=== PATIENT | male | born 1935 | race Caucasian/White ===

== ENCOUNTER 2022-02-17 23:52 | Inpatient (IN) | payer OTHER ==
--- OUTSIDE RECORDS SUMMARY | 2022-02-18 00:15 | XMS REPORT | Continuity of Care Document ---
:1935 Author Organization [facility] t Address [address] [place] [address] Care Team Providers Name Role Phone Keyona Brown MD Primary Care Physician [phone] Attending Clinician Unavailable Michael Barakat MD Attending Clinician Mahamed Stone MD Attending Clinician ANTOLIN BRUMFIELD Attending Clinician Unavailable Antolin Almanza S Attending Clinician Benny PONCE, Smiley Attending Clinician Jazlyn Sylvester Attending Clinician MICHAEL BARAKAT Attending Clinician Unavailable MICHAEL BARAKAT Attending Clinician Unavailable MAHAMED STONE Attending Clinician Unavailable Keyona Brown MD Attending Clinician [phone] Doctor Unassigned, [place] Attending Clinician Unavailable KEYONA BROWN Attending Clinician Unavailable Stella HOWE, Win José Attending Clinician Unavailable Drew Sidhu Attending Clinician Estella PINEDO, Isabel Nelson Attending Clinician [phone] Maxwell Braxton MD Attending Clinician [facility] Attending Clinician 2, [facility] Attending Clinician Unavailable Adelfo Hough DO Attending Clinician Tech, [facility] Cardio Fac Attending Clinician Unavailable 1, [facility] Cardio Fac Room Attending Clinician Unavailable Mario PINEDO, Donnie Cabral Attending Clinician [id number] Admitting Clinician Unavailable JENNIFER CHU Admitting Clinician Unavailable Estella PINEDO, Isabel Nelson Admitting Clinician [phone] Payers Payer Name Policy Type Policy Number Effective Date Expiration Date S beau MCR MCR [id number] AET AET [id number] MEDICARE PART A [id number] 1999 \\T\\ B 00:00:00 [employer] INDEMNITY [id number] 1462-01-01 00:00:00 Problems Condition Condition Condition Status Onset Resolution Last Treating Co mments Source Name Details Category Date Date Treatment Clinician Date AMS AMS Disease Active Univers (altered (altered 3-29 ity of mental mental 00:00: [place] status) status) 00 Medical Branch Delirium Delirium Disease Active Unive rs 3-26 ity of 00:00: [place] 00 Medical Branch Confusion Confusion Disease Active Uni vers 3-26 ity of 00:00: [place] 00 Medical Branch 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' 3-25 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 00:[place] without without 00 Medical behavioral behavioral Br anch disturbanc disturbanc e e At risk At risk Disease Active Univers for weight for weight 3-25 it y of loss loss 00:00: [place] 00 Medical Branch Abnormal Abnormal Disease Active Unive rs BUN-to-cre BUN-to-cre 7-20 it y of atinine atinine 00:00: [place] ratio ratio 00 Medical Branch Gout of Gout of Disease Active 2019- Univers both feet both feet 7-10 ity of 00:00: [place] 00 Medical Branch Rash of Rash of Disease Active Univers perineum perineum 7-10 ity of 00:00: [place] 00 Medical Branch Candidiasi Candidiasi Disease Active 2019- U nivers s of s of 7-10 ity of urogenital urogenital [place] sites sites 00 [place] Dyspnea on Dyspnea on Disease Active 2018-06 U nivers exertion exertion 2-23 ity of 00:00: [place] 00 Medical Branch Evaluation Evaluation Disease Active 2018-06 U nivers of hearing of hearing 1-23 it [place] of impairment impairment [place] Puncture Puncture Disease Active 2018-06 Unive rs wound wound 1-23 ity of 00:00: [place] 00 Medical Branch Intermitte Intermitte Disease Active 2018-06 U nivers nt nt - it[place] of confusion confusion [place] Forgetfuln Forgetfuln Disease Active 2018-06 U nivers ess ess -22 ity of 00:00: [place] [address] Medical Branch Confusion Confusion Disease Active 2018-06 Uni vers - ity of 00:00: [place] [address] Medical Branch Cat bite, Cat bite, Disease Active 2018-06 Uni vers initial initial 1-19 ity of encounter [facility] Heart Heart Disease Active 2018-06 Univers murmur murmur -19 ity of 00:00: [place] [address] Medical Branch Hyperlipid Hyperlipid Disease Active 2018-06 U nivers emia, emia, 1-19 ity of unspecifie unspecifie [place] 00 Medical hyperlipid hyperlipid Br anch emia type emia type 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 1-19 ity of 00:00: [place] [address] Medical Branch Gout, Gout, Disease Active 2016-06 Univers unspecifie unspecifie 2-22 it y of d cause, d cause, 00:00: [place] unspecifie unspecifie 00 Me dical d d Branch chronicity chronicity , , unspecifie unspecifie d site d site Abdominal Abdominal Disease Active 2016-06 Uni vers pain, pain, 2-22 ity of right right 00:00: [facility] 00 [facility] quadrant quadrant Branch 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 8-25 it y of sterolemia sterolemia [place] Essential Essential Disease Active Uni vers hypertensi hypertensi 8-25 it y of on, benign on, benign 00:[place] Arthritis Arthritis Disease Active Uni vers of both of both 3-31 ity of knees knees 00:00: [place] 00 Medical Branch Lateral Lateral Disease Active Univers epicondyli epicondyli 08-29 it y of tis of tis of 00:00: [place] right right 00 Medical elbow elbow Branch Allergies, Adverse Reactions, Alerts Allergy Allergy Status Severity Reaction(s) Onset Inactive Treating Comm ents Source Name Type Date Date Clinician NITROGLY DRUG Active N/V Univers CERIN INGREDI 08-27 ity of 00:00: [place] 00 Medical Branch Nitrogly Propensi Active Nausea Univer s cerin ty to and/or 08-27 ity of adverse Vomiting 00:00: [place] reaction Medical s Branch Social History Social Habit Start Date Stop Date Quantity Comments Source History [facility] o f Alcohol Std Drinks [facility] History [facility] University o f Alcohol Binge [facility] al Branch Exposure to 2021-09-17 2021-09-27 Not sure [facility] SARS-CoV-2 (event) 00:00:00 22:13:00 [facility] Alcohol intake 2021-09-27 2021-09-27 .43 /d University of 00:00:00 00:00:00 [facility] Cigarettes smoked 2015-11-09 2015-11-09 Univers ity of current (pack per 00:00:00 00:00:00 [facility]) - Reported Branch Cigarette 2015-11-09 2015-11-09 University of pack-years 00:00:00 00:00:00 [facility] Tobacco use and 2015-11-09 2015-11-09 Former smokeless Uni versity of exposure 00:00:00 00:00:00 [facility] [place] Alcohol Comment 2015-11-09 2015-11-09 once a week Universi ty of 00:00:00 00:00:00 [facility] History of tobacco 1986-11-08 Chews Tobacco Uni versity of use 00:00:00 [facility] Sex [birth year] Universit y of 00:00:00 00:00:00 [facility] Smoking Status Start Date Stop Date Source Ex-smoker 2015-11-09 00:00:00 2015-11-09 00:00:00 [facility] ty of [place] [facility] Medications Ordered Filled Start Stop Current Ordering Indication Dosage Frequency Signature Comments Components Source Medication Medication Date Date Medication? Clinician (SIG) Name Name DIVALPROEX 2021-0 Yes 125mg TAKE 1 Univ ers 125 mg EC 8-29 TABLET BY ity o f tablet 00:00: MOUTH IN [place] 00 THE Medical MORNING Branch AND 1 TABLET IN THE EVENING. divalproex 2021-0 Yes 125mg Take 1 Univ ers 125 mg EC 8-04 tablet by ity o f tablet 00:00: mouth in [place] 00 the Medical morning Branch and 1 tablet in the evening. divalproex 2021-0 2022- No 125mg Take 1 Uni vers 125 mg EC 8-04 08- tablet by ity of tablet 00:00: 00:00 mouth in [place] 00 :00 the Medical morning Branch and 1 tablet in the evening. MEMANTINE 0 Yes [id number] TAKE 1 Un lonnie 10 mg 4-21 TABLET BY ity of tablet 00:00: MOUTH [place] 00 TWICE A Medical DAY Branch MEMANTINE 2021-0 Yes [id number] TAKE 1 Un [place] 10 mg 4-21 TABLET BY ity of tablet 00:00: MOUTH [place] 00 TWICE A Medical DAY Branch MEMANTINE 2021-0 Yes [id number] TAKE 1 Un [place] 10 mg 4-21 TABLET BY ity of tablet 00:00: MOUTH [place] 00 TWICE A Medical DAY Branch MEMANTINE 2021-0 Yes [id number] TAKE 1 Un [place] 10 mg 4-21 TABLET BY ity of tablet 00:00: MOUTH [place] 00 TWICE A Medical DAY Branch MEMANTINE 2021-0 Yes [id number] TAKE 1 Un [place] 10 mg 4-21 TABLET BY ity of tablet 00:00: MOUTH [place] 00 TWICE A Medical DAY Branch MEMANTINE 2021-0 Yes [id number] TAKE 1 Un [place] 10 mg 4-21 TABLET BY ity of tablet 00:00: MOUTH [place] 00 TWICE A Medical DAY Branch ATORVASTATI 2021-0 Yes [id number] TAKE 1 Univers N 20 mg 4-11 TABLET BY ity of tablet 00:00: MOUTH [place] 00 EVERY DAY Medical Branch ATORVASTATI 2021-0 Yes [id number] TAKE 1 Univers N 20 mg 4-11 TABLET BY ity of tablet 00:00: MOUTH [place] 00 EVERY DAY Medical Branch ATORVASTATI 2021-0 Yes [id number] TAKE 1 Univers N 20 mg 4-11 TABLET BY ity of tablet 00:00: MOUTH [place] EVERY DAY Medical Branch ATORVASTATI 2021-0 Yes [id number] TAKE 1 Univers N 20 mg 4-11 TABLET BY ity of tablet 00:00: MOUTH EVERY DAY Medical Branch ATORVASTATI 2021-0 Yes [id number] TAKE 1 Univers N 20 mg 4-11 TABLET BY ity of tablet 00:00: MOUTH EVERY DAY Medical Branch ATORVASTA 2021-0 Yes [id number] TAKE 1 Univers N 20 mg 4-11 TABLET BY ity of tablet 00:00: MOUTH EVERY DAY Medical Branch ATORVASTATI 0 Yes [id number] TAKE 1 Univers N 20 mg 4-11 TABLET BY ity of tablet 00:00: MOUTH EVERY DAY Medical Branch ALLOPURINOL 2020-06 Yes [id number] TAKE 1 Univers 100 mg 2-28 TABLET BY ity of tablet 00:00: MOUTH EVERYDAY Medical AT [facility] ALLOPURINOL 2020-06 Yes [id number] TAKE 1 Univers 100 mg 2-28 TABLET BY ity of tablet 00:00: MOUTH EVERYDAY Medical AT [facility] ALLOPURINOL 2020- Yes TAKE 1 Univers 100 mg 2-28 TABLET BY ity of tablet 00:00: MOUTH 00 EVERYDAY Medical AT [facility] ALLOPURINOL 2020- Yes TAKE 1 Univers 100 mg 2-28 TABLET BY ity of tablet 00:00: MOUTH 00 EVERYDAY Medical AT [facility] ALLOPURINOL 2020- Yes TAKE 1 Univers 100 mg 2-28 TABLET BY ity of tablet 00:00: MOUTH 00 EVERYDAY Medical AT [facility] ALLOPURINOL 2020- Yes TAKE 1 Univers 100 mg 2-28 TABLET BY ity of tablet 00:00: MOUTH 00 EVERYDAY Medical AT [facility] ALLOPURINOL 2020- Yes TAKE 1 Univers 100 mg 2-28 TABLET BY ity of tablet 00:00: MOUTH 00 EVERYDAY Medical AT [facility] ALLOPURINOL 2020- Yes TAKE 1 Univers 100 mg 2-28 TABLET BY ity of tablet 00:00: MOUTH 00 EVERYDAY Medical AT [facility] ALLOPURINOL 2020- Yes TAKE 1 Univers 100 mg 2-28 TABLET BY ity of tablet 00:00: MOUTH 00 EVERYDAY Medical AT BEDTIME Branch ALLOPURINOL 2020-06 Yes [id number] TAKE 1 Univers 100 mg 2-28 TABLET BY ity of tablet 00:00: MOUTH 00 EVERYDAY Medical AT BEDTIME Branch GALANTAMINE 2020-06 Yes [id number] TAKE 1 Univers 8 mg tablet 2-20 TABLET BY ity of 00:00: MOUTH TWICE A Medical DAY Branch GALANTAMINE 2020-06 Yes [id number] TAKE 1 Univers 8 mg tablet 2-20 TABLET BY ity of 00:00: MOUTH TWICE A Medical DAY Branch GALANTAMINE 2020-06 Yes [id number] TAKE 1 Univers 8 mg tablet 2-20 TABLET BY ity of 00:00: MOUTH TWICE A Medical DAY Branch GALANTAMINE 2020-06 Yes [id number] TAKE 1 Univers 8 mg tablet 2-20 TABLET BY ity of 00:00: TWICE A Medical DAY Branch GALANTAMINE 2020-06 Yes [id number] TAKE 1 Univers 8 mg tablet 2-20 TABLET BY ity of 00:00: TWICE A Medical DAY Branch GALANTAMINE 2020-06 Yes [id number] TAKE 1 Univers 8 mg tablet 2-20 TABLET BY ity of 00:00: MOUTH TWICE A Medical DAY Branch GALANTAMINE 2020-06 Yes [id number] TAKE 1 Univers 8 mg tablet 2-20 TABLET BY ity of 00:00: TWICE A Medical DAY Branch GALANTAMINE 2020-06 Yes [id number] TAKE 1 Univers 8 mg tablet 2-20 TABLET BY ity of 00:00: TWICE A Medical DAY Branch GALANTAMINE 2020-06 Yes [id number] TAKE 1 Univers 8 mg tablet 2-20 TABLET BY ity of 00:00: MOUTH TWICE A Medical DAY Branch GALANTAMINE 2020-06 Yes [id number] TAKE 1 Univers 8 mg tablet 2-20 TABLET BY ity of 00:00: MOUTH TWICE A Medical DAY Branch GALANTAMINE 2020-06 Yes [id number] TAKE 1 Univers 8 mg tablet 2-20 TABLET BY ity of 00:00: MOUTH TWICE A Medical DAY Branch memantine 2020-06 Yes [id number] 10mg Take 1 Un lonnie 10 mg 0-28 tablet by ity of tablet 00:00: mouth (two) Medical times Branch daily. memantine 2020-06 Yes [id number] 10mg Take 1 Un [place] 10 mg 0-28 tablet by ity of tablet 00:00: mouth 2 (two) Medical times Branch daily. memantine 2020-06 Yes [id number] 10mg Take 1 Un [place] 10 mg 0-28 tablet by ity of tablet 00:00: mouth 2 (two) Medical times Branch daily. memantine 2020-06 Yes [id number] 10mg Take 1 Un [place] 10 mg 0-28 tablet by ity of tablet 00:00: mouth 2 (two) Medical times Branch daily. memantine 2020-06 Yes [id number] 10mg Take 1 Un [place] 10 mg 0-28 tablet by ity of tablet 00:00: mouth [place] (two) Medical times Branch daily. memantine 2020-06 Yes [id number] 10mg Take 1 Un [place] 10 mg 0-28 tablet by ity of tablet 00:00: mouth [place] (two) Medical times Branch daily. memantine 2020-06 Yes [id number] 10mg Take 1 [place] 10 mg 0-28 tablet by ity of tablet 00:00: mouth [place] (two) Medical times Branch daily. memantine 2020-06 Yes [id number] 10mg Take 1 [place] 10 mg 0-28 tablet by ity of tablet 00:00: mouth 2 [place] (two) Medical times Branch daily. memantine 2020-06- No [id number] 10mg Take 1 U nivers 10 mg 0-28 04-21 tablet by ity of tablet 00:00: 00:00 mouth 2 [place] 00 :00 (two) Medical times Branch daily. MEMANTINE 2020-06 Yes [id number] TAKE BY U nivers tablet pack 0-25 MOUTH ity of 00:00: SEE-INSTRU 00 CTIONS. 5 Medical MG/DAY FOR Branch =1 WEEK 5 MG TWICE DAILY FOR =1 WEEK 15 MG/DAY GIVEN IN 5 MG AND 10 MG DOSES FOR =1 WEEK THEN 10 MG TWICE DAILY MEMANTINE 2020-06- No [id number] TAKE BY Univers tablet pack 0-25 10-28 MOUTH ity of 00:00: 00:00 SEE-INSTRU [place] 00 :00 CTIONS. 5 Medical MG/DAY FOR Branch =1 WEEK 5 MG TWICE DAILY FOR =1 WEEK 15 MG/DAY GIVEN IN 5 MG AND 10 MG DOSES FOR =1 WEEK THEN 10 MG TWICE DAILY galantamine 2020-0 Yes [id number] 8mg Take 1 Univers 8 mg tablet 9-24 tablet by ity of 00:00: mouth (two) Medical times Branch daily. memantine 2020-0 Yes [id number] Take by [employer] tablet pack 9-24 mouth ity of 00:00: SEE-INSTRU CTIONS. 5 Medical mg/day for Branch =1 week; 5 mg twice daily for =1 week; 15 mg/day given in 5 mg and 10 mg doses for =1 week; then 10 mg twice daily galantamine 2020-0 Yes [id number] 8mg Take 1 Univers 8 mg tablet 9-24 tablet by ity of 00:00: mouth (two) Medical times Branch daily. memantine 2020-0 Yes [id number] Take by [employer] tablet pack 9-24 mouth ity of 00:00: SEE-INSTRU CTIONS. 5 Medical mg/day for Branch =1 week; 5 mg twice daily for =1 week; 15 mg/day given in 5 mg and 10 mg doses for =1 week; then 10 mg twice daily galantamine 2020-0 Yes [id number] 8mg Take 1 Univers 8 mg tablet 9-24 tablet by ity of 00:00: mouth (two) Medical times Branch daily. memantine 2020-0 Yes [id number] Take by [employer] tablet pack 9-24 mouth ity of 00:00: SEE-INSTRU CTIONS. 5 Medical mg/day for Branch =1 week; 5 mg twice daily for =1 week; 15 mg/day given in 5 mg and 10 mg doses for =1 week; then 10 mg twice daily galantamine 2020-0 Yes [id number] 8mg Take 1 Univers 8 mg tablet 9-24 tablet by ity of 00:00: mouth (two) Medical times Branch daily. galantamine 2020-0 Yes [id number] 8mg Take 1 Univers 8 mg tablet 9-24 tablet by ity of 00:00: mouth (two) Medical times Branch daily. galantamine 2020-0 Yes [id number] 8mg Take 1 Univers 8 mg tablet 9-24 tablet by ity of 00:00: mouth 2 (two) Medical times Branch daily. galantamine 0 Yes [id number] 8mg Take 1 Univers 8 mg tablet 9-24 tablet by ity of 00:00: mouth 2 (two) Medical times Branch daily. galantamine 2020- No [id number] 8mg Take 1 Univers 8 mg tablet 02-22 12-20 tablet by it y of 00:00: 00:00 mouth 2 [place] 00 :00 (two) Medical times Branch daily. memantine 2020- No [id number] Take by Univers tablet pack 02-22 10-25 mouth ity of 00:00: 00:00 SEE-INSTRU [place] 00 :00 CTIONS. 5 Medical mg/day for Branch =1 week; 5 mg twice daily for =1 week; 15 mg/day given in 5 mg and 10 mg doses for =1 week; then 10 mg twice daily ALLOPURINOL 2020-0 Yes TAKE 1 Univers 100 mg 6-30 TABLET BY ity of tablet 00:00: [facility] EVERYDAY Medical AT BEDTIME Branch ALLOPURINOL 2020-0 Yes TAKE 1 Univers 100 mg 6-30 TABLET BY ity of tablet 00:00: [facility] EVERYDAY Medical AT BEDTIME Branch ALLOPURINOL 2020-0 Yes TAKE 1 Univers 100 mg 6-30 TABLET BY ity of tablet 00:00: [facility] EVERYDAY Medical AT BEDTIME Branch ALLOPURINOL 2020-0 Yes TAKE 1 Univers 100 mg 6-30 TABLET BY ity of tablet 00:00: [facility] 00 EVERYDAY Medical AT BEDTIME Branch ALLOPURINOL 2020-0 Yes TAKE 1 Univers 100 mg 6-30 TABLET BY ity of tablet 00:00: [facility] 00 EVERYDAY Medical AT BEDTIME Branch ALLOPURINOL 2020-0 Yes TAKE 1 Univers 100 mg 6-30 TABLET BY ity of tablet 00:00: [facility] 00 EVERYDAY Medical AT BEDTIME Branch ALLOPURINOL 2020-0 Yes TAKE 1 Univers 100 mg 6-30 TABLET BY ity of tablet 00:00: [facility] EVERYDAY Medical AT BEDTIME Branch ALLOPURINOL 2020-0 Yes TAKE 1 Univers 100 mg 6-30 TABLET BY ity of tablet 00:00: MOUTH [place] 00 EVERYDAY Medical AT [facility] ALLOPURINOL 2020-0 Yes [id number] TAKE 1 Univers 100 mg 6-30 TABLET BY ity of tablet 00:00: MOUTH [place] 00 EVERYDAY Medical AT [facility] ALLOPURINOL 2020-0 Yes [id number] TAKE 1 Univers 100 mg 6-30 TABLET BY ity of tablet 00:00: MOUTH [place] 00 EVERYDAY Medical AT [facility] ALLOPURINOL 2020-0 Yes [id number] TAKE 1 Univers 100 mg 6-30 TABLET BY ity of tablet 00:00: MOUTH [place] 00 EVERYDAY Medical AT [facility] ALLOPURINOL 2020-0 Yes [id number] TAKE 1 Univers 100 mg 6-30 TABLET BY ity of tablet 00:00: MOUTH [place] 00 EVERYDAY Medical [facility] ALLOPURINOL 2020-0 202- No [id number] TAKE 1 Univers 100 mg 6-30 12-28 TABLET BY ity of tablet 00:00: 00:00 MOUTH [place] 00 :00 EVERYDAY Medical [facility] aspirin 81 2020-0 Yes 81mg Take 81 mg U nivers mg EC 4-05 by mouth. ity of tablet 14:47: [address] aspirin 81 2020-0 Yes 81mg Take 81 mg U nivers mg EC 4-05 by mouth. ity of tablet 14:47: [address] aspirin 81 202-0 Yes 81mg Take 81 mg U nivers mg EC 4-05 by mouth. ity of tablet 14:47: [address] aspirin 81 202-0 Yes 81mg Take 81 mg U nivers mg EC 4-05 by mouth. ity of tablet 14:47: [address] aspirin 81 202-0 Yes 81mg Take 81 mg U nivers mg EC 4-05 by mouth. ity of tablet 14:47: [address] aspirin 81 202-0 Yes 81mg Take 81 mg U nivers mg EC 4-05 by mouth. ity of tablet 14:47: [address] aspirin 81 202-0 Yes 81mg Take 81 mg U nivers mg EC 4-05 by mouth. ity of tablet 14:47: [address] aspirin 81 202-0 Yes 81mg Take 81 mg U nivers mg EC 4-05 by mouth. ity of tablet 14:47: [address] aspirin 81 2021-0 Yes 81mg Take 81 mg U nivers mg EC 4-05 by mouth. ity of tablet 14:47: [address] aspirin 81 2021-0 Yes 81mg Take 81 mg U nivers mg EC 4-05 by mouth. ity of tablet 14:47: [address] aspirin 81 2021-0 Yes 81mg Take 81 mg U nivers mg EC 4-05 by mouth. ity of tablet 14:47: [address] aspirin 81 2021-0 Yes 81mg Take 81 mg U nivers mg EC 4-05 by mouth. ity of tablet 14:47: [address] aspirin 81 2021-0 Yes 81mg Take 81 mg U nivers mg EC 4-05 by mouth. ity of tablet 09:47: [address] aspirin 81 2021-0 Yes 81mg Take 81 mg U nivers mg EC 4-05 by mouth. ity of tablet 09:47: [address] aspirin 81 2021-0 Yes 81mg Take 81 mg U nivers mg EC 4-05 by mouth. ity of tablet 09:47: [address] aspirin 81 2021-0 Yes 81mg Take 81 mg U nivers mg EC 4-05 by mouth. ity of tablet 09:47: [address] aspirin 81 2021-0 Yes 81mg Take 81 mg U nivers mg EC 4-05 by mouth. ity of tablet 09:47: [address] aspirin 81 2021-0 Yes 81mg Take 81 mg U nivers mg EC 4-05 by mouth. ity of tablet 09:47: [address] aspirin 81 2021-0 Yes 81mg Take 81 mg U nivers mg EC 4-05 by mouth. ity of tablet 09:47: [address] aspirin 81 2021-0 Yes 81mg Take 81 mg U nivers mg EC 4-05 by mouth. ity of tablet 09:47: [address] aspirin 81 2021-0 Yes 81mg Take 81 mg U nivers mg EC 4-05 by mouth. ity of tablet 09:47: [address] aspirin 81 2021-0 Yes 81mg Take 81 mg U nivers mg EC 4-05 by mouth. ity of tablet 09:47: [address] aspirin 81 2021-0 Yes 81mg Take 81 mg U nivers mg EC 4-05 by mouth. ity of tablet 09:47: [address] aspirin 81 2020-0 Yes 81mg Take 81 mg U nivers mg EC 4-05 by mouth. ity of tablet 09:47: [address] aspirin 81 202-0 Yes 81mg Take 81 mg U nivers mg EC 4-05 by mouth. ity of tablet 09:47: [address] aspirin 81 202-0 Yes 81mg Take 81 mg U nivers mg EC 4-05 by mouth. ity of tablet 09:47: [address] aspirin 81 202-0 Yes 81mg Take 81 mg U nivers mg EC 4-05 by mouth. ity of tablet 09:47: [address] aspirin 81 2020-0 Yes 81mg Take 81 mg U nivers mg EC 4-05 by mouth. ity of tablet 09:47: [address] aspirin 81 202-0 Yes 81mg Take 81 mg U nivers mg EC 4-05 by mouth. ity of tablet 09:47: [address] aspirin 81 2020-0 Yes 81mg Take 81 mg U nivers mg EC 4-05 by mouth. ity of tablet 09:47: [address] aspirin 81 2020-0 Yes 81mg Take 81 mg U nivers mg EC 4-05 by mouth. ity of tablet 09:47: [address] aspirin 81 2020-0 Yes 81mg Take 81 mg U nivers mg EC 4-05 by mouth. ity of tablet 09:47: [address] aspirin 81 2020-0 Yes 81mg Take 81 mg U nivers mg EC 4-01 by mouth. ity of tablet 21:53: [address] aspirin 81 2020-0 Yes 81mg Take 81 mg U nivers mg EC 4-01 by mouth. ity of tablet 21:53: [address] apixaban 2020-0 Yes 2.5mg 2.5 mg, Unive rs (ELIQUIS) 4-01 Oral, BID, ity of tablet 2.5 01:00: [place] 00 on Thu08/29/20 at Branch 2000, Until Discontinu ed, Routine apixaban 2020-0 Yes 1361 2.5mg Take 1 Univer s 2.5 mg 4-01 tablet by ity of tablet 00:00: mouth 2 [place] 00 (two) Medical times Branch daily. Indication s: atrial flutter polyethylen 2020-0 Yes [id number] 17g Take 1 Univers e glycol 4-01 Packet by ity of 3350 17 00:00: mouth 2 [place] gram powder 00 (two) Medical times Branch daily as needed for Constipati on. sennosides- 2020-0 Yes [id number] 1{tbl} Take 1 Univers docusate 4-01 tablet by ity of sodium 00:00: mouth 2 [place] 8.6-50 mg 00 (two) Medical per tablet times Branch daily. apixaban 2020-0 Yes 1361 2.5mg Take 1 Univer s 2.5 mg 4-01 tablet by ity of tablet 00:00: mouth 2 [place] 00 (two) Medical times Branch daily. Indication s: atrial flutter polyethylen 2020-0 Yes [id number] 17g Take 1 Univers e glycol 4-01 Packet by ity of 3350 17 00:00: mouth 2 [place] gram powder 00 (two) Medical times Branch daily as needed for Constipati on. sennosides- 2020-0 Yes [id number] 1{tbl} Take 1 Univers docusate 4-01 tablet by ity of sodium 00:00: mouth 2 [place] 8.6-50 mg 00 (two) Medical per tablet times Branch daily. apixaban 2020-0 Yes 1361 2.5mg Take 1 Univer s 2.5 mg 4-01 tablet by ity of tablet 00:00: mouth 2 [place] 00 (two) Medical times Branch daily. Indication s: atrial flutter polyethylen 2020-0 Yes [id number] 17g Take 1 Univers e glycol 4-01 Packet by ity of 3350 17 00:00: mouth 2 [place] gram powder 00 (two) Medical times Branch daily as needed for Constipati on. sennosides- 2020-0 Yes [id number] 1{tbl} Take 1 Univers docusate 4-01 tablet by ity of sodium 00:00: mouth 2 [place] 8.6-50 mg 00 (two) Medical per tablet times Branch daily. apixaban 2020-0 Yes 1361 2.5mg Take 1 Univer s 2.5 mg 4-01 tablet by ity of tablet 00:00: mouth 2 [place] 00 (two) Medical times Branch daily. Indication s: atrial flutter polyethylen 2020-0 Yes [id number] 17g Take 1 Univers e glycol 4-01 Packet by ity of 3350 17 00:00: mouth 2 [place] gram powder 00 (two) Medical times Branch daily as needed for Constipati on. sennosides- 2020-0 Yes [id number] 1{tbl} Take 1 Univers docusate 4-01 tablet by ity of sodium 00:00: mouth 2 [place] 8.6-50 mg 00 (two) Medical per tablet times Branch daily. apixaban 2020-0 Yes 1361 2.5mg Take 1 Univer s 2.5 mg 4-01 tablet by ity of tablet 00:00: mouth 2 [place] 00 (two) Medical times Branch daily. Indication s: atrial flutter polyethylen 2020-0 Yes [id number] 17g Take 1 [facility] e glycol 4-01 Packet by ity of 3350 17 00:00: mouth 2 [place] gram powder 00 (two) Medical times Branch daily as needed for Constipati on. sennosides- 2020-0 Yes [id number] 1{tbl} Take 1 [facility] docusate 4-01 tablet by ity of sodium 00:00: mouth 2 [place] 8.6-50 mg 00 (two) Medical per tablet times Branch daily. apixaban 2020-0 Yes 1361 2.5mg Take 1 [facility] s 2.5 mg 4-01 tablet by ity of tablet 00:00: mouth 2 [place] 00 (two) Medical times Branch daily. Indication s: atrial flutter polyethylen 2020-0 Yes [id number] 17g Take 1 [facility] e glycol 4-01 Packet by ity of 3350 17 00:00: mouth 2 [place] gram powder 00 (two) Medical times Branch daily as needed for Constipati on. sennosides- 2020-0 Yes [id number] 1{tbl} Take 1 [facility] docusate 4-01 tablet by ity of sodium 00:00: mouth 2 [place] 8.6-50 mg 00 (two) Medical per tablet times Branch daily. apixaban 2020-0 Yes 1361 2.5mg Take 1 [facility] 2.5 mg 4-01 tablet by ity of tablet 00:00: mouth 2 [place] 00 (two) Medical times Branch daily. Indication s: atrial flutter polyethylen 2020-0 Yes [id number] 17g Take 1 [facility] e glycol 4-01 Packet by ity of 3350 17 00:00: mouth 2 [place] gram powder 00 (two) Medical times Branch daily as needed for Constipati on. sennosides- 2020-0 Yes [id number] 1{tbl} Take 1 [facility] docusate 4-01 tablet by ity of sodium 00:00: mouth 2 [place] 8.6-50 mg 00 (two) Medical per tablet times Branch daily. apixaban 2020-0 Yes 1361 2.5mg Take 1 [facility] 2.5 mg 4-01 tablet by ity of tablet 00:00: mouth 2 [place] 00 (two) Medical times Branch daily. Indication s: atrial flutter polyethylen 2020-0 Yes [id number] 17g Take 1 [facility] e glycol 4-01 Packet by ity of 3350 17 00:00: mouth 2 [place] gram powder 00 (two) Medical times Branch daily as needed for Constipati on. sennosides- 2020-0 Yes [id number] 1{tbl} Take 1 [facility] docusate 4-01 tablet by ity of sodium 00:00: mouth 2 [place] 8.6-50 mg 00 (two) Medical per tablet times Branch daily. apixaban 2020-0 Yes 1361 2.5mg Take 1 [facility] 2.5 mg 4-01 tablet by ity of tablet 00:00: mouth 2 [place] 00 (two) Medical times Branch daily. Indication s: atrial flutter polyethylen 2020-0 Yes [id number] 17g Take 1 [facility] e glycol 4-01 Packet by ity of 3350 17 00:00: mouth 2 [place] gram powder 00 (two) Medical times Branch daily as needed for Constipati on. sennosides- 2020-0 Yes [id number] 1{tbl} Take 1 [facility] docusate 4-01 tablet by ity of sodium 00:00: mouth 2 [place] 8.6-50 mg 00 (two) Medical per tablet times Branch daily. apixaban 2020-0 Yes 1361 2.5mg Take 1 [facility] 2.5 mg 4-01 tablet by ity of tablet 00:00: mouth 2 [place] 00 (two) Medical times Branch daily. Indication s: atrial flutter polyethylen 2020-0 Yes [id number] 17g Take 1 [facility] e glycol 4-01 Packet by ity of 3350 17 00:00: mouth 2 [place] gram powder 00 (two) Medical times Branch daily as needed for Constipati on. sennosides- 2020-0 Yes [id number] 1{tbl} Take 1 [facility] docusate 4-01 tablet by ity of sodium 00:00: mouth 2 [place] 8.6-50 mg 00 (two) Medical per tablet times Branch daily. apixaban 2020-0 Yes 1361 2.5mg Take 1 [facility] 2.5 mg 4-01 tablet by ity of tablet 00:00: mouth 2 [place] 00 (two) Medical times Branch daily. Indication s: atrial flutter polyethylen 2020-0 Yes [id number] 17g Take 1 [facility] e glycol 4-01 Packet by ity of 3350 17 00:00: mouth 2 [place] gram powder 00 (two) Medical times Branch daily as needed for Constipati on. sennosides- 2020-0 Yes [id number] 1{tbl} Take 1 [facility] docusate 4-01 tablet by ity of sodium 00:00: mouth 2 [place] 8.6-50 mg 00 (two) Medical per tablet times Branch daily. apixaban 2020-0 Yes 1361 2.5mg Take 1 [facility] s 2.5 mg 4-01 tablet by ity of tablet 00:00: mouth 2 [place] 00 (two) Medical times Branch daily. Indication s: atrial flutter polyethylen 2020-0 Yes [id number] 17g Take 1 [facility] e glycol 4-01 Packet by ity of 3350 17 00:00: mouth 2 [place] gram powder 00 (two) Medical times Branch daily as needed for Constipati on. sennosides- 2020-0 Yes [id number] 1{tbl} Take 1 [facility] docusate 4-01 tablet by ity of sodium 00:00: mouth 2 [place] 8.6-50 mg 00 (two) Medical per tablet times Branch daily. apixaban 1-0 Yes 1361 2.5mg Take 1 [facility] s 2.5 mg 4-01 tablet by ity of tablet 00:00: mouth 2 [place] 00 (two) Medical times Branch daily. Indication s: atrial flutter polyethylen 2020-0 Yes [id number] 17g Take 1 [facility] e glycol 4-01 Packet by ity of 3350 17 00:00: mouth 2 [place] gram powder 00 (two) Medical times Branch daily as needed for Constipati on. sennosides- 2020-0 Yes [id number] 1{tbl} Take 1 [facility] docusate 4-01 tablet by ity of sodium 00:00: mouth 2 [place] 8.6-50 mg 00 (two) Medical per tablet times Branch daily. apixaban 2020-0 Yes 1361 2.5mg Take 1 [facility] s 2.5 mg 4-01 tablet by ity of tablet 00:00: mouth 2 [place] 00 (two) Medical times Branch daily. Indication s: atrial flutter polyethylen 2020-0 Yes [id number] 17g Take 1 [facility] e glycol 4-01 Packet by ity of 3350 17 00:00: mouth 2 [place] gram powder 00 (two) Medical times Branch daily as needed for Constipati on. sennosides- 2020-0 Yes [id number] 1{tbl} Take 1 [facility] docusate 4-01 tablet by ity of sodium 00:00: mouth 2 [place] 8.6-50 mg 00 (two) Medical per tablet times Branch daily. apixaban 2020-0 Yes 1361 2.5mg Take 1 [facility] s 2.5 mg 4-01 tablet by ity of tablet 00:00: mouth 2 [place] 00 (two) Medical times Branch daily. Indication s: atrial flutter polyethylen 2020-0 Yes [id number] 17g Take 1 [facility] e glycol 4-01 Packet by ity of 3350 17 00:00: mouth 2 [place] gram powder 00 (two) Medical times Branch daily as needed for Constipati on. sennosides- 2020-0 Yes [id number] 1{tbl} Take 1 [facility] docusate 4-01 tablet by ity of sodium 00:00: mouth 2 [place] 8.6-50 mg 00 (two) Medical per tablet times Branch daily. apixaban 1-0 Yes 1361 2.5mg Take 1 [facility] 2.5 mg 4-01 tablet by ity of tablet 00:00: mouth 2 [place] 00 (two) Medical times Branch daily. Indication s: atrial flutter polyethylen 2020-0 Yes [id number] 17g Take 1 [facility] e glycol 4-01 Packet by ity of 3350 17 00:00: mouth 2 [place] gram powder 00 (two) Medical times Branch daily as needed for Constipati on. sennosides- 2020-0 Yes [id number] 1{tbl} Take 1 [facility] docusate 4-01 tablet by ity of sodium 00:00: mouth 2 [place] 8.6-50 mg 00 (two) Medical per tablet times Branch daily. apixaban 2020-0 Yes 1361 2.5mg Take 1 [facility] 2.5 mg 4-01 tablet by ity of tablet 00:00: mouth 2 [place] 00 (two) Medical times Branch daily. Indication s: atrial flutter polyethylen 2020-0 Yes [id number] 17g Take 1 [facility] e glycol 4-01 Packet by ity of 3350 17 00:00: mouth 2 [place] gram powder 00 (two) Medical times Branch daily as needed for Constipati on. sennosides- 2020-0 Yes [id number] 1{tbl} Take 1 [facility] docusate 4-01 tablet by ity of sodium 00:00: mouth 2 [place] 8.6-50 mg 00 (two) Medical per tablet times Branch daily. apixaban 2020-0 Yes 1361 2.5mg Take 1 [facility] s 2.5 mg 4-01 tablet by ity of tablet 00:00: mouth 2 [place] 00 (two) Medical times Branch daily. Indication s: atrial flutter polyethylen 2020-0 Yes [id number] 17g Take 1 [facility] e glycol 4-01 Packet by ity of 3350 17 00:00: mouth 2 [place] gram powder 00 (two) Medical times Branch daily as needed for Constipati on. sennosides- 2020-0 Yes [id number] 1{tbl} Take 1 [facility] docusate 4-01 tablet by ity of sodium 00:00: mouth 2 [place] 8.6-50 mg 00 (two) Medical per tablet times Branch daily. apixaban 2020-0 Yes 1361 2.5mg Take 1 [facility] s 2.5 mg 4-01 tablet by ity of tablet 00:00: mouth 2 [place] 00 (two) Medical times Branch daily. Indication s: atrial flutter polyethylen 2020-0 Yes [id number] 17g Take 1 [facility] e glycol 4-01 Packet by ity of 3350 17 00:00: mouth 2 [place] gram powder 00 (two) Medical times Branch daily as needed for Constipati on. sennosides- 2020-0 Yes [id number] 1{tbl} Take 1 [facility] docusate 4-01 tablet by ity of sodium 00:00: mouth 2 [place] 8.6-50 mg 00 (two) Medical per tablet times Branch daily. apixaban 2020-0 Yes 1361 2.5mg Take 1 [facility] 2.5 mg 4-01 tablet by ity of tablet 00:00: mouth 2 [place] 00 (two) Medical times Branch daily. Indication s: atrial flutter polyethylen 2020-0 Yes [id number] 17g Take 1 [facility] e glycol 4-01 Packet by ity of 3350 17 00:00: mouth 2 [place] gram powder 00 (two) Medical times Branch daily as needed for Constipati on. sennosides- 2020- Yes [id number] 1{tbl} Take 1 [facility] docusate 4-01 tablet by ity of sodium 00:00: mouth 2 [place] 8.6-50 mg 00 (two) Medical per tablet times Branch daily. apixaban 2020-0 Yes 1361 2.5mg Take 1 [facility] s 2.5 mg 4-01 tablet by ity of tablet 00:00: mouth 2 [place] 00 (two) Medical times Branch daily. Indication s: atrial flutter polyethylen 2020-0 Yes [id number] 17g Take 1 [facility] e glycol 4-01 Packet by ity of 3350 17 00:00: mouth 2 [place] gram powder 00 (two) Medical times Branch daily as needed for Constipati on. sennosides- 2020-0 Yes [id number] 1{tbl} Take 1 [facility] docusate 4-01 tablet by ity of sodium 00:00: mouth 2 [place] 8.6-50 mg 00 (two) Medical per tablet times Branch daily. apixaban 2020-0 Yes 1361 2.5mg Take 1 [facility] s 2.5 mg 4-01 tablet by ity of tablet 00:00: mouth 2 [place] 00 (two) Medical times Branch daily. Indication s: atrial flutter polyethylen 2020-0 Yes [id number] 17g Take 1 [facility] e glycol 4-01 Packet by ity of 3350 17 00:00: mouth 2 [place] gram powder 00 (two) Medical times Branch daily as needed for Constipati on. sennosides- 2020-0 Yes [id number] 1{tbl} Take 1 [facility] docusate 4-01 tablet by ity of sodium 00:00: mouth 2 [place] 8.6-50 mg 00 (two) Medical per tablet times Branch daily. apixaban 2020-0 Yes 1361 2.5mg Take 1 [facility] 2.5 mg 4-01 tablet by ity of tablet 00:00: mouth 2 [place] 00 (two) Medical times Branch daily. Indication s: atrial flutter polyethylen 2020-0 Yes [id number] 17g Take 1 [facility] e glycol 4-01 Packet by ity of 3350 17 00:00: mouth 2 [place] gram powder 00 (two) Medical times Branch daily as needed for Constipati on. sennosides- 2020-0 Yes [id number] 1{tbl} Take 1 [facility] docusate 4-01 tablet by ity of sodium 00:00: mouth 2 [place] 8.6-50 mg 00 (two) Medical per tablet times Branch daily. apixaban 2020-0 Yes 1361 2.5mg Take 1 [facility] s 2.5 mg 4-01 tablet by ity of tablet 00:00: mouth 2 [place] 00 (two) Medical times Branch daily. Indication s: atrial flutter polyethylen 2020-0 Yes [id number] 17g Take 1 [facility] e glycol 4-01 Packet by ity of 3350 17 00:00: mouth 2 [place] gram powder 00 (two) Medical times Branch daily as needed for Constipati on. sennosides- 2020-0 Yes [id number] 1{tbl} Take 1 [facility] docusate 4-01 tablet by ity of sodium 00:00: mouth 2 [place] 8.6-50 mg 00 (two) Medical per tablet times Branch daily. apixaban 2020-0 Yes 1361 2.5mg Take 1 [facility] 2.5 mg 4-01 tablet by ity of tablet 00:00: mouth 2 [place] 00 (two) Medical times Branch daily. Indication s: atrial flutter polyethylen 2020-0 Yes [id number] 17g Take 1 [facility] e glycol 4-01 Packet by ity of 3350 17 00:00: mouth 2 [place] gram powder 00 (two) Medical times Branch daily as needed for Constipati on. sennosides- 2020-0 Yes [id number] 1{tbl} Take 1 [facility] docusate 4-01 tablet by ity of sodium 00:00: mouth 2 [place] 8.6-50 mg 00 (two) Medical per tablet times Branch daily. apixaban 2020-0 Yes 1361 2.5mg Take 1 [facility] 2.5 mg 4-01 tablet by ity of tablet 00:00: mouth 2 [place] 00 (two) Medical times Branch daily. Indication s: atrial flutter polyethylen 2020-0 Yes [id number] 17g Take 1 [facility] e glycol 4-01 Packet by ity of 3350 17 00:00: mouth 2 [place] gram powder 00 (two) Medical times Branch daily as needed for Constipati on. sennosides- 2020- Yes [id number] 1{tbl} Take 1 [facility] docusate 4-01 tablet by ity of sodium 00:00: mouth 2 [place] 8.6-50 mg 00 (two) Medical per tablet times Branch daily. apixaban 2020-0 Yes 1361 2.5mg Take 1 [facility] 2.5 mg 4-01 tablet by ity of tablet 00:00: mouth 2 [place] 00 (two) Medical times Branch daily. Indication s: atrial flutter polyethylen 2020-0 Yes [id number] 17g Take 1 [facility] e glycol 4-01 Packet by ity of 3350 17 00:00: mouth 2 [place] gram powder 00 (two) Medical times Branch daily as needed for Constipati on. sennosides- 2020-0 Yes [id number] 1{tbl} Take 1 [facility] docusate 4-01 tablet by ity of sodium 00:00: mouth 2 [place] 8.6-50 mg 00 (two) Medical per tablet times Branch daily. apixaban 2020-0 Yes 1361 2.5mg Take 1 [facility] s 2.5 mg 4-01 tablet by ity of tablet 00:00: mouth 2 [place] 00 (two) Medical times Branch daily. Indication s: atrial flutter polyethylen 2020-0 Yes [id number] 17g Take 1 [facility] e glycol 4-01 Packet by ity of 3350 17 00:00: mouth 2 [place] gram powder 00 (two) Medical times Branch daily as needed for Constipati on. sennosides- Yes [id number] 1{tbl} Take 1 [facility] docusate 4-01 tablet by ity of sodium 00:00: mouth 2 [place] 8.6-50 mg 00 (two) Medical per tablet times Branch daily. apixaban Yes 1361 2.5mg Take 1 [facility] s 2.5 mg 4-01 tablet by ity of tablet 00:00: mouth 2 [place] 00 (two) Medical times Branch daily. Indication s: atrial flutter polyethylen Yes [id number] 17g Take 1 [facility] e glycol 4-01 Packet by ity of 3350 17 00:00: mouth 2 [place] gram powder 00 (two) Medical times Branch daily as needed for Constipati on. sennosides- Yes [id number] 1{tbl} Take 1 [facility] docusate 4-01 tablet by ity of sodium 00:00: mouth 2 [place] 8.6-50 mg 00 (two) Medical per tablet times Branch daily. apixaban 2020- No 1361 2.5mg Take 1 Unive rs 2.5 mg 4-01 04-01 tablet by ity of tablet 00:00: 00:00 mouth 2 [place] 00 :00 (two) Medical times Branch daily. Indication s: atrial flutter polyethylen 2020- No [id number] 17g Take 1 [facility] e glycol 4-01 04-01 Packet by ity o f 3350 17 00:00: 00:00 mouth 2 [place] gram powder 00 :00 (two) Medical times Branch daily as needed for Constipati on. sennosides- 2020- No [id number] 1{tbl} Take 1 [facility] docusate 4-01 04-01 tablet by ity o f sodium 00:00: 00:00 mouth 2 [place] 8.6-50 mg 00 :00 (two) Medical per tablet times Branch daily. maalox-lido 2020- No 5mL 5 mL, Univ ers henrry 2% 3-30 03-30 Oral, ity of viscous 1:1 07:45: 07:01 ONCE, 1 [place] suspension 00 :00 dose, Tue Medi yasemin (COMPOUNDED 08/28/20 at Br anch ) 0245, Routine perflutren 2020- No [id number] 3mL 3 mL, IV Univers protein-A 08-27 [id number] Push, ity of microsphr 16:00: 15:40 ONCE, 1 [place] (OPTISON) 00 :00 dose, Mon Medic al injection 3 08/27/20 at Br anch mL 1100, Routine cefTRIAXone 2020- No 1000mg 1,000 mg, Univers (ROCEPHIN) 08-27 IV ity of 1,000 mg in 13:15: 14:46 Piggyback, [place] NaCl 0.9% 00 :56 Q24H ABX, Medic al (NS) 50 mL First dose [facility] MINI-BAG on Thu08/27/20 at 0815, Until Discontinu ed, 50 mL
R sea for Anti-Infec tive: Documented Infection< br>Documen adithya Infection Site: Urine<br&g t;Duration of Therapy: 7 days magnesium 2020- No 2g 2 g, IV Univ ers sulfate in 08-27 Piggyback, it y of water 2 12:00: 13:35 ONCE, 1 [place] gram/50 mL 00 :00 dose, Mon Medi yasemin (4 %) 08/27/20 at Branch infusion 2 0700, g Routine QUEtiapine No 12.5mg 12.5 mg, Univers (SEROQUEL) 08-26 Oral, ity of tablet 12.5 08:34: 08:59 ONCE, 1 [place] mg 00 :00 dose, [facility] 08/26/20 at Branch 0345, Routine levoFLOXaci 2020- No 750mg 750 mg, U nivers n 08-25 Oral, ity of (LEVAQUIN) 19:54: 22:22 ONCE, 1 [place] tablet 750 00 :00 dose, Sat Medi yasemin mg 08/25/20 at Branch 1500, NASIM
Re ason for Anti-Infec tive: Documented Infection< br>Documen adithya Infection Site: Urine
D uration of Therapy: 7 days heparin 2020-0 2020- No 12U/kg/ 12 Univer s 25,000 08-25 03-31 h Units/kg/h ity of Units/250 16:23: 14:52 r ?71.7 kg [place] mL 05 :43 (8.604 Medical (Premixed mL/hr, Branch Bag) in rounded to 0.45 % NS 8.6 mL/hr), IV Infusion, TITRATE, Parameters in Admin. Instr., Starting 08/25/20 at 1123
CA UTION - If LMWH given in ER, AVOID bolus and start next dose/drip 12 hrs after ER dosage.&nb sp; M ust program rate using programmab le infusion pump.&nbsp ; Jing ck with the ordering provider first prior to any administra tion should the patient be on existing/a dditional anticoagul ant therapy. Rang e, Dosing and Testing: &nbs p;FOR [facility], AND [facility] ONLY &nbs p; - aPTT < 35: & nbsp;Bolus 5000 units, increase rate 300 units/hr&n bsp; - aPTT 35-44:&nbs p; Bean nicholas 3000 units, increase rate 200 units/hr&n bsp; - aPTT 45-54:&nbs p; In crease rate 100 units/hr&n bsp; - aPTT 55-85:&nbs p; NO CHANGE&nbs p; - aPTT 86-95:&nbs p; De crease rate 100 units/hr&n bsp; - aPTT 96-120:&nb sp; H old 30 minutes, decrease rate 150 units/hr&a mp;nbsp; - aPTT > 120: Hold 60 minutes, decrease rate 200 units/hr&n bsp; Check aPTT 6 hours after initiation , then Q6H after every change, aPTT Q12H once therapeuti c levels are reached.&n bsp; &nbs p; __ &n bsp;FOR [facility] ONLY - aPTT < 40: & nbsp;Bolus 5000 units, increase rate 300 units/hr&n bsp; - aPTT 40-49:&amp ;nbsp;&nbs p;Bolus 3000 units, increase rate 200 units/hr&n bsp; - aPTT 50-59:&nbs p; In crease rate 100 units/hr&n bsp; - aPTT 60-85:&nbs p; NO CHANGE&nbs p; - aPTT 86-95:&nbs p; De crease rate 100 units/hr&n bsp; - aPTT 96-120:&nb sp; H old 30 minutes, decrease rate 150 units/hr&n bsp; - aPTT > 120: Hold 60 minutes, decrease rate 200 units/hr&n bsp; Check aPTT 6 hours after initiation , then Q6H after every change, aPTT Q12H once therapeuti c levels are reached.&n bsp; DO NOT ADJUST INITIAL BOLUS OR INITIAL INFUSION RATE.
HEPARIN 2020- No 4000U 4,000 Univers SODIUM 08-2527 Units, IV ity of (PORCINE) 15:30: 19:00 Push, [place] 1,000 00 :00 ONCE, 1 Medical UNIT/ML dose, Sat Branch BOLUS ACS 08/25/20 at ORDER SET 1030, Routine heparin 2020- No 3000U FOR Univers (1,000 08-25 REBOLUSING ity of unit/mL, 10 15:23: 14:52 , Starting [place] mL vial) 05 :43 [facility] for 08/25/20 at Branch Rebolusing 1023, Until Thu08/29/20 at 0952, Routine
Dosing based on aPTT testing parameters (refer to continuous heparin drip order).
lactated 2020- No 500mL at 500 Unive rs ringers IV 08-25 mL/hr, 500 it y of infusion 15:00: 14:40 mL, [place] 500 mL 00 :00 Intravenou Medical s, ONCE, 1 Branch dose, [facility] 08/25/20 at 1000, Routine aspirin EC Yes 81mg 81 mg, Unive rs tablet 81 08-25 Oral, ity of mg 14:00: DAILY, [place] 00 First dose Medical on [facility] 08/25/20 at 0900, Until Discontinu ed, Routine sennosides- Yes 1{tbl} 1 tablet, Univers docusate 08-25 Oral, BID, ity o f sodium 13:00: First dose [place] (SENOKOT-S) 00 on [facility] Medica l 8.6-50 mg 08/25/20 at Bran ch per tablet 0800, 1 tablet Until Discontinu ed, Routine Polyethylen Yes 17g 17 g, Unive rs e Glycol 08-25 Oral, BID, ity o f 3350 13:00: First dose [place] (MIRALAX) 00 (after Medical powder 17 g last Branch modificati on) on [facility] 08/25/20 at 0800, Until Discontinu ed, Routine carvediloL 2020- No 3.125mg 3.125 mg, Univers (COREG) 08-25 Oral, BID ity of tablet 13:00: 15:13 MEALS, [place] 3.125 mg 00 :24 First dose Medic al on [facility] 08/25/20 at 0800, Until Discontinu ed, Routine donepeziL Yes 10mg 10 mg, Univer s (ARICEPT) 08-25 Oral, QHS, ity of tablet 10 02:00: First dose [place] mg 00 on [facility] 08/24/20 at Branch 2100, Until Discontinu ed, Routine atorvastati Yes 20mg 20 mg, Univ ers n (LIPITOR) 3- Oral, QHS, it y of tablet 20 02:00: First dose [place] mg 00 on Thu [facility] 08/24/20 at Branch 2100, Until Discontinu ed, Routine allopurinoL Yes 100mg 100 mg, Un lonnie (ZYLOPRIM) 08-25 Oral, QHS, ity of tablet 100 02:00: First dose [place] mg 00 on Thu [facility] 08/24/20 at Branch 2100, Until Discontinu ed, Routine heparin 2020- No 5000U 5,000 Univers (porcine) 08-25- Units, ity of injection 01:00: 15:23 Subcutaneo [place] 5,000 Units 00 :25 us, Q12H, Med ical First dose Branch on Thu08/24/20 at 2000, Until Discontinu ed, Routine aspirin 81 Yes 81mg Take 81 mg U nivers mg EC 08-25 by mouth. ity of tablet 00:45: [address] aspirin 81 0 Yes 81mg Take 81 mg U nivers mg EC -27 by mouth. ity of tablet 00:45: [address] aspirin 81 0 Yes 81mg Take 81 mg U nivers mg EC - by mouth. ity of tablet 00:45: [address] acetaminoph Yes 650mg 650 mg, Un lonnie en 08-25 Oral, ity of (TYLENOL) 00:26: Q6HPRN, [place] tablet 650 00 Starting Medic al mg [facility] 08/24/20 at 1926, Until Discontinu ed, Routine, Pain (scale 1-3) aspirin 2020- No 324mg 324 mg, Unive rs chewable 08-24 Oral, ity of tablet 324 21:45: 21:07 ONCE, 1 [place] mg 00 :00 dose, [facility] 08/24/20 at Branch 1645, Routine NaCl 0.9% 2020- No 1000mL at 999 Uni vers (NS) bolus 08-24- mL/hr, ity of infusion 21:30: 20:33 1,000 mL, [place] 1,000 mL 00 :00 IV Medical Infusion, Branch ONCE, 1 dose, Thu08/24/20 at 1630, STAT furosemide 2020-0 Yes [id number] 40mg Take 2 [facility] 20 mg 3-26 tablets by ity of tablet 00:00: mouth [place] 00 every Medical Thursday, Branch Thursday and Thursday. furosemide 2020-0 Yes [id number] 40mg Take 2 [facility] 20 mg 3-26 tablets by ity of tablet 00:00: mouth [place] 00 every Medical Thursday, Branch Thursday and Thursday. furosemide 0 Yes [id number] 40mg Take 2 [facility] 20 mg 3-26 tablets by ity of tablet 00:00: mouth [place] 00 every Medical Thursday, Branch Thursday and Thursday. furosemide 2020-0 Yes [id number] 40mg Take 2 [facility] 20 mg 3-26 tablets by ity of tablet 00:00: mouth [place] 00 every Medical Thursday, Branch Thursday and Thursday. furosemide 2020-0 Yes [id number] 40mg Take 2 [facility] 20 mg 3-26 tablets by ity of tablet 00:00: mouth [place] 00 every Medical Thursday, Branch Thursday and Thursday. furosemide 2020-0 2020- No [id number] 40mg Take 2 [facility] 20 mg 3-26 04-01 tablets by ity of tablet 00:00: 00:00 mouth [place] 00 :00 every Medical Thursday, Branch Thursday and Thursday. furosemide 2020-0 2021- No [id number] 40mg Take 2 [facility] 20 mg 3-26 04-01 tablets by ity of tablet 00:00: 00:00 mouth [place] 00 :00 every Medical Thursday, Branch Thursday and Thursday. furosemide 2020-0 202- No [id number] 40mg Take 2 Univers 20 mg 3-26 04-01 tablets by ity of tablet 00:00: 00:00 mouth [place] 00 :00 every Medical Thursday, Branch Thursday and Thursday. furosemide 2020-0 2021- No [id number] 40mg Take 2 [facility] 20 mg 3-26 04-01 tablets by ity of tablet 00:00: 00:00 mouth [place] 00 :00 every Medical Thursday, Branch Thursday and Thursday. furosemide 2020-0 2020- No [id number] 40mg Take 2 [facility] 20 mg 3-26 - tablets by ity of tablet 00:00: 00:00 mouth [place] 00 :00 every Medical Thursday, Branch Thursday and Thursday. furosemide 2020- No [id number] 40mg Take 2 [facility] 20 mg 3-26 - tablets by ity of tablet 00:00: 00:00 mouth [place] 00 :00 every Medical Thursday, Branch Thursday and Thursday. furosemide 2020- No [id number] 40mg Take 1 [facility] 40 mg 3-26 -25 tablet by ity of tablet 00:00: 00:00 mouth [place] 00 :00 every Medical Thursday, Branch Thursday and Thursday. furosemide 2020- No [id number] 40mg Take 1 [facility] 40 mg 3-26 -25 tablet by ity of tablet 00:00: 00:00 mouth [place] 00 :00 every Medical Thursday, Branch Thursday and Thursday. furosemide 2020- No [id number] 40mg Take 1 [facility] 40 mg 3-26 -25 tablet by ity of tablet 00:00: 00:00 mouth [place] 00 :00 every Medical Thursday, Branch Thursday and Thursday. furosemide 2020- No [id number] 40mg Take 1 [facility] 40 mg 3-26 -25 tablet by ity of tablet 00:00: 00:00 mouth [place] 00 :00 every Medical Thursday, Branch Thursday and Thursday. aspirin 81 Yes 81mg Take 81 mg U nivers mg EC 3-25 by mouth. ity of tablet 15:24: [address] aspirin 81 Yes 81mg Take 81 mg U nivers mg EC 3-25 by mouth. ity of tablet 15:24: [address] donepeziL Yes [id number] 10mg Take 1 [facility] 10 mg 3-25 tablet by ity of tablet 00:00: mouth at [place] 00 bedtime. Medical Branch Food Yes [id number] 1{can} Take 1 Can Univers Supplement, 3-25 by mouth 3 it y of [place] 00:00: (three) [place] e (ENSURE 00 times Medical ACTIVE daily with Branch HEART meals and HEALTH) at liquid bedtime. donepeziL Yes [id number] 10mg Take 1 [facility] [place] 10 mg 3-25 tablet by ity of tablet 00:00: mouth at [place] 00 bedtime. Medical Branch Food Yes [id number] 1{can} Take 1 Can Univers Supplement, 3-25 by mouth 3 it y of [place] 00:00: (three) [place] [facility] (ENSURE 00 times Medical ACTIVE daily with Branch HEART meals and HEALTH) at liquid bedtime. donepeziL Yes [id number] 10mg Take 1 [facility] [place] 10 mg 3-25 tablet by ity of tablet 00:00: mouth at [place] 00 bedtime. [facility] Food Yes [id number] 1{can} Take 1 Can [facility] Supplement, 3-25 by mouth 3 it y [facility] [place] 00:00: (three) [place] (ENSURE 00 times Medical ACTIVE daily with Branch HEART meals and HEALTH) at liquid bedtime. donepeziL Yes [id number] 10mg Take 1 Un [place] 10 mg 3-25 tablet by ity of tablet 00:00: mouth at [place] 00 bedtime. [facility] Food Yes [id number] 1{can} Take 1 Can [facility] Supplement, 3-25 by mouth 3 [facility] y of [place] 00:00: (three) [place] (ENSURE 00 times Medical ACTIVE daily with Branch HEART meals and HEALTH) at liquid bedtime. donepeziL Yes [id number] 10mg Take 1 [place] 10 mg 3-25 tablet by ity of tablet 00:00: mouth at [place] 00 bedtime. [facility] Food Yes [id number] 1{can} Take 1 Can [facility] Supplement, 3-25 by mouth 3 it y of [place] 00:00: (three) [place] (ENSURE 00 times Medical ACTIVE daily with Branch HEART meals and HEALTH) at liquid bedtime. donepeziL Yes [id number] 10mg Take 1 [place] 10 mg 3-25 tablet by ity of tablet 00:00: mouth at [place] 00 bedtime. [facility] Food Yes [id number] 1{can} Take 1 Can [facility] Supplement, 3-25 by mouth 3 it y of [place] 00:00: (three) [place] (ENSURE 00 times Medical ACTIVE daily with Branch HEART meals and HEALTH) at liquid bedtime. donepeziL Yes [id number] 10mg Take 1 [place] 10 mg 3-25 tablet by ity of tablet 00:00: mouth at [place] 00 bedtime. [facility] Food Yes [id number] 1{can} Take 1 Can [facility] Supplement, 3-25 by mouth 3 it y of [place] 00:00: (three) [place] (ENSURE 00 times Medical ACTIVE daily with Branch HEART meals and HEALTH) at liquid bedtime. donepeziL Yes [id number] 10mg Take 1 [place] 10 mg 3-25 tablet by ity of tablet 00:00: mouth at [place] 00 bedtime. [facility] Food Yes [id number] 1{can} Take 1 Can [facility] Supplement, 3-25 by mouth 3 it y of [place] 00:00: (three) [place] (ENSURE 00 times Medical ACTIVE daily with Branch HEART meals and HEALTH) at liquid bedtime. donepeziL Yes [id number] 10mg Take 1 [place] 10 mg 3-25 tablet by ity of tablet 00:00: mouth at [place] 00 bedtime. [facility] [place] Food Yes [id number] 1{can} Take 1 Can [facility] Supplement, 3-25 by mouth 3 it y of [place] 00:00: (three) [place] (ENSURE 00 times Medical ACTIVE daily with Branch HEART meals and HEALTH) at liquid bedtime. donepeziL Yes [id number] 10mg Take 1 [place] 10 mg 3-25 tablet by ity of tablet 00:00: mouth at [place] 00 bedtime. [facility] Food Yes [id number] 1{can} Take 1 Can [facility] Supplement, 3-25 by mouth 3 [facility] y of [place] 00:00: (three) [place] (ENSURE 00 times Medical ACTIVE daily with Branch HEART meals and HEALTH) at liquid bedtime. donepeziL Yes [id number] 10mg Take 1 [place] 10 mg 3-25 tablet by ity of tablet 00:00: mouth at [place] 00 bedtime. [facility] Food Yes [id number] 1{can} Take 1 Can [facility] Supplement, 3-25 by mouth 3 it y of [place] 00:00: (three) [place] (ENSURE 00 times Medical ACTIVE daily with Branch HEART meals and HEALTH) at liquid bedtime. donepeziL Yes [id number] 10mg Take 1 [place] 10 mg 3-25 tablet by ity of tablet 00:00: mouth at [place] 00 bedtime. [facility] Food Yes [id number] 1{can} Take 1 Can [facility] Supplement, 3-25 by mouth 3 it y of [place] 00:00: (three) [place] (ENSURE 00 times Medical ACTIVE daily with Branch HEART meals and HEALTH) at liquid bedtime. donepeziL Yes [id number] 10mg Take 1 [place] 10 mg 3-25 tablet by ity of tablet 00:00: mouth at [place] 00 bedtime. [facility] Food Yes [id number] 1{can} Take 1 Can [facility] Supplement, 3-25 by mouth 3 it y of [place] 00:00: (three) [place] (ENSURE 00 times Medical ACTIVE daily with Branch HEART meals and HEALTH) at liquid bedtime. donepeziL Yes [id number] 10mg Take 1 [place] 10 mg 3-25 tablet by ity of tablet 00:00: mouth at [place] 00 bedtime. [facility] Food Yes [id number] 1{can} Take 1 Can [facility] Supplement, 3-25 by mouth 3 it y of [place] 00:00: (three) [place] (ENSURE 00 times Medical ACTIVE daily with Branch HEART meals and HEALTH) at liquid bedtime. donepeziL Yes [id number] 10mg Take 1 [place] 10 mg 3-25 tablet by ity of tablet 00:00: mouth at [place] 00 bedtime. [facility] Food Yes [id number] 1{can} Take 1 Can [facility] Supplement, 3-25 by mouth 3 it y of [place] 00:00: (three) [place] (ENSURE 00 times Medical ACTIVE daily with Branch HEART meals and HEALTH) at liquid bedtime. donepeziL Yes [id number] 10mg Take 1 [place] 10 mg 3-25 tablet by ity of tablet 00:00: mouth at [place] 00 bedtime. [facility] Food Yes [id number] 1{can} Take 1 Can [facility] Supplement, 3-25 by mouth 3 it y of [place] 00:00: (three) [place] (ENSURE 00 times Medical ACTIVE daily with Branch HEART meals and HEALTH) at liquid bedtime. donepeziL Yes [id number] 10mg Take 1 [place] 10 mg 3-25 tablet by ity of tablet 00:00: mouth at [place] 00 bedtime. [facility] Food Yes [id number] 1{can} Take 1 Can [facility] Supplement, 3-25 by mouth 3 it y of [place] 00:00: (three) [place] (ENSURE 00 times Medical ACTIVE daily with Branch HEART meals and HEALTH) at liquid bedtime. donepeziL Yes [id number] 10mg Take 1 [place] 10 mg 3-25 tablet by ity of tablet 00:00: mouth at [place] [address] bedtime. Medical [facility] Food Yes [id number] 1{can} Take 1 Can [facility] Supplement, 3-25 by mouth 3 it y of [place] 00:00: (three) [place] (ENSURE 00 times Medical ACTIVE daily with Branch HEART meals and HEALTH) at liquid bedtime. donepeziL Yes [id number] 10mg Take 1 [place] 10 mg 3-25 tablet by ity of tablet 00:00: mouth at [place] [address] bedtime. Medical [facility] Food Yes [id number] 1{can} Take 1 Can [facility] Supplement, 3-25 by mouth 3 it y of [place] 00:00: (three) [place] (ENSURE 00 times Medical ACTIVE daily with Branch HEART meals and HEALTH) at liquid bedtime. donepeziL Yes [id number] 10mg Take 1 [place] 10 mg 3-25 tablet by ity of tablet 00:00: mouth at [place] 00 bedtime. [facility] Food Yes [id number] 1{can} Take 1 Can [facility] Supplement, 3-25 by mouth 3 it y of [place] 00:00: (three) [place] (ENSURE 00 times Medical ACTIVE daily with Branch HEART meals and HEALTH) at liquid bedtime. donepeziL Yes [id number] 10mg Take 1 [place] 10 mg 3-25 tablet by ity of tablet 00:00: mouth at [place] 00 bedtime. [facility] Food Yes [id number] 1{can} Take 1 Can [facility] Supplement, 3-25 by mouth 3 it y of [place] 00:00: (three) [place] (ENSURE 00 times Medical ACTIVE daily with Branch HEART meals and HEALTH) at liquid bedtime. donepeziL Yes [id number] 10mg Take 1 [place] 10 mg 3-25 tablet by ity of tablet 00:00: mouth at [place] 00 bedtime. [facility] Food Yes [id number] 1{can} Take 1 Can [facility] Supplement, 3-25 by mouth 3 it y of [place] 00:00: (three) [place] (ENSURE 00 times Medical ACTIVE daily with Branch HEART meals and HEALTH) at liquid bedtime. donepeziL Yes [id number] 10mg Take 1 [place] 10 mg 3-25 tablet by ity of tablet 00:00: mouth at [place] [address] bedtime. Medical [facility] Food Yes [id number] 1{can} Take 1 Can [facility] Supplement, 3-25 by mouth 3 it y of [place] 00:00: (three) [place] (ENSURE 00 times Medical ACTIVE daily with Branch HEART meals and HEALTH) at liquid bedtime. donepeziL Yes [id number] 10mg Take 1 [place] 10 mg 3-25 tablet by ity of tablet 00:00: mouth at [place] 00 bedtime. [facility] Food Yes [id number] 1{can} Take 1 Can [facility] Supplement, 3-25 by mouth 3 it y of [place] 00:00: (three) [place] (ENSURE 00 times Medical ACTIVE daily with Branch HEART meals and HEALTH) at liquid bedtime. donepeziL Yes [id number] 10mg Take 1 [place] 10 mg 3-25 tablet by ity of tablet 00:00: mouth at [place] 00 bedtime. [facility] Food Yes [id number] 1{can} Take 1 Can [facility] Supplement, 3-25 by mouth 3 it y of [place] 00:00: (three) [place] (ENSURE 00 times Medical ACTIVE daily with Branch HEART meals and HEALTH) at liquid bedtime. donepeziL Yes [id number] 10mg Take 1 [place] 10 mg 3-25 tablet by ity of tablet 00:00: mouth at [place] 00 bedtime. [facility] Food Yes [id number] 1{can} Take 1 Can [facility] Supplement, 3-25 by mouth 3 it y of [place] 00:00: (three) [place] (ENSURE 00 times Medical ACTIVE daily with Branch HEART meals and HEALTH) at liquid bedtime. donepeziL Yes [id number] 10mg Take 1 [place] 10 mg 3-25 tablet by ity of tablet 00:00: mouth at [place] 00 bedtime. [facility] Food Yes [id number] 1{can} Take 1 Can [facility] Supplement, 3-25 by mouth 3 it y of [place] 00:00: (three) [place] (ENSURE 00 times Medical ACTIVE daily with Branch HEART meals and HEALTH) at liquid bedtime. donepeziL Yes [id number] 10mg Take 1 [place] 10 mg 3-25 tablet by ity of tablet 00:00: mouth at [place] 00 bedtime. [facility] Food Yes [id number] 1{can} Take 1 Can [facility] Supplement, 3-25 by mouth 3 it y of [place] 00:00: (three) [place] (ENSURE 00 times Medical ACTIVE daily with Branch HEART meals and HEALTH) at liquid bedtime. donepeziL Yes [id number] 10mg Take 1 [place] 10 mg 3-25 tablet by ity of tablet 00:00: mouth at [place] 00 bedtime. [facility] Food Yes [id number] 1{can} Take 1 Can [facility] Supplement, 3-25 by mouth 3 it y of [place] 00:00: (three) [place] (ENSURE 00 times Medical ACTIVE daily with Branch HEART meals and HEALTH) at liquid bedtime. donepeziL Yes [id number] 10mg Take 1 [place] 10 mg 3-25 tablet by ity of tablet 00:00: mouth at [place] 00 bedtime. [facility] Food Yes [id number] 1{can} Take 1 Can [facility] Supplement, 3-25 by mouth 3 it y of [place] 00:00: (three) [place] (ENSURE 00 times Medical ACTIVE daily with Branch HEART meals and HEALTH) at liquid bedtime. donepeziL Yes [id number] 10mg Take 1 [place] 10 mg 3-25 tablet by ity of tablet 00:00: mouth at [place] 00 bedtime. [facility] Food Yes [id number] 1{can} Take 1 Can [facility] Supplement, 3-25 by mouth 3 it y of [place] 00:00: (three) [place] (ENSURE 00 times Medical ACTIVE daily with Branch HEART meals and HEALTH) at liquid bedtime. donepeziL Yes [id number] 10mg Take 1 [place] 10 mg 3-25 tablet by ity of tablet 00:00: mouth at [place] 00 bedtime. Medical [facility] Food Yes [id number] 1{can} Take 1 Can [facility] Supplement, 3-25 by mouth 3 it y of [place] 00:00: (three) [place] (ENSURE 00 times Medical ACTIVE daily with Branch HEART meals and HEALTH) at liquid bedtime. donepeziL Yes [id number] 10mg Take 1 [place] 10 mg 3-25 tablet by ity of tablet 00:00: mouth at [place] 00 bedtime. [facility] Food Yes [id number] 1{can} Take 1 Can [facility] Supplement, 3-25 by mouth 3 it y of [place] 00:00: (three) [place] (ENSURE 00 times Medical ACTIVE daily with Branch HEART meals and HEALTH) at liquid bedtime. donepeziL Yes [id number] 10mg Take 1 [place] 10 mg 3-25 tablet by ity of tablet 00:00: mouth at [place] 00 bedtime. [facility] Food Yes [id number] 1{can} Take 1 Can [facility] Supplement, 3-25 by mouth 3 it y of [place] 00:00: (three) [place] (ENSURE 00 times Medical ACTIVE daily with Branch HEART meals and HEALTH) at liquid bedtime. donepeziL Yes [id number] 10mg Take 1 [place] 10 mg 3-25 tablet by ity of tablet 00:00: mouth at [place] 00 bedtime. Medical [facility] Food Yes [id number] 1{can} Take 1 Can [facility] Supplement, 3-25 by mouth 3 it y of [place] 00:00: (three) [place] (ENSURE 00 times Medical ACTIVE daily with Branch HEART meals and HEALTH) at liquid bedtime. donepeziL Yes [id number] 10mg Take 1 [place] 10 mg 3-25 tablet by ity of tablet 00:00: mouth at [place] 00 bedtime. Medical [facility] Food Yes [id number] 1{can} Take 1 Can [facility] Supplement, 3-25 by mouth 3 it y of [place] 00:00: (three) [place] (ENSURE 00 times Medical ACTIVE daily with Branch HEART meals and HEALTH) at liquid bedtime. donepeziL Yes [id number] 10mg Take 1 [place] 10 mg 3-25 tablet by ity of tablet 00:00: mouth at [place] 00 bedtime. [facility] [place] Food Yes [id number] 1{can} Take 1 Can [facility] Supplement, 3-25 by mouth 3 it y of [place] 00:00: (three) [place] (ENSURE 00 times Medical ACTIVE daily with Branch HEART meals and HEALTH) at liquid bedtime. donepeziL Yes [id number] 10mg Take 1 [place] 10 mg 3-25 tablet by ity of tablet 00:00: mouth at [place] 00 bedtime. [facility] [place] Food Yes [id number] 1{can} Take 1 Can [facility] Supplement, 3-25 by mouth 3 it y of [place] 00:00: (three) [place] (ENSURE 00 times Medical ACTIVE daily with Branch HEART meals and HEALTH) at liquid bedtime. donepeziL Yes [id number] 10mg Take 1 [place] 10 mg 3-25 tablet by ity of tablet 00:00: mouth at [place] 00 bedtime. [facility] [place] Food Yes [id number] 1{can} Take 1 Can [facility] Supplement, 3-25 by mouth 3 it y of [place] 00:00: (three) [place] (ENSURE 00 times Medical ACTIVE daily with Branch HEART meals and HEALTH) at liquid bedtime. Food 2020- No [id number] 1{can} Take 1 Can [facility] Supplement, 3-25 03-25 by mouth 3 i ty of [place] 00:00: 00:00 (three) [place] e (ENSURE 00 :00 times Medical ACTIVE daily with Branch HEART meals and HEALTH) at liquid bedtime. Food 2020- No [id number] 1{can} Take 1 Can [facility] Supplement, 08-23 by mouth 3 i ty of [place] 00:00: 00:00 (three) [place] e (ENSURE 00 :00 times Medical ACTIVE daily with Branch HEART meals and HEALTH) at liquid bedtime. Food 2020- No [id number] 1{can} Take 1 Can [facility] Supplement, 08-23 by mouth 3 i ty of [place] 00:00: 00:00 (three) [place] (ENSURE 00 :00 times Medical ACTIVE daily with Branch HEART meals and HEALTH) at liquid bedtime. Food 2020- No [id number] 1{can} Take 1 Can [facility] Supplement, 08-23 by mouth 3 i ty of [place] 00:00: 00:00 (three) [place] e (ENSURE 00 :00 times Medical ACTIVE daily with Branch HEART meals and HEALTH) at liquid bedtime. KCL 10 mEq 2020-0 Yes [id number] TAKE 1 [facility] tablet 3-03 TABLET BY ity of 00:00: MOUTH [place] 00 EVERY DAY Medical Branch KCL 10 mEq 2020-0 Yes [id number] TAKE 1 [facility] tablet 3-03 TABLET BY ity of 00:00: MOUTH [place] 00 EVERY DAY Medical Branch KCL 10 mEq 2020-0 1- No [id number] TAKE 1 [facility] tablet 3-08 01-25 TABLET BY ity of 00:00: 00:00 MOUTH [place] 00 :00 EVERY DAY Medical Branch KCL 10 mEq 1-0 1- No [id number] TAKE 1 [facility] tablet 3-03 -25 TABLET BY ity of 00:00: 00:00 MOUTH [place] 00 :00 EVERY DAY Medical Branch KCL 10 mEq 1-0 1- No [id number] TAKE 1 [facility] tablet 3-03 -25 TABLET BY ity of 00:00: 00:00 MOUTH [place] 00 :00 EVERY DAY Medical Branch KCL 10 mEq 1-0 2021- No [id number] TAKE 1 [facility] tablet 3-03 03-25 TABLET BY ity of 00:00: 00:00 MOUTH [place] 00 :00 EVERY DAY Medical Branch atorvastati 2020-0 Yes [id number] TAKE 1 [facility] n 20 mg 2-17 TABLET BY ity of tablet 00:00: [facility] EVERY DAY Medical Branch CLOPIDOGREL 2020-0 Yes [id number] TAKE 1 [facility] 75 mg 2-17 TABLET (75 ity of tablet 00:00: MG) BY [place] [address] [address] Medical ONCE DAILY Branch 90 atorvastati 2020-0 Yes [id number] TAKE 1 Univers n 20 mg 2-17 TABLET BY ity of tablet 00:00: MOUTH [place] EVERY DAY Medical Branch CLOPIDOGREL 2020-0 Yes [id number] TAKE 1 [facility] 75 mg 2-17 TABLET (75 ity of tablet 00:00: MG) BY [place] [address] [address] Medical ONCE DAILY Branch 90 atorvastati 2020-0 Yes [id number] TAKE 1 [facility] n 20 mg 2-17 TABLET BY ity of tablet 00:00: [place] [address] EVERY DAY Medical Branch CLOPIDOGREL 2020-0 Yes [id number] TAKE 1 [facility] 75 mg 2-17 TABLET (75 ity of tablet 00:00: MG) BY [place] [address] [address] Medical ONCE DAILY Branch 90 atorvastati 2020-0 Yes [id number] TAKE 1 [facility] n 20 mg 2-17 TABLET BY ity of tablet 00:00: [place] [address] EVERY DAY Medical Branch CLOPIDOGREL 2020-0 Yes [id number] TAKE 1 [facility] 75 mg 2-17 TABLET (75 ity of tablet 00:00: MG) BY [place] [address] [address] Medical ONCE DAILY Branch 90 atorvastati 2020-0 Yes [id number] TAKE 1 [facility] n 20 mg 2-17 TABLET BY ity of tablet 00:00: [place] [address] EVERY DAY Medical Branch CLOPIDOGREL 2020-0 Yes [id number] TAKE 1 [facility] 75 mg 2-17 TABLET (75 ity of tablet 00:00: MG) BY [place] [address] [address] Medical ONCE DAILY Branch 90 atorvastati 2020-0 Yes [id number] TAKE 1 [facility] n 20 mg 2-17 TABLET BY ity of tablet 00:00: MOUTH [place] [address] EVERY DAY Medical Branch CLOPIDOGREL 2020-0 Yes [id number] TAKE 1 [facility] 75 mg 2-17 TABLET (75 ity of tablet 00:00: MG) BY [place] [address] [address] Medical ONCE DAILY Branch 90 atorvastati 2020-0 Yes [id number] TAKE 1 [facility] n 20 mg 2-17 TABLET BY ity of tablet 00:00: MOUTH [place] EVERY DAY Medical Branch CLOPIDOGREL 2020-0 Yes [id number] TAKE 1 [facility] 75 mg 2-17 TABLET (75 ity of tablet 00:00: MG) BY [place] ORAL ROUTE Medical ONCE DAILY Branch 90 atorvastati 2020-0 Yes [id number] TAKE 1 [facility] n 20 mg 2-17 TABLET BY ity of tablet 00:00: MOUTH [place] EVERY DAY Medical Branch CLOPIDOGREL 2020-0 Yes [id number] TAKE 1 [facility] 75 mg 2-17 TABLET (75 ity of tablet 00:00: MG) BY [place] ORAL ROUTE Medical ONCE DAILY Branch 90 atorvastati 2020-0 Yes [id number] TAKE 1 [facility] n 20 mg 2-17 TABLET BY ity of tablet 00:00: MOUTH [place] EVERY DAY Medical Branch atorvastati 2020-0 Yes [id number] TAKE 1 [facility] n 20 mg 2-17 TABLET BY ity of tablet 00:00: MOUTH [place] EVERY DAY Medical Branch atorvastati 2020-0 Yes [id number] TAKE 1 [facility] n 20 mg 2-17 TABLET BY ity of tablet 00:00: MOUTH [place] EVERY DAY Medical Branch atorvastati 2020-0 Yes [id number] TAKE 1 [facility] n 20 mg 2-17 TABLET BY ity of tablet 00:00: MOUTH [place] EVERY DAY Medical Branch atorvastati 2020-0 Yes [id number] TAKE 1 [facility] n 20 mg 2-17 TABLET BY ity of tablet 00:00: [facility] EVERY DAY Medical Branch atorvastati 2020-0 Yes [id number] TAKE 1 Univers n 20 mg 2-17 TABLET BY ity of tablet 00:00: MOUTH [place] EVERY DAY Medical Branch atorvastati 2020-0 Yes [id number] TAKE 1 [facility] n 20 mg 2-17 TABLET BY ity of tablet 00:00: [facility] EVERY DAY Medical Branch atorvastati 2020-0 Yes [id number] TAKE 1 Univers n 20 mg 2-17 TABLET BY ity of tablet 00:00: MOUTH [place] EVERY DAY Medical Branch atorvastati 2020-0 Yes [id number] TAKE 1 Univers n 20 mg 2-17 TABLET BY ity of tablet 00:00: MOUTH [place] EVERY DAY Medical Branch atorvastati Yes [id number] TAKE 1 [facility] n 20 mg 2-17 TABLET BY ity of tablet 00:00: MOUTH [place] 00 EVERY DAY Medical Branch atorvastati 0 Yes [id number] TAKE 1 [facility] n 20 mg 2-17 TABLET BY ity of tablet 00:00: MOUTH EVERY DAY Medical Branch atorvastati 0 Yes [id number] TAKE 1 Univers n 20 mg 2-17 TABLET BY ity of tablet 00:00: MOUTH [place] EVERY DAY Medical Branch atorvastati Yes [id number] TAKE 1 Univers n 20 mg 2-17 TABLET BY ity of tablet 00:00: MOUTH [place] EVERY DAY Medical Branch atorvastati Yes [id number] TAKE 1 Univers n 20 mg 2-17 TABLET BY ity of tablet 00:00: MOUTH [place] DAY Medical Branch atorvastati Yes [id number] TAKE 1 Univers n 20 mg 2-17 TABLET BY ity of tablet 00:00: MOUTH [place] DAY Medical Branch atorvastati Yes [id number] TAKE 1 [facility] n 20 mg 2-17 TABLET BY ity of tablet 00:00: MOUTH [place] 00 EVERY DAY Medical Branch atorvastati Yes [id number] TAKE 1 Univers n 20 mg 2-17 TABLET BY ity of tablet 00:00: MOUTH [place] DAY Medical Branch atorvastati Yes [id number] TAKE 1 [facility] n 20 mg 2-17 TABLET BY ity of tablet 00:00: MOUTH [place] EVERY DAY Medical Branch atorvastati 0 Yes [id number] TAKE 1 [facility] n 20 mg 2-17 TABLET BY ity of tablet 00:00: MOUTH [place] 00 EVERY DAY Medical Branch atorvastati 0 Yes [id number] TAKE 1 Univers n 20 mg 2-17 TABLET BY ity of tablet 00:00: MOUTH [place] EVERY DAY Medical Branch atorvastati 0 Yes [id number] TAKE 1 [facility] n 20 mg 2-17 TABLET BY ity of tablet 00:00: MOUTH [place] 00 EVERY DAY Medical Branch atorvastati 0 Yes [id number] TAKE 1 [facility] n 20 mg 2-17 TABLET BY ity of tablet 00:00: MOUTH [place] 00 EVERY DAY Medical Branch atorvastati 0 Yes [id number] TAKE 1 Univers n 20 mg 2-17 TABLET BY ity of tablet 00:00: [place] [address] EVERY DAY Medical Branch atorvastati 0 Yes [id number] TAKE 1 [facility] n 20 mg 2-17 TABLET BY ity of tablet 00:00: [facility] EVERY DAY Medical Branch atorvastati 0 Yes [id number] TAKE 1 Univers n 20 mg 2-17 TABLET BY ity of tablet 00:00: [facility] EVERY DAY Medical Branch atorvastati 0 Yes [id number] TAKE 1 Univers n 20 mg 2-17 TABLET BY ity of tablet 00:00: [place] [address] EVERY DAY Medical Branch atorvastati 0 2021- No [id number] TAKE 1 Univers n 20 mg 2-17 04-11 TABLET BY ity of tablet 00:00: 00:00 [facility] 00 : EVERY DAY Medical Branch atorvastati 2020-0 2021- No [id number] TAKE 1 Univers n 20 mg 2-17 04-11 TABLET BY ity of tablet 00:00: 00:00 [facility] 00 :00 EVERY DAY Medical Branch CLOPIDOGREL 2020-0 2020- No [id number] TAKE 1 [facility] 75 mg 2-17 04-01 TABLET (75 ity of tablet 00:00: 00:00 MG) BY [place] 00 :00 [address] Medical ONCE DAILY Branch 90 CLOPIDOGREL 2020-0 2020- No [id number] TAKE 1 [facility] 75 mg 2-17 04-01 TABLET (75 ity of tablet 00:00: 00:00 MG) BY [place] 00 :00 [address] Medical ONCE DAILY Branch 90 CLOPIDOGREL 2020-0 2020- No [id number] TAKE 1 [facility] 75 mg 2-17 04-01 TABLET (75 ity of tablet 00:00: 00:00 MG) BY [place] 00 :00 [address] Medical ONCE DAILY Branch 90 CLOPIDOGREL 2020-0 2020- No [id number] TAKE 1 [facility] 75 mg 2-17 04-01 TABLET (75 ity of tablet 00:00: 00:00 MG) BY [place] 00 :00 [address] Medical ONCE DAILY Branch 90 CLOPIDOGREL 2020-0 2020- No [id number] TAKE 1 [facility] 75 mg 2-17 04-01 TABLET (75 ity of tablet 00:00: 00:00 MG) BY [place] 00 :00 [address] Medical ONCE DAILY Branch 90 CLOPIDOGREL 2021-0 2021- No [id number] TAKE 1 [facility] 75 mg 2-17 - TABLET (75 ity of tablet 00:00: 00:00 MG) BY [place] 00 :[address] Medical ONCE DAILY Branch 90 aspirin 81 202-0 Yes 81mg Take 81 mg U nivers mg EC 1-12 by mouth. ity of tablet 19:55: [address] aspirin 81 202-0 Yes 81mg Take 81 mg U nivers mg EC 1-12 by mouth. ity of tablet 19:55: [address] aspirin 81 202-0 Yes 81mg Take 81 mg U nivers mg EC 1-12 by mouth. ity of tablet 19:55: [address] aspirin 81 202-0 Yes 81mg Take 81 mg U nivers mg EC 1-12 by mouth. ity of tablet 19:55: [address] aspirin 81 202-0 Yes 81mg Take 81 mg U nivers mg EC 1-12 by mouth. ity of tablet 19:55: [address] aspirin 81 2020-0 Yes 81mg Take 81 mg U nivers mg EC 1-12 by mouth. ity of tablet 19:55: [address] aspirin 81 2020-0 Yes 81mg Take 81 mg U nivers mg EC 1-12 by mouth. ity of tablet 19:55: [address] aspirin 81 2020-0 Yes 81mg Take 81 mg U nivers mg EC 1-12 by mouth. ity of tablet 19:55: [address] Branch furosemide 202-0 Yes [id number] 40mg Take 1 [facility] 40 mg 1-12 tablet by ity of tablet 00:00: mouth [place] 00 daily. Medical Branch furosemide 2021-0 Yes [id number] 40mg Take 1 [facility] 40 mg 1-12 tablet by ity of tablet 00:00: mouth [place] 00 daily. Medical Branch furosemide 2021-0 Yes [id number] 40mg Take 1 [facility] 40 mg 1-12 tablet by ity of tablet 00:00: mouth [place] 00 daily. Medical Branch furosemide 2021-0 Yes [id number] 40mg Take 1 [facility] 40 mg 1-12 tablet by ity of tablet 00:00: mouth [place] 00 daily. Medical Branch furosemide 2021-0 Yes [id number] 40mg Take 1 [facility] 40 mg 1-12 tablet by ity of tablet 00:00: mouth [place] 00 daily. Medical Branch furosemide 0 Yes [id number] 40mg Take 1 [facility] 40 mg 1-12 tablet by ity of tablet 00:00: mouth [place] 00 daily. Medical Branch furosemide 0 Yes [id number] 40mg Take 1 [facility] 40 mg 1-12 tablet by ity of tablet 00:00: mouth [place] 00 daily. Medical Branch furosemide Yes [id number] 40mg Take 1 [facility] 40 mg 1-12 tablet by ity of tablet 00:00: mouth [place] 00 daily. Medical Branch furosemide 2020- No [id number] 40mg Take 1 [facility] 40 mg 1-12 03-25 tablet by ity of tablet 00:00: 00:00 mouth [place] 00 :00 daily. Medical Branch furosemide 2020- No [id number] 40mg Take 1 [facility] 40 mg 1-12 03-25 tablet by ity of tablet 00:00: 00:00 mouth [place] 00 :00 daily. Medical Branch furosemide 2020- No [id number] 40mg Take 1 [facility] 40 mg 1-12 03-25 tablet by [facility] tablet 00:00: 00:00 mouth [place] 00 :00 daily. Medical Branch furosemide 2020- No [id number] 40mg Take 1 [facility] 40 mg 1-12 03-25 tablet by [facility] tablet 00:00: 00:00 mouth [place] 00 :00 daily. Medical Branch ALLOPURINOL 2020-0 Yes TAKE 1 [facility] 100 mg 1-05 TABLET BY it[facility] of tablet 00:00: MOUTH [place] 00 EVERYDAY Medical AT BEDTIME Branch ALLOPURINOL 2020-0 Yes TAKE 1 [facility] 100 mg 1-05 TABLET BY it[facility] of tablet 00:00: MOUTH [place] 00 EVERYDAY Medical AT BEDTIME Branch ALLOPURINOL 2020-0 Yes TAKE 1 [facility] 100 mg 1-05 TABLET BY ity of tablet 00:00: MOUTH [place] 00 EVERYDAY Medical AT BEDTIME Branch ALLOPURINOL 2020-0 Yes TAKE 1 [facility] 100 mg 1-05 TABLET BY ity of tablet 00:00: MOUTH [place] 00 EVERYDAY Medical AT BEDTIME Branch ALLOPURINOL 2020-0 Yes TAKE 1 [facility] 100 mg 1-05 TABLET BY ity of tablet 00:00: MOUTH 00 EVERYDAY Medical AT BEDTIME Branch ALLOPURINOL 2021-0 Yes TAKE 1 [facility] 100 mg 1-05 TABLET BY ity of tablet 00:00: MOUTH EVERYDAY Medical AT BEDTIME Branch ALLOPURINOL 2020-0 Yes TAKE 1 [facility] 100 mg 1-05 TABLET BY ity of tablet 00:00: MOUTH EVERYDAY Medical AT BEDTIME Branch ALLOPURINOL 2020-0 Yes TAKE 1 [facility] 100 mg 1-05 TABLET BY ity of tablet 00:00: MOUTH 00 EVERYDAY Medical AT BEDTIME Branch ALLOPURINOL 2020-0 Yes TAKE 1 [facility] 100 mg 1-05 TABLET BY ity of tablet 00:00: MOUTH EVERYDAY Medical AT BEDTIME Branch ALLOPURINOL 2020-0 Yes TAKE 1 [facility] 100 mg 1-05 TABLET BY ity of tablet 00:00: MOUTH EVERYDAY Medical AT BEDTIME Branch ALLOPURINOL 2020-0 Yes TAKE 1 [facility] 100 mg 1-05 TABLET BY ity of tablet 00:00: MOUTH EVERYDAY Medical AT BEDTIME Branch ALLOPURINOL 2020-0 Yes TAKE 1 [facility] 100 mg 1-05 TABLET BY ity of tablet 00:00: MOUTH EVERYDAY Medical AT BEDTIME Branch ALLOPURINOL 2020-0 Yes TAKE 1 [facility] 100 mg 1-05 TABLET BY ity of tablet 00:00: MOUTH EVERYDAY Medical AT BEDTIME Branch ALLOPURINOL 2020-0 Yes TAKE 1 [facility] 100 mg 1-05 TABLET BY ity of tablet 00:00: MOUTH EVERYDAY Medical AT BEDTIME Branch ALLOPURINOL 2020-0 Yes TAKE 1 [facility] 100 mg 1-05 TABLET BY ity of tablet 00:00: MOUTH 00 EVERYDAY Medical AT BEDTIME Branch ALLOPURINOL 2020-0 Yes TAKE 1 [facility] 100 mg 1-05 TABLET BY ity of tablet 00:00: MOUTH 00 EVERYDAY Medical AT BEDTIME Branch ALLOPURINOL 2020-0 Yes TAKE 1 [facility] 100 mg 1-05 TABLET BY ity of tablet 00:00: MOUTH 00 EVERYDAY Medical AT BEDTIME Branch ALLOPURINOL 2020-0 Yes TAKE 1 [facility] 100 mg 1-05 TABLET BY ity of tablet 00:00: MOUTH [place] 00 EVERYDAY Medical AT [facility] Branch ALLOPURINOL 2020-0 Yes TAKE 1 [facility] 100 mg 1-05 TABLET BY ity of tablet 00:00: MOUTH [place] 00 EVERYDAY Medical AT [facility] Branch ALLOPURINOL 2020-0 Yes TAKE 1 [facility] 100 mg 1-05 TABLET BY ity of tablet 00:00: MOUTH [place] 00 EVERYDAY Medical AT [facility] Branch ALLOPURINOL 2020-0 Yes TAKE 1 [facility] 100 mg 1-05 TABLET BY ity of tablet 00:00: MOUTH 00 EVERYDAY Medical AT [facility] ALLOPURINOL 2020-0 Yes TAKE 1 [facility] 100 mg 1-05 TABLET BY ity of tablet 00:00: MOUTH [place] 00 EVERYDAY Medical AT [facility] ALLOPURINOL 2020-0 Yes TAKE 1 [facility] 100 mg 1-05 TABLET BY ity of tablet 00:00: MOUTH [place] 00 EVERYDAY Medical AT [facility] ALLOPURINOL 2020-0 Yes TAKE 1 [facility] 100 mg 1-05 TABLET BY ity of tablet 00:00: MOUTH [place] 00 EVERYDAY Medical AT [facility] ALLOPURINOL 2020-0 Yes TAKE 1 [facility] 100 mg 1-05 TABLET BY ity of tablet 00:00: MOUTH [place] 00 EVERYDAY Medical AT [facility] ALLOPURINOL 2020-0 2021- No [id number] TAKE 1 [facility] 100 mg 1-05 06-30 TABLET BY ity of tablet 00:00: 00:00 [facility] 00 :00 EVERYDAY Medical AT [facility] ALLOPURINOL 2020-0 2021- No [id number] TAKE 1 [facility] 100 mg 1-05 06-30 TABLET BY ity of tablet 00:00: 00:00 [facility] [place] 00 :00 EVERYDAY Medical AT [facility] LISINOPRIL 2020-1 Yes [id number] TAKE 1 [place] 10 mg 2-20 TABLET BY ity of tablet 00:00: [facility] 00 EVERY DAY Medical Branch LISINOPRIL 2020-1 Yes [id number] TAKE 1 [place] 10 mg 2-20 TABLET BY ity of tablet 00:00: [facility] 00 EVERY DAY Medical Branch LISINOPRIL 2020-1 Yes [id number] TAKE 1 [place] 10 mg 2-20 TABLET BY ity of tablet 00:00: MOUTH [place] 00 EVERY DAY Medical Branch LISINOPRIL 2020-1 Yes [id number] TAKE 1 [place] 10 mg 2-20 TABLET BY ity of tablet 00:00: MOUTH [place] EVERY DAY Medical Branch LISINOPRIL 2020-1 Yes [id number] TAKE 1 [place] 10 mg 2-20 TABLET BY ity of tablet 00:00: MOUTH [place] EVERY DAY Medical Branch LISINOPRIL 2020-1 Yes [id number] TAKE 1 [place] 10 mg 2-20 TABLET BY ity of tablet 00:00: MOUTH [place] EVERY DAY Medical Branch LISINOPRIL 2020-1 Yes [id number] TAKE 1 [place] 10 mg 2-20 TABLET BY ity of tablet 00:00: MOUTH [place] EVERY DAY Medical Branch LISINOPRIL 2020-1 Yes [id number] TAKE 1 [place] 10 mg 2-20 TABLET BY ity of tablet 00:00: [facility] EVERY DAY Medical Branch LISINOPRIL 2020-1 Yes [id number] TAKE 1 [place] 10 mg 2-20 TABLET BY ity of tablet 00:00: [facility] EVERY DAY Medical Branch LISINOPRIL 2020-1 Yes [id number] TAKE 1 [place] 10 mg 2-20 TABLET BY ity of tablet 00:00: [facility] 00 EVERY DAY Medical Branch LISINOPRIL 2020-1 Yes [id number] TAKE 1 [place] 10 mg 2-20 TABLET BY ity of tablet 00:00: [facility] EVERY DAY Medical Branch LISINOPRIL 2020-1 Yes [id number] TAKE 1 [place] 10 mg 2-20 TABLET BY ity of tablet 00:00: [facility] EVERY DAY Medical Branch LISINOPRIL 2020-1 Yes [id number] TAKE 1 [place] 10 mg 2-20 TABLET BY ity of tablet 00:00: [facility] EVERY DAY Medical Branch FUROSEMIDE 2020-1 Yes [id number] TAKE 1 [facility] 40 mg 2-20 TABLET BY ity of tablet 00:00: [facility] EVERY Medical MORNING Branch AND EVENING. LISINOPRIL 2020-1 Yes [id number] TAKE 1 [place] 10 mg 2-20 TABLET BY ity of tablet 00:00: [facility] EVERY DAY Medical Branch FUROSEMIDE 2020-1 Yes [id number] TAKE 1 [facility] 40 mg 2-20 TABLET BY ity of tablet 00:00: [facility] EVERY Medical MORNING Branch AND EVENING. LISINOPRIL 2020-1 Yes [id number] TAKE 1 [place] 10 mg 2-20 TABLET BY ity of tablet 00:00: MOUTH [place] 00 EVERY DAY Medical Branch LISINOPRIL 2019-2020- No [id number] TAKE 1 U nivers 10 mg 2-20 04-01 TABLET BY ity of tablet 00:00: 00:00 MOUTH [place] 00 :00 EVERY DAY Medical Branch LISINOPRIL 2019-2020- No [id number] TAKE 1 U nivers 10 mg 2-20 04-01 TABLET BY ity of tablet 00:00: 00:00 MOUTH [place] 00 :00 EVERY DAY Medical Branch LISINOPRIL 2019-2020- No [id number] TAKE 1 U nivers 10 mg 2-20 04-01 TABLET BY ity of tablet 00:00: 00:00 MOUTH [place] 00 :00 EVERY DAY Medical Branch LISINOPRIL 2019-2020- No [id number] TAKE 1 U nivers 10 mg 2-20 04-01 TABLET BY ity of tablet 00:00: 00:00 MOUTH [place] 00 :00 EVERY DAY Medical Branch LISINOPRIL 2019-2020- No [id number] TAKE 1 U nivers 10 mg 2-20 04-01 TABLET BY ity of tablet 00:00: 00:00 MOUTH [place] 00 :00 EVERY DAY Medical Branch LISINOPRIL 2019-2020- No [id number] TAKE 1 U nivers 10 mg 2-20 04-01 TABLET BY ity of tablet 00:00: 00:00 MOUTH [place] 00 :00 EVERY DAY Medical Branch FUROSEMIDE 2019-2020- No [id number] TAKE 1 [facility] 40 mg 2-20 01-12 TABLET BY ity of tablet 00:00: 00:00 MOUTH [place] 00 :00 EVERY Medical MORNING Branch AND EVENING. FUROSEMIDE 2019-06- No [id number] TAKE 1 [facility] 40 mg 2-20 01-12 TABLET BY ity of tablet 00:00: 00:00 MOUTH [place] 00 :00 EVERY Medical MORNING Branch AND EVENING. CARVEDILOL 2019-06 Yes [id number] TAKE 1 U nivers 3.125 mg 1-13 TABLET BY ity of tablet 00:00: MOUTH [place] 00 TWICE A Medical DAY WITH Branch MEALS CARVEDILOL 2019-06 Yes [id number] TAKE 1 U nivers 3.125 mg 1-13 TABLET BY ity of tablet 00:00: MOUTH [place] 00 TWICE A Medical DAY WITH Branch MEALS CARVEDILOL 2020- Yes [id number] TAKE 1 U nivers 3.125 mg 1-13 TABLET BY ity of tablet 00:00: MOUTH 00 TWICE A Medical DAY WITH Branch MEALS CARVEDILOL 2020- Yes [id number] TAKE 1 U nivers 3.125 mg 1-13 TABLET BY ity of tablet 00:00: MOUTH 00 TWICE A Medical DAY WITH Branch MEALS CARVEDILOL 2020- Yes [id number] TAKE 1 U nivers 3.125 mg 1-13 TABLET BY ity of tablet 00:00: MOUTH 00 TWICE A Medical DAY WITH Branch MEALS CARVEDILOL 2020- Yes [id number] TAKE 1 U nivers 3.125 mg 1-13 TABLET BY ity of tablet 00:00: MOUTH 00 TWICE A Medical DAY WITH Branch MEALS CARVEDILOL 2020- Yes [id number] TAKE 1 U nivers 3.125 mg 1-13 TABLET BY ity of tablet 00:00: TWICE A Medical DAY WITH Branch MEALS CARVEDILOL 2020- Yes [id number] TAKE 1 U nivers 3.125 mg 1-13 TABLET BY ity of tablet 00:00: MOUTH 00 TWICE A Medical DAY WITH Branch MEALS CARVEDILOL 2020- Yes [id number] TAKE 1 U nivers 3.125 mg 1-13 TABLET BY ity of tablet 00:00: MOUTH 00 TWICE A Medical DAY WITH Branch MEALS CARVEDILOL 2020- Yes [id number] TAKE 1 U [facility]ivers 3.125 mg 1-13 TABLET BY ity of tablet 00:00: MOUTH 00 TWICE A Medical DAY WITH Branch MEALS CARVEDILOL 2020- Yes [id number] TAKE 1 U [facility]ivers 3.125 mg 1-13 TABLET BY ity of tablet 00:00: MOUTH 00 TWICE A Medical DAY WITH Branch MEALS CARVEDILOL 2020- Yes [id number] TAKE 1 U nivers 3.125 mg 1-13 TABLET BY ity of tablet 00:00: MOUTH 00 TWICE A Medical DAY WITH Branch MEALS CARVEDILOL 2020- Yes [id number] TAKE 1 U nivers 3.125 mg 1-13 TABLET BY ity of tablet 00:00: MOUTH 00 TWICE A Medical DAY WITH Branch MEALS CARVEDILOL 2020- Yes [id number] TAKE 1 U nivers 3.125 mg 1-13 TABLET BY ity of tablet 00:00: MOUTH [place] 00 TWICE A Medical DAY WITH Branch MEALS CARVEDILOL 2019-06 Yes [id number] TAKE 1 U nivers 3.125 mg 1-13 TABLET BY ity of tablet 00:00: MOUTH [place] 00 TWICE A Medical DAY WITH Branch MEALS CARVEDILOL 2019-06 Yes [id number] TAKE 1 U nivers 3.125 mg 1-13 TABLET BY ity of tablet 00:00: MOUTH [place] 00 TWICE A Medical DAY WITH Branch MEALS CARVEDILOL 2019-06- No [id number] TAKE 1 [facility] 3.125 mg 1-13 04-01 TABLET BY ity o f tablet 00:00: 00:00 MOUTH [place] 00 :00 TWICE A Medical DAY WITH Branch MEALS CARVEDILOL 2019-06- No [id number] TAKE 1 [facility] 3.125 mg 1-13 04-01 TABLET BY ity o f tablet 00:00: 00:00 MOUTH [place] 00 :00 TWICE A Medical DAY WITH Branch MEALS CARVEDILOL 2019-06- No [id number] TAKE 1 [facility] 3.125 mg 1-13 04-01 TABLET BY ity o f tablet 00:00: 00:00 MOUTH [place] 00 :00 TWICE A Medical DAY WITH Branch MEALS CARVEDILOL 2019-06- No [id number] TAKE 1 [facility] 3.125 mg 1-13 04-01 TABLET BY ity o f tablet 00:00: 00:00 MOUTH [place] 00 :00 TWICE A Medical DAY WITH Branch MEALS CARVEDILOL 2019-06- No [id number] TAKE 1 [facility] 3.125 mg 1-13 04-01 TABLET BY ity o f tablet 00:00: 00:00 MOUTH [place] 00 :00 TWICE A Medical DAY WITH Branch MEALS CARVEDILOL 2019-06- No [id number] TAKE 1 [facility] 3.125 mg 1-13 04-01 TABLET BY ity o f tablet 00:00: 00:00 MOUTH [place] 00 :00 TWICE A Medical DAY WITH Branch MEALS NYSTATIN 2019-06 Yes [id number] APPLY TO [facility] 100,000 0-01 AFFECTED ity of unit/gram 00:00: AREA TWICE [place] 00 A DAY Medical Branch NYSTATIN 2019-06 Yes [id number] APPLY TO [facility] 100,000 0-01 AFFECTED ity of unit/gram 00:00: AREA TWICE [place] cream 00 A DAY Medical Branch NYSTATIN 2019- Yes [id number] APPLY TO [facility] 100,000 0-01 AFFECTED ity of unit/gram 00:00: AREA TWICE [place] cream A DAY Medical Branch NYSTATIN 2019-06 Yes [id number] APPLY TO [facility] 100,000 0-01 AFFECTED ity of unit/gram 00:00: AREA TWICE [place] cream A DAY Medical Branch NYSTATIN 2019-06 Yes [id number] APPLY TO [facility] 100,000 0-01 AFFECTED ity of unit/gram 00:00: AREA TWICE [place] cream A DAY Medical Branch NYSTATIN 2019-06 Yes [id number] APPLY TO [facility] 100,000 0-01 AFFECTED ity of unit/gram 00:00: AREA TWICE [place] cream A DAY Medical Branch NYSTATIN 2019-06 Yes [id number] APPLY TO [facility] 100,000 0-01 AFFECTED ity of unit/gram 00:00: AREA TWICE [place] cream A DAY Medical Branch NYSTATIN 2019-06 Yes [id number] APPLY TO [facility] 100,000 0-01 AFFECTED ity of unit/gram 00:00: AREA TWICE [place] cream A DAY Medical Branch NYSTATIN 2019-06 Yes [id number] APPLY TO [facility] 100,000 0-01 AFFECTED ity of unit/gram 00:00: AREA TWICE [place] cream A DAY Medical Branch NYSTATIN 2019-06 Yes [id number] APPLY TO [facility] 100,000 0-01 AFFECTED ity of unit/gram 00:00: AREA TWICE [place] cream A DAY Medical Branch NYSTATIN 2019- Yes [id number] APPLY TO [facility] 100,000 0-01 AFFECTED ity of unit/gram 00:00: AREA TWICE [place] A DAY Medical Branch NYSTATIN 2019- Yes [id number] APPLY TO [facility] 100,000 0-01 AFFECTED ity of unit/gram 00:00: AREA TWICE [place] cream A DAY Medical Branch NYSTATIN 2019-06 Yes [id number] APPLY TO [facility] 100,000 0-01 AFFECTED ity of unit/gram 00:00: AREA TWICE [place] A DAY Medical Branch NYSTATIN 2019-06 Yes [id number] APPLY TO [facility] 100,000 0-01 AFFECTED ity of unit/gram 00:00: AREA TWICE [place] 00 A DAY Medical Branch NYSTATIN 2020- Yes [id number] APPLY TO [facility] 100,000 0-01 AFFECTED ity of unit/gram 00:00: AREA TWICE [place] cream A DAY Medical Branch NYSTATIN 2019-06 Yes [id number] APPLY TO [facility] 100,000 0-01 AFFECTED ity of unit/gram 00:00: AREA TWICE [place] cream A DAY Medical Branch NYSTATIN 2019-06 Yes [id number] APPLY TO [facility] 100,000 0-01 AFFECTED ity of unit/gram 00:00: AREA TWICE [place] cream A DAY Medical Branch NYSTATIN 2019-06 Yes [id number] APPLY TO [facility] 100,000 0-01 AFFECTED ity of unit/gram 00:00: AREA TWICE [place] cream A DAY Medical Branch NYSTATIN 2019-06 Yes [id number] APPLY TO [facility] 100,000 0-01 AFFECTED ity of unit/gram 00:00: AREA TWICE [place] cream A DAY Medical Branch NYSTATIN 2019-06 Yes [id number] APPLY TO [facility] 100,000 0-01 AFFECTED ity of unit/gram 00:00: AREA TWICE [place] cream A DAY Medical Branch NYSTATIN 2019-06 Yes [id number] APPLY TO [facility] 100,000 0-01 AFFECTED ity of unit/gram 00:00: AREA TWICE [place] cream A DAY Medical Branch NYSTATIN 2019-06 Yes [id number] APPLY TO [facility] 100,000 0-01 AFFECTED ity of unit/gram 00:00: AREA TWICE [place] cream A DAY Medical Branch NYSTATIN 2019-06 Yes [id number] APPLY TO [facility] 100,000 0-01 AFFECTED ity of unit/gram 00:00: AREA TWICE [place] cream A DAY Medical Branch NYSTATIN 2019- Yes [id number] APPLY TO [facility] 100,000 0-01 AFFECTED ity of unit/gram 00:00: AREA TWICE [place] cream A DAY Medical Branch NYSTATIN 2019- Yes [id number] APPLY TO [facility] 100,000 0-01 AFFECTED ity of unit/gram 00:00: AREA TWICE [place] cream A DAY Medical Branch NYSTATIN 2019-06 Yes [id number] APPLY TO [facility] 100,000 0-01 AFFECTED ity of unit/gram 00:00: AREA TWICE [place] cream A DAY Medical Branch NYSTATIN 2019- Yes [id number] APPLY TO [facility] 100,000 0-01 AFFECTED ity of unit/gram 00:00: AREA TWICE [place] A Medical Branch NYSTATIN 2019-06 Yes [id number] APPLY TO [facility] 100,000 0-01 AFFECTED ity of unit/gram 00:00: AREA TWICE [place] A Medical Branch NYSTATIN 2019-06 Yes [id number] APPLY TO [facility] 100,000 0-01 AFFECTED ity of unit/gram 00:00: AREA TWICE [place] cream A DAY Medical Branch NYSTATIN 2019-06 Yes [id number] APPLY TO [facility] 100,000 0-01 AFFECTED ity of unit/gram 00:00: AREA TWICE [place] A Medical Branch NYSTATIN 2019-06 Yes [id number] APPLY TO [facility] 100,000 0-01 AFFECTED ity of unit/gram 00:00: AREA TWICE [place] A Medical Branch NYSTATIN 2019-06 Yes [id number] APPLY TO [facility] 100,000 0-01 AFFECTED ity of unit/gram 00:00: AREA TWICE [place] A Medical Branch NYSTATIN 2019-06 Yes [id number] APPLY TO [facility] 100,000 0-01 AFFECTED ity of unit/gram 00:00: AREA TWICE [place] A Medical Branch NYSTATIN 2019-06 Yes [id number] APPLY TO [facility] 100,000 0-01 AFFECTED ity of unit/gram 00:00: AREA TWICE [place] cream A Medical Branch NYSTATIN 2019-06 Yes [id number] APPLY TO [facility] 100,000 0-01 AFFECTED ity of unit/gram 00:00: AREA TWICE [place] cream A DAY Medical Branch NYSTATIN 2019-06 Yes [id number] APPLY TO [facility] 100,000 0-01 AFFECTED ity of unit/gram 00:00: AREA TWICE [place] cream A DAY Medical Branch NYSTATIN 2019- Yes [id number] APPLY TO [facility] 100,000 0-01 AFFECTED ity of unit/gram 00:00: AREA TWICE [place] cream A DAY Medical Branch NYSTATIN 2019-06 Yes [id number] APPLY TO [facility] 100,000 0-01 AFFECTED ity of unit/gram 00:00: AREA TWICE [place] cream A DAY Medical Branch NYSTATIN 2019- Yes [id number] APPLY TO [facility] 100,000 0-01 AFFECTED ity of unit/gram 00:00: AREA TWICE [place] cream A DAY Medical Branch NYSTATIN 2019- Yes [id number] APPLY TO [facility] 100,000 0-01 AFFECTED ity of unit/gram 00:00: AREA TWICE [place] A Medical Branch NYSTATIN 2019-06 Yes [id number] APPLY TO [facility] 100,000 0-01 AFFECTED ity of unit/gram 00:00: AREA TWICE [place] cream A DAY Medical Branch NYSTATIN 2019-06 Yes [id number] APPLY TO [facility] 100,000 0-01 AFFECTED ity of unit/gram 00:00: AREA TWICE [place] A Medical Branch NYSTATIN 2019-06 Yes [id number] APPLY TO [facility] 100,000 0-01 AFFECTED ity of unit/gram 00:00: AREA TWICE [place] A Medical Branch NYSTATIN 2019-06 Yes [id number] APPLY TO [facility] 100,000 0-01 AFFECTED ity of unit/gram 00:00: AREA TWICE [place] A [facility] Branch NYSTATIN 2019-06 Yes [id number] APPLY TO [facility] 100,000 0-01 AFFECTED ity of unit/gram 00:00: AREA TWICE [place] cream A [facility] Branch NYSTATIN 2019-06 Yes [id number] APPLY TO [facility] 100,000 0-01 AFFECTED ity of unit/gram 00:00: AREA TWICE [place] cream A Medical Branch NYSTATIN 2019-06 Yes [id number] APPLY TO [facility] 100,000 0-01 AFFECTED ity of unit/gram 00:00: AREA TWICE [place] cream A DAY Medical Branch NYSTATIN 2019- Yes [id number] APPLY TO [facility] 100,000 0-01 AFFECTED ity of unit/gram 00:00: AREA TWICE [place] cream A DAY Medical Branch NYSTATIN 2019- Yes [id number] APPLY TO [facility] 100,000 0-01 AFFECTED ity of unit/gram 00:00: AREA TWICE [place] cream A DAY Medical Branch NYSTATIN 2019-06 Yes [id number] APPLY TO [facility] 100,000 0-01 AFFECTED ity of unit/gram 00:00: AREA TWICE [place] cream A DAY Medical Branch NYSTATIN 2019- Yes [id number] APPLY TO [facility] 100,000 0-01 AFFECTED ity of unit/gram 00:00: AREA TWICE [place] cream 00 A DAY [facility] sodium 2020-0 2020- No [id number] 15g Take 60 mL Univers polystyrene 12-28 by mouth ity of sulfonate 00:00: 04:59 once now [place] as 15 gram/60 00 :00 for 1 Medical mL dose. Branch suspension aspirin 81 2020-0 Yes 81mg Take 81 mg U nivers mg EC 7-24 by mouth. ity of tablet 17:54: [address] aspirin 81 2020-0 Yes 81mg Take 81 mg U nivers mg EC 7-24 by mouth. ity of tablet 17:54: [address] aspirin 81 2020-0 Yes 81mg Take 81 mg U nivers mg EC 7-24 by mouth. ity of tablet 17:54: [address] aspirin 81 2020-0 Yes 81mg Take 81 mg U nivers mg EC 7-24 by mouth. ity of tablet 17:54: [address] aspirin 81 2020-0 Yes 81mg Take 81 mg U nivers mg EC 7-24 by mouth. ity of tablet 17:54: [address] aspirin 81 2020-0 Yes 81mg Take 81 mg U nivers mg EC 7-24 by mouth. ity of tablet 17:54: [address] aspirin 81 2020-0 Yes 81mg Take 81 mg U nivers mg EC 7-24 by mouth. ity of tablet 17:54: [address] aspirin 81 2020-0 Yes 81mg Take 81 mg U nivers mg EC 7-24 by mouth. ity of tablet 17:54: [address] aspirin 81 2020-0 Yes 81mg Take 81 mg U nivers mg EC 7-24 by mouth. ity of tablet 17:54: [address] aspirin 81 2020-0 Yes 81mg Take 81 mg U nivers mg EC 7-24 by mouth. ity of tablet 17:54: [address] aspirin 81 2020-0 Yes 81mg Take 81 mg U nivers mg EC 7-24 by mouth. ity of tablet 17:54: [address] aspirin 81 2020-0 Yes 81mg Take 81 mg U nivers mg EC 7-24 by mouth. ity of tablet 17:54: [place] 44 Medical Branch aspirin 81 2020-0 Yes 81mg Take 81 mg U nivers mg EC 7-24 by mouth. ity of tablet 17:54: [place] [address] Medical Branch aspirin 81 2020-0 Yes 81mg Take 81 mg U nivers mg EC 7-24 by mouth. ity of tablet 17:54: [place] [address] Medical Branch aspirin 81 2020-0 Yes 81mg Take 81 mg U nivers mg EC 7-24 by mouth. ity of tablet 17:54: [place] [address] Medical Branch furosemide 2020-0 Yes [id number] 40mg Take 1 [facility] 40 mg 7-15 tablet by ity of tablet 00:00: mouth [place] 00 daily. Medical Take 1.5 Branch in the morning and one pill 6 hours later. furosemide 2020-0 Yes [id number] 40mg Take 1 [facility] 40 mg 7-15 tablet by ity of tablet 00:00: mouth [place] 00 daily. Medical Take 1.5 Branch in the morning and one pill 6 hours later. furosemide 2020-0 Yes [id number] 40mg Take 1 [facility] 40 mg 7-15 tablet by ity of tablet 00:00: mouth [place] 00 daily. Medical Take 1.5 Branch in the morning and one pill 6 hours later. furosemide 2020-0 Yes [id number] 40mg Take 1 [facility] 40 mg 7-15 tablet by ity of tablet 00:00: mouth [place] 00 daily. Medical Take 1.5 Branch in the morning and one pill 6 hours later. furosemide 2020-0 Yes [id number] 40mg Take 1 [facility] 40 mg 7-15 tablet by ity of tablet 00:00: mouth [place] 00 daily. Medical Take 1.5 Branch in the morning and one pill 6 hours later. furosemide 2020-0 Yes [id number] 40mg Take 1 [facility] 40 mg 7-15 tablet by ity of tablet 00:00: mouth [place] 00 daily. Medical Take 1.5 Branch in the morning and one pill 6 hours later. furosemide 2020-0 Yes [id number] 40mg Take 1 [facility] 40 mg 7-15 tablet by ity of tablet 00:00: mouth [place] 00 daily. Medical Take 1.5 Branch in the morning and one pill 6 hours later. furosemide 2020-0 Yes [id number] 40mg Take 1 [facility] 40 mg 7-15 tablet by ity of tablet 00:00: mouth [place] 00 daily. Medical Take 1.5 Branch in the morning and one pill 6 hours later. furosemide 2020-0 Yes [id number] 40mg Take 1 [facility] 40 mg 7-15 tablet by ity of tablet 00:00: mouth [place] 00 daily. Medical Take 1.5 Branch in the morning and one pill 6 hours later. furosemide 2020-0 Yes [id number] 40mg Take 1 [facility] 40 mg 7-15 tablet by ity of tablet 00:00: mouth [place] 00 daily. Medical Take 1.5 Branch in the morning and one pill 6 hours later. furosemide 2020-0 Yes [id number] 40mg Take 1 [facility] 40 mg 7-15 tablet by ity of tablet 00:00: mouth [place] 00 daily. Medical Take 1.5 Branch in the morning and one pill 6 hours later. furosemide 2020-0 Yes [id number] 40mg Take 1 [facility] 40 mg 7-15 tablet by ity of tablet 00:00: mouth [place] 00 daily. Medical Take 1.5 Branch in the morning and one pill 6 hours later. furosemide 2020-0 Yes [id number] 40mg Take 1 [facility] 40 mg 7-15 tablet by ity of tablet 00:00: mouth [place] 00 daily. Medical Take 1.5 Branch in the morning and one pill 6 hours later. furosemide 2020-0 Yes [id number] 40mg Take 1 [facility] 40 mg 7-15 tablet by ity of tablet 00:00: mouth [place] 00 daily. Medical Take 1.5 Branch in the morning and one pill 6 hours later. furosemide 2020-0 No [id number] 40mg Take 1 [facility] 40 mg 7-15 tablet by ity of tablet 00:00: mouth [place] 00 daily. Medical Take 1.5 Branch in the morning and one pill 6 hours later. allopurinoL 2020-0 2020- No 100mg Take 100 [facility] 100 mg 7-10 07-10 mg by ity of tablet 20:24: 00:00 mouth at [place] 48 :00 bedtime. Medical Branch allopurinoL 2020-0 2020- No 100mg Take 100 [facility] 100 mg 7-10 07-10 mg by ity of tablet 20:24: 00:00 mouth at [place] 48 :00 bedtime. Medical Branch allopurinoL 2020-0 2020- No 100mg Take 100 [facility] 100 mg 7-10 07-10 mg by ity of tablet 20:24: 00:00 mouth at [place] 48 :00 bedtime. Medical Branch aspirin 81 2020-0 Yes 81mg Take 81 mg U nivers mg EC 7-10 by mouth. ity of tablet 19:20: Medical Branch aspirin 81 2020-0 Yes 81mg Take 81 mg U nivers mg EC 7-10 by mouth. ity of tablet 19:20: Medical Branch aspirin 81 2020-0 Yes 81mg Take 81 mg U nivers mg EC 7-10 by mouth. ity of tablet 19:20: Medical [place] aspirin 81 2020-0 Yes 81mg Take 81 mg U nivers mg EC 7-10 by mouth. ity of tablet 19:20: Medical Branch potassium 2020-0 Yes [id number] 10meq Take 1 [facility] chloride 10 7-10 tablet by ity of mEq CR 00:00: mouth [place] tablet 00 daily. Medical Branch potassium 2020-0 Yes [id number] 10meq Take 1 [facility] chloride 10 7-10 tablet by ity of mEq CR 00:00: mouth [place] tablet 00 daily. Medical Branch potassium 2020-0 Yes [id number] 10meq Take 1 [facility] chloride 10 7-10 tablet by ity of mEq CR 00:00: mouth [place] tablet 00 daily. Medical Branch potassium 2020-0 Yes [id number] 10meq Take 1 [facility] chloride 10 7-10 tablet by ity of mEq CR 00:00: mouth [place] tablet 00 daily. [facility] potassium 2020-0 Yes [id number] 10meq Take 1 [facility] chloride 10 7-10 tablet by [facility] of mEq CR 00:00: mouth [place] tablet 00 daily. [facility] potassium 2020-0 Yes [id number] 10meq Take 1 [facility] chloride 10 7-10 tablet by [facility] of mEq CR 00:00: mouth [place] tablet 00 daily. [facility] potassium 2020-0 Yes [id number] 10meq Take 1 [facility] chloride 10 7-10 tablet by [facility] of mEq CR 00:00: mouth [place] tablet 00 daily. [facility] allopurinoL 2020-0 Yes [id number] 100mg Take 1 [facility] 100 mg 7-10 tablet by [facility] of tablet 00:00: mouth at [place] 00 bedtime. [facility] nystatin 2020-0 Yes [id number] Apply to [facility] 100,000 7-10 area(s) 2 [facility] of unit/gram 00:00: (two) [place] cream 00 times Medical daily. Branch nystatin 2020-0 Yes [id number] Apply to [facility] 100,000 7-10 area(s) 2 [facility] of unit/gram 00:00: (two) [place] powder 00 times Medical daily. Branch potassium 2020-0 Yes [id number] 10meq Take 1 [facility] chloride 10 7-10 tablet by [facility] of mEq CR 00:00: mouth [place] tablet 00 daily. [facility] allopurinoL 2020-0 Yes [id number] 100mg Take 1 [facility] 100 mg 7-10 tablet by [facility] of tablet 00:00: mouth at [place] 00 bedtime. [facility] nystatin 2020-0 Yes [id number] Apply to [facility] 100,000 7-10 area(s) 2 [facility] of unit/gram 00:00: (two) [place] cream 00 times Medical daily. Branch nystatin 2020-0 Yes [id number] Apply to [facility] 100,000 7-10 area(s) 2 [facility] of unit/gram 00:00: (two) [place] powder 00 times Medical daily. Branch potassium 2020-0 Yes [id number] 10meq Take 1 [facility] chloride 10 7-10 tablet by [facility] of mEq CR 00:00: mouth [place] tablet 00 daily. [facility] allopurinoL 2020-0 Yes [id number] 100mg Take 1 [facility] 100 mg 7-10 tablet by [facility] of tablet 00:00: mouth at [place] 00 bedtime. [facility] nystatin 2020-0 Yes [id number] Apply to [facility] 100,000 7-10 area(s) 2 [facility] of unit/gram 00:00: (two) [place] cream 00 times Medical daily. Branch nystatin 2020-0 Yes [id number] Apply to [facility] 100,000 7-10 area(s) 2 [facility] of unit/gram 00:00: (two) [place] powder 00 times Medical daily. Branch potassium 2020-0 Yes [id number] 10meq Take 1 [facility] chloride 10 7-10 tablet by [facility] of mEq CR 00:00: mouth [place] tablet 00 daily. [facility] allopurinoL 2020-0 Yes [id number] 100mg Take 1 [facility] 100 mg 7-10 tablet by [facility] of tablet 00:00: mouth at [place] 00 bedtime. [facility] nystatin 2020-0 Yes [id number] Apply to [facility] 100,000 7-10 area(s) 2 [facility] of unit/gram 00:00: (two) [place] cream 00 times Medical daily. Branch nystatin 2020-0 Yes [id number] Apply to [facility] 100,000 7-10 area(s) 2 [facility] of unit/gram 00:00: (two) [place] powder 00 times Medical daily. Branch potassium 2020-0 Yes [id number] 10meq Take 1 [facility] chloride 10 7-10 tablet by [facility] of mEq CR 00:00: mouth [place] tablet 00 daily. [facility] allopurinoL 2020-0 Yes [id number] 100mg Take 1 [facility] 100 mg 7-10 tablet by [facility] of tablet 00:00: mouth at [place] 00 bedtime. [facility] nystatin 2020-0 Yes [id number] Apply to [facility] 100,000 7-10 area(s) 2 [facility] of unit/gram 00:00: (two) [place] cream 00 times Medical daily. Branch nystatin 2020-0 Yes [id number] Apply to [facility] 100,000 7-10 area(s) 2 [facility] of unit/gram 00:00: (two) [place] powder 00 times Medical daily. Branch potassium 2020-0 Yes [id number] 10meq Take 1 [facility] chloride 10 7-10 tablet by [facility] of mEq CR 00:00: mouth [place] tablet 00 daily. [facility] allopurinoL 2020-0 Yes [id number] 100mg Take 1 [facility] 100 mg 7-10 tablet by [facility] of tablet 00:00: mouth at [place] 00 bedtime. [facility] nystatin 2020-0 Yes [id number] Apply to [facility] 100,000 7-10 area(s) 2 [facility] of unit/gram 00:00: (two) [place] cream 00 times Medical daily. Branch nystatin 2020-0 Yes [id number] Apply to [facility] 100,000 7-10 area(s) 2 it[facility] of unit/gram 00:00: (two) [place] powder 00 times Medical daily. Branch potassium 2020-0 Yes [id number] 10meq Take 1 [facility] chloride 10 7-10 tablet by [facility] of mEq CR 00:00: mouth [place] tablet 00 daily. [facility] allopurinoL 2020-0 Yes [id number] 100mg Take 1 [facility] 100 mg 7-10 tablet by [facility] of tablet 00:00: mouth at [place] 00 bedtime. [facility] nystatin 2020-0 Yes [id number] Apply to [facility] 100,000 7-10 area(s) 2 [facility] of unit/gram 00:00: (two) [place] cream 00 times Medical daily. Branch nystatin 2020-0 Yes [id number] Apply to [facility] 100,000 7-10 area(s) 2 [facility] of unit/gram 00:00: (two) [place] powder 00 times Medical daily. Branch potassium 2020-0 Yes [id number] 10meq Take 1 [facility] chloride 10 7-10 tablet by [facility] of mEq CR 00:00: mouth [place] tablet 00 daily. [facility] allopurinoL 2020-0 Yes [id number] 100mg Take 1 [facility] 100 mg 7-10 tablet by [facility] of tablet 00:00: mouth at [place] 00 bedtime. [facility] nystatin 2020-0 Yes [id number] Apply to [facility] 100,000 7-10 area(s) 2 it[facility] of unit/gram 00:00: (two) [place] cream 00 times Medical daily. Branch nystatin 2020-0 Yes [id number] Apply to [facility] 100,000 7-10 area(s) 2 it[facility] of unit/gram 00:00: (two) [place] powder 00 times Medical daily. Branch potassium 2020-0 Yes [id number] 10meq Take 1 [facility] chloride 10 7-10 tablet by [facility] of mEq CR 00:00: mouth [place] tablet 00 daily. [facility] allopurinoL 2020-0 Yes [id number] 100mg Take 1 [facility] 100 mg 7-10 tablet by [facility] of tablet 00:00: mouth at [place] 00 bedtime. [facility] nystatin 2020-0 Yes [id number] Apply to [facility] 100,000 7-10 area(s) 2 it[facility] of unit/gram 00:00: (two) [place] cream 00 times Medical daily. Branch nystatin 2020-0 Yes [id number] Apply to [facility] 100,000 7-10 area(s) 2 [facility] of unit/gram 00:00: (two) [place] powder 00 times Medical daily. Branch potassium 2020-0 Yes [id number] 10meq Take 1 [facility] chloride 10 7-10 tablet by [facility] of mEq CR 00:00: mouth [place] tablet 00 daily. [facility] allopurinoL 2020-0 Yes [id number] 100mg Take 1 [facility] 100 mg 7-10 tablet by [facility] of tablet 00:00: mouth at [place] 00 bedtime. [facility] nystatin 2020-0 Yes [id number] Apply to [facility] 100,000 7-10 area(s) 2 [facility] of unit/gram 00:00: (two) [place] cream 00 times Medical daily. Branch nystatin 2020-0 Yes [id number] Apply to [facility] 100,000 7-10 area(s) 2 it[facility] of unit/gram 00:00: (two) [place] powder 00 times Medical daily. Branch potassium 2020-0 Yes [id number] 10meq Take 1 [facility] chloride 10 7-10 tablet by ity of mEq CR 00:00: mouth [place] tablet 00 daily. [facility] allopurinoL 2020-0 Yes [id number] 100mg Take 1 [facility] 100 mg 7-10 tablet by [facility] of tablet 00:00: mouth at [place] 00 bedtime. [facility] nystatin 2020-0 Yes [id number] Apply to [facility] 100,000 7-10 area(s) 2 ity of unit/gram 00:00: (two) [place] cream 00 times Medical daily. Branch nystatin 2020-0 Yes [id number] Apply to [facility] 100,000 7-10 area(s) 2 it[facility] of unit/gram 00:00: (two) [place] powder 00 times Medical daily. Branch potassium 2020-0 Yes [id number] 10meq Take 1 [facility] chloride 10 7-10 tablet by ity of mEq CR 00:00: mouth [place] tablet 00 daily. [facility] allopurinoL 2020-0 Yes [id number] 100mg Take 1 [facility] 100 mg 7-10 tablet by [facility] of tablet 00:00: mouth at [place] 00 bedtime. [facility] nystatin 2020-0 Yes [id number] Apply to [facility] 100,000 7-10 area(s) 2 ity of unit/gram 00:00: (two) [place] cream 00 times Medical daily. Branch nystatin 2020-0 Yes [id number] Apply to [facility] 100,000 7-10 area(s) 2 ity of unit/gram 00:00: (two) [place] powder 00 times Medical daily. Branch potassium 2020-0 Yes [id number] 10meq Take 1 [facility] chloride 10 7-10 tablet by ity of mEq CR 00:00: mouth [place] tablet 00 daily. [facility] allopurinoL 2020-0 Yes [id number] 100mg Take 1 [facility] 100 mg 7-10 tablet by ity of tablet 00:00: mouth at [place] 00 bedtime. [facility] nystatin 2020-0 Yes [id number] Apply to [facility] 100,000 7-10 area(s) 2 ity of unit/gram 00:00: (two) [place] cream 00 times Medical daily. Branch nystatin 2020-0 Yes [id number] Apply to [facility] 100,000 7-10 area(s) 2 it[facility] of unit/gram 00:00: (two) [place] powder 00 times Medical daily. Branch potassium 2020-0 Yes [id number] 10meq Take 1 [facility] chloride 10 7-10 tablet by [facility] of mEq CR 00:00: mouth [place] tablet 00 daily. [facility] allopurinoL 2020-0 Yes [id number] 100mg Take 1 [facility] 100 mg 7-10 tablet by [facility] of tablet 00:00: mouth at [place] 00 bedtime. [facility] nystatin 2020-0 Yes [id number] Apply to [facility] 100,000 7-10 area(s) 2 it[facility] of unit/gram 00:00: (two) [place] cream 00 times Medical daily. Branch nystatin 2020-0 Yes [id number] Apply to [facility] 100,000 7-10 area(s) 2 it[facility] of unit/gram 00:00: (two) [place] powder 00 times Medical daily. Branch potassium 2020-0 Yes [id number] 10meq Take 1 [facility] chloride 10 7-10 tablet by ity of mEq CR 00:00: mouth [place] tablet 00 daily. [facility] allopurinoL 2020-0 Yes [id number] 100mg Take 1 [facility] 100 mg 7-10 tablet by ity of tablet 00:00: mouth at [place] 00 bedtime. [facility] nystatin 2020-0 Yes [id number] Apply to [facility] 100,000 7-10 area(s) 2 ity of unit/gram 00:00: (two) [place] cream 00 times Medical daily. Branch nystatin 2020-0 Yes [id number] Apply to [facility] 100,000 7-10 area(s) 2 ity of unit/gram 00:00: (two) [place] powder 00 times Medical daily. Branch potassium 2020-0 Yes [id number] 10meq Take 1 [facility] chloride 10 7-10 tablet by ity of mEq CR 00:00: mouth [place] tablet 00 daily. [facility] allopurinoL 2020-0 Yes [id number] 100mg Take 1 [facility] 100 mg 7-10 tablet by ity of tablet 00:00: mouth at [place] 00 bedtime. [facility] potassium 2020-0 Yes [id number] 10meq Take 1 [facility] chloride 10 7-10 tablet by ity of mEq CR 00:00: mouth [place] tablet 00 daily. [facility] allopurinoL 2020-0 Yes [id number] 100mg Take 1 [facility] 100 mg 7-10 tablet by ity of tablet 00:00: mouth at [place] 00 bedtime. [facility] potassium 2020-0 Yes [id number] 10meq Take 1 [facility] chloride 10 7-10 tablet by ity of mEq CR 00:00: mouth [place] tablet 00 daily. [facility] allopurinoL 2020-0 Yes [id number] 100mg Take 1 [facility] 100 mg 7-10 tablet by ity of tablet 00:00: mouth at [place] 00 bedtime. [facility] potassium 2020-0 Yes [id number] 10meq Take 1 [facility] chloride 10 7-10 tablet by ity of mEq CR 00:00: mouth [place] tablet 00 daily. [facility] potassium 2019-0 2020- No [id number] 10meq Take 1 [facility] chloride 10 7-10 03-03 tablet by it y of mEq CR 00:00: 00:00 mouth [place] tablet 00 :00 daily. [facility] Branch allopurinoL 2019-0 2020- No [id number] 100mg Take 1 [facility] 100 mg 7-10 01-05 tablet by ity of tablet 00:00: 00:00 mouth at [place] 00 :00 bedtime. Medical Branch nystatin 2020-0 2020- No [id number] Apply to [facility] 100,000 7-10 10-01 area(s) 2 ity of unit/gram 00:00: 00:00 (two) [place] cream 00 :00 times Medical daily. Branch nystatin 2019-0 2020- No [id number] Apply to [facility] 100,000 7-10 10-01 area(s) 2 ity of unit/gram 00:00: 00:00 (two) [place] powder 00 :00 times Medical daily. Branch Lactobacill 2020-0 Yes [facility] us 4-16 ity of acidophilus 00:00: [place] (PROBIOTIC) 00 Medical 10 billion Branch cell capsule Lactobacill 2020-0 Yes [facility] us 4-16 ity of acidophilus 00:00: [place] (PROBIOTIC) 00 Medical 10 billion Branch cell capsule Lactobacill 2020-0 Yes [facility] 4-16 ity of acidophilus 00:00: [place] (PROBIOTIC) 00 Medical 10 billion Branch cell capsule Lactobacill 2020-0 Yes [facility] 4-16 ity of acidophilus 00:00: [place] (PROBIOTIC) 00 Medical 10 billion Branch cell capsule Lactobacill 2020-0 Yes [facility] 4-16 ity of acidophilus 00:00: [place] (PROBIOTIC) 00 Medical 10 billion Branch cell capsule Lactobacill 2020-0 Yes [facility] us 4-16 ity of acidophilus 00:00: [place] (PROBIOTIC) 00 Medical 10 billion Branch cell capsule Lactobacill 2020-0 Yes [facility] us 4-16 ity of acidophilus 00:00: [place] (PROBIOTIC) 00 Medical 10 billion Branch cell capsule Lactobacill 2020-0 Yes [facility] us 4-16 ity of acidophilus 00:00: [place] (PROBIOTIC) 00 Medical 10 billion Branch cell capsule Lactobacill 2020-0 Yes [facility] us 4-16 ity of acidophilus 00:00: [place] (PROBIOTIC) 00 Medical 10 billion Branch cell capsule Lactobacill 2020-0 Yes [facility] us 4-16 ity of acidophilus 00:00: [place] (PROBIOTIC) 00 Medical 10 billion Branch cell capsule Lactobacill 2020-0 Yes [facility] us 4-16 ity of acidophilus 00:00: [place] (PROBIOTIC) 00 Medical 10 billion Branch cell capsule Lactobacill 2020-0 Yes [facility] us 4-16 ity of acidophilus 00:00: [place] (PROBIOTIC) 00 Medical 10 billion Branch cell capsule Lactobacill 2020-0 Yes [facility] us 4-16 ity of acidophilus 00:00: [place] (PROBIOTIC) 00 Medical 10 billion Branch cell capsule Lactobacill 2020-0 Yes [facility] us 4-16 ity of acidophilus 00:00: [place] (PROBIOTIC) 00 Medical 10 billion Branch cell capsule Lactobacill 2020-0 Yes [facility] us 4-16 ity of acidophilus 00:00: [place] (PROBIOTIC) 00 Medical 10 billion Branch cell capsule Lactobacill 2020-0 Yes [facility] us 4-16 ity of acidophilus 00:00: [place] (PROBIOTIC) 00 Medical 10 billion Branch cell capsule Lactobacill 2020-0 Yes [facility] us 4-16 ity of acidophilus 00:00: [place] (PROBIOTIC) 00 Medical 10 billion Branch cell capsule Lactobacill 2020-0 Yes [facility] us 4-16 ity of acidophilus 00:00: [place] (PROBIOTIC) 00 Medical 10 billion Branch cell capsule Lactobacill 2020-0 Yes [facility] us 4-16 ity of acidophilus 00:00: [place] (PROBIOTIC) 00 Medical 10 billion Branch cell capsule Lactobacill 2020-0 Yes [facility] us 4-16 ity of acidophilus 00:00: [place] (PROBIOTIC) 00 Medical 10 billion Branch [facility]:00: [place] (PROBIOTIC) 00 Medical 10 billion Branch cell [facility] acidophilus 00:00: [place] (PROBIOTIC) 00 Medical 10 billion Branch cell capsule Lactobacill 2020-0 Yes [facility] us 4-16 ity of acidophilus 00:00: [place] (PROBIOTIC) 00 Medical 10 billion Branch cell capsule [facility]us 00:00: [place] (PROBIOTIC) 00 Medical 10 billion Branch cell capsule Lactobacill 2020-0 Yes [facility] 4-16 ity of acidophilus 00:00: [place] (PROBIOTIC) 00 Medical 10 billion Branch cell capsule Lactobacill 2020-0 Yes [facility] 4-16 ity of acidophilus 00:00: [place] (PROBIOTIC) 00 Medical 10 billion Branch cell capsule Lactobacill 2020-0 Yes [facility] 4-16 ity of acidophilus 00:00: [place] (PROBIOTIC) 00 Medical 10 billion Branch cell capsule Lactobacill 2020-0 Yes [facility] us 4-16 ity of acidophilus 00:00: [place] (PROBIOTIC) 00 Medical 10 billion Branch cell capsule Lactobacill 2020-0 Yes [facility] us 4-16 ity of acidophilus 00:00: [place] (PROBIOTIC) 00 Medical 10 billion Branch cell capsule Lactobacill 2020-0 Yes [facility] us 4-16 ity of acidophilus 00:00: [place] (PROBIOTIC) 00 Medical 10 billion Branch cell capsule Lactobacill 2020-0 Yes [facility] us 4-16 ity of acidophilus 00:00: [place] (PROBIOTIC) 00 Medical 10 billion Branch cell capsule Lactobacill 2020-0 Yes [facility] us 4-16 ity of acidophilus 00:00: [place] (PROBIOTIC) 00 Medical 10 billion Branch cell capsule Lactobacill 2020-0 Yes [facility] us 4-16 ity of acidophilus 00:00: [place] (PROBIOTIC) 00 Medical 10 billion Branch cell capsule aspirin 81 2020-0 Yes 81mg Take 81 mg U nivers mg EC 3-24 by mouth. ity of tablet 15:10: [place] 07 Medical Branch aspirin 81 2020-0 Yes 81mg Take 81 mg U nivers mg EC 3-24 by mouth. ity of tablet 15:10: [address] aspirin 81 2020-0 Yes 81mg Take 81 mg U nivers mg EC 3-24 by mouth. ity of tablet 15:10: [address] aspirin 81 2020-0 Yes 81mg Take 81 mg U nivers mg EC 3-24 by mouth. ity of tablet 15:10: [address] aspirin 81 2020-0 Yes 81mg Take 81 mg U nivers mg EC 3-24 by mouth. ity of tablet 15:10: [address] aspirin 81 2020-0 Yes 81mg Take 81 mg U nivers mg EC 3-24 by mouth. ity of tablet 15:10: [address] ALLOPURINOL 2020-0 Yes Take by [facility] vers ORAL 3-24 mouth at ity of 15:09: bedtime. [address] ALLOPURINOL 2020-0 Yes Take by [facility] vers ORAL 3-24 mouth at ity of 15:09: bedtime. [address] ALLOPURINOL 2020-0 Yes Take by [facility] vers ORAL 3-24 mouth at ity of 15:09: bedtime. [address] ALLOPURINOL 2020-0 Yes Take by [facility] vers ORAL 3-24 mouth at ity of 15:09: bedtime. [address] ALLOPURINOL 2020-0 Yes Take by [facility] vers ORAL 3-24 mouth at ity of 15:09: bedtime. [address] ALLOPURINOL 2020-0 Yes Take by [facility] vers ORAL 3-24 mouth at ity of 15:09: bedtime. [address] DONEPEZIL 2020-0 Yes [id number] TAKE 1 [facility] [place] 10 mg 2-06 TABLET BY ity of tablet 00:00: MOUTH EVERYDAY Medical AT BEDTIME Branch DONEPEZIL 2020-0 Yes [id number] TAKE 1 [facility] [place] 10 mg 2-06 TABLET BY ity of tablet 00:00: MOUTH EVERYDAY Medical AT BEDTIME Branch DONEPEZIL 2020-0 Yes [id number] TAKE 1 [facility] [place] 10 mg 2-06 TABLET BY ity of tablet 00:00: MOUTH [place] EVERYDAY Medical AT BEDTIME Branch DONEPEZIL 2020-0 Yes [id number] TAKE 1 [facility] [place] 10 mg 2-06 TABLET BY ity of tablet 00:00: MOUTH 00 EVERYDAY Medical AT BEDTIME Branch DONEPEZIL 2020-0 Yes [id number] TAKE 1 [facility] [place] 10 mg 2-06 TABLET BY ity of tablet 00:00: MOUTH 00 EVERYDAY Medical AT BEDTIME Branch DONEPEZIL 2020-0 Yes [id number] TAKE 1 [facility] [place] 10 mg 2-06 TABLET BY ity of tablet 00:00: MOUTH 00 EVERYDAY Medical AT BEDTIME Branch DONEPEZIL 2020-0 Yes [id number] TAKE 1 [facility] [place] 10 mg 2-06 TABLET BY ity of tablet 00:00: MOUTH 00 EVERYDAY Medical AT BEDTIME Branch DONEPEZIL 2020-0 Yes [id number] TAKE 1 [facility] [place] 10 mg 2-06 TABLET BY ity of tablet 00:00: MOUTH EVERYDAY Medical AT BEDTIME Branch DONEPEZIL 2020-0 Yes [id number] TAKE 1 [facility] [place] 10 mg 2-06 TABLET BY ity of tablet 00:00: EVERYDAY Medical AT BEDTIME Branch DONEPEZIL 2020-0 Yes [id number] TAKE 1 [facility] [place] 10 mg 2-06 TABLET BY ity of tablet 00:00: MOUTH EVERYDAY Medical AT BEDTIME Branch DONEPEZIL 2020-0 Yes [id number] TAKE 1 [place] 10 mg 2-06 TABLET BY ity of tablet 00:00: MOUTH EVERYDAY Medical AT BEDTIME Branch DONEPEZIL 2020-0 Yes [id number] TAKE 1 [facility] [place] 10 mg 2-06 TABLET BY ity of tablet 00:00: MOUTH EVERYDAY Medical AT BEDTIME Branch DONEPEZIL 2020-0 Yes [id number] TAKE 1 [place] 10 mg 2-06 TABLET BY ity of tablet 00:00: MOUTH EVERYDAY Medical AT BEDTIME Branch DONEPEZIL 2020-0 Yes [id number] TAKE 1 [facility] [place] 10 mg 2-06 TABLET BY ity of tablet 00:00: MOUTH 00 EVERYDAY Medical AT BEDTIME Branch DONEPEZIL 2020-0 Yes [id number] TAKE 1 [facility] [place] 10 mg 2-06 TABLET BY ity of tablet 00:00: MOUTH 00 EVERYDAY Medical AT BEDTIME Branch DONEPEZIL 2020-0 Yes [id number] TAKE 1 [facility] [place] 10 mg 2-06 TABLET BY ity of tablet 00:00: [facility] 00 EVERYDAY Medical AT BEDTIME Branch DONEPEZIL 2020-0 Yes [id number] TAKE 1 [facility] [place] 10 mg 2-06 TABLET BY ity of tablet 00:00: MOUTH 00 EVERYDAY Medical AT BEDTIME Branch DONEPEZIL 2020-0 Yes [id number] TAKE 1 [place] 10 mg 2-06 TABLET BY ity of tablet 00:00: MOUTH 00 EVERYDAY Medical AT BEDTIME Branch DONEPEZIL 2020-0 Yes [id number] TAKE 1 [place] 10 mg 2-06 TABLET BY ity of tablet 00:00: MOUTH 00 EVERYDAY Medical AT BEDTIME Branch DONEPEZIL 2020-0 Yes [id number] TAKE 1 [place] 10 mg 2-06 TABLET BY ity of tablet 00:00: MOUTH 00 EVERYDAY Medical AT BEDTIME Branch DONEPEZIL 2020-0 Yes [id number] TAKE 1 [place] 10 mg 2-06 TABLET BY ity of tablet 00:00: MOUTH 00 EVERYDAY Medical AT BEDTIME Branch DONEPEZIL 2020-0 Yes [id number] TAKE 1 [place] 10 mg 2-06 TABLET BY ity of tablet 00:00: MOUTH EVERYDAY Medical AT BEDTIME Branch DONEPEZIL 2020-0 Yes [id number] TAKE 1 [place] 10 mg 2-06 TABLET BY ity of tablet 00:00: MOUTH EVERYDAY Medical AT BEDTIME Branch DONEPEZIL 2020-0 Yes [id number] TAKE 1 [place] 10 mg 2-06 TABLET BY ity of tablet 00:00: MOUTH 00 EVERYDAY Medical AT BEDTIME Branch DONEPEZIL 2020-0 Yes [id number] TAKE 1 [place] 10 mg 2-06 TABLET BY ity of tablet 00:00: MOUTH 00 EVERYDAY Medical AT BEDTIME Branch DONEPEZIL 2020-0 Yes [id number] TAKE 1 [place] 10 mg 2-06 TABLET BY ity of tablet 00:00: MOUTH 00 EVERYDAY Medical AT BEDTIME Branch DONEPEZIL 2020-0 Yes [id number] TAKE 1 [place] 10 mg 2-06 TABLET BY ity of tablet 00:00: MOUTH 00 EVERYDAY Medical AT BEDTIME Branch DONEPEZIL 2020-0 Yes [id number] TAKE 1 [place] 10 mg 2-06 TABLET BY ity of tablet 00:00: MOUTH 00 EVERYDAY Medical AT BEDTIME Branch DONEPEZIL 2020-0 Yes [id number] TAKE 1 [place] 10 mg 2-06 TABLET BY ity of tablet 00:00: MOUTH 00 EVERYDAY Medical AT BEDTIME Branch DONEPEZIL 2020-0 Yes [id number] TAKE 1 [place] 10 mg 2-06 TABLET BY ity of tablet 00:00: MOUTH 00 EVERYDAY Medical AT BEDTIME Branch DONEPEZIL 2020-0 Yes [id number] TAKE 1 [place] 10 mg 2-06 TABLET BY ity of tablet 00:00: MOUTH 00 EVERYDAY Medical AT BEDTIME Branch DONEPEZIL 2020-0 Yes [id number] TAKE 1 [place] 10 mg 2-06 TABLET BY ity of tablet 00:00: MOUTH 00 EVERYDAY Medical AT BEDTIME Branch DONEPEZIL 2020-0 Yes [id number] TAKE 1 [place] 10 mg 2-06 TABLET BY ity of tablet 00:00: MOUTH 00 EVERYDAY Medical AT BEDTIME Branch DONEPEZIL 2020-0 Yes [id number] TAKE 1 [place] 10 mg 2-06 TABLET BY ity of tablet 00:00: [facility] EVERYDAY Medical AT BEDTIME Branch DONEPEZIL 2020-0 Yes [id number] TAKE 1 [place] 10 mg 2-06 TABLET BY ity of tablet 00:00: MOUTH 00 EVERYDAY Medical AT BEDTIME Branch DONEPEZIL 2020-0 Yes [id number] TAKE 1 [place] 10 mg 2-06 TABLET BY ity of tablet 00:00: MOUTH 00 EVERYDAY Medical AT BEDTIME Branch DONEPEZIL 2020-0 Yes [id number] TAKE 1 [place] 10 mg 2-06 TABLET BY ity of tablet 00:00: MOUTH EVERYDAY Medical AT BEDTIME Branch DONEPEZIL 2020-0 Yes [id number] TAKE 1 [place] 10 mg 2-06 TABLET BY ity of tablet 00:00: MOUTH 00 EVERYDAY Medical AT BEDTIME Branch DONEPEZIL 2020-0 2021- No [id number] TAKE 1 [facility] 10 mg 2-06 03-25 TABLET BY ity of tablet 00:00: 00:00 MOUTH [place] 00 :00 EVERYDAY Medical AT BEDTIME Branch DONEPEZIL 2020-0 2021- No [id number] TAKE 1 U [facility] 10 mg 2-06 03-25 TABLET BY ity of tablet 00:00: 00:00 MOUTH [place] 00 :00 EVERYDAY Medical AT BEDTIME Branch DONEPEZIL 2020-0 1- No [id number] TAKE 1 [facility] 10 mg 2-06 03-25 TABLET BY ity of tablet 00:00: 00:00 MOUTH [place] 00 :00 EVERYDAY Medical AT BEDTIME Branch DONEPEZIL 2020-0 2021- No [id number] TAKE 1 U [facility] 10 mg 2-06 -25 TABLET BY ity of tablet 00:00: 00:00 MOUTH [place] 00 :00 EVERYDAY Medical AT BEDTIME Branch donepezil 2020-0 Yes [id number] 10mg Take 1 [facility] [place] (ARICEPT) 1-27 tablet by ity o f 10 mg 00:00: mouth at [place] tablet 00 bedtime. Medical Branch donepezil 2020-0 Yes [id number] 10mg Take 1 [facility] [place] (ARICEPT) 1-27 tablet by ity o f 10 mg 00:00: mouth at [place] tablet 00 bedtime. Medical Branch donepezil 2020-0 Yes [id number] 10mg Take 1 [facility] [place] (ARICEPT) 1-27 tablet by ity o f 10 mg 00:00: mouth at [place] tablet 00 bedtime. Medical Branch donepezil 2020-0 Yes [id number] 10mg Take 1 [facility] [place] (ARICEPT) 1-27 tablet by ity o f 10 mg 00:00: mouth at [place] tablet 00 bedtime. Medical Branch donepezil 2020-0 2020- No [id number] 10mg Take 1 U nivers (ARICEPT) 1-27 02-06 tablet by ity of 10 mg 00:00: 00:00 mouth at [place] tablet 00 :00 bedtime. Medical Branch aspirin 81 2020-0 Yes 81mg Take 81 mg U nivers mg EC 1-23 by mouth. ity of tablet 14:27: [place] [address] Medical Branch ALLOPURINOL 2020-0 Yes Take by [facility] vers ORAL 1-23 mouth at ity of 14:27: bedtime. [address] Branch aspirin 81 2020-0 Yes 81mg Take 81 mg U nivers mg EC 1-23 by mouth. ity of tablet 14:27: [place] [address] Medical Branch ALLOPURINOL 2020-0 Yes Take by [facility] vers ORAL 1-23 mouth at ity of 14:27: bedtime. [address] aspirin 81 2020-0 Yes 81mg Take 81 mg U nivers mg EC 1-23 by mouth. ity of tablet 14:27: [address] Branch ALLOPURINOL 2020-0 Yes Take by [facility] vers ORAL 1-23 mouth at ity of 14:27: bedtime. [address] aspirin 81 2020-0 Yes 81mg Take 81 mg U nivers mg EC 1-23 by mouth. ity of tablet 14:27: [address] ALLOPURINOL 2020-0 Yes Take by [facility] vers ORAL 1-23 mouth at ity of 14:27: bedtime. [address] aspirin 81 2020-0 Yes 81mg Take 81 mg U nivers mg EC 1-23 by mouth. ity of tablet 14:27: [address] ALLOPURINOL 2020-0 Yes Take by [facility] vers ORAL 1-23 mouth at ity of 14:27: bedtime. [address] aspirin 81 2020-0 Yes 81mg Take 81 mg U nivers mg EC 1-23 by mouth. ity of tablet 14:27: [address] ALLOPURINOL 2020-0 Yes Take by [facility] vers ORAL 1-23 mouth at [facility] of 14:27: bedtime. [address] aspirin 81 2020-0 Yes 81mg Take 81 mg [facility] mg EC 1-23 by mouth. ity of tablet 14:27: [address] ALLOPURINOL 2020-0 Yes Take by [facility] vers ORAL 1-23 mouth at [facility] of 14:27: bedtime. [address] aspirin 81 2020-0 Yes 81mg Take 81 mg [facility] mg EC 1-23 by mouth. ity of tablet 14:27: [address] ALLOPURINOL 2020-0 Yes Take by [facility] vers ORAL 1-23 mouth at [facility] of 14:27: bedtime. [address] aspirin 81 2020-0 Yes 81mg Take 81 mg [facility] mg EC 1-23 by mouth. ity of tablet 14:27: [address] ALLOPURINOL 2020-0 Yes Take by [facility] vers ORAL 1-23 mouth at [facility] of 14:27: bedtime. [address] aspirin 81 2020-0 Yes 81mg Take 81 mg [facility] mg EC 1-23 by mouth. ity of tablet 14:27: [address] ALLOPURINOL 2020-0 Yes Take by [facility] vers ORAL 1-23 mouth at [facility] of 14:27: bedtime. [address] aspirin 81 2020-0 Yes 81mg Take 81 mg [facility] mg EC 1-23 by mouth. ity of tablet 14:27: [place] [facility] ALLOPURINOL 2020-0 Yes Take by [facility] vers ORAL 1-23 mouth at [facility] of 14:27: bedtime. [place] [address] [facility] Branch furosemide 2020-0 Yes [id number] Take 1.5 [facility] 40 mg 1-23 in the ity of tablet 00:00: morning [place] 00 and one Medical pill 6 Branch hours later. furosemide 2020-0 Yes [id number] Take 1.5 [facility] 40 mg 1-23 in the [facility] of tablet 00:00: morning [place] 00 and one Medical pill 6 Branch hours later. furosemide 2020-0 Yes [id number] Take 1.5 [facility] 40 mg 1-23 in the [facility] of tablet 00:00: morning [place] 00 and one Medical pill 6 Branch hours later. furosemide 2020-0 Yes [id number] Take 1.5 [facility] 40 mg 1-23 in the [facility] of tablet 00:00: morning [place] 00 and one Medical pill 6 Branch hours later. furosemide 2020-0 Yes [id number] Take 1.5 [facility] 40 mg 1-23 in the [facility] of tablet 00:00: morning [place] 00 and one Medical pill 6 Branch hours later. furosemide 2020-0 Yes [id number] Take 1.5 [facility] 40 mg 1-23 in the [facility] of tablet 00:00: morning [place] 00 and one Medical pill 6 Branch hours later. furosemide 2020-0 Yes [id number] Take 1.5 [facility] 40 mg 1-23 in the [facility] of tablet 00:00: morning [place] 00 and one Medical pill 6 Branch hours later. furosemide 2020-0 Yes [id number] Take 1.5 [facility] 40 mg 1-23 in the [facility] of tablet 00:00: morning [place] 00 and one Medical pill 6 Branch hours later. furosemide 2020-0 Yes [id number] Take 1.5 [facility] 40 mg 1-23 in the [facility] of tablet 00:00: morning [place] 00 and one Medical pill 6 Branch hours later. furosemide 2020-0 Yes [id number] Take 1.5 [facility] 40 mg 1-23 in the [facility] of tablet 00:00: morning [place] 00 and one Medical pill 6 Branch hours later. furosemide 2020-0 Yes [id number] Take 1.5 [facility] 40 mg 1-23 in the [facility] of tablet 00:00: morning [place] 00 and one Medical pill 6 Branch hours later. furosemide 2020-0 Yes [id number] Take 1.5 [facility] 40 mg 1-23 in the it[facility] of tablet 00:00: morning [place] 00 and one Medical pill 6 Branch hours later. furosemide 2020-0 Yes [id number] Take 1.5 [facility] 40 mg 1-23 in the it[facility] of tablet 00:00: morning [place] 00 and one Medical pill 6 Branch hours later. furosemide 2020-0 Yes [id number] Take 1.5 [facility] 40 mg 1-23 in the [facility] of tablet 00:00: morning [place] 00 and one Medical pill 6 Branch hours later. furosemide 2020-0 Yes [id number] Take 1.5 [facility] 40 mg 1-23 in the [facility] of tablet 00:00: morning [place] 00 and one Medical pill 6 Branch hours later. furosemide 2020-0 Yes [id number] Take 1.5 [facility] 40 mg 1-23 in the it[facility] of tablet 00:00: morning [place] 00 and one Medical pill 6 Branch hours later. furosemide 2020-0 Yes [id number] Take 1.5 [facility] 40 mg 1-23 in the [facility] of tablet 00:00: morning [place] 00 and one Medical pill 6 Branch hours later. furosemide 2020-0 Yes [id number] Take 1.5 [facility] 40 mg 1-23 in the it[facility] of tablet 00:00: morning [place] 00 and one Medical pill 6 Branch hours later. furosemide 2020-0 Yes [id number] Take 1.5 [facility] 40 mg 1-23 in the it[facility] of tablet 00:00: morning [place] 00 and one Medical pill 6 Branch hours later. furosemide 2020-0 2020- No [id number] Take 1.5 [facility] 40 mg 1-23 07-15 in the ity of tablet 00:00: 00:00 morning [place] 00 :00 and one Medical pill 6 Branch hours later. furosemide 2020-0 2020- No [id number] Take 1.5 [facility] 40 mg 1-23 07-15 in the it[facility] of tablet 00:00: 00:00 morning [place] 00 :00 and one Medical pill 6 Branch hours later. aspirin 81 2020-0 Yes 81mg Take 81 mg [facility] mg EC 1-08 by mouth. it[facility] of tablet 21:23: [place] [facility] donepezil 5 2018- Yes [id number] 5mg Take 1 [facility] mg tablet 2-23 tablet by it[facility] o f 00:00: mouth at [place] 00 bedtime. Medical Branch donepezil 5 2018-06 2020- No [id number] 5mg Take 1 [facility] mg tablet 07-24 tablet by [facility] of 00:00: 00:00 mouth at [place] 00 :00 bedtime. Medical Branch donepezil 5 2018-06- No [id number] 5mg Take 1 [facility] mg tablet 07-24 tablet by [facility] of 00:00: 00:00 mouth at [place] 00 :00 bedtime. [facility] Branch donepezil 2018-06- No [id number] 5mg Take 1 [facility] mg tablet 07-24 tablet by [facility] of 00:00: 00:00 mouth at [place] 00 :00 bedtime. Medical Branch donepezil 5 2018-06- No [id number] 5mg Take 1 [facility] mg tablet 07-24 tablet by it[facility] of 00:00: 00:00 mouth at [place] 00 :00 bedtime. Medical Branch donepezil 2018-06- No [id number] 5mg Take 1 [facility] mg tablet 07-24 tablet by it[facility] of 00:00: 00:00 mouth at [place] 00 :00 bedtime. Medical Branch l-methylfol 2018-06 Yes [id number] 1{tbl} Take 1 [facility] ate-b2-b6-b 2-01 tablet by ity of 50- 00:00: mouth [place] mg per 00 daily. Medical tablet Branch l-methylfol 2018-06 Yes [id number] 1{tbl} Take 1 [facility] ate-b2-b6-b 2-01 tablet by ity of 50- 00:00: mouth [place] mg per 00 daily. Medical tablet Branch l-methylfol 2018-06 Yes [id number] 1{tbl} Take 1 [facility] ate-b2-b6-b 2-01 tablet by ity of 50- 00:00: mouth [place] mg per 00 daily. Medical tablet Branch l-methylfol 2018-06 Yes [id number] 1{tbl} Take 1 [facility] ate-b2-b6-b 2-01 tablet by ity of 50- 00:00: mouth [place] mg per 00 daily. Medical tablet Branch l-methylfol 2018-06 Yes [id number] 1{tbl} Take 1 [facility] ate-b2-b6-b 2-01 tablet by ity of 12 6-5-50-1 00:00: mouth [place] mg per 00 daily. Medical tablet Branch l-methylfol 2018-06 Yes [id number] 1{tbl} Take 1 [facility] ate-b2-b6-b 2-01 tablet by ity of 11-03-49 00:00: mouth [place] mg per 00 daily. Medical tablet Branch lmethylfol 2018-06 Yes [id number] 1{tbl} Take 1 [facility] ate-b2-b6-b 2-01 tablet by ity of 11-03-49 00:00: mouth [place] mg per 00 daily. Medical tablet Branch lmethylfol 2018-06 Yes [id number] 1{tbl} Take 1 [facility] ate-b2-b6-b 2-01 tablet by ity of 11-03-49 00:00: mouth [place] mg per 00 daily. Medical tablet Branch lmethylfol 2018-06 Yes [id number] 1{tbl} Take 1 [facility] ate-b2-b6-b 2-01 tablet by ity of 11-03-49 00:00: mouth [place] mg per 00 daily. Medical tablet Branch lmethylfol 2018-06 Yes [id number] 1{tbl} Take 1 [facility] ate-b2-b6-b 2-01 tablet by ity of 11-03-49 00:00: mouth [place] mg per 00 daily. Medical tablet Branch lmethylfol 2018-06 Yes [id number] 1{tbl} Take 1 [facility] ate-b2-b6-b 2-01 tablet by ity of 11-03-49 00:00: mouth [place] mg per 00 daily. Medical tablet Branch lmethylfol 2018-06 Yes [id number] 1{tbl} Take 1 [facility] ate-b2-b6-b 2-01 tablet by ity of 11-03-49 00:00: mouth [place] mg per 00 daily. Medical tablet Branch l-methylfol 2018-06 Yes [id number] 1{tbl} Take 1 [facility] ate-b2-b6-b 2-01 tablet by ity of 11-03-49 00:00: mouth [place] mg per 00 daily. Medical tablet Branch lmethylfol 2018-06 Yes [id number] 1{tbl} Take 1 [facility] ate-b2-b6-b 2-01 tablet by ity of 11-03-49 00:00: mouth [place] mg per 00 daily. Medical tablet Branch carvedilol 2018-06 Yes [id number] 3.125mg Take 1 [facility] 3.125 mg 2-01 tablet by ity of tablet 00:00: mouth 2 [place] 00 (two) Medical times Branch daily with meals. l-methylfol 2018-06 Yes [id number] 1{tbl} Take 1 [facility] ate-b2-b6-b 2-01 tablet by ity of 11-03-49 00:00: mouth [place] mg per 00 daily. Medical tablet Branch l-methylfol 2018-06 Yes [id number] 1{tbl} Take 1 [facility] ate-b2-b6-b 2-01 tablet by ity of 11-03-49 00:00: mouth [place] mg per 00 daily. Medical tablet Branch thiamine 2018-06 Yes [id number] 100mg Take 1 [facility] [place] 100 mg 2-01 tablet by it[facility] of tablet 00:00: mouth [place] 00 daily. Medical Branch l-methylfol 2018-06 Yes [id number] 1{tbl} Take 1 [facility] ate-b2-b6-b 2-01 tablet by ity of 11-03-49 00:00: mouth [place] mg per 00 daily. Medical tablet Branch l-methylfol 2018-06 Yes [id number] 1{tbl} Take 1 [facility] ate-b2-b6-b 2-01 tablet by ity of 11-03-49 00:00: mouth [place] mg per 00 daily. Medical tablet Branch l-methylfol 2018-06 Yes [id number] 1{tbl} Take 1 [facility] ate-b2-b6-b 2-01 tablet by ity of 11-03-49 00:00: mouth [place] mg per 00 daily. Medical tablet Branch carvedilol 2018-06 Yes [id number] 3.125mg Take 1 [facility] 3.125 mg 2-01 tablet by ity of tablet 00:00: mouth 2 [place] 00 (two) Medical times Branch daily with meals. l-methylfol 2018-06 Yes [id number] 1{tbl} Take 1 [facility] ate-b2-b6-b 2-01 tablet by ity of 11-03-49 00:00: mouth [place] mg per 00 daily. Medical tablet Branch lmethylfol 2018-06 Yes [id number] 1{tbl} Take 1 [facility] ate-b2-b6-b 2-01 tablet by ity of 11-03-49 00:00: mouth [place] mg per 00 daily. Medical tablet Branch thiamine 2018-06 Yes [id number] 100mg Take 1 [facility] [place] 100 mg 2-01 tablet by it[facility] of tablet 00:00: mouth [place] 00 daily. Medical Branch lmethylfol 2018-06 Yes [id number] 1{tbl} Take 1 [facility] ate-b2-b6-b 2-01 tablet by ity of 11-03-49 00:00: mouth [place] mg per 00 daily. Medical tablet Branch lmethylfol 2018-06 Yes [id number] 1{tbl} Take 1 [facility] ate-b2-b6-b 2-01 tablet by ity of 11-03-49 00:00: mouth [place] mg per 00 daily. Medical tablet Branch lmethylfol 2018-06 Yes [id number] 1{tbl} Take 1 [facility] ate-b2-b6-b 2-01 tablet by ity of 11-03-49 00:00: mouth [place] mg per 00 daily. Medical tablet Branch lmethylfol 2018-06 Yes [id number] 1{tbl} Take 1 [facility] ate-b2-b6-b 2-01 tablet by ity of 11-03-49 00:00: mouth [place] mg per 00 daily. Medical tablet Branch lmethylfol 2018-06 Yes [id number] 1{tbl} Take 1 [facility] ate-b2-b6-b 2-01 tablet by ity of 11-03-49 00:00: mouth [place] mg per 00 daily. Medical tablet Branch lmethylfol 2018-06 Yes [id number] 1{tbl} Take 1 [facility] ate-b2-b6-b 2-01 tablet by ity of 11-03-49 00:00: mouth [place] mg per 00 daily. Medical tablet Branch lmethylfol 2018-06 Yes [id number] 1{tbl} Take 1 [facility] ate-b2-b6-b 2-01 tablet by ity of 11-03-49 00:00: mouth [place] mg per 00 daily. Medical tablet Branch l-methylfol 2018-06 Yes [id number] 1{tbl} Take 1 [facility] ate-b2-b6-b 2-01 tablet by ity of 11-03-49 00:00: mouth [place] mg per 00 daily. Medical tablet Branch lmethylfol 2018-06 Yes [id number] 1{tbl} Take 1 [facility] ate-b2-b6-b 2-01 tablet by ity of 11-03-49 00:00: mouth [place] mg per 00 daily. Medical tablet Branch lmethylfol 2018-06 Yes [id number] 1{tbl} Take 1 [facility] ate-b2-b6-b 2-01 tablet by ity of 11-03-49 00:00: mouth [place] mg per 00 daily. Medical tablet Branch carvedilol 2018-06 Yes [id number] 3.125mg Take 1 [facility] 3.125 mg 2-01 tablet by ity of tablet 00:00: mouth 2 [place] 00 (two) Medical times Branch daily with meals. -methylfol 2018-06 Yes [id number] 1{tbl} Take 1 [facility] ate-b2-b6-b 2-01 tablet by ity of 11-03-49 00:00: mouth [place] mg per 00 daily. Medical tablet Branch l-methylfol 2018-06 Yes [id number] 1{tbl} Take 1 [facility] ate-b2-b6-b 2-01 tablet by ity of 11-03-49 00:00: mouth [place] mg per 00 daily. Medical tablet Branch thiamine 2018-06 Yes [id number] 100mg Take 1 [facility] [place] 100 mg 2-01 tablet by it[facility] of tablet 00:00: mouth [place] 00 daily. Medical Branch l-methylfol 2018-06 Yes [id number] 1{tbl} Take 1 [facility] ate-b2-b6-b 2-01 tablet by ity of 11-03-49 00:00: mouth [place] mg per 00 daily. Medical tablet Branch l-methylfol 2018-06 Yes [id number] 1{tbl} Take 1 [facility] ate-b2-b6-b 2-01 tablet by ity of 11-03-49 00:00: mouth [place] mg per 00 daily. Medical tablet Branch l-methylfol 2018-06 Yes [id number] 1{tbl} Take 1 [facility] ate-b2-b6-b 2-01 tablet by ity of 11-03-49 00:00: mouth [place] mg per 00 daily. Medical tablet Branch carvedilol 2018-06 Yes [id number] 3.125mg Take 1 [facility] 3.125 mg 2-01 tablet by ity of tablet 00:00: mouth 2 [place] 00 (two) [facility] [id number] 1{tbl} Take 1 [facility] ate-b2-b6-b 2-01 tablet by ity of 11-03-49 00:00: mouth [place] mg per 00 daily. Medical tablet Branch methylfol 2018-06 Yes [id number] 1{tbl} Take 1 [facility] ate-b2-b6-b 2-01 tablet by ity of 11-03-49 00:00: mouth [place] mg per 00 daily. Medical tablet Branch thiamine 2018-06 Yes [id number] 100mg Take 1 [facility] [place] 100 mg 2-01 tablet by it[facility] of tablet 00:00: mouth [place] 00 daily. Medical Branch methylfol 2018-06 Yes [id number] 1{tbl} Take 1 [facility] ate-b2-b6-b 2-01 tablet by ity of 11-03-49 00:00: mouth [place] mg per 00 daily. Medical tablet Branch methylfol 2018-06 Yes [id number] 1{tbl} Take 1 [facility] ate-b2-b6-b 2-01 tablet by ity of 11-03-49 00:00: mouth [place] mg per 00 daily. Medical tablet Branch methylfol 2018-06 Yes [id number] 1{tbl} Take 1 [facility] ate-b2-b6-b 2-01 tablet by ity of 11-03-49 00:00: mouth [place] mg per 00 daily. Medical tablet Branch methylfol 2018-06 Yes [id number] 1{tbl} Take 1 [facility] ate-b2-b6-b 2-01 tablet by ity of 11-03-49 00:00: mouth [place] mg per 00 daily. Medical tablet Branch methylfol 2018-06 Yes [id number] 1{tbl} Take 1 [facility] ate-b2-b6-b 2-01 tablet by ity of 11-03-49 00:00: mouth [place] mg per 00 daily. Medical tablet Branch l-methylfol 2018-06 Yes [id number] 1{tbl} Take 1 [facility] ate-b2-b6-b 2-01 tablet by ity of 11-03-49 00:00: mouth [place] mg per 00 daily. Medical tablet Branch lmethylfol 2018-06 Yes [id number] 1{tbl} Take 1 [facility] ate-b2-b6-b 2-01 tablet by ity of 11-03-49 00:00: mouth [place] mg per 00 daily. Medical tablet Branch lmethylfol 2018-06 Yes [id number] 1{tbl} Take 1 [facility] ate-b2-b6-b 2-01 tablet by ity of 11-03-49 00:00: mouth [place] mg per 00 daily. Medical tablet Branch lmethylfol 2018-06 Yes [id number] 1{tbl} Take 1 [facility] ate-b2-b6-b 2-01 tablet by ity of 11-03-49 00:00: mouth [place] mg per 00 daily. Medical tablet Branch carvedilol 2018-06 Yes [id number] 3.125mg Take 1 [facility] 3.125 mg 2-01 tablet by ity of tablet 00:00: mouth 2 [place] 00 (two) Medical times Branch daily with meals. methylfol 2018-06 Yes [id number] 1{tbl} Take 1 [facility] ate-b2-b6-b 2-01 tablet by ity of 11-03-49 00:00: mouth [place] mg per 00 daily. Medical tablet Branch l-methylfol 2018-06 Yes [id number] 1{tbl} Take 1 [facility] ate-b2-b6-b 2-01 tablet by ity of 11-03-49 00:00: mouth [place] mg per 00 daily. Medical tablet Branch thiamine 2018-06 Yes [id number] 100mg Take 1 [facility] [place] 100 mg 2-01 tablet by ity of tablet 00:00: mouth [place] 00 daily. Medical Branch l-methylfol 2018-06 Yes [id number] 1{tbl} Take 1 [facility] ate-b2-b6-b 2-01 tablet by ity of 11-03-49 00:00: mouth [place] mg per 00 daily. Medical tablet Branch l-methylfol 2018-06 Yes [id number] 1{tbl} Take 1 [facility] ate-b2-b6-b 2-01 tablet by ity of 11-03-49 00:00: mouth [place] mg per 00 daily. Medical tablet Branch l-methylfol 2018-06 Yes [id number] 1{tbl} Take 1 [facility] ate-b2-b6-b 2-01 tablet by ity of 11-03-49 00:00: mouth [place] mg per 00 daily. Medical tablet Branch carvedilol 2018-06 Yes [id number] 3.125mg Take 1 [facility] 3.125 mg 2-01 tablet by ity of tablet 00:00: mouth 2 [place] 00 (two) Medical times Branch daily with meals. l-methylfol 2018-06 Yes [id number] 1{tbl} Take 1 [facility] ate-b2-b6-b 2-01 tablet by ity of 11-03-49 00:00: mouth [place] mg per 00 daily. Medical tablet Branch thiamine 2018-06 Yes [id number] 100mg Take 1 [facility] [place] 100 mg 2-01 tablet by ity of tablet 00:00: mouth [place] 00 daily. Medical Branch carvedilol 2018-06 Yes [id number] 3.125mg Take 1 [facility] 3.125 mg 2-01 tablet by ity of tablet 00:00: mouth 2 [place] 00 (two) Medical times Branch daily with meals. l-methylfol 2018-06 Yes [id number] 1{tbl} Take 1 [facility] ate-b2-b6-b 2-01 tablet by ity of 11-03-49 00:00: mouth [place] mg per 00 daily. Medical tablet Branch thiamine 2018-06 Yes [id number] 100mg Take 1 [facility] [place] 100 mg 2-01 tablet by ity of tablet 00:00: mouth [place] 00 daily. Medical Branch carvedilol 2018-06 Yes [id number] 3.125mg Take 1 [facility] 3.125 mg 2-01 tablet by ity of tablet 00:00: mouth 2 [place] 00 (two) Medical times Branch daily with meals. l-methylfol 2018-06 Yes [id number] 1{tbl} Take 1 [facility] ate-b2-b6-b 2-01 tablet by ity of 11-03-49 00:00: mouth [place] mg per 00 daily. Medical tablet Branch thiamine 2018-06 Yes [id number] 100mg Take 1 [facility] [place] 100 mg 2-01 tablet by ity of tablet 00:00: mouth [place] 00 daily. Medical Branch carvedilol 2018-06 Yes [id number] 3.125mg Take 1 [facility] 3.125 mg 2-01 tablet by ity of tablet 00:00: mouth 2 [place] 00 (two) Medical times Branch daily with meals. l-methylfol 2018-06 Yes [id number] 1{tbl} Take 1 [facility] ate-b2-b6-b 2-01 tablet by ity of 11-03-49 00:00: mouth [place] mg per 00 daily. Medical tablet Branch thiamine 2018-06 Yes [id number] 100mg Take 1 [facility] [place] 100 mg 2-01 tablet by ity of tablet 00:00: mouth [place] 00 daily. Medical Branch carvedilol 2018-06 Yes [id number] 3.125mg Take 1 [facility] 3.125 mg 2-01 tablet by ity of tablet 00:00: mouth 2 [place] 00 (two) Medical times Branch daily with meals. l-methylfol 2018-06 Yes [id number] 1{tbl} Take 1 [facility] ate-b2-b6-b 2-01 tablet by ity of 11-03-49 00:00: mouth [place] mg per 00 daily. Medical tablet Branch thiamine 2018-06 Yes [id number] 100mg Take 1 [facility] [place] 100 mg 2-01 tablet by ity of tablet 00:00: mouth [place] 00 daily. Medical Branch carvedilol 2018-06 Yes [id number] 3.125mg Take 1 [facility] 3.125 mg 2-01 tablet by ity of tablet 00:00: mouth 2 [place] 00 (two) Medical times Branch daily with meals. l-methylfol 2018-06 Yes [id number] 1{tbl} Take 1 [facility] ate-b2-b6-b 2-01 tablet by ity of 11-03-49 00:00: mouth [place] mg per 00 daily. Medical tablet Branch thiamine 2018-06 Yes [id number] 100mg Take 1 [facility] [place] 100 mg 2-01 tablet by ity of tablet 00:00: mouth [place] 00 daily. Medical Branch carvedilol 2018-06 Yes [id number] 3.125mg Take 1 [facility] 3.125 mg 2-01 tablet by ity of tablet 00:00: mouth 2 (two) Medical times Branch daily with meals. l-methylfol 2018-06 Yes [id number] 1{tbl} Take 1 [facility] ate-b2-b6-b 2-01 tablet by ity of 12 11-03-49 00:00: mouth [place] mg per 00 daily. Medical tablet Branch thiamine 2018-06 Yes [id number] 100mg Take 1 [facility] [place] 100 mg 2-01 tablet by ity of tablet 00:00: mouth [place] 00 daily. Medical Branch carvedilol 2018-06 Yes [id number] 3.125mg Take 1 [facility] 3.125 mg 2-01 tablet by ity of tablet 00:00: mouth 2 (two) Medical times Branch daily with meals. l-methylfol 2018-06 Yes [id number] 1{tbl} Take 1 [facility] ate-b2-b6-b 2-01 tablet by ity of 11-03-49 00:00: mouth [place] mg per 00 daily. Medical tablet Branch carvedilol 2018-06 Yes [id number] 3.125mg Take 1 [facility] 3.125 mg 2-01 tablet by ity of tablet 00:00: mouth (two) Medical times Branch daily with meals. l-methylfol 2018-06 Yes [id number] 1{tbl} Take 1 [facility] ate-b2-b6-b 2-01 tablet by ity of 11-03-49 00:00: mouth [place] mg per 00 daily. Medical tablet Branch carvedilol 2018-06 Yes [id number] 3.125mg Take 1 [facility] 3.125 mg 2-01 tablet by ity of tablet 00:00: mouth 2 (two) Medical times Branch daily with meals. l-methylfol 2018-06 Yes [id number] 1{tbl} Take 1 [facility] ate-b2-b6-b 2-01 tablet by ity of 11-03-49 00:00: mouth [place] mg per 00 daily. Medical tablet Branch carvedilol 2018-06 Yes [id number] 3.125mg Take 1 [facility] 3.125 mg 2-01 tablet by ity of tablet 00:00: mouth (two) Medical times Branch daily with meals. l-methylfol 2018-06 Yes [id number] 1{tbl} Take 1 [facility] ate-b2-b6-b 2-01 tablet by ity of 11-03-49 00:00: mouth [place] mg per 00 daily. Medical tablet Branch carvedilol 2018-06 Yes [id number] 3.125mg Take 1 [facility] 3.125 mg 2-01 tablet by ity of tablet 00:00: mouth (two) Medical times Branch daily with meals. l-methylfol 2018-06 Yes [id number] 1{tbl} Take 1 [facility] ate-b2-b6-b 2-01 tablet by ity of 11-03-49 00:00: mouth [place] mg per 00 daily. Medical tablet Branch carvedilol 2018-06 Yes [id number] 3.125mg Take 1 [facility] 3.125 mg 2-01 tablet by ity of tablet 00:00: mouth (two) Medical times Branch daily with meals. l-methylfol 2018-06 Yes [id number] 1{tbl} Take 1 [facility] ate-b2-b6-b 2-01 tablet by ity of 11-03-49 00:00: mouth [place] mg per 00 daily. Medical tablet Branch carvedilol 2018-06 Yes [id number] 3.125mg Take 1 [facility] 3.125 mg 2-01 tablet by ity of tablet 00:00: mouth (two) Medical times Branch daily with meals. l-methylfol 2018-06 Yes [id number] 1{tbl} Take 1 [facility] ate-b2-b6-b 2-01 tablet by ity of 11-03-49 00:00: mouth [place] mg per 00 daily. Medical tablet Branch carvedilol 2018-06 Yes [id number] 3.125mg Take 1 [facility] 3.125 mg 2-01 tablet by ity of tablet 00:00: mouth 2 (two) Medical times Branch daily with meals. l-methylfol 2018-06 Yes [id number] 1{tbl} Take 1 [facility] ate-b2-b6-b 2-01 tablet by ity of 11-03-49 00:00: mouth [place] mg per 00 daily. Medical tablet Branch carvedilol 2018-06 Yes [id number] 3.125mg Take 1 [facility] 3.125 mg 2-01 tablet by ity of tablet 00:00: mouth 2 (two) Medical times Branch daily with meals. l-methylfol 2018-06 Yes [id number] 1{tbl} Take 1 [facility] ate-b2-b6-b 2-01 tablet by ity of 11-03-49 00:00: mouth [place] mg per 00 daily. Medical tablet Branch carvedilol 2018-06 Yes [id number] 3.125mg Take 1 [facility] 3.125 mg 2-01 tablet by ity of tablet 00:00: mouth 2 (two) Medical times Branch daily with meals. l-methylfol 2018-06 Yes [id number] 1{tbl} Take 1 [facility] ate-b2-b6-b 2-01 tablet by ity of 11-03-49 00:00: mouth [place] mg per 00 daily. Medical tablet Branch carvedilol 2018-06 Yes [id number] 3.125mg Take 1 [facility] 3.125 mg 2-01 tablet by ity of tablet 00:00: mouth (two) Medical times Branch daily with meals. l-methylfol 2018-06 Yes [id number] 1{tbl} Take 1 [facility] ate-b2-b6-b 2-01 tablet by ity of 11-03-49 00:00: mouth [place] mg per 00 daily. Medical tablet Branch carvedilol 2018-06 Yes [id number] 3.125mg Take 1 [facility] 3.125 mg 2-01 tablet by ity of tablet 00:00: mouth 2 (two) Medical times Branch daily with meals. l-methylfol 2018-06 Yes [id number] 1{tbl} Take 1 [facility] ate-b2-b6-b 2-01 tablet by ity of 11-03-49 00:00: mouth [place] mg per 00 daily. Medical tablet Branch carvedilol 2018-06 Yes [id number] 3.125mg Take 1 [facility] 3.125 mg 2-01 tablet by ity of tablet 00:00: mouth 2 (two) Medical times Branch daily with meals. l-methylfol 2018-06 Yes [id number] 1{tbl} Take 1 [facility] ate-b2-b6-b 2-01 tablet by ity of 11-03-49 00:00: mouth [place] mg per 00 daily. Medical tablet Branch carvedilol 2018-06 Yes [id number] 3.125mg Take 1 [facility] 3.125 mg 2-01 tablet by ity of tablet 00:00: mouth 2 (two) Medical times Branch daily with meals. l-methylfol 2018-06 Yes [id number] 1{tbl} Take 1 [facility] ate-b2-b6-b 2-01 tablet by ity of 11-03-49 00:00: mouth [place] mg per 00 daily. Medical tablet Branch carvedilol 2018-06 Yes [id number] 3.125mg Take 1 [facility] 3.125 mg 2-01 tablet by ity of tablet 00:00: mouth 2 (two) Medical times Branch daily with meals. l-methylfol 2018-06 Yes [id number] 1{tbl} Take 1 [facility] ate-b2-b6-b 2-01 tablet by ity of 11-03-49 00:00: mouth [place] mg per 00 daily. Medical tablet Branch carvedilol 2018-06 Yes [id number] 3.125mg Take 1 [facility] 3.125 mg 2-01 tablet by ity of tablet 00:00: mouth (two) Medical times Branch daily with meals. l-methylfol 2018-06 Yes [id number] 1{tbl} Take 1 [facility] ate-b2-b6-b 2-01 tablet by ity of 11-03-49 00:00: mouth [place] mg per 00 daily. Medical tablet Branch carvedilol 2018-06 Yes [id number] 3.125mg Take 1 [facility] 3.125 mg 2-01 tablet by ity of tablet 00:00: mouth 2 (two) Medical times Branch daily with meals. l-methylfol 2018-06 Yes [id number] 1{tbl} Take 1 [facility] ate-b2-b6-b 2-01 tablet by ity of 11-03-49 00:00: mouth [place] mg per 00 daily. Medical tablet Branch carvedilol 2018-06 Yes [id number] 3.125mg Take 1 [facility] 3.125 mg 2-01 tablet by ity of tablet 00:00: mouth 2 [place] 00 (two) Medical times Branch daily with meals. l-methylfol 2018-06 Yes [id number] 1{tbl} Take 1 [facility] ate-b2-b6-b 2-01 tablet by ity of 11-03-49 00:00: mouth [place] mg per 00 daily. Medical tablet Branch carvedilol 2018-06 Yes [id number] 3.125mg Take 1 [facility] 3.125 mg 2-01 tablet by ity of tablet 00:00: mouth (two) Medical times Branch daily with meals. l-methylfol 2018-06 Yes [id number] 1{tbl} Take 1 [facility] ate-b2-b6-b 2-01 tablet by ity of 11-03-49 00:00: mouth [place] mg per 00 daily. Medical tablet Branch carvedilol 2018-06 Yes [id number] 3.125mg Take 1 [facility] 3.125 mg 2-01 tablet by ity of tablet 00:00: mouth (two) Medical times Branch daily with meals. l-methylfol 2018-06 Yes [id number] 1{tbl} Take 1 [facility] ate-b2-b6-b 2-01 tablet by ity of 11-03-49 00:00: mouth [place] mg per 00 daily. Medical tablet Branch carvedilol 2018-06 Yes [id number] 3.125mg Take 1 [facility] 3.125 mg 2-01 tablet by ity of tablet 00:00: mouth (two) Medical times Branch daily with meals. l-methylfol 2018-06 Yes [id number] 1{tbl} Take 1 [facility] ate-b2-b6-b 2-01 tablet by ity of 11-03-49 00:00: mouth [place] mg per 00 daily. Medical tablet Branch carvedilol 2018-06 Yes [id number] 3.125mg Take 1 [facility] 3.125 mg 2-01 tablet by ity of tablet 00:00: mouth 2 (two) Medical times Branch daily with meals. l-methylfol 2018-06 Yes [id number] 1{tbl} Take 1 [facility] ate-b2-b6-b 2-01 tablet by ity of 11-03-49 00:00: mouth [place] mg per 00 daily. Medical tablet Branch l-methylfol 2018-06 Yes [id number] 1{tbl} Take 1 [facility] ate-b2-b6-b 2-01 tablet by ity of 11-03-49 00:00: mouth [place] mg per 00 daily. Medical tablet Branch l-methylfol 2018-06 Yes [id number] 1{tbl} Take 1 [facility] ate-b2-b6-b 2-01 tablet by ity of 11-03-49 00:00: mouth [place] mg per 00 daily. Medical tablet Branch lmethylfol 2018-06 Yes [id number] 1{tbl} Take 1 [facility] ate-b2-b6-b 2-01 tablet by ity of 11-03-49 00:00: mouth [place] mg per 00 daily. Medical tablet Branch carvedilol 2018-06 2020- No [id number] 3.125mg Take 1 [facility] 3.125 mg 07-02 tablet by ity o f tablet 00:00: 00:00 mouth 2 [place] 00 :00 (two) Medical times Branch daily with meals. thiamine 2018-06 2020- No [id number] 100mg Take 1 [facility] 100 mg 07-0224 tablet by ity of tablet 00:00: 00:00 mouth [place] 00 :00 daily. Medical Branch atorvastati 2018-06 Yes [id number] TAKE 1 [facility] n 20 mg 1-19 TABLET BY ity of tablet 00:00: MOUTH 00 EVERYDAY Medical Branch clopidogrel 2018-06 Yes [id number] TAKE 1 [facility] 75 mg 1-19 TABLET (75 ity of tablet 00:00: MG) BY ORAL ROUTE Medical ONCE DAILY Branch 90 atorvastati 2018-06 Yes [id number] TAKE 1 [facility] n 20 mg 1-19 TABLET BY ity of tablet 00:00: MOUTH 00 EVERYDAY Medical Branch clopidogrel 2018-06 Yes [id number] TAKE 1 [facility] 75 mg 1-19 TABLET (75 ity of tablet 00:00: MG) BY ORAL ROUTE Medical ONCE DAILY Branch 90 atorvastati 2018-06 Yes [id number] TAKE 1 [facility] n 20 mg 1-19 TABLET BY ity of tablet 00:00: MOUTH EVERYDAY Medical Branch clopidogrel 2018-06 Yes [id number] TAKE 1 [facility] 75 mg 1-19 TABLET (75 ity of tablet 00:00: MG) BY ORAL ROUTE Medical ONCE DAILY Branch 90 atorvastati 2018-06 Yes [id number] TAKE 1 [facility] n 20 mg 1-19 TABLET BY ity of tablet 00:00: MOUTH 00 EVERYDAY Medical Branch clopidogrel 2018-06 Yes [id number] TAKE 1 [facility] 75 mg 1-19 TABLET (75 ity of tablet 00:00: MG) BY ORAL ROUTE Medical ONCE DAILY Branch 90 atorvastati 2018-06 Yes [id number] TAKE 1 [facility] n 20 mg 1-19 TABLET BY ity of tablet 00:00: MOUTH [place] 00 EVERYDAY Medical Branch clopidogrel 2018-06 Yes [id number] TAKE 1 [facility] 75 mg 1-19 TABLET (75 ity of tablet 00:00: MG) BY ORAL ROUTE Medical ONCE DAILY Branch 90 atorvastati 2018-06 Yes [id number] TAKE 1 [facility] n 20 mg 1-19 TABLET BY ity of tablet 00:00: MOUTH [place] 00 EVERYDAY Medical Branch lisinopril 2018-06 Yes [id number] 10mg Take 1 [facility] 10 mg 1-19 tablet by ity of tablet 00:00: mouth [place] 00 daily. Medical Branch clopidogrel 2018-06 Yes [id number] TAKE 1 [facility] 75 mg 1-19 TABLET (75 ity of tablet 00:00: MG) BY [place] ORAL ROUTE Medical ONCE DAILY Branch 90 furosemide 2018-06 Yes [id number] 40mg Take 1 [facility] 40 mg 1-19 tablet by ity of tablet 00:00: mouth [place] 00 every Medical morning Branch and evening. Miscellaneo 2018-06 Yes [id number] I10 - [facility] 06-19 Dispense ity o f Supply Kit 00:00: blood [place] 00 pressure Medical cuff (any Branch brand), take BP at home BID potassium 2018-06 Yes [id number] 10meq Take 1 [facility] chloride 10 1-19 tablet by ity of mEq CR 00:00: mouth [place] tablet 00 daily. Medical Branch atorvastati 2018-06 Yes [id number] TAKE 1 [facility] n 20 mg 1-19 TABLET BY ity of tablet 00:00: MOUTH [place] 00 EVERYDAY Medical Branch lisinopril 2018-06 Yes [id number] 10mg Take 1 [facility] 10 mg 1-19 tablet by ity of tablet 00:00: mouth [place] 00 daily. Medical Branch clopidogrel 2018-06 Yes [id number] TAKE 1 [facility] 75 mg 1-19 TABLET (75 ity of tablet 00:00: MG) BY [place] 00 ORAL ROUTE Medical ONCE DAILY Branch 90 [facility] 2018-06 Yes [id number] I10 - [facility] 06-19 Dispense ity o f Supply Kit 00:00: blood [place] 00 pressure Medical cuff (any Branch brand), take BP at home BID potassium 2018-06 Yes [id number] 10meq Take 1 [facility] chloride 10 1-19 tablet by ity of mEq CR 00:00: mouth [place] tablet 00 daily. Medical Branch atorvastati 2018-06 Yes [id number] TAKE 1 [facility] n 20 mg 1-19 TABLET BY ity of tablet 00:00: MOUTH [place] 00 EVERYDAY Medical Branch lisinopril 2018-06 Yes [id number] 10mg Take 1 [facility] 10 mg 1-19 tablet by ity of tablet 00:00: mouth [place] 00 daily. Medical Branch clopidogrel 2018-06 Yes [id number] TAKE 1 [facility] 75 mg 1-19 TABLET (75 ity of tablet 00:00: MG) BY 00 ORAL ROUTE Medical ONCE DAILY Branch [address] [place], [place] [address]o 2018-06 Yes [id number] I10 - [facility] 06-19 Dispense ity o f Supply Kit 00:00: blood [place] 00 pressure Medical cuff (any Branch brand), take BP at home BID potassium 2018-06 Yes [id number] 10meq Take 1 [facility] chloride 10 1-19 tablet by ity of mEq CR 00:00: mouth [place] tablet 00 daily. Medical Branch atorvastati 2018-06 Yes [id number] TAKE 1 [facility] n 20 mg 1-19 TABLET BY ity of tablet 00:00: MOUTH [place] 00 EVERYDAY Medical Branch lisinopril 2018-06 Yes [id number] 10mg Take 1 [facility] 10 mg 1-19 tablet by ity of tablet 00:00: mouth [place] 00 daily. Medical Branch clopidogrel 2018-06 Yes [id number] TAKE 1 [facility] 75 mg 1-19 TABLET (75 ity of tablet 00:00: MG) BY [place] 00 ORAL ROUTE Medical ONCE DAILY Branch 90 [facility] 2018-06 Yes [id number] I10 - [facility] 06-19 Dispense ity o f Supply Kit 00:00: blood [place] 00 pressure Medical cuff (any Branch brand), take BP at home BID potassium 2018-06 Yes [id number] 10meq Take 1 [facility] chloride 10 1-19 tablet by ity of mEq CR 00:00: mouth [place] tablet 00 daily. Medical Branch atorvastati 2018-06 Yes [id number] TAKE 1 [facility] n 20 mg 1-19 TABLET BY ity of tablet 00:00: MOUTH [place] 00 EVERYDAY Medical Branch lisinopril 2018-06 Yes [id number] 10mg Take 1 [facility] 10 mg 1-19 tablet by ity of tablet 00:00: mouth [place] 00 daily. Medical Branch clopidogrel 2018-06 Yes [id number] TAKE 1 [facility] 75 mg 1-19 TABLET (75 ity of tablet 00:00: MG) BY [place] 00 ORAL ROUTE Medical ONCE DAILY Branch 90 [facility] 2018-06 Yes [id number] I10 - [facility] 06-19 Dispense ity o f Supply Kit 00:00: blood [place] 00 pressure Medical cuff (any Branch brand), take BP at home BID potassium 2018-06 Yes [id number] 10meq Take 1 [facility] chloride 10 1-19 tablet by ity of mEq CR 00:00: mouth [place] tablet 00 daily. Medical Branch atorvastati 2018-06 Yes [id number] TAKE 1 [facility] n 20 mg 1-19 TABLET BY ity of tablet 00:00: MOUTH [place] 00 EVERYDAY Medical Branch lisinopril 2018-06 Yes [id number] 10mg Take 1 [facility] 10 mg 1-19 tablet by ity of tablet 00:00: mouth [place] 00 daily. Medical Branch clopidogrel 2018-06 Yes [id number] TAKE 1 [facility] 75 mg 1-19 TABLET (75 ity of tablet 00:00: MG) BY [place] 00 ORAL ROUTE Medical ONCE DAILY Branch 90 [facility] 2018-06 Yes [id number] I10 - [facility] 06-19 Dispense ity o f Supply Kit 00:00: blood [place] 00 pressure Medical cuff (any Branch brand), take BP at home BID potassium 2018-06 Yes [id number] 10meq Take 1 [facility] chloride 10 1-19 tablet by ity of mEq CR 00:00: mouth [place] tablet 00 daily. Medical Branch atorvastati 2018-06 Yes [id number] TAKE 1 [facility] n 20 mg 1-19 TABLET BY ity of tablet 00:00: MOUTH [place] 00 EVERYDAY Medical Branch lisinopril 2018-06 Yes [id number] 10mg Take 1 [facility] 10 mg 1-19 tablet by ity of tablet 00:00: mouth [place] 00 daily. Medical Branch clopidogrel 2018-06 Yes [id number] TAKE 1 [facility] 75 mg 1-19 TABLET (75 ity of tablet 00:00: MG) BY [place] 00 ORAL ROUTE Medical ONCE DAILY Branch 90 [facility] 2018-06 Yes [id number] I10 - [facility] 06-19 Dispense ity o f Supply Kit 00:00: blood [place] 00 pressure Medical cuff (any Branch brand), take BP at home BID potassium 2018-06 Yes [id number] 10meq Take 1 [facility] chloride 10 1-19 tablet by ity of mEq CR 00:00: mouth [place] tablet 00 daily. Medical Branch atorvastati 2018-06 Yes [id number] TAKE 1 [facility] n 20 mg 1-19 TABLET BY ity of tablet 00:00: MOUTH [place] 00 EVERYDAY Medical Branch lisinopril 2018-06 Yes [id number] 10mg Take 1 [facility] 10 mg 1-19 tablet by ity of tablet 00:00: mouth [place] 00 daily. Medical Branch clopidogrel 2018-06 Yes [id number] TAKE 1 [facility] 75 mg 1-19 TABLET (75 ity of tablet 00:00: MG) BY [place] 00 ORAL ROUTE Medical ONCE DAILY Branch 90 [facility]-06 Yes [id number] I10 - [facility] 06-19 Dispense ity o f Supply Kit 00:00: blood [place] 00 pressure Medical cuff (any Branch brand), take BP at home BID potassium 2018-06 Yes [id number] 10meq Take 1 [facility] chloride 10 1-19 tablet by ity of mEq CR 00:00: mouth [place] tablet 00 daily. Medical Branch atorvastati 2018-06 Yes [id number] TAKE 1 [facility] n 20 mg 1-19 TABLET BY ity of tablet 00:00: MOUTH [place] 00 EVERYDAY Medical Branch lisinopril 2018-06 Yes [id number] 10mg Take 1 [facility] 10 mg 1-19 tablet by ity of tablet 00:00: mouth [place] 00 daily. Medical Branch clopidogrel 2018-06 Yes [id number] TAKE 1 [facility] 75 mg 1-19 TABLET (75 ity of tablet 00:00: MG) BY [place] 00 ORAL ROUTE Medical ONCE DAILY Branch 90 [facility] 2018-06 Yes [id number] I10 - [facility] 06-19 Dispense ity o f Supply Kit 00:00: blood [place] 00 pressure Medical cuff (any Branch brand), take BP at home BID potassium 2018-06 Yes [id number] 10meq Take 1 [facility] chloride 10 1-19 tablet by ity of mEq CR 00:00: mouth [place] tablet 00 daily. Medical Branch atorvastati 2018-06 Yes [id number] TAKE 1 [facility] n 20 mg 1-19 TABLET BY ity of tablet 00:00: MOUTH [place] 00 EVERYDAY Medical Branch lisinopril 2018-06 Yes [id number] 10mg Take 1 [facility] 10 mg 1-19 tablet by ity of tablet 00:00: mouth [place] 00 daily. Medical Branch clopidogrel 2018-06 Yes [id number] TAKE 1 [facility] 75 mg 1-19 TABLET (75 ity of tablet 00:00: MG) BY [place] 00 ORAL ROUTE Medical ONCE DAILY Branch 90 [facility] 2018-06 Yes [id number] I10 - [facility] 06-19 Dispense ity o f Supply Kit 00:00: blood [place] 00 pressure Medical cuff (any Branch brand), take BP at home BID potassium 2018-06 Yes [id number] 10meq Take 1 [facility] chloride 10 1-19 tablet by ity of mEq CR 00:00: mouth [place] tablet 00 daily. Medical Branch atorvastati 2018-06 Yes [id number] TAKE 1 [facility] n 20 mg 1-19 TABLET BY ity of tablet 00:00: MOUTH [place] 00 EVERYDAY Medical Branch lisinopril 2018-06 Yes [id number] 10mg Take 1 [facility] 10 mg 1-19 tablet by ity of tablet 00:00: mouth [place] 00 daily. Medical Branch clopidogrel 2018-06 Yes [id number] TAKE 1 [facility] 75 mg 1-19 TABLET (75 ity of tablet 00:00: MG) BY [place] 00 ORAL ROUTE Medical ONCE DAILY Branch 90 [facility]-06 Yes [id number] I10 - [facility] 06-19 Dispense ity o f Supply Kit 00:00: blood [place] 00 pressure Medical cuff (any Branch brand), take BP at home BID potassium 2018-06 Yes [id number] 10meq Take 1 [facility] chloride 10 1-19 tablet by ity of mEq CR 00:00: mouth [place] tablet 00 daily. Medical Branch atorvastati 2018-06 Yes [id number] TAKE 1 [facility] n 20 mg 1-19 TABLET BY ity of tablet 00:00: MOUTH [place] 00 EVERYDAY Medical Branch lisinopril 2018-06 Yes [id number] 10mg Take 1 [facility] 10 mg 1-19 tablet by ity of tablet 00:00: mouth [place] 00 daily. Medical Branch clopidogrel 2018-06 Yes [id number] TAKE 1 [facility] 75 mg 1-19 TABLET (75 ity of tablet 00:00: MG) BY [place] 00 ORAL ROUTE Medical ONCE DAILY Branch 90 [facility] 2018-06 Yes [id number] I10 - [facility] 06-19 Dispense ity o f Supply Kit 00:00: blood [place] 00 pressure Medical cuff (any Branch brand), take BP at home BID potassium 2018-06 Yes [id number] 10meq Take 1 [facility] chloride 10 1-19 tablet by ity of mEq CR 00:00: mouth [place] tablet 00 daily. Medical Branch atorvastati 2018-06 Yes [id number] TAKE 1 [facility] n 20 mg 1-19 TABLET BY ity of tablet 00:00: MOUTH [place] 00 EVERYDAY Medical Branch lisinopril 2018-06 Yes [id number] 10mg Take 1 [facility] 10 mg 1-19 tablet by ity of tablet 00:00: mouth [place] 00 daily. Medical Branch clopidogrel 2018-06 Yes [id number] TAKE 1 [facility] 75 mg 1-19 TABLET (75 ity of tablet 00:00: MG) BY [place] 00 ORAL ROUTE Medical ONCE DAILY Branch 90 potassium 2018-06 Yes [id number] 10meq Take 1 [facility] chloride 10 1-19 tablet by ity of mEq CR 00:00: mouth [place] tablet 00 daily. Medical Branch atorvastati 2018-06 Yes [id number] TAKE 1 [facility] n 20 mg 1-19 TABLET BY ity of tablet 00:00: MOUTH [place] 00 EVERYDAY Medical Branch lisinopril 2018-06 Yes [id number] 10mg Take 1 [facility] [place] 10 mg 1-19 tablet by ity of tablet 00:00: mouth [place] 00 daily. Medical Branch clopidogrel 2018-06 Yes [id number] TAKE 1 [facility] 75 mg 1-19 TABLET (75 ity of tablet 00:00: MG) BY [place] 00 ORAL ROUTE Medical ONCE DAILY Branch 90 potassium 2018-06 Yes [id number] 10meq Take 1 [facility] chloride 10 1-19 tablet by ity of mEq CR 00:00: mouth [place] tablet 00 daily. Medical Branch atorvastati 2018-06 Yes [id number] TAKE 1 [facility] n 20 mg 1-19 TABLET BY ity of tablet 00:00: MOUTH [place] 00 EVERYDAY Medical Branch lisinopril 2018-06 Yes [id number] 10mg Take 1 [facility] 10 mg 1-19 tablet by ity of tablet 00:00: mouth [place] 00 daily. Medical Branch clopidogrel 2018-06 Yes [id number] TAKE 1 [facility] 75 mg 1-19 TABLET (75 ity of tablet 00:00: MG) BY [place] 00 ORAL ROUTE Medical ONCE DAILY Branch 90 potassium 2018-06 Yes [id number] 10meq Take 1 [facility] chloride 10 1-19 tablet by ity of mEq CR 00:00: mouth [place] tablet 00 daily. Medical Branch atorvastati 2018-06 Yes [id number] TAKE 1 [facility] n 20 mg 1-19 TABLET BY ity of tablet 00:00: MOUTH [place] 00 EVERYDAY Medical Branch lisinopril 2018-06 Yes [id number] 10mg Take 1 [facility] 10 mg 1-19 tablet by ity of tablet 00:00: mouth [place] 00 daily. Medical Branch clopidogrel 2018-06 Yes [id number] TAKE 1 [facility] 75 mg 1-19 TABLET (75 ity of tablet 00:00: MG) BY [place] 00 ORAL ROUTE Medical ONCE DAILY Branch 90 potassium 2018-06 Yes [id number] 10meq Take 1 [facility] chloride 10 1-19 tablet by ity of mEq CR 00:00: mouth [place] tablet 00 daily. Medical Branch atorvastati 2018-06 Yes [id number] TAKE 1 [facility] n 20 mg 1-19 TABLET BY ity of tablet 00:00: MOUTH [place] 00 EVERYDAY Medical Branch lisinopril 2018-06 Yes [id number] 10mg Take 1 [facility] 10 mg 1-19 tablet by ity of tablet 00:00: mouth [place] 00 daily. Medical Branch clopidogrel 2018-06 Yes [id number] TAKE 1 [facility] 75 mg 1-19 TABLET (75 ity of tablet 00:00: MG) BY [place] 00 ORAL ROUTE Medical ONCE DAILY Branch 90 potassium 2018-06 Yes [id number] 10meq Take 1 [facility] chloride 10 1-19 tablet by ity of mEq CR 00:00: mouth [place] tablet 00 daily. Medical Branch atorvastati 2018-06 Yes [id number] TAKE 1 [facility] n 20 mg 1-19 TABLET BY ity of tablet 00:00: MOUTH [place] 00 EVERYDAY Medical Branch lisinopril 2018-06 Yes [id number] 10mg Take 1 [facility] 10 mg 1-19 tablet by ity of tablet 00:00: mouth [place] 00 daily. Medical Branch clopidogrel 2018-06 Yes [id number] TAKE 1 [facility] 75 mg 1-19 TABLET (75 ity of tablet 00:00: MG) BY [place] 00 ORAL ROUTE Medical ONCE DAILY Branch 90 potassium 2018-06 Yes [id number] 10meq Take 1 [facility] chloride 10 1-19 tablet by ity of mEq CR 00:00: mouth [place] tablet 00 daily. Medical Branch atorvastati 2018-06 Yes [id number] TAKE 1 [facility] n 20 mg 1-19 TABLET BY ity of tablet 00:00: MOUTH [place] 00 EVERYDAY Medical Branch lisinopril 2018-06 Yes [id number] 10mg Take 1 [facility] 10 mg 1-19 tablet by ity of tablet 00:00: mouth [place] 00 daily. Medical Branch clopidogrel 2018-06 Yes [id number] TAKE 1 [facility] 75 mg 1-19 TABLET (75 ity of tablet 00:00: MG) BY ORAL ROUTE Medical ONCE DAILY Branch 90 atorvastati 2018-06 Yes [id number] TAKE 1 [facility] n 20 mg 1-19 TABLET BY ity of tablet 00:00: MOUTH 00 EVERYDAY Medical Branch lisinopril 2018-06 Yes [id number] 10mg Take 1 [facility] [place] 10 mg 1-19 tablet by ity of tablet 00:00: mouth [place] 00 daily. Medical Branch clopidogrel 2018-06 Yes [id number] TAKE 1 [facility] 75 mg 1-19 TABLET (75 ity of tablet 00:00: MG) BY ORAL ROUTE Medical ONCE DAILY Branch 90 atorvastati 2018-06 Yes [id number] TAKE 1 [facility] n 20 mg 1-19 TABLET BY ity of tablet 00:00: MOUTH [place] 00 EVERYDAY Medical Branch lisinopril 2018-06 Yes [id number] 10mg Take 1 [facility] [place] 10 mg 1-19 tablet by ity of tablet 00:00: mouth [place] 00 daily. Medical Branch clopidogrel 2018-06 Yes [id number] TAKE 1 [facility] 75 mg 1-19 TABLET (75 ity of tablet 00:00: MG) BY [place] 00 ORAL ROUTE Medical ONCE DAILY Branch 90 atorvastati 2018-06 Yes [id number] TAKE 1 [facility] n 20 mg 1-19 TABLET BY ity of tablet 00:00: MOUTH EVERYDAY Medical Branch lisinopril 2018-06 Yes [id number] 10mg Take 1 [facility] [place] 10 mg 1-19 tablet by ity of tablet 00:00: mouth daily. Medical Branch clopidogrel 2018-06 Yes [id number] TAKE 1 [facility] 75 mg 1-19 TABLET (75 ity of tablet 00:00: MG) BY ORAL ROUTE Medical ONCE DAILY Branch 90 atorvastati 2018-06 Yes [id number] TAKE 1 [facility] n 20 mg 1-19 TABLET BY ity of tablet 00:00: MOUTH EVERYDAY Medical Branch lisinopril 2018-06 Yes [id number] 10mg Take 1 [facility] [place] 10 mg 1-19 tablet by ity of tablet 00:00: mouth daily. Medical Branch clopidogrel 2018-06 Yes [id number] TAKE 1 [facility] 75 mg 1-19 TABLET (75 ity of tablet 00:00: MG) BY ORAL ROUTE Medical ONCE DAILY Branch 90 atorvastati 2018-06 Yes [id number] TAKE 1 [facility] n 20 mg 1-19 TABLET BY ity of tablet 00:00: MOUTH EVERYDAY Medical Branch lisinopril 2018-06 Yes [id number] 10mg Take 1 [facility] [place] 10 mg 1-19 tablet by ity of tablet 00:00: mouth [place] daily. Medical Branch clopidogrel 2018-06 Yes [id number] TAKE 1 [facility] 75 mg 1-19 TABLET (75 ity of tablet 00:00: MG) BY ORAL ROUTE Medical ONCE DAILY Branch 90 atorvastati 2018-06 Yes [id number] TAKE 1 [facility] n 20 mg 1-19 TABLET BY ity of tablet 00:00: MOUTH EVERYDAY Medical Branch lisinopril 2018-06 Yes [id number] 10mg Take 1 [facility] [place] 10 mg 1-19 tablet by ity of tablet 00:00: mouth [place] daily. Medical Branch clopidogrel 2018-06 Yes [id number] TAKE 1 [facility] 75 mg 1-19 TABLET (75 ity of tablet 00:00: MG) BY ORAL ROUTE Medical ONCE DAILY Branch 90 atorvastati 2018-06 Yes [id number] TAKE 1 [facility] n 20 mg 1-19 TABLET BY ity of tablet 00:00: MOUTH EVERYDAY Medical Branch lisinopril 2018-06 Yes [id number] 10mg Take 1 [facility] [place] 10 mg 1-19 tablet by ity of tablet 00:00: mouth daily. Medical Branch clopidogrel 2018-06 Yes [id number] TAKE 1 [facility] 75 mg 1-19 TABLET (75 ity of tablet 00:00: MG) BY ORAL ROUTE Medical ONCE DAILY Branch 90 atorvastati 2018-06 Yes [id number] TAKE 1 [facility] n 20 mg 1-19 TABLET BY ity of tablet 00:00: MOUTH EVERYDAY Medical Branch lisinopril 2018-06 Yes [id number] 10mg Take 1 [facility] [place] 10 mg 1-19 tablet by ity of tablet 00:00: mouth daily. Medical Branch clopidogrel 2018-06 Yes [id number] TAKE 1 [facility] 75 mg 1-19 TABLET (75 ity of tablet 00:00: MG) BY ORAL ROUTE Medical ONCE DAILY Branch 90 atorvastati 2018-06 Yes [id number] TAKE 1 [facility] n 20 mg 1-19 TABLET BY ity of tablet 00:00: MOUTH EVERYDAY Medical Branch lisinopril 2018-06 Yes [id number] 10mg Take 1 [facility] [place] 10 mg 1-19 tablet by ity of tablet 00:00: mouth daily. Medical Branch clopidogrel 2018-06 Yes [id number] TAKE 1 [facility] 75 mg 1-19 TABLET (75 ity of tablet 00:00: MG) BY ORAL ROUTE Medical ONCE DAILY Branch 90 atorvastati 2018-06 Yes [id number] TAKE 1 [facility] n 20 mg 1-19 TABLET BY ity of tablet 00:00: MOUTH EVERYDAY Medical Branch lisinopril 2018-06 Yes [id number] 10mg Take 1 [place] 10 mg 1-19 tablet by ity of tablet 00:00: mouth daily. Medical Branch clopidogrel 2018-06 Yes [id number] TAKE 1 [facility] 75 mg 1-19 TABLET (75 ity of tablet 00:00: MG) BY ORAL ROUTE Medical ONCE DAILY Branch 90 atorvastati 2018-06 Yes [id number] TAKE 1 [facility] n 20 mg 1-19 TABLET BY ity of tablet 00:00: MOUTH EVERYDAY Medical Branch lisinopril 2018-06 Yes [id number] 10mg Take 1 [facility] [place] 10 mg 1-19 tablet by ity of tablet 00:00: mouth daily. Medical Branch clopidogrel 2018-06 Yes [id number] TAKE 1 [facility] 75 mg 1-19 TABLET (75 ity of tablet 00:00: MG) BY ORAL ROUTE Medical ONCE DAILY Branch 90 atorvastati 2018-06 Yes [id number] TAKE 1 [facility] n 20 mg 1-19 TABLET BY ity of tablet 00:00: MOUTH EVERYDAY Medical Branch lisinopril 2018-06 Yes [id number] 10mg Take 1 [place] 10 mg 1-19 tablet by ity of tablet 00:00: mouth daily. Medical Branch clopidogrel 2018-06 Yes [id number] TAKE 1 [facility] 75 mg 1-19 TABLET (75 ity of tablet 00:00: MG) BY ORAL ROUTE Medical ONCE DAILY Branch 90 atorvastati 2018-06 Yes [id number] TAKE 1 [facility] n 20 mg 1-19 TABLET BY ity of tablet 00:00: MOUTH EVERYDAY Medical Branch lisinopril 2018-06 Yes [id number] 10mg Take 1 [facility] [place] 10 mg 1-19 tablet by ity of tablet 00:00: mouth daily. Medical Branch clopidogrel 2018-06 Yes [id number] TAKE 1 [facility] 75 mg 1-19 TABLET (75 ity of tablet 00:00: MG) BY ORAL ROUTE Medical ONCE DAILY Branch 90 atorvastati 2018-06 Yes [id number] TAKE 1 [facility] n 20 mg 1-19 TABLET BY ity of tablet 00:00: MOUTH EVERYDAY Medical Branch lisinopril 2018-06 Yes [id number] 10mg Take 1 [facility] [place] 10 mg 1-19 tablet by ity of tablet 00:00: mouth daily. Medical Branch clopidogrel 2018-06 Yes [id number] TAKE 1 [facility] 75 mg 1-19 TABLET (75 ity of tablet 00:00: MG) BY ORAL ROUTE Medical ONCE DAILY Branch 90 atorvastati 2018-06 Yes [id number] TAKE 1 [facility] n 20 mg 1-19 TABLET BY ity of tablet 00:00: MOUTH EVERYDAY Medical Branch lisinopril 2018-06 Yes [id number] 10mg Take 1 [facility] [place] 10 mg 1-19 tablet by ity of tablet 00:00: mouth daily. Medical Branch clopidogrel 2018-06 Yes [id number] TAKE 1 [facility] 75 mg 1-19 TABLET (75 ity of tablet 00:00: MG) BY ORAL ROUTE Medical ONCE DAILY Branch 90 atorvastati 2018-06 Yes [id number] TAKE 1 [facility] n 20 mg 1-19 TABLET BY ity of tablet 00:00: MOUTH [place] 00 EVERYDAY Medical Branch lisinopril 2018-06 Yes [id number] 10mg Take 1 [facility] [place] 10 mg 1-19 tablet by ity of tablet 00:00: mouth [place] 00 daily. Medical Branch clopidogrel 2018-06 Yes [id number] TAKE 1 [facility] 75 mg 1-19 TABLET (75 ity of tablet 00:00: MG) BY [place] 00 ORAL ROUTE Medical ONCE DAILY Branch 90 atorvastati 2018-06 Yes [id number] TAKE 1 [facility] n 20 mg 1-19 TABLET BY ity of tablet 00:00: MOUTH [place] 00 EVERYDAY Medical Branch lisinopril 2018-06 No [id number] 10mg Take 1 [facility] [place] 10 mg 1-19 tablet by ity of tablet 00:00: mouth [place] 00 daily. Medical Branch clopidogrel 2018-06 Yes [id number] TAKE 1 [facility] 75 mg 1-19 TABLET (75 ity of tablet 00:00: MG) BY [place] [address] ORAL ROUTE Medical ONCE DAILY Branch 90 atorvastati 2018-06 Yes [id number] TAKE 1 [facility] n 20 mg 1-19 TABLET BY ity of tablet 00:00: MOUTH [place] 00 EVERYDAY Medical Branch clopidogrel 2018-06 Yes [id number] TAKE 1 [facility] 75 mg 1-19 TABLET (75 ity of tablet 00:00: MG) BY [place] 00 ORAL ROUTE Medical ONCE DAILY Branch 90 atorvastati 2018-06- No [id number] TAKE 1 [facility] n 20 mg 1-19 02-17 TABLET BY ity of tablet 00:00: 00:00 MOUTH [place] 00 :00 EVERYDAY Medical Branch clopidogrel 2018-06- No [id number] TAKE 1 [facility] 75 mg 1-19 02-17 TABLET (75 ity of tablet 00:00: 00:00 MG) BY [place] 00 :00 ORAL ROUTE Medical ONCE DAILY Branch 90 potassium 2018-06- No [id number] 10meq Take 1 [facility] chloride 10 -19 07-10 tablet by it y of mEq CR 00:00: 00:00 mouth [place] tablet 00 :00 daily. Medical Branch potassium 2018-06- No [id number] 10meq Take 1 [facility] chloride 10 -19 07-10 tablet by it y of mEq CR 00:00: 00:00 mouth [place] tablet 00 :00 daily. Medical Branch potassium 2018-06 2020- No [id number] 10meq Take 1 [facility] chloride 10 06-19 07-10 tablet by it y of mEq CR 00:00: 00:00 mouth [place] tablet 00 :00 daily. Medical Branch Miscellaneo 2018-06- No [id number] I10 - [facility] 06-19 Dispense ity of Supply Kit 00:00: 00:00 blood [place] 00 :00 pressure Medical cuff (any Branch brand), take BP at home BID furosemide 2018-06- No [id number] 40mg Take 1 [facility] 40 mg 06-19 tablet by [facility] of tablet 00:00: 00:00 mouth [place] 00 :00 every Medical morning Branch and evening. furosemide 2018-06- No [id number] 40mg Take 1 [facility] 40 mg 06-19 tablet by it[facility] of tablet 00:00: 00:00 mouth [place] 00 :00 every Medical morning Branch and evening. ferrous Yes 325mg Take 325 Unive rs sulfate 325 2-14 mg by ity of mg (65 mg 00:00: mouth [place] [facility]) 00 daily. Medical tablet Branch ferrous Yes 325mg Take 325 Unive rs sulfate 325 2-14 mg by ity of mg (65 mg 00:00: mouth [place] [facility]) 00 daily. Medical tablet Branch ferrous Yes 325mg Take 325 Unive rs sulfate 325 2-14 mg by ity of mg (65 mg 00:00: mouth [place] [facility]) 00 daily. Medical tablet Branch ferrous Yes 325mg Take 325 Unive rs sulfate 325 2-14 mg by ity of mg (65 mg 00:00: mouth [place] [facility]) 00 daily. Medical tablet Branch ferrous Yes 325mg Take 325 Unive rs sulfate 325 2-14 mg by ity of mg (65 mg 00:00: mouth [place] [facility]) 00 daily. Medical tablet Branch ferrous 0 Yes 325mg Take 325 Unive rs sulfate 325 2-14 mg by ity of mg (65 mg 00:00: mouth [place] [facility]) 00 daily. Medical tablet Branch ferrous 2018- Yes 325mg Take 325 Unive rs sulfate 325 2-14 mg by ity of mg (65 mg 00:00: mouth [place] [facility]) 00 daily. Medical tablet Branch ferrous 2018- Yes 325mg Take 325 Unive rs sulfate 325 2-14 mg by ity of mg (65 mg 00:00: mouth [place] [facility]) 00 daily. Medical tablet Branch ferrous 2019 Yes 325mg Take 325 Unive rs sulfate 325 2-14 mg by ity of mg (65 mg 00:00: mouth [place] [facility]) 00 daily. Medical tablet Branch ferrous Yes 325mg Take 325 Unive rs sulfate 325 2-14 mg by ity of mg (65 mg 00:00: mouth [place] [facility]) 00 daily. Medical tablet Branch ferrous Yes 325mg Take 325 Unive rs sulfate 325 2-14 mg by ity of mg (65 mg 00:00: mouth [place] [facility]) 00 daily. Medical tablet Branch ferrous Yes 325mg Take 325 Unive rs sulfate 325 2-14 mg by ity of mg (65 mg 00:00: mouth [place] [facility]) 00 daily. Medical tablet Branch ferrous Yes 325mg Take 325 Unive rs sulfate 325 2-14 mg by ity of mg (65 mg 00:00: mouth [place] [facility]) 00 daily. Medical tablet Branch ferrous Yes 325mg Take 325 Unive rs sulfate 325 2-14 mg by ity of mg (65 mg 00:00: mouth [place] [facility]) 00 daily. Medical tablet Branch ferrous Yes 325mg Take 325 Unive rs sulfate 325 2-14 mg by ity of mg (65 mg 00:00: mouth [place] [facility]) 00 daily. Medical tablet Branch ferrous Yes 325mg Take 325 Unive rs sulfate 325 2-14 mg by ity of mg (65 mg 00:00: mouth [place] [facility]) 00 daily. Medical tablet Branch ferrous Yes 325mg Take 325 Unive rs sulfate 325 2-14 mg by ity of mg (65 mg 00:00: mouth [place] [facility]) 00 daily. Medical tablet Branch ferrous 2018- Yes 325mg Take 325 Unive rs sulfate 325 2-14 mg by ity of mg (65 mg 00:00: mouth [place] [facility]) 00 daily. Medical tablet Branch ferrous 2019-0 Yes 325mg Take 325 Unive rs sulfate 325 2-14 mg by ity of mg (65 mg 00:00: mouth [place] iron) 00 daily. Medical tablet Branch ferrous 2018- Yes 325mg Take 325 Unive rs sulfate 325 2-14 mg by ity of mg (65 mg 00:00: mouth [place] iron) 00 daily. Medical tablet Branch ferrous 2019-0 Yes 325mg Take 325 Unive rs sulfate 325 2-14 mg by ity of mg (65 mg 00:00: mouth [place] iron) 00 daily. Medical tablet Branch ferrous 2019-0 Yes 325mg Take 325 Unive rs sulfate 325 2-14 mg by ity of mg (65 mg 00:00: mouth [place] [facility]) 00 daily. Medical tablet Branch ferrous 2018- Yes 325mg Take 325 Unive rs sulfate 325 2-14 mg by ity of mg (65 mg 00:00: mouth [place] [facility]) 00 daily. Medical tablet Branch ferrous 2018-0 Yes 325mg Take 325 [facility] rs sulfate 325 2-14 mg by [facility]y of mg (65 mg 00:00: mouth [place] [facility]) 00 daily. Medical tablet Branch ferrous 2018- Yes 325mg Take 325 Un[facility] rs sulfate 325 2-14 mg by [facility]y of mg (65 mg 00:00: mouth [place] iron) 00 daily. Medical tablet Branch ferrous Yes 325mg Take 325 Unive rs sulfate 325 2-14 mg by ity of mg (65 mg 00:00: mouth [place] iron) 00 daily. Medical tablet Branch ferrous 2018- Yes 325mg Take 325 Un[facility] rs sulfate 325 2-14 mg by [facility]y of mg (65 mg 00:00: mouth [place] iron) 00 daily. Medical tablet Branch ferrous 2018- Yes 325mg Take 325 [facility] rs sulfate 325 2-14 mg by [facility]y of mg (65 mg 00:00: mouth [place] iron) 00 daily. Medical tablet Branch ferrous Yes 325mg Take 325 Un[facility] rs sulfate 325 2-14 mg by ity of mg (65 mg 00:00: mouth [place] iron) 00 daily. Medical tablet Branch ferrous 2018-0 Yes 325mg Take 325 Unive rs sulfate 325 2-14 mg by ity of mg (65 mg 00:00: mouth [place] iron) 00 daily. Medical tablet Branch ferrous 2019-0 Yes 325mg Take 325 Unive rs sulfate 325 2-14 mg by [facility]y of mg (65 mg 00:00: mouth [place] [facility]) 00 daily. Medical tablet Branch ferrous 2018-0 Yes 325mg Take 325 [facility]ive rs sulfate 325 2-14 mg by ity of mg (65 mg 00:00: mouth [place] [facility]) 00 daily. Medical tablet Branch ferrous 2018-0 Yes 325mg Take 325 Unive rs sulfate 325 2-14 mg by [facility]y of mg (65 mg 00:00: mouth [place] [facility]) 00 daily. Medical tablet Branch ferrous 2019 Yes 325mg Take 325 Unive rs sulfate 325 2-14 mg by [facility]y of mg (65 mg 00:00: mouth [place] iron) 00 daily. Medical tablet Branch ferrous Yes 325mg Take 325 Unive rs sulfate 325 2-14 mg by [facility]y of mg (65 mg 00:00: mouth [place] iron) 00 daily. Medical tablet Branch ferrous Yes 325mg Take 325 Unive rs sulfate 325 2-14 mg by ity of mg (65 mg 00:00: mouth [place] iron) 00 daily. Medical tablet Branch ferrous Yes 325mg Take 325 Unive rs sulfate 325 2-14 mg by [facility]y of mg (65 mg 00:00: mouth [place] iron) 00 daily. Medical tablet Branch ferrous Yes 325mg Take 325 Unive rs sulfate 325 2-14 mg by [facility]y of mg (65 mg 00:00: mouth [place] iron) 00 daily. Medical tablet Branch ferrous Yes 325mg Take 325 Unive rs sulfate 325 2-14 mg by [facility]y of mg (65 mg 00:00: mouth [place] iron) 00 daily. Medical tablet Branch ferrous Yes 325mg Take 325 Unive rs sulfate 325 2-14 mg by ity of mg (65 mg 00:00: mouth [place] iron) 00 daily. Medical tablet Branch ferrous Yes 325mg Take 325 Unive rs sulfate 325 2-14 mg by ity of mg (65 mg 00:00: mouth [place] iron) 00 daily. Medical tablet Branch ferrous Yes 325mg Take 325 Unive rs sulfate 325 2-14 mg by ity of mg (65 mg 00:00: mouth [place] iron) 00 daily. Medical tablet Branch ferrous 2018- Yes 325mg Take 325 Unive rs sulfate 325 2-14 mg by ity of mg (65 mg 00:00: mouth [place] iron) 00 daily. Medical tablet Branch ferrous 2019-0 Yes 325mg Take 325 Unive rs sulfate 325 2-14 mg by [facility]y of mg (65 mg 00:00: mouth [place] iron) 00 daily. Medical tablet Branch ferrous 2018- Yes 325mg Take 325 Unive rs sulfate 325 2-14 mg by ity of mg (65 mg 00:00: mouth [place] iron) 00 daily. Medical tablet Branch ferrous 2019-0 Yes 325mg Take 325 Unive rs sulfate 325 2-14 mg by [facility]y of mg (65 mg 00:00: mouth [place] iron) 00 daily. Medical tablet Branch ferrous 2019-0 Yes 325mg Take 325 Un[facility] rs sulfate 325 2-14 mg by [facility]y of mg (65 mg 00:00: mouth [place] iron) 00 daily. Medical tablet Branch ferrous 2018- Yes 325mg Take 325 Unive rs sulfate 325 2-14 mg by [facility]y of mg (65 mg 00:00: mouth [place] iron) 00 daily. Medical tablet Branch ferrous 2018-0 Yes 325mg Take 325 Unive rs sulfate 325 2-14 mg by [facility]y of mg (65 mg 00:00: mouth [place] iron) 00 daily. Medical tablet Branch ferrous 2018- Yes 325mg Take 325 Unive rs sulfate 325 2-14 mg by [facility]y of mg (65 mg 00:00: mouth [place] iron) 00 daily. Medical tablet Branch ferrous Yes 325mg Take 325 Unive rs sulfate 325 2-14 mg by ity of mg (65 mg 00:00: mouth [place] iron) 00 daily. Medical tablet Branch ferrous 2018- Yes 325mg Take 325 Unive rs sulfate 325 2-14 mg by ity of mg (65 mg 00:00: mouth [place] iron) 00 daily. Medical tablet Branch ferrous 2018- Yes 325mg Take 325 Unive rs sulfate 325 2-14 mg by ity of mg (65 mg 00:00: mouth [place] iron) 00 daily. Medical tablet Branch ferrous Yes 325mg Take 325 Unive rs sulfate 325 2-14 mg by ity of mg (65 mg 00:00: mouth [place] iron) 00 daily. Medical tablet Branch ferrous 2018-0 Yes 325mg Take 325 Un[facility] rs sulfate 325 2-14 mg by ity of mg (65 mg 00:00: mouth [place] iron) 00 daily. Medical tablet Branch ferrous 2019-0 Yes 325mg Take 325 Unive rs sulfate 325 2-14 mg by [facility]y of mg (65 mg 00:00: mouth [place] iron) 00 daily. Medical tablet Branch ferrous 2018-0 Yes 325mg Take 325 Unive rs sulfate 325 2-14 mg by ity of mg (65 mg 00:00: mouth [place] iron) 00 daily. Medical tablet Branch ferrous 2018-0 Yes 325mg Take 325 Unive rs sulfate 325 2-14 mg by ity of mg (65 mg 00:00: mouth [place] iron) 00 daily. Medical tablet Branch ferrous 2019 Yes 325mg Take 325 Unive rs sulfate 325 2-14 mg by ity of mg (65 mg 00:00: mouth [place] iron) 00 daily. Medical tablet Branch ferrous Yes 325mg Take 325 Unive rs sulfate 325 2-14 mg by ity of mg (65 mg 00:00: mouth [place] iron) 00 daily. Medical tablet Branch ferrous Yes 325mg Take 325 Unive rs sulfate 325 2-14 mg by ity of mg (65 mg 00:00: mouth [place] iron) 00 daily. Medical tablet Branch ferrous Yes 325mg Take 325 Unive rs sulfate 325 2-14 mg by ity of mg (65 mg 00:00: mouth [place] iron) 00 daily. Medical tablet Branch ferrous Yes 325mg Take 325 Unive rs sulfate 325 2-14 mg by ity of mg (65 mg 00:00: mouth [place] iron) 00 daily. Medical tablet Branch ferrous Yes 325mg Take 325 Unive rs sulfate 325 2-14 mg by ity of mg (65 mg 00:00: mouth [place] iron) 00 daily. Medical tablet Branch ferrous Yes 325mg Take 325 Unive rs sulfate 325 2-14 mg by ity of mg (65 mg 00:00: mouth [place] iron) 00 daily. Medical tablet Branch ferrous Yes 325mg Take 325 Unive rs sulfate 325 2-14 mg by ity of mg (65 mg 00:00: mouth [place] iron) 00 daily. Medical tablet Branch ferrous Yes 325mg Take 325 Unive rs sulfate 325 2-14 mg by ity of mg (65 mg 00:00: mouth [place] iron) 00 daily. Medical tablet Branch ferrous 2018- Yes 325mg Take 325 Unive rs sulfate 325 2-14 mg by ity of mg (65 mg 00:00: mouth [place] iron) 00 daily. Medical tablet Branch ferrous 2019-0 Yes 325mg Take 325 Unive rs sulfate 325 2-14 mg by ity of mg (65 mg 00:00: mouth [place] iron) 00 daily. Medical tablet Branch ferrous 2018- Yes 325mg Take 325 Unive rs sulfate 325 2-14 mg by ity of mg (65 mg 00:00: mouth [place] iron) 00 daily. Medical tablet Branch ferrous 2019-0 Yes 325mg Take 325 Unive rs sulfate 325 2-14 mg by ity of mg (65 mg 00:00: mouth [place] iron) 00 daily. Medical tablet Branch ferrous 2019-0 Yes 325mg Take 325 Unive rs sulfate 325 2-14 mg by ity of mg (65 mg 00:00: mouth [place] iron) 00 daily. Medical tablet Branch ferrous 2018- Yes 325mg Take 325 Unive rs sulfate 325 2-14 mg by ity of mg (65 mg 00:00: mouth [place] iron) 00 daily. Medical tablet Branch ferrous 2018-0 Yes 325mg Take 325 Unive rs sulfate 325 2-14 mg by ity of mg (65 mg 00:00: mouth [place] iron) 00 daily. Medical tablet Branch ferrous 2018- Yes 325mg Take 325 Unive rs sulfate 325 2-14 mg by ity of mg (65 mg 00:00: mouth [place] iron) 00 daily. Medical tablet Branch ferrous Yes 325mg Take 325 Unive rs sulfate 325 2-14 mg by ity of mg (65 mg 00:00: mouth [place] iron) 00 daily. Medical tablet Branch ferrous 2018- Yes 325mg Take 325 Unive rs sulfate 325 2-14 mg by ity of mg (65 mg 00:00: mouth [place] iron) 00 daily. Medical tablet Branch ferrous 2018- Yes 325mg Take 325 Unive rs sulfate 325 2-14 mg by ity of mg (65 mg 00:00: mouth [place] iron) 00 daily. Medical tablet Branch ferrous Yes 325mg Take 325 Unive rs sulfate 325 2-14 mg by ity of mg (65 mg 00:00: mouth [place] iron) 00 daily. Medical tablet Branch ferrous 2018-0 Yes 325mg Take 325 Unive rs sulfate 325 2-14 mg by ity of mg (65 mg 00:00: mouth [place] iron) 00 daily. Medical tablet Branch ferrous 2019-0 Yes 325mg Take 325 Unive rs sulfate 325 2-14 mg by ity of mg (65 mg 00:00: mouth [place] iron) 00 daily. Medical tablet Branch ferrous 2018-0 Yes 325mg Take 325 Unive rs sulfate 325 2-14 mg by ity of mg (65 mg 00:00: mouth [place] iron) 00 daily. Medical tablet Branch ferrous 2018-0 Yes 325mg Take 325 Unive rs sulfate 325 2-14 mg by ity of mg (65 mg 00:00: mouth [place] iron) 00 daily. Medical tablet Branch ferrous 2019-0 Yes 325mg Take 325 Unive rs sulfate 325 2-14 mg by ity of mg (65 mg 00:00: mouth [place] iron) 00 daily. Medical tablet Branch Immunizations Ordered Filled Immunization Date Status Comments [facility] e Immunization Name Name Influenza High Dose 2020-03-22 Completed [facility] 00:00:00 [place] [facility] Influenza High Dose 2020-03-22 Completed [facility] 00:00:00 [place] [facility] Influenza High Dose 2020-03-22 Completed [facility] 00:00:00 [place] [facility] Influenza High Dose 2020-03-22 Completed [facility] 00:00:00 [place] [facility] Influenza High Dose 2020-03-22 Completed [facility] 00:00:00 [facility] Influenza High Dose 2020-03-22 Completed [facility] 00:00:00 [place] [facility] Influenza High Dose 2020-03-22 Completed [facility] 00:00:00 [place] [facility] Influenza High Dose 2020-03-22 Completed [facility] 00:00:00 [place] [facility] Influenza High Dose 2020-03-22 Completed [facility] 00:00:00 [place] [facility] Influenza High Dose 2020-03-22 Completed [facility] 00:00:00 [facility] Influenza High Dose 2020-03-22 Completed [facility] 00:00:00 [facility] Influenza High Dose 2020-03-22 Completed [facility] 00:00:00 [place] [facility] Influenza High Dose 2020-03-22 Completed [facility] 00:00:00 [place] [facility] Influenza High Dose 2020-03-22 Completed [facility] 00:00:00 [place] [facility] Influenza High Dose 2020-03-22 Completed [facility] 00:00:00 [place] [facility] Influenza High Dose 2020-03-22 Completed [facility] 00:00:00 [facility] Influenza High Dose 2020-03-22 Completed [facility] 00:00:00 [facility] Influenza High Dose 2020-03-22 Completed [facility] 00:00:00 [place] [facility] Influenza High Dose 2020-03-22 Completed [facility] 00:00:00 [facility] Influenza High Dose 2020-03-22 Completed [facility] 00:00:00 [facility] Influenza High Dose 2020-03-22 Completed [facility] 00:00:00 [facility] Influenza High Dose 2020-03-22 Completed [facility] 00:00:00 [place] [facility] Influenza High Dose 2020-03-22 Completed [facility] 00:00:00 [facility] Influenza High Dose 2020-03-22 Completed [facility] 00:00:00 [place] [facility] Influenza High Dose 2020-03-22 Completed [facility] 00:00:00 [facility] Influenza High Dose 2020-03-22 Completed [facility] 00:00:00 [place] [facility] Influenza High Dose 2020-03-22 Completed [facility] 00:00:00 [facility] Influenza High Dose 2020-03-22 Completed [facility] of [facility] 00:00:00 [place] [facility] Influenza High Dose 2020-03-22 Completed [facility] of [facility] 00:00:00 [facility] Influenza High Dose 2020-03-22 Completed [facility] 00:00:00 [facility] Influenza High Dose 2020-03-22 Completed [facility] of [facility] 00:00:00 [place] [facility] Influenza High Dose 2020-03-22 Completed [facility] 00:00:00 [facility] Influenza High Dose 2020-03-22 Completed [facility] of [facility] 00:00:00 [place] [facility] Influenza High Dose 2020-03-22 Completed [facility] of [facility] 00:00:00 [facility] Influenza High Dose 2020-03-22 Completed [facility] of [facility] 00:00:00 [facility] Influenza High Dose 2020-03-22 Completed [facility] of [facility] 00:00:00 [facility] Influenza High Dose 2020-03-22 Completed [facility] of [facility] 00:00:00 [place] [facility] Influenza High Dose 2020-03-22 Completed [facility] 00:00:00 [facility] Influenza High Dose 2020-03-22 Completed [facility] 00:00:00 [place] [facility] Influenza High Dose 2020-03-22 Completed [facility] 00:00:00 [place] [facility] Influenza High Dose 2020-03-22 Completed [facility] 00:00:00 [place] [facility] Influenza High Dose 2020-03-22 Completed [facility] 00:00:00 [place] [facility] Influenza High Dose 2020-03-22 Completed [facility] 00:00:00 [facility] Influenza High Dose 2020-03-22 Completed [facility] 00:00:00 [place] [facility] Influenza High Dose 2020-03-22 Completed [facility] 00:00:00 [place] [facility] Influenza High Dose 2020-03-22 Completed [facility] of [facility] 00:00:00 [facility] Influenza High Dose 2020-03-22 Completed [facility] 00:00:00 [facility] Influenza High Dose 2020-03-10 Completed Unive rs[facility] of 00:00:00 [facility] Influenza High Dose 2020-03-10 Completed Unive rsity of 00:00:00 [facility] Influenza High Dose 2020-03-10 Completed Unive rsity of 00:00:00 [facility] Influenza High Dose 2020-03-10 Completed Unive rsity of 00:00:00 [facility] Influenza High Dose 2020-03-10 Completed Unive rsity of 00:00:00 [facility] Influenza High Dose 2020-03-10 Completed Unive rsity of 00:00:00 [facility] Influenza High Dose 2020-03-10 Completed Unive rsity of 00:00:00 [facility] Influenza High Dose 2020-03-10 Completed Unive rsity of 00:00:00 [facility] Influenza High Dose 2020-03-10 Completed Unive rsity of 00:00:00 [facility] Influenza High Dose 2020-03-10 Completed Unive rsity of 00:00:00 [facility] Influenza High Dose 2020-03-10 Completed Unive rsity of 00:00:00 [place] [facility] Influenza High Dose 2020-03-10 Completed [facility] of 00:00:00 [place] [facility] Influenza High Dose 2020-03-10 Completed Unive rsity of 00:00:00 [facility] Influenza High Dose 2020-03-10 Completed Unive rsity of 00:00:00 [place] [facility] Influenza High Dose 2020-03-10 Completed Unive rsity of 00:00:00 [facility] Influenza High Dose 2020-03-10 Completed [facility] of 00:00:00 [place] [facility] Influenza High Dose 2020-03-10 Completed [facility] of 00:00:00 [place] [facility] Influenza High Dose 2020-03-10 Completed [facility] of 00:00:00 [place] [facility] Influenza High Dose 2020-03-10 Completed Unive [facility] of 00:00:00 [place] [facility] Influenza High Dose 2020-03-10 Completed Unive rs[facility] of 00:00:00 [place] [facility] Influenza High Dose 2020-03-10 Completed Unive rs[facility] of 00:00:00 [place] [facility] Influenza High Dose 2020-03-10 Completed Unive rsity of 00:00:00 [place] [facility] Influenza High Dose 2020-03-10 Completed Unive rs[facility] of 00:00:00 [place] [facility] Influenza High Dose 2020-03-10 Completed Unive rsity of 00:00:00 [facility] Influenza High Dose 2020-03-10 Completed Unive rsity of 00:00:00 [facility] Influenza High Dose 2020-03-10 Completed Unive rs[facility] of 00:00:00 [place] [facility] Influenza High Dose 2020-03-10 Completed Unive [facility] of 00:00:00 [place] [facility] Influenza High Dose 2020-03-10 Completed Unive rsity of 00:00:00 [facility] Influenza High Dose 2020-03-10 Completed Unive [facility] of 00:00:00 [place] [facility] Influenza High Dose 2020-03-10 Completed Unive rsity of 00:00:00 [facility] Influenza High Dose 2020-03-10 Completed Unive rsity of 00:00:00 [facility] Influenza High Dose 2020-03-10 Completed Unive rs[facility] of 00:00:00 [place] [facility] Influenza High Dose 2020-03-10 Completed Unive rsity of 00:00:00 [place] [facility] Influenza High Dose 2020-03-10 Completed Unive rsity of 00:00:00 [place] [facility] Influenza High Dose 2020-03-10 Completed Unive rsity of 00:00:00 [place] [facility] Influenza High Dose 2020-03-10 Completed Unive rsity of 00:00:00 [facility] Influenza High Dose 2020-03-10 Completed Unive rsity of 00:00:00 [place] [facility] Influenza High Dose 2020-03-10 Completed Unive rsity of 00:00:00 [place] [facility] Influenza High Dose 2020-03-10 Completed Unive rsity of 00:00:00 [facility] Influenza High Dose 2020-03-10 Completed Unive rsity of 00:00:00 [facility] Influenza High Dose 2020-03-10 Completed Unive rsity of 00:00:00 [facility] Influenza High Dose 2020-03-10 Completed Unive rsity of 00:00:00 [facility] Influenza High Dose 2020-03-10 Completed Unive rsity of 00:00:00 [facility] Influenza High Dose 2020-03-10 Completed Unive rsity of 00:00:00 [facility] Influenza High Dose 2020-03-10 Completed Unive rsity of 00:00:00 [facility] Influenza High Dose 2020-03-10 Completed Unive rsity of 00:00:00 [facility] Influenza High Dose 2020-03-10 Completed Unive rsity of 00:00:00 [facility] Influenza High Dose 2019-06-06 Completed Unive rsity of 00:00:00 [facility] Pneumococcal 2019-06-06 Completed University o f Polysaccharide, 00:00:00 [place] [facility] PPSV23 (PNEUMOVAX) Branch Influenza High Dose 2019-06-06 Completed Unive rsity of 00:00:00 [facility] Pneumococcal 2019-06-06 Completed University o f Polysaccharide, 00:00:00 [place] [facility] PPSV23 (PNEUMOVAX) Branch Influenza High Dose 2019-06-06 Completed Unive rsity of 00:00:00 [facility] Pneumococcal 2019-06-06 Completed University o f Polysaccharide, 00:00:00 [place] [facility] PPSV23 (PNEUMOVAX) Branch Influenza High Dose 2019-06-06 Completed Unive rsity of 00:00:00 [facility] Pneumococcal 2019-06-06 Completed University o f Polysaccharide, 00:00:00 [place] [facility] PPSV23 (PNEUMOVAX) Branch Influenza High Dose 2019-06-06 Completed Unive rsity of 00:00:00 [facility] Pneumococcal 2019-06-06 Completed University o f Polysaccharide, 00:00:00 [place] [facility] PPSV23 (PNEUMOVAX) Branch Influenza High Dose 2019-06-06 Completed Unive rsity of 00:00:00 [facility] Pneumococcal 2019-06-06 Completed University o f Polysaccharide, 00:00:00 [place] [facility] PPSV23 (PNEUMOVAX) Branch Influenza High Dose 2019-06-06 Completed Unive rsity of 00:00:00 [facility] Pneumococcal 2019-06-06 Completed University o f Polysaccharide, 00:00:00 [place] [facility] PPSV23 (PNEUMOVAX) Branch Influenza High Dose 2019-06-06 Completed Unive rsity of 00:00:00 [facility] Pneumococcal 2019-06-06 Completed University o f Polysaccharide, 00:00:00 [place] [facility] PPSV23 (PNEUMOVAX) Branch Influenza High Dose 2019-06-06 Completed Unive rsity of 00:00:00 [facility] Pneumococcal 2019-06-06 Completed University o f Polysaccharide, 00:00:00 [place] [facility] PPSV23 (PNEUMOVAX) Branch Influenza High Dose 2019-06-06 Completed Unive rsity of 00:00:00 [facility] Pneumococcal 2019-06-06 Completed University o f Polysaccharide, 00:00:00 [place] [facility] PPSV23 (PNEUMOVAX) Branch Influenza High Dose 2019-06-06 Completed Unive rsity of 00:00:00 [facility] Pneumococcal 2019-06-06 Completed University o f Polysaccharide, 00:00:00 [place] [facility] PPSV23 (PNEUMOVAX) Branch Influenza High Dose 2019-06-06 Completed Unive rsity of 00:00:00 [facility] Pneumococcal 2019-06-06 Completed University o f Polysaccharide, 00:00:00 [place] [facility] PPSV23 (PNEUMOVAX) Branch Influenza High Dose 2019-06-06 Completed Unive rsity of 00:00:00 [facility] Pneumococcal 2019-06-06 Completed University o f Polysaccharide, 00:00:00 [place] [facility] PPSV23 (PNEUMOVAX) Branch Influenza High Dose 2019-06-06 Completed Unive rsity of 00:00:00 [facility] Pneumococcal 2019-06-06 Completed University o f Polysaccharide, 00:00:00 [place] [facility] ical PPSV23 (PNEUMOVAX) Branch Influenza High Dose 2019-06-06 Completed [facility] 00:00:00 [facility] Pneumococcal 2019-06-06 Completed [facility] Polys[facility], 00:00:00 [place] [facility] PPSV23 (PNEUMOVAX) Branch Influenza High Dose 2019-06-06 Completed [facility] 00:00:00 [facility] Pneumococcal 2019-06-06 Completed [facility] Polysaccharide, 00:00:00 [place] [facility] PPSV23 (PNEUMOVAX) Branch Influenza High Dose 2019-06-06 Completed [facility] of 00:00:00 [facility] Pneumococcal 2019-06-06 Completed [facility] Polysaccharide, 00:00:00 [place] [facility] PPSV23 (PNEUMOVAX) Branch Influenza High Dose 2019-06-06 Completed [facility] 00:00:00 [facility] Pneumococcal 2019-06-06 Completed [facility] Polysaccharide, 00:00:00 [place] [facility] PPSV23 (PNEUMOVAX) Branch Influenza High Dose 2019-06-06 Completed [facility] 00:00:00 [facility] Pneumococcal 2019-06-06 Completed [facility] Polysaccharide, 00:00:00 [place] [facility] PPSV23 (PNEUMOVAX) Branch Influenza High Dose 2019-06-06 Completed [facility] 00:00:00 [facility] Pneumococcal 2019-06-06 Completed [facility] Polysaccharide, 00:00:00 [place] [facility] PPSV23 (PNEUMOVAX) Branch Influenza High Dose 2019-06-06 Completed [facility] 00:00:00 [facility] Pneumococcal 2019-06-06 Completed [facility] Polysaccharide, 00:00:00 [place] [facility] PPSV23 (PNEUMOVAX) Branch Influenza High Dose 2019-06-06 Completed [facility] 00:00:00 [facility] Pneumococcal 2019-06-06 Completed [facility] Polysaccharide, 00:00:00 [place] [facility] PPSV23 (PNEUMOVAX) Branch Influenza High Dose 2019-06-06 Completed [facility] 00:00:00 [facility] Pneumococcal 2019-06-06 Completed [facility] Polysaccharide, 00:00:00 [place] [facility] PPSV23 (PNEUMOVAX) Branch Influenza High Dose 2019-06-06 Completed [facility] of 00:00:00 [facility] Influenza High Dose 2019-06-06 Completed [facility] of 00:00:00 [facility] Pneumococcal 2019-06-06 Completed [facility] Polysaccharide, 00:00:00 [place] [facility] PPSV23 (PNEUMOVAX) Branch Pneumococcal 2019-06-06 Completed [facility] Polysaccharide, 00:00:00 [place] [facility] PPSV23 (PNEUMOVAX) Branch Influenza High Dose 2019-06-06 Completed [facility] 00:00:00 [facility] Pneumococcal 2019-06-06 Completed [facility] Polysaccharide, 00:00:00 [place] [facility] PPSV23 (PNEUMOVAX) Branch Influenza High Dose 2019-06-06 Completed [facility] 00:00:00 [facility] Pneumococcal 2019-06-06 Completed [facility] Polysaccharide, 00:00:00 [place] [facility] PPSV23 (PNEUMOVAX) Branch Influenza High Dose 2019-06-06 Completed [facility] 00:00:00 [facility] Pneumococcal 2019-06-06 Completed [facility] Polysaccharide, 00:00:00 [place] [facility] PPSV23 (PNEUMOVAX) Branch Influenza High Dose 2019-06-06 Completed [facility] 00:00:00 [facility] Pneumococcal 2019-06-06 Completed [facility] Polysaccharide, 00:00:00 [place] [facility] PPSV23 (PNEUMOVAX) Branch Influenza High Dose 2019-06-06 Completed [facility] 00:00:00 [facility] Pneumococcal 2019-06-06 Completed [facility] Polysaccharide, 00:00:00 [place] [facility] PPSV23 (PNEUMOVAX) Branch Influenza High Dose 2019-06-06 Completed [facility] 00:00:00 [facility] Pneumococcal 2019-06-06 Completed [facility] Polysaccharide, 00:00:00 [place] [facility] PPSV23 (PNEUMOVAX) Branch Influenza High Dose 2019-06-06 Completed [facility] 00:00:00 [facility] Pneumococcal 2019-06-06 Completed [facility] Polysaccharide, 00:00:00 [place] [facility] PPSV23 (PNEUMOVAX) Branch Influenza High Dose 2019-06-06 Completed [facility] 00:00:00 [facility] Pneumococcal 2019-06-06 Completed [facility] Polysaccharide, 00:00:00 [place] [facility] PPSV23 (PNEUMOVAX) Branch Influenza High Dose 2019-06-06 Completed [facility] 00:00:00 [facility] Pneumococcal 2019-06-06 Completed [facility] Polysaccharide, 00:00:00 [place] [facility] PPSV23 (PNEUMOVAX) Branch Influenza High Dose 2019-06-06 Completed [facility] 00:00:00 [facility] Pneumococcal 2019-06-06 Completed [facility] Polysaccharide, 00:00:00 [place] [facility] PPSV23 (PNEUMOVAX) Branch Influenza High Dose 2019-06-06 Completed [facility] 00:00:00 [facility] Pneumococcal 2019-06-06 Completed [facility] Polysaccharide, 00:00:00 [place] [facility] PPSV23 (PNEUMOVAX) Branch Influenza High Dose 2019-06-06 Completed [facility] of 00:00:00 [facility] Pneumococcal 2019-06-06 Completed [facility] Polysaccharide, 00:00:00 [place] [facility] PPSV23 (PNEUMOVAX) Branch Influenza High Dose 2019-06-06 Completed [facility] 00:00:00 [facility] Pneumococcal 2019-06-06 Completed [facility] Polysaccharide, 00:00:00 [place] [facility] PPSV23 (PNEUMOVAX) Branch Influenza High Dose 2019-06-06 Completed [facility] 00:00:00 [facility] Pneumococcal 2019-06-06 Completed [facility] Polysaccharide, 00:00:00 [place] [facility] PPSV23 (PNEUMOVAX) Branch Influenza High Dose 2019-06-06 Completed [facility] 00:00:00 [facility] Pneumococcal 2019-06-06 Completed [facility] Polysaccharide, 00:00:00 [place] [facility] PPSV23 (PNEUMOVAX) Branch Influenza High Dose 2019-06-06 Completed [facility] 00:00:00 [facility] Pneumococcal 2019-06-06 Completed [facility] Polysaccharide, 00:00:00 [place] [facility] PPSV23 (PNEUMOVAX) Branch Influenza High Dose 2019-06-06 Completed [facility] 00:00:00 [facility] Pneumococcal 2019-06-06 Completed [facility] Polysaccharide, 00:00:00 [place] [facility] PPSV23 (PNEUMOVAX) Branch Influenza High Dose 2019-06-06 Completed [facility] 00:00:00 [facility] Pneumococcal 2019-06-06 Completed [facility] Polysaccharide, 00:00:00 [place] [facility] PPSV23 (PNEUMOVAX) Branch Influenza High Dose 2019-06-06 Completed [facility] 00:00:00 [facility] Pneumococcal 2019-06-06 Completed [facility] Polysaccharide, 00:00:00 [place] [facility] PPSV23 (PNEUMOVAX) Branch Influenza High Dose 2019-06-06 Completed [facility] 00:00:00 [facility] Pneumococcal 2019-06-06 Completed [facility] Polysaccharide, 00:00:00 [place] [facility] PPSV23 (PNEUMOVAX) Branch Influenza High Dose 2019-06-06 Completed [facility] 00:00:00 [facility] Pneumococcal 2019-06-06 Completed [facility] Polysaccharide, 00:00:00 [place] [facility] PPSV23 (PNEUMOVAX) Branch Influenza High Dose 2019-06-06 Completed [facility] 00:00:00 [facility] Pneumococcal 2019-06-06 Completed [facility] Polysaccharide, 00:00:00 [place] [facility] PPSV23 (PNEUMOVAX) Branch Influenza High Dose 2019-06-06 Completed [facility] 00:00:00 [facility] Pneumococcal 2019-06-06 Completed [facility] f Polysaccharide, 00:00:00 [place] [facility] PPSV23 (PNEUMOVAX) Branch Influenza High Dose 2019-06-06 Completed [facility] 00:00:00 [facility] Pneumococcal 2019-06-06 Completed [facility] Polysaccharide, 00:00:00 [place] [facility] PPSV23 (PNEUMOVAX) Branch Influenza High Dose 2019-06-06 Completed [facility] 00:00:00 [facility] Pneumococcal 2019-06-06 Completed [facility] Polysaccharide, 00:00:00 [place] [facility] PPSV23 (PNEUMOVAX) Branch Influenza High Dose 2019-06-06 Completed [facility] 00:00:00 [facility] Pneumococcal 2019-06-06 Completed [facility] f Polysaccharide, 00:00:00 [place] [facility] PPSV23 (PNEUMOVAX) Branch Influenza High Dose 2019-06-06 Completed [facility] 00:00:00 [facility] Pneumococcal 2019-06-06 Completed [facility] f Polysaccharide, 00:00:00 [place] [facility] PPSV23 (PNEUMOVAX) Branch Influenza High Dose 2019-06-06 Completed [facility] 00:00:00 [facility] Pneumococcal 2019-06-06 Completed [facility] Polysaccharide, 00:00:00 [place] [facility] PPSV23 (PNEUMOVAX) Branch Influenza High Dose 2019-06-06 Completed [facility] 00:00:00 [facility] Pneumococcal 2019-06-06 Completed [facility] Polysaccharide, 00:00:00 [place] [facility] PPSV23 (PNEUMOVAX) Branch Influenza High Dose 2019-06-06 Completed [facility] 00:00:00 [facility] Pneumococcal 2019-06-06 Completed [facility] Polysaccharide, 00:00:00 [place] [facility] PPSV23 (PNEUMOVAX) Branch Influenza High Dose 2019-06-06 Completed [facility] 00:00:00 [facility] Pneumococcal 2019-06-06 Completed [facility] f Polysaccharide, 00:00:00 [place] [facility] PPSV23 (PNEUMOVAX) Branch Influenza High Dose 2019-06-06 Completed [facility] of 00:00:00 [facility] Pneumococcal 2019-06-06 Completed [facility] f Polysaccharide, 00:00:00 [place] [facility] PPSV23 (PNEUMOVAX) Branch Influenza High Dose 2019-06-06 Completed [facility] 00:00:00 [facility] Pneumococcal 2019-06-06 Completed [facility] Polysaccharide, 00:00:00 [place] [facility] PPSV23 (PNEUMOVAX) Branch Influenza High Dose 2019-06-06 Completed [facility] 00:00:00 [facility] Pneumococcal 2019-06-06 Completed [facility] Polysaccharide, 00:00:00 [place] [facility] PPSV23 (PNEUMOVAX) Branch Influenza High Dose 2019-06-06 Completed [facility] 00:00:00 [facility] Pneumococcal 2019-06-06 Completed [facility] f Polysaccharide, 00:00:00 [place] [facility] PPSV23 (PNEUMOVAX) Branch Influenza High Dose 2019-06-06 Completed [facility] 00:00:00 [facility] Pneumococcal 2019-06-06 Completed [facility] Polysaccharide, 00:00:00 [place] [facility] PPSV23 (PNEUMOVAX) Branch Influenza High Dose 2019-06-06 Completed [facility] of 00:00:00 [facility] Pneumococcal 2019-06-06 Completed [facility] f Polysaccharide, 00:00:00 [place] [facility] PPSV23 (PNEUMOVAX) Branch Influenza High Dose 2019-06-06 Completed [facility] of 00:00:00 [facility] Pneumococcal 2019-06-06 Completed [facility] f Polysaccharide, 00:00:00 [place] [facility] PPSV23 (PNEUMOVAX) Branch Influenza High Dose 2019-06-06 Completed [facility] 00:00:00 [facility] Pneumococcal 2019-06-06 Completed [facility] f Polysaccharide, 00:00:00 [place] [facility] PPSV23 (PNEUMOVAX) Branch Influenza High Dose 2019-06-06 Completed [facility] 00:00:00 [facility] Pneumococcal 2019-06-06 Completed [facility] f Polysaccharide, 00:00:00 [place] [facility] PPSV23 (PNEUMOVAX) Branch Influenza High Dose 2019-06-06 Completed [facility] 00:00:00 [facility] Pneumococcal 2019-06-06 Completed [facility] f Polysaccharide, 00:00:00 [place] [facility] PPSV23 (PNEUMOVAX) Branch Influenza High Dose 2019-06-06 Completed [facility] 00:00:00 [facility] Pneumococcal 2019-06-06 Completed [facility] f Polysaccharide, 00:00:00 [place] [facility] PPSV23 (PNEUMOVAX) Branch Influenza High Dose 2019-06-06 Completed [facility] 00:00:00 [facility] Pneumococcal 2019-06-06 Completed [facility] f Polysaccharide, 00:00:00 [place] [facility] PPSV23 (PNEUMOVAX) Branch Influenza High Dose 2019-06-06 Completed [facility] 00:00:00 [facility] Pneumococcal 2019-06-06 Completed [facility] Polysaccharide, 00:00:00 [place] [facility] PPSV23 (PNEUMOVAX) Branch Influenza High Dose 2019-06-06 Completed [facility] 00:00:00 [facility] Pneumococcal 2019-06-06 Completed [facility] f Polysaccharide, 00:00:00 [place] [facility] PPSV23 (PNEUMOVAX) Branch Influenza High Dose 2019-06-06 Completed [facility] 00:00:00 [facility] Pneumococcal 2019-06-06 Completed [facility] o f Polysaccharide, 00:00:00 [place] [facility] PPSV23 (PNEUMOVAX) Branch Influenza High Dose 2019-06-06 Completed [facility] 00:00:00 [facility] Pneumococcal 2019-06-06 Completed [facility] Polysaccharide, 00:00:00 [place] [facility] PPSV23 (PNEUMOVAX) Branch Influenza High Dose 2019-06-06 Completed [facility] 00:00:00 [facility] Pneumococcal 2019-06-06 Completed [facility] f Polysaccharide, 00:00:00 [place] [facility] PPSV23 (PNEUMOVAX) Branch Influenza High Dose 2019-06-06 Completed [facility] 00:00:00 [facility] Pneumococcal 2019-06-06 Completed [facility] f Polysaccharide, 00:00:00 [place] [facility] PPSV23 (PNEUMOVAX) Branch Influenza High Dose 2019-06-06 Completed [facility] 00:00:00 [facility] Pneumococcal 2019-06-06 Completed [facility] Polysaccharide, 00:00:00 [place] [facility] PPSV23 (PNEUMOVAX) Branch Influenza High Dose 2019-06-06 Completed [facility] 00:00:00 [facility] Pneumococcal 2019-06-06 Completed [facility] f Polysaccharide, 00:00:00 [place] [facility] PPSV23 (PNEUMOVAX) Branch Influenza High Dose 2019-06-06 Completed [facility] 00:00:00 [facility] Pneumococcal 2019-06-06 Completed [facility] f Polysaccharide, 00:00:00 [place] [facility] PPSV23 (PNEUMOVAX) Branch Influenza High Dose 2019-06-06 Completed [facility] 00:00:00 [facility] Pneumococcal 2019-06-06 Completed [facility] Polysaccharide, 00:00:00 [place] [facility] PPSV23 (PNEUMOVAX) Branch Influenza High Dose 2019-06-06 Completed [facility] of 00:00:00 [facility] Pneumococcal 2019-06-06 Completed [facility] o f Polysaccharide, 00:00:00 [place] [facility] PPSV23 (PNEUMOVAX) Branch Influenza High Dose 2019-06-06 Completed [facility] 00:00:00 [facility] Pneumococcal 2019-06-06 Completed [facility] f Polysaccharide, 00:00:00 [place] [facility] PPSV23 (PNEUMOVAX) Branch Influenza High Dose 2019-06-06 Completed [facility] 00:00:00 [facility] Pneumococcal 2019-06-06 Completed [facility] f Polysaccharide, 00:00:00 [place] [facility] PPSV23 (PNEUMOVAX) Branch Influenza High Dose 2019-06-06 Completed [facility] 00:00:00 [facility] Pneumococcal 2019-06-06 Completed [facility] f Polysaccharide, 00:00:00 [place] [facility] PPSV23 (PNEUMOVAX) Branch Influenza High Dose 2019-06-06 Completed [facility] of 00:00:00 [facility] Pneumococcal 2019-06-06 Completed [facility] o f Polysaccharide, 00:00:00 [place] [facility] PPSV23 (PNEUMOVAX) Branch Influenza High Dose 2019-06-06 Completed [facility] 00:00:00 [facility] Pneumococcal 2019-06-06 Completed [facility] o f Polysaccharide, 00:00:00 [facility] ical PPSV23 (PNEUMOVAX) [place] Influenza High Dose 2018-05-25 Completed [facility] of 00:00:00 [facility] Influenza High Dose 2018-05-25 Completed [facility] of 00:00:00 [facility] Influenza High Dose 2018-05-25 Completed [facility] of 00:00:00 [facility] Influenza High Dose 2018-05-25 Completed [facility] of 00:00:00 [facility] Influenza High Dose 2018-05-25 Completed [facility] of 00:00:00 [facility] Influenza High Dose 2018-05-25 Completed [facility] of 00:00:00 [facility] Influenza High Dose 2018-05-25 Completed [facility] of 00:00:00 [facility] Influenza High Dose 2018-05-25 Completed [facility] of 00:00:00 [facility] Influenza High Dose 2018-05-25 Completed [facility] of 00:00:00 [facility] Influenza High Dose 2018-05-25 Completed [facility] of 00:00:00 [facility] Influenza High Dose 2018-05-25 Completed [facility] of 00:00:00 [facility] Influenza High Dose 2018-05-25 Completed [facility] of 00:00:00 [facility] Influenza High Dose 2018-05-25 Completed [facility] of 00:00:00 [facility] Influenza High Dose 2018-05-25 Completed [facility] of 00:00:00 [facility] Influenza High Dose 2018-05-25 Completed [facility] of 00:00:00 [facility] Influenza High Dose 2018-05-25 Completed [facility] of 00:00:00 [facility] Influenza High Dose 2018-05-25 Completed [facility] of 00:00:00 [facility] Influenza High Dose 2018-05-25 Completed [facility] of 00:00:00 [facility] Influenza High Dose 2018-05-25 Completed [facility] of 00:00:00 [facility] Influenza High Dose 2018-05-25 Completed [facility] of 00:00:00 [facility] Influenza High Dose 2018-05-25 Completed [facility] of 00:00:00 [facility] Influenza High Dose 2018-05-25 Completed [facility] of 00:00:00 [facility] Influenza High Dose 2018-05-25 Completed [facility] of 00:00:00 [facility] Influenza High Dose 2018-05-25 Completed [facility] of 00:00:00 [facility] Influenza High Dose 2018-05-25 Completed [facility] of 00:00:00 [facility] Influenza High Dose 2018-05-25 Completed [facility] of 00:00:00 [facility] Influenza High Dose 2018-05-25 Completed [facility] of 00:00:00 [facility] Influenza High Dose 2018-05-25 Completed [facility] of 00:00:00 [facility] Influenza High Dose 2018-05-25 Completed [facility] of 00:00:00 [facility] Influenza High Dose 2018-05-25 Completed [facility] of 00:00:00 [facility] Influenza High Dose 2018-05-25 Completed [facility] of 00:00:00 [facility] Influenza High Dose 2018-05-25 Completed [facility] of 00:00:00 [facility] Influenza High Dose 2018-05-25 Completed [facility] of 00:00:00 [facility] Influenza High Dose 2018-05-25 Completed [facility] of 00:00:00 [facility] Influenza High Dose 2018-05-25 Completed [facility] of 00:00:00 [facility] Influenza High Dose 2018-05-25 Completed [facility] of 00:00:00 [facility] Influenza High Dose 2018-05-25 Completed [facility] of 00:00:00 [facility] Influenza High Dose 2018-05-25 Completed [facility] of 00:00:00 [facility] Influenza High Dose 2018-05-25 Completed [facility] of 00:00:00 [facility] Influenza High Dose 2018-05-25 Completed [facility] of 00:00:00 [facility] Influenza High Dose 2018-05-25 Completed [facility] of 00:00:00 [facility] Influenza High Dose 2018-05-25 Completed [facility] of 00:00:00 [facility] Influenza High Dose 2018-05-25 Completed [facility] of 00:00:00 [facility] Influenza High Dose 2018-05-25 Completed [facility] of 00:00:00 [facility] Influenza High Dose 2018-05-25 Completed [facility] of 00:00:00 [facility] Influenza High Dose 2018-05-25 Completed [facility] of 00:00:00 [facility] Influenza High Dose 2018-05-25 Completed [facility] of 00:00:00 [facility] Influenza High Dose 2018-05-25 Completed [facility] of 00:00:00 [facility] Influenza High Dose 2018-05-25 Completed [facility] of 00:00:00 [facility] Influenza High Dose 2018-05-25 Completed [facility] of 00:00:00 [facility] Influenza High Dose 2018-05-25 Completed [facility] of 00:00:00 [facility] Influenza High Dose 2018-05-25 Completed [facility] of 00:00:00 [facility] Influenza High Dose 2018-05-25 Completed [facility] of 00:00:00 [facility] Influenza High Dose 2018-05-25 Completed [facility] of 00:00:00 [facility] Influenza High Dose 2018-05-25 Completed [facility] of 00:00:00 [facility] Influenza High Dose 2018-05-25 Completed [facility] of 00:00:00 [facility] Influenza High Dose 2018-05-25 Completed [facility] of 00:00:00 [facility] Influenza High Dose 2018-05-25 Completed [facility] of 00:00:00 [facility] Influenza High Dose 2018-05-25 Completed [facility] of 00:00:00 [facility] Influenza High Dose 2018-05-25 Completed [facility] of 00:00:00 [facility] Influenza High Dose 2018-05-25 Completed [facility] of 00:00:00 [facility] Influenza High Dose 2018-05-25 Completed [facility] of 00:00:00 [facility] Influenza High Dose 2018-05-25 Completed [facility] of 00:00:00 [facility] Influenza High Dose 2018-05-25 Completed [facility] of 00:00:00 [facility] Influenza High Dose 2018-05-25 Completed [facility] of 00:00:00 [facility] Influenza High Dose 2018-05-25 Completed [facility] of 00:00:00 [facility] Influenza High Dose 2018-05-25 Completed [facility] of 00:00:00 [facility] Influenza High Dose 2018-05-25 Completed [facility] of 00:00:00 [facility] Influenza High Dose 2018-05-25 Completed [facility] of 00:00:00 [facility] Influenza High Dose 2018-05-25 Completed [facility] of 00:00:00 [facility] Influenza High Dose 2018-05-25 Completed [facility] of 00:00:00 [facility] Influenza High Dose 2018-05-25 Completed [facility] of 00:00:00 [facility] Influenza High Dose 2018-05-25 Completed [facility] of 00:00:00 [facility] Influenza High Dose 2018-05-25 Completed [facility] of 00:00:00 [facility] Influenza High Dose 2018-05-25 Completed [facility] of 00:00:00 [facility] Influenza High Dose 2018-05-25 Completed [facility] of 00:00:00 [facility] Influenza High Dose 2018-05-25 Completed [facility] of 00:00:00 [facility] Influenza High Dose 2018-05-25 Completed [facility] of 00:00:00 [facility] Influenza High Dose 2018-05-25 Completed [facility] of 00:00:00 [facility] Influenza High Dose 2018-05-25 Completed [facility] of 00:00:00 [facility] Influenza High Dose 2018-05-25 Completed [facility] of 00:00:00 [facility] Influenza High Dose 2018-05-25 Completed [facility] of 00:00:00 [facility] Influenza High Dose 2018-05-25 Completed [facility] 00:00:00 [facility] Influenza High Dose 2018-05-25 Completed [facility] 00:00:00 [facility] Pneumococcal 13 2017-07-27 Completed [facility] Conjugate, PCV13 00:00:00 [place] [facility] (Pre[facility]ar 13) [facility] Pneumococcal 13 2017-07-27 Completed [facility] Conjugate, PCV13 00:00:00 [place] [facility] (Prevnar 13) [facility] Pneumococcal 13 2017-07-27 Completed [facility] Conjugate, PCV13 00:00:00 [place] [facility] (Prevnar 13) [facility] Pneumococcal 13 2017-07-27 Completed [facility] Conjugate, PCV13 00:00:00 [place] [facility] (Prevnar 13) Branch Pneumococcal 13 2017-07-27 Completed [facility] Conjugate, PCV13 00:00:00 [place] [facility] (Prevnar 13) Branch Pneumococcal 13 2017-07-27 Completed [facility] Conjugate, PCV13 00:00:00 [place] [facility] (Prevnar 13) Branch Pneumococcal 13 2017-07-27 Completed [facility] Conjugate, PCV13 00:00:00 [place] [facility] (Prevnar 13) Branch Pneumococcal 13 2017-07-27 Completed [facility] Conjugate, PCV13 00:00:00 [place] [facility] (Prevnar 13) Branch Pneumococcal 13 2017-07-27 Completed [facility] Conjugate, PCV13 00:00:00 [place] [facility] (Prevnar 13) Branch Pneumococcal 13 2017-07-27 Completed [facility] Conjugate, PCV13 00:00:00 [place] [facility] (Prevnar 13) Branch Pneumococcal 13 2017-07-27 Completed [facility] Conjugate, PCV13 00:00:00 [place] [facility] (Prevnar 13) Branch Pneumococcal 13 2017-07-27 Completed [facility] Conjugate, PCV13 00:00:00 [place] [facility] (Prevnar 13) Branch Pneumococcal 13 2017-07-27 Completed [facility] Conjugate, PCV13 00:00:00 [place] [facility] (Prevnar 13) Branch Pneumococcal 13 2017-07-27 Completed [facility] Conjugate, PCV13 00:00:00 [place] [facility] (Prevnar 13) Branch Pneumococcal 13 2017-07-27 Completed [facility] Conjugate, PCV13 00:00:00 [facility] (Prevnar 13) [facility] Pneumococcal 13 2017-07-27 Completed [facility] of Conjugate, PCV13 00:00:00 [facility] (Prevnar 13) [facility] Pneumococcal 13 2017-07-27 Completed [facility] Conjugate, PCV13 00:00:00 [facility] (Prevnar 13) [facility] Pneumococcal 13 2017-07-27 Completed [facility] Conjugate, PCV13 00:00:00 [facility] (Prevnar 13) [facility] Pneumococcal 13 2017-07-27 Completed [facility] Conjugate, PCV13 00:00:00 [facility] (Prevnar 13) [facility] Pneumococcal 13 2017-07-27 Completed [facility] Conjugate, PCV13 00:00:00 [facility] (Prevnar 13) [facility] Pneumococcal 13 2017-07-27 Completed [facility] Conjugate, PCV13 00:00:00 [facility] (Prevnar 13) [facility] Pneumococcal 13 2017-07-27 Completed [facility] Conjugate, PCV13 00:00:00 [facility] (Prevnar 13) [facility] Pneumococcal 13 2017-07-27 Completed [facility] Conjugate, PCV13 00:00:00 [facility] (Prevnar 13) [facility] Pneumococcal 13 2017-07-27 Completed [facility] Conjugate, PCV13 00:00:00 [facility] (Prevnar 13) [facility] Pneumococcal 13 2017-07-27 Completed [facility] Conjugate, PCV13 00:00:00 [facility] (Prevnar 13) [facility] Pneumococcal 13 2017-07-27 Completed [facility] Conjugate, PCV13 00:00:00 [facility] (Prevnar 13) [facility] Pneumococcal 13 2017-07-27 Completed [facility] Conjugate, PCV13 00:00:00 [facility] (Prevnar 13) [facility] Pneumococcal 13 2017-07-27 Completed [facility] Conjugate, PCV13 00:00:00 [facility] (Prevnar 13) [facility] Pneumococcal 13 2017-07-27 Completed [facility] Conjugate, PCV13 00:00:00 [facility] (Prevnar 13) [facility] Pneumococcal 13 2017-07-27 Completed [facility] Conjugate, PCV13 00:00:00 [facility] (Prevnar 13) [facility] Pneumococcal 13 2017-07-27 Completed [facility] Conjugate, PCV13 00:00:00 [facility] (Prevnar 13) [facility] Pneumococcal 13 2017-07-27 Completed [facility] Conjugate, PCV13 00:00:00 [facility] (Prevnar 13) [facility] Pneumococcal 13 2017-07-27 Completed [facility] Conjugate, PCV13 00:00:00 [facility] (Prevnar 13) [facility] Pneumococcal 13 2017-07-27 Completed [facility] Conjugate, PCV13 00:00:00 [facility] (Prevnar 13) [facility] Pneumococcal 13 2017-07-27 Completed [facility] Conjugate, PCV13 00:00:00 [facility] (Prevnar 13) [facility] Pneumococcal 13 2017-07-27 Completed [facility] Conjugate, PCV13 00:00:00 [facility] (Prevnar 13) [facility] Pneumococcal 13 2017-07-27 Completed [facility] Conjugate, PCV13 00:00:00 [facility] (Prevnar 13) [facility] Pneumococcal 13 2017-07-27 Completed [facility] Conjugate, PCV13 00:00:00 [facility] (Prevnar 13) [facility] Pneumococcal 13 2017-07-27 Completed [facility] Conjugate, PCV13 00:00:00 [facility] (Prevnar 13) [facility] Pneumococcal 13 2017-07-27 Completed [facility] Conjugate, PCV13 00:00:00 [facility] (Prevnar 13) [facility] Pneumococcal 13 2017-07-27 Completed [facility] Conjugate, PCV13 00:00:00 [facility] (Prevnar 13) [facility] Pneumococcal 13 2017-07-27 Completed [facility] Conjugate, PCV13 00:00:00 [facility] (Prevnar 13) [facility] Pneumococcal 13 2017-07-27 Completed [facility] Conjugate, PCV13 00:00:00 [facility] (Prevnar 13) [facility] Pneumococcal 13 2017-07-27 Completed [facility] Conjugate, PCV13 00:00:00 [facility] (Prevnar 13) [facility] Pneumococcal 13 2017-07-27 Completed [facility] Conjugate, PCV13 00:00:00 [facility] (Prevnar 13) [facility] Pneumococcal 13 2017-07-27 Completed [facility] Conjugate, PCV13 00:00:00 [facility] (Prevnar 13) [facility] Pneumococcal 13 2017-07-27 Completed [facility] Conjugate, PCV13 00:00:00 [facility] (Prevnar 13) [facility] Pneumococcal 13 2017-07-27 Completed [facility] Conjugate, PCV13 00:00:00 [facility] (Prevnar 13) [facility] Pneumococcal 13 2017-07-27 Completed [facility] Conjugate, PCV13 00:00:00 [facility] (Prevnar 13) [facility] Pneumococcal 13 2017-07-27 Completed [facility] Conjugate, PCV13 00:00:00 [facility] (Prevnar 13) [facility] Pneumococcal 13 2017-07-27 Completed [facility] Conjugate, PCV13 00:00:00 [facility] (Prevnar 13) [facility] Pneumococcal 13 2017-07-27 Completed [facility] Conjugate, PCV13 00:00:00 [facility] (Prevnar 13) [facility] Pneumococcal 13 2017-07-27 Completed [facility] Conjugate, PCV13 00:00:00 [facility] (Prevnar 13) [facility] Pneumococcal 13 2017-07-27 Completed [facility] Conjugate, PCV13 00:00:00 [facility] (Prevnar 13) [facility] Pneumococcal 13 2017-07-27 Completed [facility] Conjugate, PCV13 00:00:00 [facility] (Prevnar 13) [facility] Pneumococcal 13 2017-07-27 Completed [facility] Conjugate, PCV13 00:00:00 [facility] (Prevnar 13) Branch Pneumococcal 13 2017-07-27 Completed [facility] Conjugate, PCV13 00:00:00 [facility] (Prevnar 13) Branch Pneumococcal 13 2017-07-27 Completed [facility] Conjugate, PCV13 00:00:00 [facility] (Prevnar 13) Branch Pneumococcal 13 2017-07-27 Completed [facility] Conjugate, PCV13 00:00:00 [facility] (Prevnar 13) Branch Pneumococcal 13 2017-07-27 Completed [facility] Conjugate, PCV13 00:00:00 [facility] (Prevnar 13) Branch Pneumococcal 13 2017-07-27 Completed [facility] Conjugate, PCV13 00:00:00 [facility] (Prevnar 13) Branch Pneumococcal 13 2017-07-27 Completed [facility] Conjugate, PCV13 00:00:00 [facility] (Prevnar 13) [facility] Pneumococcal 13 2017-07-27 Completed [facility] Conjugate, PCV13 00:00:00 [facility] (Prevnar 13) Branch Pneumococcal 13 2017-07-27 Completed [facility] Conjugate, PCV13 00:00:00 [facility] (Prevnar 13) Branch Pneumococcal 13 2017-07-27 Completed [facility] Conjugate, PCV13 00:00:00 [facility] (Prevnar 13) [facility] Pneumococcal 13 2017-07-27 Completed [facility] Conjugate, PCV13 00:00:00 [facility] (Prevnar 13) Branch Pneumococcal 13 2017-07-27 Completed [facility] Conjugate, PCV13 00:00:00 [facility] (Prevnar 13) [facility] Pneumococcal 13 2017-07-27 Completed [facility] Conjugate, PCV13 00:00:00 [facility] (Prevnar 13) Branch Pneumococcal 13 2017-07-27 Completed [facility] Conjugate, PCV13 00:00:00 [facility] (Prevnar 13) [facility] Pneumococcal 13 2017-07-27 Completed [facility] Conjugate, PCV13 00:00:00 [facility] (Prevnar 13) Branch Pneumococcal 13 2017-07-27 Completed [facility] Conjugate, PCV13 00:00:00 [facility] (Prevnar 13) Branch Pneumococcal 13 2017-07-27 Completed [facility] Conjugate, PCV13 00:00:00 [facility] (Prevnar 13) [facility] Pneumococcal 13 2017-07-27 Completed [facility] of Conjugate, PCV13 00:00:00 [facility] (Prevnar 13) [facility] Pneumococcal 13 2017-07-27 Completed [facility] of Conjugate, PCV13 00:00:00 [facility] (Prevnar 13) [facility] Pneumococcal 13 2017-07-27 Completed [facility] Conjugate, PCV13 00:00:00 [facility] (Prevnar 13) [facility] Pneumococcal 13 2017-07-27 Completed [facility] Conjugate, PCV13 00:00:00 [facility] (Prevnar 13) [facility] Pneumococcal 13 2017-07-27 Completed [facility] Conjugate, PCV13 00:00:00 [facility] (Prevnar 13) [facility] Pneumococcal 13 2017-07-27 Completed [facility] Conjugate, PCV13 00:00:00 [facility] (Prevnar 13) [facility] Pneumococcal 13 2017-07-27 Completed [facility] of Conjugate, PCV13 00:00:00 [facility] (Prevnar 13) Branch Pneumococcal 13 2017-07-27 Completed [facility] of Conjugate, PCV13 00:00:00 [facility] (Prevnar 13) Branch Pneumococcal 13 2017-07-27 Completed [facility] of Conjugate, PCV13 00:00:00 [facility] (Prevnar 13) Branch Pneumococcal 13 2017-07-27 Completed [facility] of Conjugate, PCV13 00:00:00 [facility] (Prevnar 13) Branch Pneumococcal 13 2017-07-27 Completed [facility] of Conjugate, PCV13 00:00:00 [facility] (Prevnar 13) Branch Pneumococcal 13 2017-07-27 Completed [facility] of Conjugate, PCV13 00:00:00 [facility] ([facility] Influenza High Dose 2017-03-26 Completed Unive rsity of 00:00:00 [facility] Influenza High Dose 2017-03-26 Completed [facility]ive rsity of 00:00:00 [facility] Influenza High Dose 2017-03-26 Completed [facility]ive rsity of 00:00:00 [facility] Influenza High Dose 2017-03-26 Completed [facility]ive rsity of 00:00:00 [facility] Influenza High Dose 2017-03-26 Completed [facility]ive rsity of 00:00:00 [facility] Influenza High Dose 2017-03-26 Completed [facility]ive rsity of 00:00:00 [facility] Influenza High Dose 2017-03-26 Completed [facility]ive rsity of 00:00:00 [facility] Influenza High Dose 2017-03-26 Completed [facility]ive rsity of 00:00:00 [facility] Influenza High Dose 2017-03-26 Completed [facility]ive rsity of 00:00:00 [facility] Influenza High Dose 2017-03-26 Completed [facility]ive rsity of 00:00:00 [facility] Influenza High Dose 2017-03-26 Completed [facility]ive rsity of 00:00:00 [facility] Influenza High Dose 2017-03-26 Completed [facility]ive rsity of 00:00:00 [facility] Influenza High Dose 2017-03-26 Completed [facility]ive rsity of 00:00:00 [facility] Influenza High Dose 2017-03-26 Completed [facility]ive rsity of 00:00:00 [facility] Influenza High Dose 2017-03-26 Completed [facility]ive rsity of 00:00:00 [facility] Influenza High Dose 2017-03-26 Completed [facility]ive rsity of 00:00:00 [facility] Influenza High Dose 2017-03-26 Completed [facility]ive rsity of 00:00:00 [facility] Influenza High Dose 2017-03-26 Completed [facility]ive rsity of 00:00:00 [facility] Influenza High Dose 2017-03-26 Completed [facility]ive rsity of 00:00:00 [facility] Influenza High Dose 2017-03-26 Completed [facility]ive rsity of 00:00:00 [facility] Influenza High Dose 2017-03-26 Completed [facility]ive rsity of 00:00:00 [facility] Influenza High Dose 2017-03-26 Completed [facility]ive rsity of 00:00:00 [facility] Influenza High Dose 2017-03-26 Completed [facility]ive rsity of 00:00:00 [facility] Influenza High Dose 2017-03-26 Completed [facility]ive rsity of 00:00:00 [facility] Influenza High Dose 2017-03-26 Completed [facility]ive rsity of 00:00:00 [facility] Influenza High Dose 2017-03-26 Completed [facility]ive rsity of 00:00:00 [facility] Influenza High Dose 2017-03-26 Completed [facility]ive rsity of 00:00:00 [facility] Influenza High Dose 2017-03-26 Completed [facility]ive rsity of 00:00:00 [facility] Influenza High Dose 2017-03-26 Completed [facility]ive rsity of 00:00:00 [facility] Influenza High Dose 2017-03-26 Completed [facility]ive rsity of 00:00:00 [facility] Influenza High Dose 2017-03-26 Completed [facility]ive rsity of 00:00:00 [facility] Influenza High Dose 2017-03-26 Completed [facility]ive rsity of 00:00:00 [facility] Influenza High Dose 2017-03-26 Completed [facility]ive rsity of 00:00:00 [facility] Influenza High Dose 2017-03-26 Completed [facility]ive rsity of 00:00:00 [facility] Influenza High Dose 2017-03-26 Completed [facility]ive rsity of 00:00:00 [facility] Influenza High Dose 2017-03-26 Completed [facility]ive rsity of 00:00:00 [facility] Influenza High Dose 2017-03-26 Completed [facility]ive rsity of 00:00:00 [facility] Influenza High Dose 2017-03-26 Completed [facility]ive rsity of 00:00:00 [facility] Influenza High Dose 2017-03-26 Completed [facility]ive rsity of 00:00:00 [facility] Influenza High Dose 2017-03-26 Completed [facility] rsity of 00:00:00 [facility] Influenza High Dose 2017-03-26 Completed [facility] rsity of 00:00:00 [facility] Influenza High Dose 2017-03-26 Completed [facility] rsity of 00:00:00 [facility] Influenza High Dose 2017-03-26 Completed [facility] rsity of 00:00:00 [facility] Influenza High Dose 2017-03-26 Completed [facility] rsity of 00:00:00 [facility] Influenza High Dose 2017-03-26 Completed [facility] rsity of 00:00:00 [facility] Influenza High Dose 2017-03-26 Completed [facility]ive rsity of 00:00:00 [facility] Influenza High Dose 2017-03-26 Completed [facility] rsity of 00:00:00 [facility] Influenza High Dose 2017-03-26 Completed [facility] rsity of 00:00:00 [facility] Influenza High Dose 2017-03-26 Completed [facility] rsity of 00:00:00 [facility] Influenza High Dose 2017-03-26 Completed [facility] rs[facility] of 00:00:00 [facility] Influenza High Dose 2017-03-26 Completed [facility] rs[facility] of 00:00:00 [facility] Influenza High Dose 2017-03-26 Completed [facility] rs[facility] of 00:00:00 [facility] Influenza High Dose 2017-03-26 Completed [facility] of 00:00:00 [facility] Influenza High Dose 2017-03-26 Completed [facility] of 00:00:00 [facility] Influenza High Dose 2017-03-26 Completed [facility] of 00:00:00 [facility] Influenza High Dose 2017-03-26 Completed [facility] of 00:00:00 [facility] Influenza High Dose 2017-03-26 Completed [facility]ity of 00:00:00 [facility] Influenza High Dose 2017-03-26 Completed [facility] of 00:00:00 [facility] Influenza High Dose 2017-03-26 Completed [facility] rs[facility] of 00:00:00 [facility] Influenza High Dose 2017-03-26 Completed [facility] rsity of 00:00:00 [facility] Influenza High Dose 2017-03-26 Completed [facility] rs[facility] of 00:00:00 [facility] Influenza High Dose 2017-03-26 Completed [facility] of 00:00:00 [facility] Influenza High Dose 2017-03-26 Completed [facility] rs[facility] of 00:00:00 [facility] Influenza High Dose 2017-03-26 Completed [facility] of 00:00:00 [facility] Influenza High Dose 2017-03-26 Completed [facility] rs[facility] of 00:00:00 [facility] Influenza High Dose 2017-03-26 Completed [facility] rs[facility] of 00:00:00 [facility] Influenza High Dose 2017-03-26 Completed [facility]ity of 00:00:00 [facility] Influenza High Dose 2017-03-26 Completed [facility] rsity of 00:00:00 [facility] Influenza High Dose 2017-03-26 Completed [facility] of 00:00:00 [facility] Influenza High Dose 2017-03-26 Completed [facility] of 00:00:00 [facility] Influenza High Dose 2017-03-26 Completed [facility] of 00:00:00 [facility] Influenza High Dose 2017-03-26 Completed [facility]ity of 00:00:00 [facility] Influenza High Dose 2017-03-26 Completed [facility] rs[facility] of 00:00:00 [facility] Influenza High Dose 2017-03-26 Completed [facility] rsity of 00:00:00 [facility] Influenza High Dose 2017-03-26 Completed [facility] of 00:00:00 [facility] Influenza High Dose 2017-03-26 Completed [facility] of 00:00:00 [facility] Influenza High Dose 2017-03-26 Completed [facility] rs[facility] of 00:00:00 [facility] Influenza High Dose 2017-03-26 Completed [facility] of 00:00:00 [facility] Influenza High Dose 2017-03-26 Completed [facility] of 00:00:00 [facility] Influenza High Dose 2017-03-26 Completed [facility] rs[facility] of 00:00:00 [facility] Influenza High Dose 2017-03-26 Completed [facility] of 00:00:00 [facility] Influenza High Dose 2017-03-26 Completed [facility] of 00:00:00 [facility] Influenza High Dose 2017-03-26 Completed [facility] of 00:00:00 [facility] Influenza High Dose 2017-03-26 Completed [facility] of 00:00:00 [facility] TDAP 2017-02-24 Completed University of 00:00:00 [facility] TDAP 2017-02-24 Completed University of 00:00:00 [facility] TDAP 2017-02-24 Completed University of 00:00:00 [facility] TDAP 2017-02-24 Completed University of 00:00:00 [facility] TDAP 2017-02-24 Completed University of 00:00:00 [facility] TDAP 2017-02-24 Completed University of 00:00:00 [facility] TDAP 2017-02-24 Completed University of 00:00:00 [facility] TDAP 2017-02-24 Completed [facility] 00:00:00 [facility] TDAP 2017-02-24 Completed University of 00:00:00 [facility] TDAP 2017-02-24 Completed [facility] of 00:00:00 [facility] TDAP 2017-02-24 Completed [facility] of 00:00:00 [facility] TDAP 2017-02-24 Completed [facility] of 00:00:00 [facility] TDAP 2017-02-24 Completed [facility] of 00:00:00 [facility] TDAP 2017-02-24 Completed [facility] of 00:00:00 [facility] TDAP 2017-02-24 Completed [facility] of 00:00:00 [facility] TDAP 2017-02-24 Completed University of 00:00:00 [facility] Tdap 2017-02-24 Completed University of 00:00:00 [facility] TDAP 2017-02-24 Completed [facility] of 00:00:00 [facility] TDAP 2017-02-24 Completed University of 00:00:00 [facility] TDAP 2017-02-24 Completed University of 00:00:00 [facility] TDAP 2017-02-24 Completed [facility] of 00:00:00 [facility] TDAP 2017-02-24 Completed University of 00:00:00 [facility] Tdap 2017-02-24 Completed University of 00:00:00 [facility] TDAP 2017-02-24 Completed [facility] of 00:00:00 [facility] TDAP 2017-02-24 Completed University of 00:00:00 [facility] TDAP 2017-02-24 Completed University of 00:00:00 [facility] TDAP 2017-02-24 Completed [facility] of 00:00:00 [facility] TDAP 2017-02-24 Completed [facility] of 00:00:00 [facility] TDAP 2017-02-24 Completed [facility] of 00:00:00 [facility] TDAP 2017-02-24 Completed [facility] of 00:00:00 [facility] TDAP 2017-02-24 Completed [facility] of 00:00:00 [facility] TDAP 2017-02-24 Completed [facility] of 00:00:00 [facility] TDAP 2017-02-24 Completed [facility] of 00:00:00 [facility] TDAP 2017-02-24 Completed University of 00:00:00 [facility] TDAP 2017-02-24 Completed [facility] of 00:00:00 [facility] Tdap 2017-02-24 Completed University of 00:00:00 [facility] TDAP 2017-02-24 Completed [facility] of 00:00:00 [facility] TDAP 2017-02-24 Completed [facility] of 00:00:00 [facility] TDAP 2017-02-24 Completed [facility] of 00:00:00 [facility] TDAP 2017-02-24 Completed [facility] of 00:00:00 [facility] Tdap 2017-02-24 Completed [facility] of 00:00:00 [facility] TDAP 2017-02-24 Completed [facility] of 00:00:00 [facility] TDAP 2017-02-24 Completed [facility] of 00:00:00 [facility] TDAP 2017-02-24 Completed [facility] of 00:00:00 [facility] TDAP 2017-02-24 Completed [facility] of 00:00:00 [facility] TDAP 2017-02-24 Completed [facility] of 00:00:00 [facility] TDAP 2017-02-24 Completed [facility] of 00:00:00 [facility] TDAP 2017-02-24 Completed [facility] of 00:00:00 [facility] TDAP 2017-02-24 Completed [facility] of 00:00:00 [facility] TDAP 2017-02-24 Completed [facility] of 00:00:00 [facility] TDAP 2017-02-24 Completed [facility] of 00:00:00 [facility] Tdap 2017-02-24 Completed [facility] of 00:00:00 [facility] TDAP 2017-02-24 Completed [facility] of 00:00:00 [facility] Tdap 2017-02-24 Completed [facility] of 00:00:00 [facility] Tdap 2017-02-24 Completed [facility] of 00:00:00 [facility] Tdap 2017-02-24 Completed [facility] of 00:00:00 [facility] Tdap 2017-02-24 Completed [facility] of 00:00:00 [facility] Tdap 2017-02-24 Completed [facility] of 00:00:00 [facility] Tdap 2017-02-24 Completed [facility] of 00:00:00 [facility] Tdap 2017-02-24 Completed [facility] of 00:00:00 [facility] Tdap 2017-02-24 Completed [facility] of 00:00:00 [facility] Tdap 2017-02-24 Completed [facility] 00:00:00 [facility] Tdap 2017-02-24 Completed [facility] of 00:00:00 [facility] Tdap 2017-02-24 Completed [facility] of 00:00:00 [facility] Tdap 2017-02-24 Completed [facility] of 00:00:00 [facility] TDAP 2017-02-24 Completed [facility] of 00:00:00 [facility] TDAP 2017-02-24 Completed [facility] of 00:00:00 [facility] TDAP 2017-02-24 Completed [facility] of 00:00:00 [facility] TDAP 2017-02-24 Completed [facility] of 00:00:00 [facility] TDAP 2017-02-24 Completed [facility] of 00:00:00 [facility] TDAP 2017-02-24 Completed [facility] of 00:00:00 [facility] TDAP 2017-02-24 Completed [facility] of 00:00:00 [facility] TDAP 2017-02-24 Completed [facility] 00:00:00 [facility] TDAP 2017-02-24 Completed [facility] of 00:00:00 [facility] TDAP 2017-02-24 Completed [facility] 00:00:00 [facility] TDAP 2017-02-24 Completed [facility] 00:00:00 [facility] TDAP 2017-02-24 Completed [facility] of 00:00:00 [facility] TDAP 2017-02-24 Completed [facility] 00:00:00 [facility] TDAP 2017-02-24 Completed [facility] of 00:00:00 [facility] TDAP 2017-02-24 Completed [facility] of 00:00:00 [facility] TDAP 2017-02-24 Completed [facility] of 00:00:00 [facility] TDAP 2017-02-24 Completed [facility] of 00:00:00 [facility] TDAP 2017-02-24 Completed [facility] of 00:00:00 [facility] TDAP 2017-02-24 Completed [facility] of 00:00:00 [facility] Vital Signs Vital Name Observation Time Observation Value Comments Source Systolic blood 2021-09-28 04:00:00 134 mm[Hg] Univer [facility]ity of pressure [facility] Diastolic blood 2021-09-28 04:00:00 73 mm[Hg] Unive rsity of pressure [facility] Heart rate 2021-09-28 04:00:00 50 /min [facility] Respiratory rate 2021-09-28 04:00:00 24 /min Univ ers[facility] of [facility] Oxygen saturation in 2021-09-28 04:00:00 98 /min University of Arterial blood by [facility] yasemin Pulse oximetry Branch Body temperature 2021-09-28 03:08:00 36.72 [place] [facility] Body height 2021-09-28 03:08:00 182.9 cm [facility] Body weight 2021-09-28 03:08:00 81.647 kg [facility] BMI 2021-09-28 03:08:00 24.41 kg/m2 [facility] Systolic blood 2020-12-28 21:01:00 128 mm[Hg] Univer [facility]ity of pressure [facility] Diastolic blood 2020-12-28 21:01:00 64 mm[Hg] Unive [facility]ity of pressure [facility] Heart rate 2020-12-28 21:01:00 52 /min [facility] Body weight 2020-12-28 21:01:00 78.019 kg [facility] BMI 2020-12-28 21:01:00 23.33 kg/m2 [facility] Systolic blood 2020-09-03 14:04:00 142 mm[Hg] [facility] of pressure [facility] Diastolic blood 2020-09-03 14:04:00 75 mm[Hg] [facility]ive [facility] of pressure [facility] Heart rate 2020-09-03 14:03:00 61 /min [facility] Body temperature 2020-09-03 14:03:00 36.5 [place] [facility] Respiratory rate 2020-09-03 14:03:00 18 /min [facility] Body weight 2020-09-03 14:03:00 75.116 kg [facility] BMI 2020-09-03 14:03:00 22.46 kg/m2 [facility] Oxygen saturation in 2020-09-03 14:03:00 100 /min University of Arterial blood by [facility] Pulse oximetry Branch Systolic blood 2020-08-30 20:29:00 128 mm[Hg] Univer sity of pressure [facility] Diastolic blood 2020-08-30 20:29:00 69 mm[Hg] Unive rsity of pressure [facility] Heart rate 2020-08-30 20:29:00 63 /min [facility] Body temperature 2020-08-30 20:29:00 36.17 Ana Univ ers[facility] Respiratory rate 2020-08-30 20:29:00 18 /min Univ [facility] Oxygen saturation in 2020-08-30 20:29:00 95 /min University of Arterial blood by [facility] Pulse oximetry Branch Body weight 2020-08-25 20:00:00 71.668 kg [facility] BMI 2020-08-25 20:00:00 21.43 kg/m2 [facility] Body height 2020-08-24 23:40:00 182.9 cm [facility] Systolic blood 2020-08-23 15:23:00 125 mm[Hg] Univer sity of pressure [facility] Diastolic blood 2020-08-23 15:23:00 69 mm[Hg] Unive rsity of pressure [facility] Heart rate 2020-08-23 15:23:00 67 /min [facility] Body temperature 2020-08-23 15:23:00 36.61 Ana Univ [facility] Respiratory rate 2020-08-23 15:23:00 18 /min Univ [facility] Body weight 2020-08-23 15:23:00 71.714 kg [facility] BMI 2020-08-23 15:23:00 22.05 kg/m2 [facility] Oxygen saturation in 2020-08-23 15:23:00 97 /min University of Arterial blood by [facility] Pulse oximetry Branch Systolic blood 2020-06-12 19:53:00 149 mm[Hg] Univer sity of [facility] Diastolic blood 2020-06-12 19:53:00 70 mm[Hg] Unive rsity of [facility] Heart rate 2020-06-12 19:53:00 92 /min [facility] Body temperature 2020-06-12 19:53:00 36.28 Ana [facility] Respiratory rate 2020-06-12 19:53:00 20 /min Univ [facility] Body weight 2020-06-12 19:53:00 83.462 kg [facility] [place] [facility] BMI 2020-06-12 19:53:00 25.66 kg/m2 [facility] Oxygen saturation in 2020-06-12 19:53:00 100 /min University of Arterial blood by [facility] yasemin Pulse oximetry Branch Systolic blood 2019-12-23 17:52:00 127 mm[Hg] Univer sity of [facility] Diastolic blood 2019-12-23 17:52:00 70 mm[Hg] Unive rsity of pressure [facility] Heart rate 2019-12-23 17:52:00 50 /min [facility] Body temperature 2019-12-23 17:52:00 36.44 Ana Univ [facility] Respiratory rate 2019-12-23 17:52:00 20 /min Univ [facility] Body weight 2019-12-23 17:52:00 83.689 kg [facility] BMI 2019-12-23 17:52:00 25.73 kg/m2 [facility] [place] [facility] Oxygen saturation in 2019-12-23 17:52:00 97 /min University of Arterial blood by [facility] Pulse oximetry Branch Systolic blood 2019-12-23 17:52:00 127 mm[Hg] Univer sity of [facility] Diastolic blood 2019-12-23 17:52:00 70 mm[Hg] Unive rsity of [facility] Heart rate 2019-12-23 17:52:00 50 /min [facility] Body temperature 2019-12-23 17:52:00 36.44 Ana Univ [facility] Respiratory rate 2019-12-23 17:52:00 20 /min Univ [facility] Body weight 2019-12-23 17:52:00 83.689 kg [facility] [place] [facility] BMI 2019-12-23 17:52:00 25.73 kg/m2 [facility] [place] [facility] Oxygen saturation in 2019-12-23 17:52:00 97 /min University of Arterial blood by [facility] yasemin Pulse oximetry Branch Systolic blood 2019-12-09 19:21:00 140 mm[Hg] Univer sity of [facility] Diastolic blood 2019-12-09 19:21:00 69 mm[Hg] Unive rsity of pressure [facility] Branch Heart rate 2019-12-09 19:21:00 62 /min [facility] Body temperature 2019-12-09 19:21:00 36.44 Ana Univ [facility] Respiratory rate 2019-12-09 19:21:00 18 /min Univ ersity of [facility] Body height 2019-12-09 19:21:00 180.3 cm [facility] Body weight 2019-12-09 19:21:00 82.781 kg [facility] BMI 2019-12-09 19:21:00 25.45 kg/m2 Universi ty of [facility] Systolic blood 2019-06-30 15:17:00 159 mm[Hg] Univer sity of pressure [facility] Diastolic blood 2019-06-30 15:17:00 79 mm[Hg] Unive rsity of pressure [facility] Heart rate 2019-06-30 15:17:00 59 /min Universi ty of [facility] Body height 2019-06-30 15:17:00 180.3 cm [facility] [place] [facility] [place] Body weight 2019-06-30 15:17:00 81.647 kg [facility] BMI 2019-06-30 15:17:00 25.10 kg/m2 Universi ty of [facility] Branch Systolic blood 2019-06-27 14:46:00 124 mm[Hg] Univer sity of pressure [facility] Diastolic blood 2019-06-27 14:46:00 67 mm[Hg] Unive rsity of pressure [facility] Branch Heart rate 2019-06-27 14:44:00 60 /min [facility] Respiratory rate 2019-06-27 14:44:00 19 /min Univ ersity of [facility] Body height 2019-06-27 14:44:00 180.3 cm [facility] Body weight 2019-06-27 14:44:00 79.833 kg [facility] BMI 2019-06-27 14:44:00 24.55 kg/m2 Universi ty of [facility] Oxygen saturation in 2019-06-27 14:44:00 100 /min University of Arterial blood by [facility] Pulse oximetry Branch Systolic blood 2019-06-23 14:21:00 137 mm[Hg] Univer sity of pressure [facility] Diastolic blood 2019-06-23 14:21:00 84 mm[Hg] [facility] Heart rate 2019-06-23 14:21:00 92 /min [facility] Body temperature 2019-06-23 14:21:00 36.44 Ana [facility] Res[facility] rate 2019-06-23 14:21:00 18 /min [facility] Body height 2019-06-23 14:21:00 180.3 cm [facility] Body weight 2019-06-23 14:21:00 81.285 kg [facility] BMI 2019-06-23 14:21:00 24.99 kg/m2 [facility] Oxygen saturation in 2019-06-23 14:21:00 97 /min [facility] Arterial blood by [facility] Pulse oximetry Branch Procedures Procedure Date / Time Performing Clinician Source Performed CT TRAUMA HEAD WO CONTRAST 2021-09-28 03:43:27 Jennifer Chu [facility] CT TRAUMA CERVICAL SPINE 2021-09-28 03:43:27 Jennifer Chu [facility] WO CONTRAST [facility] NOTICE OF PRIVACY 2021-09-28 03:28:45 Doctor Fabiano, [facility] PRACTICES [facility] CONSENT/REFUSAL FOR 2021-09-28 03:17:43 Doctor Fabiano, [facility] DIAGNOSIS AND TREATMENT [facility] REFERRAL- REQUEST/RESPONSE 2020-09-11 05:01:00 Doctor Fabiano , [facility] ACTIVATED PARTIAL THRMPLAS 2020-08-29 10:42:00 [facility] PART[facility] THRMPL[facility] 2020-08-29 03:32:00 [facility] ACTIVATED PARTIAL THRMPLAS 2020-08-28 20:46:00 Maxwell Braxton [facility] MAGNESIUM 2020-08-28 09:57:00 Juvenal [facility] ACTIVATED PARTIAL THRMPLAS 2020-08-28 09:57:00 Maxwell Braxton [facility] ACTIVATED PARTIAL THRMPLAS 2020-08-28 01:57:00 Maxwell Braxton [facility] TRANSTHORACIC ECHO (TTE) 2020-08-27 15:40:00 [facility]/ CONTRAST [facility] ACTIVATED PARTIAL THRMPLAS 2020-08-27 13:59:00 [facility] MAGNESIUM 2020-08-27 09:40:00 Juvenal [facility] ACTIVATED PARTIAL THRMPLAS 2020-08-27 01:35:00 [facility] PARTIAL THRMPLAS 2020-08-26 18:41:00 [facility] MAGNESIUM 2020-08-26 10:49:00 Juvenal [facility] BASIC METABOLIC PANEL (NA, 2020-08-26 10:49:00 Juvenal [facility] K, CL, CO2, GLUCOSE, BUN, Medica l Branch CREATININE, [place]) ACTIVATED PARTIAL THRMPLAS 2020-08-26 10:49:00 Maxwell Braxton [facility] TROPONIN I 2020-08-26 04:10:00 [facility] BASIC MET[facility]OLIC PANEL (NA, 2020-08-25 22:52:00 Maxwell Braxton [facility] K, CL, CO2, GLUCOSE, BUN, Medica l Branch CREATININE, CA) CBC WITH DIFF 2020-08-25 15:21:00 Patrice Wagner [facility] MAGNESIUM 2020-08-25 15:20:00 Patrice Wagner [facility] VITAMIN B12, LEVEL 2020-08-25 15:20:00 Patrice Wagner [facility] FOLATE 2020-08-25 15:20:00 Patrice Wagner [facility] TROPONIN I 2020-08-25 15:20:00 Patrice Wagner [facility] THYROID STIMULATING 2020-08-25 15:20:00 Patrice Wagner [facility] HORMONE [facility] BASIC METABOLIC PANEL (NA, 2020-08-25 15:20:00 Patrice Wagner [facility] K, CL, CO2, GLUCOSE, BUN, Jesu Medica l Branch CREATININE, CA) HB ECG ROUTINE & RHYTHM 2020-08-25 15:04:19 Maxwell Braxton [facility] URINALYSIS 2020-08-25 08:22:00 Patrice Wagner [facility] PROTEIN CREAT RATIO URINE 2020-08-25 08:22:00 Patrice Wagner [facility] RANDOM [facility] UREA NITROGEN, URINE 2020-08-25 08:22:00 Patrice Wagner [facility] RANDOM [facility] SODIUM, URINE RANDOM 2020-08-25 08:22:00 Patrice Wagner [facility] US RETROPERITONEAL LIMITED 2020-08-25 05:52:42 Patrice Wagner [facility] BLOOD CULTURE SCREEN 2020-08-24 19:55:00 [place] [facility] CT HEAD WO CONTRAST 2020-08-24 19:44:08 [place] [facility] XR ABDOMEN 2 VW 2020-08-24 19:34:31 [place] [facility] XR CHEST 1 VW 2020-08-24 19:34:31 [place] [facility] COVID-19 (ID NOW RAPID 2020-08-24 19:17:00 [place] [facility] TESTING) Medical Branch LAB ONLY COVID 2020-08-24 19:17:00 [place] [facility] BLOOD CULTURE SCREEN 2020-08-24 19:15:00 [place] [facility] AC PANEL 21 + LACTIC ACID 2020-08-24 19:14:00 [place] [facility] LIPASE 2020-08-24 18:53:00 [place] [facility] MAGNESIUM 2020-08-24 18:53:00 Xavier [facility] TROPONIN I 2020-08-24 18:53:00 [place] [facility] COMP. METABOLIC PANEL 2020-08-24 18:53:00 [place] Park [facility] ([id number]) Medical Branch CBC WITH DIFF 2020-08-24 18:53:00 [place] [facility] HB ECG ROUTINE & RHYTHM 2020-08-24 18:42:23 [place] [facility] EMERGENCY DEPARTMENT 2020-08-24 05:01:00 Doctor Unassigned, [facility] DOCUMENTS [facility] EMERGENCY SERVICES 2020-08-24 05:01:00 Doctor Unassigned, [facility] AGREEMENTS AND [place] [facility] AUTHORIZATIONS URINALYSIS 2020-08-23 16:54:00 Mahamed Stone [facility] COMP. METABOLIC PANEL 2020-08-23 16:51:00 Mahamed Stone [facility] ([id number]) Medical Branch FERRITIN SERUM 2020-06-12 21:17:00 Keyona Brown [facility] Medical Branch IRON 2020-06-12 21:17:00 Keyona Brown [facility] [place] TOTAL IRON BINDING 2020-06-12 21:17:00 Keyona Brown [facility] CAPACITY Medical Branch FREE T4 2020-06-12 21:17:00 Keyona Brown [facility] Medical Branch THYROID STIMULATING 2020-06-12 21:17:[address] [facility] HORMONE Medical Branch COMP. METABOLIC PANEL 2020-06-12 21:17:00 Keyona Brown [facility] ([id number]) A Medical Branch CBC WITH DIFF 2020-06-12 21:17:00 Keyona Brown [facility] Medical Branch GLYCOSYLATED HEMOGLOBIN 2020-06-12 21:17:00 Keyona Brown [facility] (A1C) A Medical Branch FREE T3 2020-06-12 21:17:00 Keyona Brown [facility] BASIC METABOLIC PANEL (NA, 2020-01-19 16:09:00 Vicky Brown [facility] K, CL, CO2, GLUCOSE, BUN, A Medica l Branch CREATININE, [place]) VITAMIN B6, PLASMA 2019-12-14 19:36:00 Mahamed Stone [facility] VITAMIN B12, LEVEL 2019-12-14 19:36:00 Mahamed Stone [facility] COMP. METABOLIC PANEL 2019-12-14 19:36:00 Mahamed Stone [facility] ([id number]) [facility] CBC WITH DIFF 2019-12-14 19:36:00 karthikeyan [facility] CBC WITH DIFFERENTIAL 2019-12-14 19:36:00 karthikeyan [facility] VITAMIN B1 (THIAMINE), 2019-12-14 19:36[facility]00 [facility] WHOLE BLOOD [facility] REFERRAL- REQUEST/RESPONSE 2019-08-24 05:01:00 Doctor Unassigned , [facility] Encounters Start End Encounter Admission Attending Care Care Encounter Source Date/Time Date/Time Type Type Clinicians Facility Department ID 2021-06-27 Outpatient 3 [id number] ENCPL CHERRY ENCPL 11:53:26 4042021-06-27 Outpatient [id number] ENCPL REF [id number] ENCPL 11:52:02 0401 2021-03-31 Emergency [facility] [id number] Univers 08:49:12 ity of [facility] 2022-01-26 2022-01-26 Refill Yuval CADAVID 1.2.840.114 [id number] Univers 00:00:00 00:00:00 [facility] [id number] ity [facility] [id number] Christiano as FLORENTIN?BLEA [phone] [address] MEDICAL OFFICE BUILDING 2021-12-30 2021-12-30 Telephone Yuval [place] 1.2.840.114 [id number] Univers 00:00:00 00:00:00 [facility] [id number] ity of [facility] [id number] Christiano as FLORENTIN?BLEA [phone] [place] j[place] WONG 092 [facility] 2021-11-03 2021-11-03 [facility] 1.2.840.114 [id number] Univers 00:00:00 00:00:00 Mahamed JORDAN [id number] i ty of [id number] [phone] [facility] 044 [facility] 2021-10-31 2021-10-31 [facility] 1.2.840.114 [id number] Univers 00:00:00 00:00:00 Mahamed JORDAN [id number] i ty of [place] [id number] [phone] [address] 2021-09-27 2021-09-28 Emergency X [facility] ERT [id number] Univers 22:02:00 00:41:00 ANTOLIN ity of [facility] 2021-09-27 2021-09-28 Emergency [facility] 1.2.042.016 [id number] Univers 22:02:00 00:41:00 Antolin JORDAN [id number] i ty of [id number] CAMPUS [phone] [facility] 084 [place] 2021-09-18 2021-09-18 [facility] 1.2.840.114 [id number] Univers 00:00:00 00:00:00 Michael [facility] [id number] ity of [place] [id number] [phone] [facility] 092 [facility] 2021-09-08 2021-09-08 [facility] 1.2.840.114 [id number] Univers 00:00:00 00:00:00 Mahamed JORDAN [id number] i ty [facility] [id number] [phone] [facility] NAL [address] [place] [address] 2021-08-24 2021-08-24 Refjameson [facility] 1.2.840.114 [id number] Univers 00:00:00 00:00:00 Smiley JORDAN [id number] ity [facility] [id number] [phone] [facility] NAL [address] [place] [address] 2021-07-27 2021-07-27 Refill [facility] 1.2.840.114 [id number] Univers 00:00:00 00:00:00 Mahamed JORDAN [id number] i ty [facility] [id number] [id number] [address] 2021-05-20 2021-05-20 Refill [facility] 1.2.840.114 [id number] Univers 00:00:00 00:00:00 Jazlyn JORDAN [id number] ity of [place] [id number] [id number] [address] 2021-05-19 2021-05-19 Refill [facility] 1.2.840.114 [id number] Univers 00:00:00 00:00:00 [facility] [id number] ity of [place] [id number] Christiano as FLORENTIN?BLEA [phone] [address] OFFICE [facility] 2021-04-09 2021-04-09 Telephone [facility] 1.2.840.114 [id number] Univers 00:00:00 00:00:00 [facility] [id number] ity of [place] [id number] Christiano as FLORENTIN?BLEA [phone] [address] 2021-04-03 2021-04-03 [facility] 1.2.840.114 [id number] Univers 00:00:00 00:00:00 Michael JORDAN [id number] ity of [place] [id number] [id number] [address] 2021-03-26 2021-03-26 [facility] 1.2.840.114 [id number] Univers 00:00:00 00:00:00 Michael JORDAN [id number] ity [facility] [id number] [phone] [address] 2021-03-24 2021-03-24 [facility] 1.2.840.114 [id number] Univers 00:00:00 00:00:00 [facility] [id number] ity of [place] [id number] Christiano as Florentin?Blea [phone] [address] Office [facility] 2021-03-20 2021-03-20 [facility] 1.2.840.114 [id number] Univers 00:00:00 00:00:00 Michael Gene [facility] [id number] ity of [place] [id number] Christiano as Florentin?Blea [phone] [address] 2021-03-01 2021-03-01 [facility] 1.2.840.114 [id number] Univers 00:00:00 00:00:00 Michael [facility] [id number] ity of [place] [id number] Christiano as Florentin?Blea [phone] [facility] 044 [facility] 2021-02-19 2021-02-19 [facility] 1.2.840.114 [id number] Univers 00:00:00 00:00:00 Michael [facility] [id number] ity of [place] [id number] Christiano as Florentin?Blea [phone] [address] Office [facility] 2021-02-11 2021-02-11 Telephone [facility] 1.2.840.114 [id number] Univers 00:00:00 00:00:00 Michael Tian [facility] [id number] ity [place] [id number] Christiano as Florentin?Blea [phone] [address] Office [facility] 2020-12-28 2020-12-28 Office [facility] 1.2.840.114 [id number] Univers 15:54:13 16:36:00 Visit Michael Germainton [id number] ity [facility] [id number] [phone] [address] 2020-12-28 2020-12-28 Outpatient R MICHAEL BARAKAT [facility] [id number] Univers 16:00:00 16:00:00 MICHAEL BARAKAT [id number] [facility] 2020-12-28 2020-12-28 Outpatient R MICHAEL BARAKAT [facility] [id number] Univers 16:00:00 16:00:00 MICHAEL BARAKAT [facility] 2020-11-28 2020-11-28 Outpatient R LOUISE [facility] [id number] Univers 11:00:00 11:00:00 MAHAMED [id number] [facility] 2020-11-28 2020-11-28 [id number] Univers 11:00:00 11:00:00 MAHAMED [facility] 2020-11-26 2020-11-26 Garrett [facility] 1.2.840.114 [id number] Univers 00:00:00 00:00:00 Keyona Jordan [id number] ity of [id number] [phone] [facility] 044 [facility] 2020-09-11 2020-09-11 Orders Doctor TAIWO 1.2.840.114 [id number] Univers 00:00:00 00:00:00 Only Unassigned, HARLEEN [id number] ity of [place] [facility] 4.2.7.2.686 Christiano as [phone] [address] 2020-09-10 2020-09-10 [facility] [id number] Univers 14:20:00 14:20:00 KEYONA [id number] ity [facility] 2020-09-10 2020-09-10 [facility] [id number] Univers 14:20:00 14:20:00 [facility] 2020-09-06 2020-09-06 [facility] 1.2.840.114 [id number] Univers 00:00:00 00:00:00 Keyona Jordan [id number] ity [facility] [id number] [phone] [address] 2020-09-03 2020-09-03 [facility] 1.2.840.114 [id number] Univers 08:52:46 10:12:39 Visit Keyona Jordan [id number] ity [facility] [id number] [phone] [place] dic[address] 2020-09-03 2020-09-03 Outpatient [facility] [id number] Univers 08:40:00 08:40:00 KEYONA [id number] ity [facility] 2020-09-03 2020-09-03 Outpatient [facility] [id number] Univers 08:40:00 08:40:00 [facility] 2020-08-31 2020-08-31 Transition Nadia Douglas 1.2.840.114 [id number] Univers 00:00:00 00:00:00 of Care Win [place] [id number] ity of [place] 4.2.7.2.686 [place] [phone] [facility] 403 Branch 2020-08-24 2020-08-30 [facility] [place] 1.2.840.1 14 [id number] Univers 13:39:00 16:15:00 Encounter VikaaundreaIsabel 350. [id number] ity of Hospital [id number] Christiano as [phone] [facility] 100 Branch 2020-08-30 2020-08-30 Refill [facility] 1.2.840.114 [id number] Univers 00:00:00 00:00:00 Maxwell PRIMARY [id number] ity of [facility] [id number] [place] PAV[place] [phone] [place] dictx [address] [place] 2020-08-29 2020-08-29 Outpatient R LOUISE [facility] [id number] Univers 09:40:00 09:40:00 MAHAMED [id number] [facility] 2020-08-29 2020-08-29 [facility] [id number] Univers 00:00:00 00:00:00 MAHAMED [facility] 2020-08-27 2020-08-27 Patient [facility] 1.2.840.114 [id number] Univers 00:00:00 00:00:00 Outreach Radhika Jordan [id number] ity of [place]2.7.2.[place] [phone] [place] dical nal 044 Branch [facility] 2020-08-24 2020-08-24 Telephone Stephanie [email or web address] 1.2.840.114 [id number] Univers 00:00:00 00:00:00 Keyona Jordan [id number] it[place] of [place].2.[place] [phone] La dical nal [address] [facility] 2020-08-23 2020-08-23 Monorail Operator 2, Adc Lab [facility] [[email or web address] 1.2.840.114 [id number] [facility] 11:53:28 12:08:28 Visit Keyona Brown Colt 350.1. 13.10 ity of [place] 4.2.7.2.686 [place] Professio [phone] La dical [facility] 353 [facility] 2020-08-23 2020-08-23 Office [facility] 1.2.840.114 [id number] [facility] 10:15:30 11:58:41 Visit Mahamed Jordan 350.1.13.10 i ty of [place] 4.2.7.2.[place] [phone] [facility] 044 [facility] 2020-08-23 2020-08-23 Outpatient R LOUISE [facility] [id number] Univers 10:40:00 10:40:00 MAHAMED [facility] 2020-08-23 2020-08-23 Outpatient R LOUISE [facility] [id number] Univers 10:00:00 10:00:00 MAHAMED [id number] [facility] 2020-08-21 2020-08-21 [facility] 1.2.840.114 [id number] Univers 00:00:00 00:00:00 Secure Msg Keyona Jordan 350.1.13.10 [place] [phone] [facility] 2020-08-01 2020-08-01 [facility] 1.2.840.114 [id number] Univers 00:00:00 00:00:00 Mahamed Jordan 350.1.13.10 [place] [phone] La dical nal 044 [facility] 2020-07-13 2020-07-13 [facility] 1.2.840.114 [id number] Univers 00:00:00 00:00:00 Mahamed Jordan 350.1.13.10 i [place] [phone] La dical nal 044 [facility] 2020-06-24 2020-06-24 Patient Gianluca [facility] [[email or web address]] 1.2.840.114 [id number] Univers 00:00:00 00:00:00 Outreach Adelfo PRIMARY 350.1.13.10 i ty of Located within [facility] [place] [phone] La dical [address] 2020-06-17 2020-06-17 [facility] 1.2.840.114 [id number] Univers 00:00:00 00:00:00 Management Keyona Jordan 350.1.13.10 it[place] of [place] [phone] La dical nal 231 [facility] 2020-06-12 2020-06-12 Monorail Operator 2, Adc Lab [facility] [[email or web address]] 1.2.840.114 [id number] Univers 15:12:05 15:27:05 Visit Keyona Brown 350.1. 13.10 it[place] of [place] [phone] La dical nal 353 [facility] 2020-06-12 2020-06-12 Office Stephanie [facility] [[email or web address]] 1.2.840.114 [id number] Univers 13:41:01 15:11:32 Visit eKyona Jordan 350.1.13.10 [place] [phone] La dical nal 231 [facility] 2020-06-12 2020-06-12 Outpatient R STEPH[facility]IE [facility] [id number] Univers 13:40:00 13:40:00 KEYONA segundo [facility] 2020-06-12 2020-06-12 Outpatient R STEPHANIE [facility] [id number] 61N-20 Univers 12:40:00 12:40:00 KEYONA [id number] ratna [facility] 2020-06-05 2020-06-05 Refill [facility] 1.2.840.114 [id number] Univers 00:00:00 00:00:00 Mahamed Jordan 350.1.13.10 [place] [phone] La dic[address] 2020-05-17 2020-05-17 [facility] 1.2.840.114 [id number] Univers 00:00:00 00:00:00 Mahamed Jordan 350.1.13.10 [place] [phone] [address] 2020-04-13 2020-04-13 [facility] 1.2.840.114 [id number] Univers 00:00:00 00:00:00 Mahamed Jordan 350.1.13.10 [place] [phone] [address] 2020-02-27 2020-02-27 [facility] 1.2.840.114 [id number] Univers 00:00:00 00:00:00 Mahamed Jordan 350.1.13.10 [place] [phone] [address] 2020-02-03 2020-02-03 [facility] [id number] 61N-20 Univers 13:00:00 13:00:00 [facility] [id number] [facility]-03 2020-02-03 Outpatient R [facility] [id number] Univers 13:00:00 13:00:00 [facility] 2020-01-27 2020-01-27 [facility] 1.2.840.114 [id number] Univers 00:00:00 00:00:00 Secure Msg Keyona Jordan 350.1.13.10 [place] [phone] [facility] 2020-01-19 2020-01-19 Outpatient R [facility] [id number] -[id number] Univers 11:45:00 11:45:00 ity of [facility] 2020-01-19 2020-01-19 Outpatient R [facility]IE [facility] [id number] Univers 11:45:00 11:45:00 KEYONA ity [facility] 2020-01-19 2020-01-19 Monorail Operator 2, Adc Lab [facility] [[email or web address]] 1.2.840.114 [id number] Univers 10:18:14 10:33:14 Visit BrownKeyona [place] 350.1. 13.10 it[place] of [place] [phone] [facility] 353 [facility] 2020-01-17 2020-01-17 [facility] 1.2.840.114 [id number] Univers 00:00:00 00:00:00 Secure Msg Keyona A [place] 350.1.13.10 it[place] of [place] [phone] [facility] 044 [facility] 2019-12-30 2019-12-30 Telephone [facility] 1.2.840.114 [id number] 00:00:00 00:00:00 Keyona A [place] 350.1.13.10 [place] 4.2.7.2.686 Professio [phone] [address] 2019-12-30 2019-12-30 Telephone [facility] 1.2.840.114 [id number] Univers 00:00:00 00:00:00 Keyona A [place] 350.1.13.10 [place] [phone] [facility] 231 [facility] 2019-12-30 2019-12-30 Telephone [facility] 1.2.840.114 [id number] Univers 00:00:00 00:00:00 Keyona A [place] 350.1.13.10 [place] [phone] [facility] 231 [facility] 2019-12-29 2019-12-29 Case Stephanie [facility] [[email or web address]] 1.2.840.114 [id number] Univers 00:00:00 00:00:00 Management Keyona Jordan 350.1.13.10 [place] [phone] [facility] 231 [facility] 2019-12-28 2019-12-28 Monorail Operator 2, Adc Lab [facility] [[email or web address]] 1.2.840.114 [id number] Univers 13:27:19 13:42:19 Visit Keyona Brown 350.1. 13.10 [place] [phone] [facility] 353 [facility] 2019-12-28 2019-12-28 Outpatient [facility] [id number] Univers 13:15:00 13:15:00 [id number] [facility] 2019-12-28 2019-12-28 [facility] [id number] Univers 13:15:00 13:15:00 KEYONA [facility] 2019-12-23 2019-12-23 Office [facility] 1.2.840.114 [id number] 12:29:01 13:21:03 Visit Mahamed Jordan 350.1.13.10 [place] 4.2.7.2.686 Professio [phone] [address] 2019-12-23 2019-12-23 Office [facility] 1.2.840.114 [id number] Univers 12:29:01 13:21:03 Visit Mahamed Jordan 350.1.13.10 i [place] [phone] [facility] 044 [facility] 2019-12-23 2019-12-23 [facility] [id number] 61N-20 Univers 13:20:00 13:20:00 MAHAMED [id number] ity [facility] 2019-12-23 2019-12-23 Outpatient R LOUISE [facility] [id number] Univers 13:20:00 13:20:00 MAHAMED segundo [facility] 2019-12-20 2019-12-20 Outpatient R [facility]IE [facility] [id number] [id number]-20 Univers 16:00:00 16:00:00 KEYONA [id number] ity [facility] 2019-12-20 2019-12-20 Outpatient R [facility] [id number] Univers 16:00:00 16:00:00 KEYONA ity [facility] 2019-12-20 2019-12-20 [facility]phone [facility] 1.2.840.114 [id number] Univers 00:00:00 00:00:00 Keyona Jordan 350.1.13.10 [place] [phone] La dical nal 231 [facility] 2019-12-09 2019-12-19 Office Mahamed Stone [facility] [[email or web address]] 1.2.840.1 14 [id number] Univers 14:04:11 15:12:01 Visit Keyona Brown 350.1. 13.10 [place] of [place] [phone] Me dical nal [address] [place] [address] 2019-12-14 2019-12-14 Outpatient R [facility] [id number] Univers 15:45:00 15:45:00 [id number] ity [facility] 2019-12-14 2019-12-14 Outpatient R [facility] [id number] Univers 15:45:00 15:45:00 KEYONA segundo [facility] 2019-12-14 2019-12-14 Monorail Operator 2, Adc Lab [facility] [[email or web address]] 1.2.840.114 [id number] Univers 14:32:08 14:47:08 Visit Keyona Brown 350.1. 13.10 [place] [phone] [address] 2019-12-12 2019-12-12 [facility]ill [facility] 1..840.114 [id number] Univers 00:00:00 00:00:00 Keyona Jordan 350.1.13.10 ity [facility] [place] [phone] [address] 2019-12-09 2019-12-09 [facility] [id number] 61N-20 Univers 14:20:00 14:20:00 KEYONA ity [facility] 2019-12-09 2019-12-09 [facility] [id number] Univers 14:20:00 14:20:00 KEYONA ity [facility] 2019-12-02 2019-12-02 [facility] [id number] 61N-20 Univers 13:00:00 13:00:00 [facility] 2019-11-08 2019-11-08 [facility] [id number] [id number]-20 Univers 13:00:00 13:00:00 KEYONA [id number] [facility] 2019-09-27 2019-09-27 [facility] 1.2.840.114 [id number] Univers 07:23:23 13:27:30 ne Visit Keyona Jordan 350.1.13.10 ity [place] [phone] [address] 2019-09-27 2019-09-27 [facility] [id number] 61N-20 Univers 09:40:00 09:40:00 KEYONA [id number] ity [facility] 2019-09-27 2019-09-27 [facility] [id number] Univers 09:40:00 09:40:00 KEYONA ity [facility] 2019-09-26 2019-09-26 [facility] 1.2.840.114 [id number] Univers 00:00:00 00:00:00 Secure Msg Keyona José [facility] 350.1.13.10 ity of [place] 4.2.7.2.686 [place] Professio [phone] [facility] 044 [facility] 2019-08-25 2019-08-25 Patient Stephanie [facility] [[email or web address]] 1.2.840.114 [id number] [facility] 00:00:00 00:00:00 Secure Msg Keyona A [place] 350.1.13.10 [place] [phone] [address] 2019-08-25 2019-08-25 Telephone [facility] 1.2.840.114 [id number] [facility] 00:00:00 00:00:00 Keyona A [place] 350.1.13.10 [place] [phone] [facility] 231 [facility] 2019-08-24 2019-08-24 Orders Doctor TAIWO 1.2.840.[id number] [place] [address] 00:00:00 00:00:00 Only Unassigned, HARLEEN 350.1.13.10 ity of [place] [facility] 4.2.7.2.686 [place] as [phone] [address] 2019-08-23 2019-08-23 Telemedici [facility] 1.2.840.114 [id number] Univers 07:24:24 10:57:52 ne Visit Keyona Jordan 350.1.13.10 [place] [phone] [address] 2019-08-23 2019-08-23 Outpatient R [facility]PH[facility]IE [facility] [id number] 61N-20 Univers 09:00:00 09:00:00 KEYONA [id number] ratna [facility] 2019-08-23 2019-08-23 Outpatient R [facility]IE [facility] [id number] [facility] 09:00:00 09:00:00 KEYONA segundo [facility] 2019-08-19 2019-08-19 [facility] 1.2.840.114 [id number] Univers 00:00:00 00:00:00 Secure Msg Keyona Jordan 350.1.13.10 [place] [phone] La dictx nal 231 [facility] 2019-07-08 2019-07-08 Telephone [facility] 1.2.840.114 [id number] Univers 00:00:00 00:00:00 Mahamed Jordan 350.1.13.10 i ty of [place] [phone] La dictx nal 044 [facility] 2019-07-08 2019-07-08 [facility]phone [facility] 1.2.840.114 [id number] Univers 00:00:00 00:00:00 Keyona Jordan 350.1.13.10 [place] of [place] [phone] La dictx nal 231 [facility] 2019-07-07 2019-07-07 [facility] 1.2.840.114 [id number] Univers 00:00:00 00:00:00 Mahamed Jordan 350.1.13.10 i ty of [place] [phone] La dical nal 044 [facility] 2019-06-30 2019-06-30 [facility], Adc Cardio Fac [facility] [[email or web address]] 1. 2.840.114 [id number] Univers 09:12:46 10:12:46 Only 1, Adc Cardio [facility] 350.1. 13.10 ity of [place] 4.2.7.2.686 [place] Professio [phone] La dical nal 059 [facility] 2019-06-29 2019-06-29 Garrett Barakat [facility] [[email or web address]] 1.2.840.114 [id number] [facility] Univers 00:00:00 00:00:00 Michael Jordan 350.1.13.10 [place] of [place] [phone] La dical nal 092 [facility] 2019-06-27 2019-06-27 Office Yuval [facility] [[email or web address]] 1.2.840.114 [id number] Univers 08:34:23 09:29:40 Visit Michael Tian Jordan 350.1.13.10 [place] of [place] [phone] La dical nal 092 [facility] 2019-06-23 2019-06-23 Office [facility] 1.2.840.114 [id number] Univers 08:12:15 09:14:41 Visit Keyona A [place] 350.1.13.10 it[place] of [place] [phone] La dical nal 231 [facility] 2019-06-16 2019-06-16 [facility]phone [facility] 1.2.840.114 [id number] Univers 00:00:00 00:00:00 Keyona A [place] 350.1.13.10 [place] [phone] La dical nal 044 [facility] Results Test Description Test Time Test Comments Results Result Comments Source BLOOD CULTURE SCREEN 2020-08-29 21:01:31 Test Item Value Reference Range Interpretation Comme nts Blood Culture-Aerobic (test No organisms isolated No growth Previous preliminary code = 04369-9) verified res ult was Culture In Prog ress on 08/24/2020 at 19 01 CDTPrevious pre liminary verified result was No growth at 24 ho urs on 08/25/2020 at 16 01 CDTPrevious pre liminary verified result was No growth at 48 ho urs on 08/26/2020 at 16 01 CDTPrevious pre liminary verified result was No growth at 72 ho urs on 08/27/2020 at 16 01 CDT Blood Culture-Anaerobic No organisms isolated No growth Previous preliminary (test code = 45201-0) verifi ed result was Culture In Prog ress on 08/24/2020 at 19 01 CDTPrevious pre liminary verified result was No growth at 24 ho urs on 08/25/2020 at 16 01 CDTPrevious pre liminary verified result was No growth at 48 ho urs on 08/26/2020 at 16 01 CDTPrevious pre liminary verified result was No growth at 72 ho urs on 08/27/2020 at 16 01 CDT Lab Interpretation (test Normal code = 48824-3) [facility] [id number] 20:01:35 Test Item Value Reference Range Interpretation Comments Blood Culture-Aerobic No organisms No growth Previo us (test code = 35411-3) isolated prelim inary verified result was Culture In Progress on 08/24/2020 at 18 01 CDTPrevious preliminary verified result was No growth a t 24 hours on 08/25/2020 at 15 01 CDTPrevious preliminary verified result was No growth a t 48 hours on 08/26/2020 at 15 01 CDTPrevious preliminary verified result was No growth a t 72 hours on 08/27/2020 at 15 01 CDT Blood No organisms No growth Previous Culture-Anaerobic isolated preliminar y (test code = 66401-1) verifi ed result was Culture In Progress on 08/24/2020 at 18 01 CDTPrevious preliminary verified result was No growth a t 24 hours on 08/25/2020 at 15 01 CDTPrevious preliminary verified result was No growth a t 48 hours on 08/26/2020 at 15 01 CDTPrevious preliminary verified result was No growth a t 72 hours on 08/27/2020 at 15 01 CDT Lab Interpretation Normal (test code = 81134-2) [facility] (for use with Heparin Drip)2020-08-29 11:23:07 Test Item Value Reference Range Interpretation Comments APTT Patient (test See_Comment H [Automat ed code = 3173-2) message] The system which generated this result transmitted reference range : 26 - 36 Seconds . The reference range was not used to interpr et this result as normal/abnormal . BINTA (test code = BINTA) The [facility] [[email or web address]] patient population mean normal value for aPTT is 30 seconds. Lab Interpretation Abnormal (test code = 35813-8) [facility] (for use with Heparin Drip)2020-08-29 04:16:16 Test Item Value Reference Range Interpretation Comments APTT Patient (test See_Comment HH [Automat ed code = 3173-2) message] The system which generated this result transmitted reference range : 26 - 36 Seconds . The reference range was not used to interpr et this result as normal/abnormal . BINTA (test code = BINTA) The [facility] [[email or web address]] patient population mean normal value for aPTT is 30 seconds. Lab Interpretation Abnormal (test code = 07378-4) [facility] (for use with Heparin Drip)2020-08-28 21:04:45 Test Item Value Reference Range Interpretation Comments APTT Patient (test code See_Comment H [Au tomated message] = 3173-2) The system [employer] generated this result transmitted ref erence range: 26 - 36 Seconds. The reference range was not used to int erpret this result as normal/abnormal . Lab Interpretation (test Abnormal code = 50498-8) [facility] 10:27[facility]51 Test Item Value Reference Range Interpretation Comments MAGNESIUM (test code = 5488590855) 1.7 mg/dL 1.7-2.4 Lab Interpretation (test code = Normal 96297-8) [facility] (for use with Heparin Drip)2020-08-28 10:23:08 Test Item Value Reference Range Interpretation Comments APTT Patient (test code See_Comment H [Au tomated message] = 3173-2) The system [employer] generated this result transmitted ref erence range: 26 - 36 Seconds. The reference range was not used to int erpret this result as normal/abnormal . Lab Interpretation (test Abnormal code = 67182-6) [facility] (for use with Heparin Drip)2020-08-28 02:56:22 Test Item Value Reference Range Interpretation Comments APTT Patient (test code See_Comment H [Au tomated message] = 3173-2) The system [employer] generated this result transmitted ref erence range: 26 - 36 Seconds. The reference range was not used to int erpret this result as normal/abnormal . Lab Interpretation (test Abnormal code = 04552-9) [facility] ONLY COVID [id number] 21:50:50COVID DMT InterpretationInterpretation/Recommendations: Molecular NAAT Tests for Active Infection with the SARS-CoV-2 Virus: The patient has currently tested negative for the SARS-CoV-2 virus that causes COVID-19 illness. This most likely indicates that the patient does not have an active infection with the SARS-CoV-2 virus. However, infection is not completely ruled out as the false negative rate for molecular NAAT testing using a nasopharyngeal sample can be up to 30%, mostly dependent on the timing of sample collection in relation to illness onset and any deficiencies in sampling techniques. If the patient has symptoms concerning for COVID-19 illness, a repeat NAAT test (PCR, Rapid ID Now, etc.) should be performed, at which time the SARS-CoV-2 virus - if present - may have reached a detectable viral load (usually peaking by the end of the first week of symptoms). Tests for IgM and/or IgG Antibodies to the SARS-CoV-2 Virus: If the patient develops COVID-19 illness in the future, testing for IgM and IgG antibodies approximately 3 weeks after illness onset will likely indicate if the patient has produced antibodies to the SARS-CoV-2 virus. However, some patients may take longer to develop detectable antibodies, while some patients who were infected with SARS-CoV-2 may never develop antibodies. While antibodies to SARS-CoV-2 may provide some degree of immunity, at this time the strength and duration of the antibody response is unknown. ? ? Interpretation Result Comments:These interpretation comments are based upon all COVID-19 testing the patient has had at [facility] [[email or web address]], including molecular NAAT testing (more commonly known as PCR testing and Rapid ID Now testing) and antibody testing. It does not take into account any testing that a patient has had outside of the [facility] [[email or web address]] medical record. [facility] [[email or web address]] LABORATORY SERVICESCOVID ResultsSA RS-CoV-2 Rapid ID NOW (no units) ? ? Date ? Value ? 08/24/2020 ? Not Detected ? [facility] [[email or web address]] LABORATORY SERVICES [facility] RETROPERITONEAL [id number] 15:39:21 1. ?The left kidney was not visualized due to shadowing from bowel gas.Right kidney superior pole simple cyst, 1.8 cm I, Landon Gordon MD., have reviewed this study and agree with the abovereport.EXAM: US RETROPERITONEAL LIMITED HISTORY: 84 years-old Male with SISSY vs worsening CKD . TECHNIQUE: Ultrasound of kidneys was performed with grayscale and selectedcolor Doppler imaging. [employer] images were obtained for the record. COMPARISON: Ultrasound 01/30/2017 FINDINGS: The left kidney was not visualized due to shadowing from bowel gas. KIDNEYS:RIGHT:Size: Normal, 9.5 x 4.9 x 4.5 cm.Parenchyma: Normal renal cortical echogenicity and thickness. Anechoicstructure at the right kidney superior pole measuring 1.6 x 1.8 x 1.2 cmCollecting System: No hydronephrosis.Other: None. LEFT:The left kidney was not visualized due to shadowing from bowel gas. OTHER: None. [facility], Radiant Results Inft User - 08/27 10:40 AM CDTEXAM: US RETROPERITONEAL LIMITEDHISTORY: 84 years-old Male with SISSY vs worsening CKD .TECHNIQUE: Ultrasound of kidneys was performed with grayscale and selectedcolor Doppler imaging. [employer] Helper images were obtained for the record.COMPARISON: Ultrasound 01/30/2017FINDINGS: The left kidney was not visualized due to shadowing from bowel gas. KIDNEYS:RIGHT:Size: Normal, 9.5 x 4.9 x 4.5 cm.Parenchyma: Normal renal cortical echogenicity and thickness. Anechoicstructure at the right kidney superior pole measuring 1.6 x 1.8 x 1.2 cmCollecting System: No hydronephrosis.Other: None.LEFT:The left kidney was not visualized due to shadowing from bowel gas. OTHER: None.IMPRESSION1. The left k idney was not visualized due to shadowing from bowel gas.Right kidney superior pole simple cyst, 1.8cmI, Landon Gordon MD., have reviewed this study and agree with the abovereport.[facility] TyleraPTT2021-03-29 14:25:26 Test Item Value Reference Range Interpretation Comments APTT Patient (test code See_Comment H [Au tomated message] = 3173-2) The system [employer] generated this result transmitted ref erence range: 26 - 36 Seconds. The reference range was not used to int erpret this result as normal/abnormal . Lab Interpretation (test Abnormal code = 40179-9) [facility] 10:19:21 Test Item Value Reference Range Interpretation Comments MAGNESIUM (test code = 9429062232) 1.7 mg/dL 1.7-2.4 Lab Interpretation (test code = Normal 16924-1) [facility] (for use with Heparin Drip)2020-08-27 01:55:01 Test Item Value Reference Range Interpretation Comments APTT Patient (test code See_Comment H [Au tomated message] = 3173-2) The system [employer] generated this result transmitted ref erence range: 26 - 36 Seconds. The reference range was not used to int erpret this result as normal/abnormal . Lab Interpretation (test Abnormal code = 80484-2) [facility] (for use with Heparin Drip)2020-08-26 18:59:56 Test Item Value Reference Range Interpretation Comments APTT Patient (test code See_Comment H [Au tomated message] = 3173-2) The system [employer] generated this result transmitted ref erence range: 26 - 36 Seconds. The reference range was not used to int erpret this result as normal/abnormal . Lab Interpretation (test Abnormal code = 91251-2) [facility] METABOLIC PANEL (NA, K, CL, CO2, GLUCOSE, BUN, CREATININE, CA)2020-08-26 11:38:27 Test Item Value Reference Range Interpretation Comments NA (test code = 139 mmol/L 135-145 7516429443) K (test code = 4.7 mmol/L 3.5-5.0 4528390960) CL (test code = 111 mmol/L 98-108 H 4076433417) CO2 TOTAL (test code = 19 mmol/L 23-31 L 3367350788) AGAP (test code = 2-16 5500899302) BUN (test code = 50 mg/dL 7-23 H 5432704131) GLUCOSE (test code = 96 mg/dL 70-110 9799165720) CREATININE (test code = 2.61 mg/dL 0.60-1.25 H 2157176244) CALCIUM (test code = 8.8 mg/dL 8.6-10.6 3397962040) eGFR (test code = mL/min/1.73m2 3045542436) eGFR Calculation mL/min/1.73m2 () (test code = 5737670363) BINTA (test code = BINTA) Association of Glomerular Filtration Rate (GFR) and Staging of Kidney Disease* + --+ --+ ------+| GFR (mL/min/1.73 m2) ?| With Kidney Damage ?| ?Without Kidney Damage+ --------+ --------+ +| ?>90 ?| ?Stage one ?| ? Normal ?+ ---+ ---+ -------+| ?60-89 ?| ?Stage two ?| ? Decreased GFR ? + --+ --+ ------+| ?30-59 ?| ?Stage three ?| ? Stage three ? + --+ --+ ------+| ?15-29 ?| ?Stage four ? | ? Stage four ?+ ---+ ---+ -------+| ?<15 (or dialysis) ? ?| ?Stage five ? | ? Stage five ?+ ---+ ---+ -------+ *Each stage assumes the associated GFR level has been in effect for at least three months. ?Stages 1 to 5, with or without kidney disease, indicate chronic kidney disease. Notes: Determination of stages one and two (with eGFR >59mL/min/1.73 m2) requires estimation of kidney damage for at least three months as defined by structural or functional abnormalities of the kidney, manifested by either:Pathological abnormalities or Markers of kidney damage (including abnormalities in the composition of the blood or urine or abnormalities in imaging tests). Lab Interpretation Abnormal (test code = 10843-0) [facility]MAGN[facility]IUM2021-03-28 11:38:27 Test Item Value Reference Range Interpretation Comments MAGNESIUM (test code = 2957194403) 1.7 mg/dL 1.7-2.4 Lab Interpretation (test code = Normal 33683-1) [facility] TyleraPTT (for use with Heparin Drip)2020-08-26 11:16:43 Test Item Value Reference Range Interpretation Comments APTT Patient (test code See_Comment H [Au tomated message] = 3173-2) The system [employer] generated this result transmitted ref erence range: 26 - 36 Seconds. The reference range was not used to int erpret this result as normal/abnormal . Lab Interpretation (test Abnormal code = 99731-2) [facility] TylerTROPONIN [id number] 04:41:02 Test Item Value Reference Range Interpretation Comments TROPONIN I (test 0.141 ng/mL See_Comment H [Automated code = 8542252427) message] The system which generated this result transmitted reference range : <=0.034. The reference range was not used to interpret this result as normal/abnormal . BINTA (test code = Equal or Less than BINTA) 0.034 ng/ml---Normal ?Note: Cardiac troponin begins to rise 3-4 hours after the onset of ischemia. Repeat in 4-6 hours if the sample was drawn within 3-4 hours of the onset of the symptom and found normal. Between 0.035 and 0.120 ng/mL--- Borderline. Questionable myocardial injury or necrosis ? ?Note: Serial measurement may be necessary to confirm or exclude the diagnosis of myocardial injury or necrosis; Clinical correlation (symptoms, EKGs, imaging studies, and others) required; Repeat in 4-6 hours if clinically indicated. ? Equal or Higher than 0.121 ng/mL---Abnormal. Myocardial Injury or Necrosis Likely ? Biotin has been reported to cause a negative bias, interpret results relative to patient's use of biotin. ? Lab Interpretation Abnormal (test code = 29666-4) [facility] (NA, K, CL, CO2, GLUCOSE, BUN, CREATININE, CA)2020-08-25 23:59:06 Test Item Value Reference Range Interpretation Comments NA (test code = 140 mmol/L 135-145 3862716988) K (test code = 4.5 mmol/L 3.5-5.0 1947051063) CL (test code = 109 mmol/L 98-108 H 7334470757) CO2 TOTAL (test code = 19 mmol/L 23-31 L 1177685364) AGAP (test code = 2-16 4944398873) BUN (test code = 52 mg/dL 7-23 H 9441030101) GLUCOSE (test code = 119 mg/dL 70-110 H 6525143440) CREATININE (test code = 3.01 mg/dL 0.60-1.25 H 3511445032) CALCIUM (test code = 9.1 mg/dL 8.6-10.6 9552711984) eGFR (test code = mL/min/1.73m2 1306057754) eGFR Calculation mL/min/1.73m2 () (test code = 2732402904) BINTA (test code = BINTA) Association of Glomerular Filtration Rate (GFR) and Staging of Kidney Disease* + --+ --+ ------+| GFR (mL/min/1.73 m2) ?| With Kidney Damage ?| ?Without Kidney Damage+ --------+ --------+ +| ?>90 ?| ?Stage one ?| ? Normal ?+ ---+ ---+ -------+| ?60-89 ?| ?Stage two ?| ? Decreased GFR ? + --+ --+ ------+| ?30-59 ?| ?Stage three ?| ? Stage three ? + --+ --+ ------+| ?15-29 ?| ?Stage four ? | ? Stage four ?+ ---+ ---+ -------+| ?<15 (or dialysis) ? ?| ?Stage five ? | ? Stage five ?+ ---+ ---+ -------+ *Each stage assumes the associated GFR level has been in effect for at least three months. ?Stages 1 to 5, with or without kidney disease, indicate chronic kidney disease. Notes: Determination of stages one and two (with eGFR >59mL/min/1.73 m2) requires estimation of kidney damage for at least three months as defined by structural or functional abnormalities of the kidney, manifested by either:Pathological abnormalities or Markers of kidney damage (including abnormalities in the composition of the blood or urine or abnormalities in imaging tests). Lab Interpretation Abnormal (test code = 27935-3) [facility] TylerVITAMIN B12, [id number] 19:32:54 Test Item Value Reference Range Interpretation Comments VIT B12 (test code = 988 pg/mL 240-930 H 8710625109) BINTA (test code = BINTA) Biotin has been reported to cause a positive bias, interpret results relative to patient's use of biotin. Lab Interpretation (test Abnormal code = 66945-9) [facility] TylerFOLATE2021-03-27 17:10:49 Test Item Value Reference Range Interpretation Comments FOLATE SER (test code = 6566845209) >20.0 3.0-20.0 H Lab Interpretation (test code = Abnormal 69127-7) [facility] TylerTHYROID STIMULATING [id number] 16:30:14 Test Item Value Reference Range Interpretation Comments TSH (test code = See_Comment [Automated message] 9457729011) The system [employer] generated this result transmitted ref erence range: 0.45 - 4 .70 mIU/L. The refe rence range was not u sed to interpret this result as normal/abnor mal. Lab Interpretation (test Normal code = 80264-9) [facility] TylerTROPONIN [id number] 16:11:37 Test Item Value Reference Range Interpretation Comments TROPONIN I (test 0.182 ng/mL See_Comment H [Automated code = 4788090817) message] The system which generated this result transmitted reference range : <=0.034. The reference range was not used to interpret this result as normal/abnormal . BINTA (test code = Equal or Less than BINTA) 0.034 ng/ml---Normal ?Note: Cardiac troponin begins to rise 3-4 hours after the onset of ischemia. Repeat in 4-6 hours if the sample was drawn within 3-4 hours of the onset of the symptom and found normal. Between 0.035 and 0.120 ng/mL--- Borderline. Questionable myocardial injury or necrosis ? ?Note: Serial measurement may be necessary to confirm or exclude the diagnosis of myocardial injury or necrosis; Clinical correlation (symptoms, EKGs, imaging studies, and others) required; Repeat in 4-6 hours if clinically indicated. ? Equal or Higher than 0.121 ng/mL---Abnormal. Myocardial Injury or Necrosis Likely ? Biotin has been reported to cause a negative bias, interpret results relative to patient's use of biotin. ? Lab Interpretation Abnormal (test code = 94369-8) [facility] Metabolic Panel (NA, K, CL, CO2, GLUCOSE, BUN, CREATININE, CA)2020-08-25 15:57:55 Test Item Value Reference Range Interpretation Comments NA (test code = 142 mmol/L 135-145 0168769687) K (test code = 4.6 mmol/L 3.5-5.0 9194191960) CL (test code = 110 mmol/L 98-108 H 1032415203) CO2 TOTAL (test code = 20 mmol/L 23-31 L 6415712132) AGAP (test code = 2-16 3273426049) BUN (test code = 54 mg/dL 7-23 H 2477027773) GLUCOSE (test code = 94 mg/dL 70-110 4219204734) CREATININE (test code = 3.19 mg/dL 0.60-1.25 H 8419693838) CALCIUM (test code = 9.2 mg/dL 8.6-10.6 3014618056) eGFR (test code = mL/min/1.73m2 1821803978) eGFR Calculation mL/min/1.73m2 () (test code = 3798720030) BINTA (test code = BINTA) Association of Glomerular Filtration Rate (GFR) and Staging of Kidney Disease* + --+ --+ ------+| GFR (mL/min/1.73 m2) ?| With Kidney Damage ?| ?Without Kidney Damage+ --------+ --------+ +| ?>90 ?| ?Stage one ?| ? Normal ?+ ---+ ---+ -------+| ?60-89 ?| ?Stage two ?| ? Decreased GFR ? + --+ --+ ------+| ?30-59 ?| ?Stage three ?| ? Stage three ? + --+ --+ ------+| ?15-29 ?| ?Stage four ? | ? Stage four ?+ ---+ ---+ -------+| ?<15 (or dialysis) ? ?| ?Stage five ? | ? Stage five ?+ ---+ ---+ -------+ *Each stage assumes the associated GFR level has been in effect for at least three months. ?Stages 1 to 5, with or without kidney disease, indicate chronic kidney disease. Notes: Determination of stages one and two (with eGFR >59mL/min/1.73 m2) requires estimation of kidney damage for at least three months as defined by structural or functional abnormalities of the kidney, manifested by either:Pathological abnormalities or Markers of kidney damage (including abnormalities in the composition of the blood or urine or abnormalities in imaging tests). Lab Interpretation Abnormal (test code = 11557-9) [facility] TylerMagnesium [id number] 15:57:55 Test Item Value Reference Range Interpretation Comments MAGNESIUM (test code = 5905386127) 1.9 mg/dL 1.7-2.4 Lab Interpretation (test code = Normal 07896-2) [facility] with [id number] 15:30:51 Test Item Value Reference Range Interpretation Comments WBC (test code = See_Comment [Automated 6690-2) message] The sy stem which generated this result transmitted reference range : 4.20 - 10.70 10*3/?L. The reference range was not used to interpret this result as normal/abnormal . RBC (test code = See_Comment L [Automated 319-8) message] The sy stem which generated this result transmitted reference range : 4.26 - 5.52 10*6/?L. The reference range was not used to interpret this result as normal/abnormal . HGB (test code = 12.4 g/dL 12.2-16.4 718-7) HCT (test code = 38.1 % 38.4-49.3 L 4544-3) MCV (test code = 99.2 fL 81.7-95.6 H 787-2) MCH (test code = 32.3 pg 26.1-32.7 785-6) MCHC (test code = 32.5 g/dL 31.2-35.0 786-4) RDW-SD (test code = 53.1 fL 38.5-51.6 H 69884-5) RDW-CV (test code = 14.6 % 12.1-15.4 788-0) PLT (test code = See_Comment [Automated 777-3) message] The sy stem which generated this result transmitted reference range : 150 - 328 10*3/ ?L. The reference r kay was not used to interpret this result as normal/abnormal . MPV (test code = 10.8 fL 9.8-13.0 18501-2) NRBC/100 WBC (test See_Comment [Automat ed code = 0686533080) message] The system which generated this result transmitted reference range : 0.0 - 10.0 /100 WBCs. The refer ence range was not u sed to interpret th is result as normal/abnormal . NRBC x10^3 (test code <0.01 See_Comment [Auto mated = 8647464903) message] The s ystem which generated this result transmitted reference range : 10*3/?L. The reference range was not used to interpret this result as normal/abnormal . GRAN MAT (NEUT) % 76.2 % (test code = 770-8) IMM GRAN % (test code 0.70 % = 8775749696) LYMPH % (test code = 10.8 % 736-9) MONO % (test code = 10.3 % 5905-5) EOS % (test code = 1.5 % 713-8) BASO % (test code = 0.5 % 706-2) GRAN MAT x10^3(ANC) 5.67 10*3/uL 1.99-6.95 (test code = 7083703569) IMM GRAN x10^3 (test 0.05 10*3/uL 0.00-0.06 code = 0598605173) LYMPH x10^3 (test code 0.80 10*3/uL 1.09-3.23 L = 731-0) MONO x10^3 (test code 0.77 10*3/uL 0.36-1.02 = 742-7) EOS x10^3 (test code = 0.11 10*3/uL 0.06-0.53 711-2) BASO x10^3 (test code 0.04 10*3/uL 0.01-0.09 = 704-7) Lab Interpretation Abnormal (test code = 28998-9) [facility] TylerSODIUM, URINE [id number] 09:24:15 Test Item Value Reference Range Interpretation Comments NA URINE (test code = 1486348032) 128 mmol/L [facility] TylerCREATININE, URINE [id number] 09:24:15 Test Item Value Reference Range Interpretation Comments CREAT U (test code = 1329397289) 80.3 mg/dL [facility] TylerUREA NITROGEN, URINE [id number] 09:24:15 Test Item Value Reference Range Interpretation Comments UREA N UR (test code = 3174835931) 373 mg/dL [facility] TylerPROTEIN CREAT RATIO URINE [id number] 09:24:15 Test Item Value Reference Range Interpretation Comments T. PROT U (test code = 2888-6) 18 mg/dL CREAT U (test code = 8598966764) 80.3 mg/dL Protein/Creatinine Ratio Urine 0.0-2.0 (test code = 2187172337) [facility] TylerURINALYSIS2021-03-27 09:06:33 Test Item Value Reference Range Interpretation Comments APPEARANCE (test code = Clear Clear 2327880562) COLOR (test code = Yellow Yellow 8494164628) PH (test code = 4.8-8.0 5283317006) SP GRAVITY (test code = 1.003-1.030 8010635096) GLU U QUAL (test code = Normal Normal 9398724772) BLOOD (test code = 2+ Negative A 6610561020) KETONES (test code = Negative Negative 8285413936) PROTEIN (test code = Negative Negative 2887-8) UROBILIN (test code = Normal Normal 8888700385) BILIRUBIN (test code = Negative Negative 4197751825) NITRITE (test code = Negative Negative 8029275733) LEUK JASON (test code = Negative Negative 5580476661) RBC/HPF (test code = <1 See_Comment [Autom ated message] 5816565931) The system [employer] generated this result transmitted ref erence range: 0 - 3 HP F. The reference range was not used to int erpret this result as normal/abnormal . WBC/HPF (test code = <1 See_Comment [Autom ated message] 3681675585) The system [employer] generated this result transmitted ref erence range: 0 - 5 HP F. The reference range was not used to int erpret this result as normal/abnormal . BACTERIA (test code = Negative Negative 1946322822) SQ EPITH (test code = <1 See_Comment [Auto mated message] 0563823040) The system [employer] generated this result transmitted ref erence range: <=2 HPF. The reference range was not used to int erpret this result as normal/abnormal . HYAL CAST (test code = See_Comment H [Aut omated message] 4648457001) The system [employer] generated this result transmitted ref erence range: <=2 LPF. The reference range was not used to int erpret this result as normal/abnormal . Lab Interpretation (test Abnormal code = 03063-1) [facility] TylerCOVID-19 (ID NOW RAPID TESTING)2020-08-24 20:01:12 Test Item Value Reference Range Interpretation Comments SARS-CoV-2 Rapid ID NOW Not Detected Not Detected (test code = 10875-3) BINTA (test code = BINTA) ID NOW COVID-19 Assay is an isothermal nucleic acid amplification test intended for the qualitative detection of nucleic acid from SARS-CoV-2 viral RNA in nasopharyngeal ([employer]) specimens. It is used under Emergency Use Authorization (EUA) by FDA. The limit of detection (LOD) of the assay is 125 Genome Equivalents/mL. A positive result is indicative of the presence of SARS-CoV-2 RNA. ?Clinical correlation with patient history and other diagnostic information is necessary to determine patient infection status. A negative (Not Detected) result does not preclude SARS-CoV-2 infection. In patients with clinical symptoms and other tests that are consistent with SARS-CoV-2 infection, negative results should be treated as presumptive negative and a new specimen should be tested with alternative PCR molecular test. Invalid: Please collect a new specimen for repeat patient testing if clinically indicated. Lab Interpretation Normal (test code = 90044-5) [facility] TylerXR CHEST 1 [id number] 19:58:05 No radiographic evidence of acute cardiopulmonary process. EXAM: XR CHEST 1 VW COMPARISON: 08/27/2017 HISTORY: ams, a-flutter FINDINGS: Lungs: The lungs are well-expanded and clear. A couple of calcifiedgranulomas project over the right upper lobe and left lung base, unchanged Heart/Mediastinum: The ca rdiomediastinal silhouette is borderline in sizeaccounting for technique. Pacemaker leads project over the right atrium andright ventricle. Atherosclerotic calcifications of the aorta Bones: No osseouslesions are detected. The soft tissues appear normal [facility], Radiant Results Inft User - 08/24/2020 2:59 PM CDTEXAM: XR CHEST 1 VWCOMPARISON: 08/27/2017HISTORY: ams, a- flutter FINDINGS:Lungs: The lungs are well-expanded and clear. A couple of calcifiedgranulomas project over the right upper lobe and leftlung base, unchangedHeart/Mediastinum: The cardiomediastinal silhouette is borderline in sizeaccounting for technique. Pacemaker leads project over the right atrium andright ventricle. Atherosclerotic calcifications of the aortaBones: No osseous lesions are detected. The soft tissues appear normalIMPRESSIONNo radiographic evidence of acute cardiopulmonary process.[facility] TylerXR ABDOMEN 2 [id number] 19:53:47 No acute intra-abdominal abnormality. Preliminary Report Dictated by Resident: Maxwell Blunt MD., have reviewed this study and agree with theabove report.EXAM: XR ABDOMEN 2VW HISTORY: 84 years-old Male with diarrhea . COMPARISON: None. TECHNIQUE: Multiple views of the abdomen. FINDINGS: A pacemaker with leads terminating in the right atrium and right ventricleare partially seen. Scattered pelvic phleboliths are seen. No other radiopaque stones or massesare seen. The bowel gas pattern is nonobstructive. Multiple loops of stool andgas-filled colon are seen. Degenerative changes are seen at the sacroiliac joints and femoroacetabularjoints. Vascular calcifications are seen. [facility], Radiant Results Inft User - 08/24/2020 2:54 PM CDTEXAM: XR ABDOMEN 2 VWHISTORY: 84 years-oldMale with diarrhea .COMPARISON: None.TECHNIQUE: Multiple views of the abdomen.FINDINGS:A pacemaker with leads terminating in the right atrium and right ventricleare partially seen.Scattered pelvic phleboliths are seen. No other radiopaque stones or massesare seen.The bowel gas pattern is nonobstructive. Multiple loops of stool andgas-filled colon are seen.Degenerative changes are seen at the sacroiliac joints and femoroacetabularjoints. Vascular calcifications are seen.IMPRESSIONNo acute intra-abdominal abnormality. Preliminary Report Dictated by Resident: Maxwell Ray MD., have reviewed this study and agree with theabove report.[facility] TylerCT HEAD WO [id number] 19:47:[address] headCT HEAD WO CONTRAST HISTORY: Male 84 years Mental status change, unknown cause COMPARISON: CT head dated 09/02/2015 TECHNIQUE: Multiplanar multi weighted imaging of the brain was obtainedwithout IV contrast FINDINGS: The ventricles and cerebral sulci are unchanged in caliber andconfiguration. No hydrocephalus, midline shift or pathological extra-axialfluid collection is present. The basal cisterns are unremarkable. No acute intracranial hemorrhage or mass effect is present. No significantparenchymal attenuation abnormality is present. The calvarium and skull base are unremarkable. The mastoid air cells andvisualized paranasal air sinuses are clear. [facility], Radiant Results Inft User - 08/24/2020 2:48 PM CDTCT HEAD WO CONTRASTHISTORY: Male 84 years Mental status change, unknown cause COMPARISON: CT head dated 09/02/2015TECHNIQUE: Multiplanar multi weighted imaging of the brain was obtainedwithout IV contrastFINDINGS:The ventricles and cerebral sulci are unchanged in caliber andconfiguration. No hydrocephalus, midline shift or pathological extra-axialfluid collection is present. The basal cisterns are unremarkable.No acute intracranial hemorrhage or mass effect is present. No significantparenchymal attenuation abnormality is present.The calvarium and skull base are unremarkable. The mastoid air cells andvisualized paranasal air sinuses are clear.IMPRESSIONNormal CT headUnAudie L. Murphy [facility] HospitalAC PANEL 21 + LACTIC [id number] 19:29:48 Test Item Value Reference Range Interpretation Comments PH (test code = 7.32-7.42 L 1556377848) PCO2 BERYL (test code = See_Comment [Auto mated 9306044333) message] The sy stem which generated this result transmitted reference range : 41 - 51 mmHg. The reference range was not used to interpret this result as normal/abnormal . PO2 BERYL (test code = See_Comment L [Autom ated 8952179139) message] The sy stem which generated this result transmitted reference range : 25 - 40 mmHg. The reference range was not used to interpret this result as normal/abnormal . HCO3 BERYL (test code = See_Comment L [Auto mated 0759494877) message] The sy stem which generated this result transmitted reference range : 24 - 28 mEq/L. The reference range was not used to interpret this result as normal/abnormal . AC VBE(BEAKER) (test mEq/L code = 6481683508) THB BERYL (test code = 12.9 g/dL 13.5-18.0 L 2778671005) %O2HB BERYL (test code = 35.6 % 52.0-63.0 L 2601902632) %COHB BERYL (test code = 0.8 % 0.0-1.5 4969260639) %METHB BERYL (test code = 0.7 % 0.4-1.5 7229158428) VOL%O2 BERYL (test code = 6.5 % 6.0-12.0 7743008644) NA (test code = 138 mmol/L 135-145 5905767844) K+ (test code = 4.6 mmol/L 3.5-5.0 3439420800) AC CA IONZ (test code = 4.70 mg/dL 4.50-5.30 0379275865) GLUCOSE (test code = 109 mg/dL 70-110 4990186868) LACTIC ACID (test code 1.48 mmol/L 0.50-2.20 = 2993573291) Lab Interpretation Abnormal (test code = 08382-0) [facility] TylerZAKIYAFORMERLY [facility]CONTRER[facility] [id number] 19:25:30 Test Item Value Reference Range Interpretation Comments TROPONIN I (test 0.168 ng/mL See_Comment H [Automated code = 2044621379) message] The system which generated this result transmitted reference range : <=0.034. The reference range was not used to interpret this result as normal/abnormal . BINTA (test code = Equal or Less than BINTA) 0.034 ng/ml---Normal ?Note: Cardiac troponin begins to rise 3-4 hours after the onset of ischemia. Repeat in 4-6 hours if the sample was drawn within 3-4 hours of the onset of the symptom and found normal. Between 0.035 and 0.120 ng/mL--- Borderline. Questionable myocardial injury or necrosis ? ?Note: Serial measurement may be necessary to confirm or exclude the diagnosis of myocardial injury or necrosis; Clinical correlation (symptoms, EKGs, imaging studies, and others) required; Repeat in 4-6 hours if clinically indicated. ? Equal or Higher than 0.121 ng/mL---Abnormal. Myocardial Injury or Necrosis Likely ? Biotin has been reported to cause a negative bias, interpret results relative to patient's use of biotin. ? Lab Interpretation Abnormal (test code = 45556-2) [facility] TylerMAGNESIUM2021-03-26 19:14:28 Test Item Value Reference Range Interpretation Comments MAGNESIUM (test code = 1875844932) 1.9 mg/dL 1.7-2.4 Lab Interpretation (test code = Normal 11798-5) [facility] TylerCOMP. METABOLIC PANEL (55813)2020-08-24 19:14:07 Test Item Value Reference Range Interpretation Comments NA (test code = 140 mmol/L 135-145 3717174230) K (test code = 4.6 mmol/L 3.5-5.0 7853907625) CL (test code = 109 mmol/L 98-108 H 7254655642) CO2 TOTAL (test code = 21 mmol/L 23-31 L 2172310874) AGAP (test code = 2-16 0357413171) BUN (test code = 56 mg/dL 7-23 H 3636122009) GLUCOSE (test code = 123 mg/dL 70-110 H 5828411439) CREATININE (test code = 3.73 mg/dL 0.60-1.25 H 6620350620) TOTAL BILI (test code = 0.7 mg/dL 0.1-1.4 5866239486) CALCIUM (test code = 8.9 mg/dL 8.6-10.6 2125577949) T PROTEIN (test code = 6.3 g/dL 6.3-8.2 1176537107) ALBUMIN (test code = 4.1 g/dL 3.5-5.0 9915234927) ALK PHOS (test code = 97 U/L 34-122 9714492478) ALTv (test code = 28 U/L 5-50 1742-6) AST(SGOT) (test code = 32 U/L 13-40 0866018409) eGFR (test code = mL/min/1.73m2 1955599527) eGFR Calculation mL/min/1.73m2 () (test code = 1771062432) BINTA (test code = BINTA) Association of Glomerular Filtration Rate (GFR) and Staging of Kidney Disease* + --+ --+ ------+| GFR (mL/min/1.73 m2) ?| With Kidney Damage ?| ?Without Kidney Damage+ --------+ --------+ +| ?>90 ?| ?Stage one ?| ? Normal ?+ ---+ ---+ -------+| ?60-89 ?| ?Stage two ?| ? Decreased GFR ? + --+ --+ ------+| ?30-59 ?| ?Stage three ?| ? Stage three ? + --+ --+ ------+| ?15-29 ?| ?Stage four ? | ? Stage four ?+ ---+ ---+ -------+| ?<15 (or dialysis) ? ?| ?Stage five ? | ? Stage five ?+ ---+ ---+ -------+ *Each stage assumes the associated GFR level has been in effect for at least three months. ?Stages 1 to 5, with or without kidney disease, indicate chronic kidney disease. Notes: Determination of stages one and two (with eGFR >59mL/min/1.73 m2) requires estimation of kidney damage for at least three months as defined by structural or functional abnormalities of the kidney, manifested by either:Pathological abnormalities or Markers of kidney damage (including abnormalities in the composition of the blood or urine or abnormalities in imaging tests). Lab Interpretation Abnormal (test code = 48884-3) [facility]07 Test Item Value Reference Range Interpretation Comments LIPASE (test code = 4607931535) 271 U/L 0-220 H Lab Interpretation (test code = Abnormal 73310-8) [facility] WITH [id number] 19:03:03 Test Item Value Reference Range Interpretation Comments WBC (test code = See_Comment [Automated 6690-2) message] The sy stem which generated this result transmitted reference range : 4.20 - 10.70 10*3/?L. The reference range was not used to interpret this result as normal/abnormal . RBC (test code = See_Comment L [Automated 789-8) message] The sy stem which generated this result transmitted reference range : 4.26 - 5.52 10*6/?L. The reference range was not used to interpret this result as normal/abnormal . HGB (test code = 12.0 g/dL 12.2-16.4 L 718-7) HCT (test code = 36.1 % 38.4-49.3 L 4544-3) MCV (test code = 97.8 fL 81.7-95.6 H 787-2) MCH (test code = 32.5 pg 26.1-32.7 785-6) MCHC (test code = 33.2 g/dL 31.2-35.0 786-4) RDW-SD (test code = 52.3 fL 38.5-51.6 H 30914-4) RDW-CV (test code = 14.5 % 12.1-15.4 788-0) PLT (test code = See_Comment L [Automated 777-3) message] The sy stem which generated this result transmitted reference range : 150 - 328 10*3/ ?L. The reference r kay was not used to interpret this result as normal/abnormal . MPV (test code = 11.7 fL 9.8-13.0 93595-2) NRBC/100 WBC (test See_Comment [Automat ed code = 6548273196) message] The system which generated this result transmitted reference range : 0.0 - 10.0 /100 WBCs. The refer ence range was not u sed to interpret th is result as normal/abnormal . NRBC x10^3 (test code <0.01 See_Comment [Auto mated = 2381433563) message] The s ystem which generated this result transmitted reference range : 10*3/?L. The reference range was not used to interpret this result as normal/abnormal . GRAN MAT (NEUT) % 75.5 % (test code = 770-8) IMM GRAN % (test code 0.60 % = 4802308726) LYMPH % (test code = 10.5 % 736-9) MONO % (test code = 11.3 % 5905-5) EOS % (test code = 1.2 % 713-8) BASO % (test code = 0.9 % 706-2) GRAN MAT x10^3(ANC) 5.91 10*3/uL 1.99-6.95 (test code = 0678459525) IMM GRAN x10^3 (test 0.05 10*3/uL 0.00-0.06 code = 9110507816) LYMPH x10^3 (test code 0.82 10*3/uL 1.09-3.23 L = 731-0) MONO x10^3 (test code 0.88 10*3/uL 0.36-1.02 = 742-7) EOS x10^3 (test code = 0.09 10*3/uL 0.06-0.53 711-2) BASO x10^3 (test code 0.07 10*3/uL 0.01-0.09 = 704-7) Lab Interpretation Abnormal (test code = 85742-7) [facility]. METABOLIC PANEL ([id number])2020-08-23 18:32:51 Test Item Value Reference Range Interpretation Comments NA (test code = 138 mmol/L 135-145 1586146673) K (test code = 6.1 mmol/L 3.5-5.0 HH 4464659833) CL (test code = 108 mmol/L 98-108 6778523509) CO2 TOTAL (test code = 21 mmol/L 23-31 L 8177485265) AGAP (test code = 2-16 3704179751) BUN (test code = 47 mg/dL 7-23 H 2961733655) GLUCOSE (test code = 81 mg/dL 70-110 9132800997) CREATININE (test code = 3.33 mg/dL 0.60-1.25 H 7597300603) TOTAL BILI (test code = 0.9 mg/dL 0.1-1.0 0950270815) CALCIUM (test code = 9.6 mg/dL 8.6-10.6 8174292469) T PROTEIN (test code = 6.5 g/dL 6.3-8.2 7479712673) ALBUMIN (test code = 4.2 g/dL 3.5-5.0 0941997323) ALK PHOS (test code = 92 U/L 34-122 7603546973) ALTv (test code = 29 U/L 5-50 1742-6) AST(SGOT) (test code = 33 U/L 13-40 2631272124) eGFR Calculation mL/min/1.73m2 (Non-) (test code = 8554528043) eGFR Calculation mL/min/1.73m2 () (test code = 9525505629) BINTA (test code = BINTA) Association of Glomerular Filtration Rate (GFR) and Staging of Kidney Disease* + --+ --+ ------+| GFR (mL/min/1.73 m2) ?| With Kidney Damage ?| ?Without Kidney Damage+ --------+ --------+ +| ?>90 ?| ?Stage one ?| ? Normal ?+ ---+ ---+ -------+| ?60-89 ?| ?Stage two ?| ? Decreased GFR ? + --+ --+ ------+| ?30-59 ?| ?Stage three ?| ? Stage three ? + --+ --+ ------+| ?15-29 ?| ?Stage four ? | ? Stage four ?+ ---+ ---+ -------+| ?<15 (or dialysis) ? ?| ?Stage five ? | ? Stage five ?+ ---+ ---+ -------+ *Each stage assumes the associated GFR level has been in effect for at least three months. ?Stages 1 to 5, with or without kidney disease, indicate chronic kidney disease. Notes: Determination of stages one and two (with eGFR >59mL/min/1.73 m2) requires estimation of kidney damage for at least three months as defined by structural or functional abnormalities of the kidney, manifested by either:Pathological abnormalities or Markers of kidney damage (including abnormalities in the composition of the blood or urine or abnormalities in imaging tests). Lab Interpretation Abnormal (test code = 35303-7) [facility] [id number] 17:25:05 Test Item Value Reference Range Interpretation Comments APPEARANCE (test code = Hazy Clear A 7805005704) COLOR (test code = Yellow Yellow 8688021245) PH (test code = 4.8-8.0 3634999496) SP GRAVITY (test code = 1.003-1.030 7827673776) GLU U QUAL (test code = Normal Normal 9498523074) BLOOD (test code = Negative Negative 5813698816) KETONES (test code = 5 mg/dL Negative A 3126929264) PROTEIN (test code = 30 mg/dL Negative A 2887-8) UROBILIN (test code = Normal Normal 9790683897) BILIRUBIN (test code = Negative Negative 0998126514) NITRITE (test code = Negative Negative 1629878709) LEUK JASON (test code = Negative Negative 1732093599) RBC/HPF (test code = See_Comment [Autom ated message] 7539055776) The system [employer] generated this result transmitted ref erence range: 0 - 3 HP F. The reference range was not used to int erpret this result as normal/abnormal . WBC/HPF (test code = See_Comment [Autom ated message] 8529526485) The system [employer] generated this result transmitted ref erence range: 0 - 5 HP F. The reference range was not used to int erpret this result as normal/abnormal . BACTERIA (test code = Few Negative A 8722354577) MUCOUS (test code = Slight Negative LPF A 4778089358) SQ EPITH (test code = HPF 2802880168) HYAL CAST (test code = See_Comment H [Aut omated message] 2490474515) The system [employer] generated this result transmitted ref erence range: <=2 LPF. The reference range was not used to int erpret this result as normal/abnormal . Lab Interpretation (test Abnormal code = 63014-1) [facility]ERR[facility] [id number] 23:42:00 Test Item Value Reference Range Interpretation Comments FERRITIN (test code = 107.0 ng/mL 18464 4818812369) BINTA (test code = BINTA) Biotin has been reported to cause a negative bias, interpret results relative to patient's use of biotin. Lab Interpretation (test Normal code = 76125-6) [facility]FERRITIN [id number] 23:42:00 Test Item Value Reference Range Interpretation Comments FERRITIN (test code = 107.0 ng/mL 18-464 0461401036) BINTA (test code = BINTA) Biotin has been reported to cause a negative bias, interpret results relative to patient's use of biotin. Lab Interpretation (test Normal code = 85473-5) [facility] [id number] 23:38:00 Test Item Value Reference Range Interpretation Comments TSH (test code = See_Comment [Automated message] 6983723557) The system [employer] generated this result transmitted ref erence range: 0.45 - 4 .70 mIU/L. The refe rence range was not u sed to interpret this result as normal/abnor mal. Lab Interpretation (test Normal code = 69328-6) [facility] [id number] 23:38:00 Test Item Value Reference Range Interpretation Comments TSH (test code = See_Comment [Automated message] 0177803048) The system [employer] generated this result transmitted ref erence range: 0.45 - 4 .70 mIU/L. The refe rence range was not u sed to interpret this result as normal/abnor mal. Lab Interpretation (test Normal code = 75830-6) [facility] [id number] 23:24:00 Test Item Value Reference Range Interpretation Comments FREE T4 (test code = See_Comment [Autom ated message] 3201901613) The system [employer] generated this result transmitted ref erence range: 0.78 - 2 .20 ng/dL:. The ref erence range was not u sed to interpret this result as normal/abnor mal. Lab Interpretation (test Normal code = 53681-8) [facility] [id number] 23:24:00 Test Item Value Reference Range Interpretation Comments FREE T3 (test code = 4439677491) 3.00 pg/mL 2.77-5.27 Lab Interpretation (test code = Normal 10796-7) [facility] [id number] 23:24:00 Test Item Value Reference Range Interpretation Comments FREE T4 (test code = See_Comment [Autom ated message] 9499308559) The system 1[employer] generated this result transmitted ref erence range: 0.78 - 2 .20 ng/dL:. The ref erence range was not u sed to interpret this result as normal/abnor mal. Lab Interpretation (test Normal code = 24262-0) [facility] [id number] 23:24:00 Test Item Value Reference Range Interpretation Comments FREE T3 (test code = 9916599736) 3.00 pg/mL 2.77-5.27 Lab Interpretation (test code = Normal 34444-4) [facility] IRON BINDING [id number] 23:13:00 Test Item Value Reference Range Interpretation Comments TIBC (test code = 3026632381) 332 ug/dL 250-410 % FE SAT (test code = 8023263041) 9 % 20-50 L Lab Interpretation (test code = Abnormal 15404-5) [facility] IRON [facility]INDING [id number] 23:13:00 Test Item Value Reference Range Interpretation Comments TIBC (test code = 8543839474) 332 ug/dL 250-410 % FE SAT (test code = 8871624836) 9 % 20-50 L Lab Interpretation (test code = Abnormal 71951-0) [facility] WITH [id number] 23:08:00 Test Item Value Reference Range Interpretation Comments WBC (test code = See_Comment [Automated 90-2) message] The sy stem which generated this result transmitted reference range : 4.20 - 10.70 10*3/?L. The reference range was not used to interpret this result as normal/abnormal . RBC (test code = See_Comment L [Automated 229-8) message] The sy stem which generated this result transmitted reference range : 4.26 - 5.52 10*6/?L. The reference range was not used to interpret this result as normal/abnormal . HGB (test code = 11.3 g/dL 12.2-16.4 L 718-7) HCT (test code = 33.9 % 38.4-49.3 L 4544-3) MCV (test code = 100.3 fL 81.7-95.6 H 787-2) MCH (test code = 33.4 pg 26.1-32.7 H 785-6) MCHC (test code = 33.3 g/dL 31.2-35 786-4) RDW-SD (test code = 56.3 fL 38.5-51.6 H 92569-5) RDW-CV (test code = 15.1 % 12.1-15.4 788-0) PLT (test code = See_Comment L [Automated 777-3) message] The sy stem which generated this result transmitted reference range : 150 - 328 10*3/ ?L. The reference r kay was not used to interpret this result as normal/abnormal . MPV (test code = 11.9 fL 9.8-13 97029-4) NRBC/100 WBC (test See_Comment [Automat ed code = 3386306715) message] The system which generated this result transmitted reference range : 0.0 - 10.0 /100 WBCs. The refer ence range was not u sed to interpret th is result as normal/abnormal . NRBC x10^3 (test code <0.01 See_Comment [Auto mated = 4193727735) message] The s ystem which generated this result transmitted reference range : 10*3/?L. The reference range was not used to interpret this result as normal/abnormal . GRAN MAT (NEUT) % 74.7 % (test code = 770-8) IMM GRAN % (test code 0.80 % = 4698507107) LYMPH % (test code = 11.6 % 736-9) MONO % (test code = 9.7 % 5905-5) EOS % (test code = 2.7 % 713-8) BASO % (test code = 0.5 % 706-2) GRAN MAT x10^3(ANC) 6.85 10*3/uL 1.99-6.95 (test code = 6339975214) IMM GRAN x10^3 (test 0.07 10*3/uL 0-0.06 H code = 1878510272) LYMPH x10^3 (test code 1.06 10*3/uL 1.09-3.23 L = 731-0) MONO x10^3 (test code 0.89 10*3/uL 0.36-1.02 = 742-7) EOS x10^3 (test code = 0.25 10*3/uL 0.06-0.53 711-2) BASO x10^3 (test code 0.05 10*3/uL 0.01-0.09 = 704-7) Lab Interpretation Abnormal (test code = 98597-4) [facility] WITH [id number] 23:08:00 Test Item Value Reference Range Interpretation Comments WBC (test code = See_Comment [Automated 6690-2) message] The sy stem which generated this result transmitted reference range : 4.20 - 10.70 10*3/?L. The reference range was not used to interpret this result as normal/abnormal . RBC (test code = See_Comment L [Automated 789-8) message] The sy stem which generated this result transmitted reference range : 4.26 - 5.52 10*6/?L. The reference range was not used to interpret this result as normal/abnormal . HGB (test code = 11.3 g/dL 12.2-16.4 L 718-7) HCT (test code = 33.9 % 38.4-49.3 L 4544-3) MCV (test code = 100.3 fL 81.7-95.6 H 787-2) MCH (test code = 33.4 pg 26.1-32.7 H 785-6) MCHC (test code = 33.3 g/dL 31.2-35 786-4) RDW-SD (test code = 56.3 fL 38.5-51.6 H 98750-4) RDW-CV (test code = 15.1 % 12.1-15.4 788-0) PLT (test code = See_Comment L [Automated 777-3) message] The sy stem which generated this result transmitted reference range : 150 - 328 10*3/ ?L. The reference r kay was not used to interpret this result as normal/abnormal . MPV (test code = 11.9 fL 9.8-13 67216-8) NRBC/100 WBC (test See_Comment [Automat ed code = 7627773783) message] The system which generated this result transmitted reference range : 0.0 - 10.0 /100 WBCs. The refer ence range was not u sed to interpret th is result as normal/abnormal . NRBC x10^3 (test code <0.01 See_Comment [Auto mated = 0975314430) message] The s ystem which generated this result transmitted reference range : 10*3/?L. The reference range was not used to interpret this result as normal/abnormal . GRAN MAT (NEUT) % 74.7 % (test code = 770-8) IMM GRAN % (test code 0.80 % = 2601763003) LYMPH % (test code = 11.6 % 736-9) MONO % (test code = 9.7 % 5905-5) EOS % (test code = 2.7 % 713-8) BASO % (test code = 0.5 % 706-2) GRAN MAT x10^3(ANC) 6.85 10*3/uL 1.99-6.95 (test code = 2258033433) IMM GRAN x10^3 (test 0.07 10*3/uL 0-0.06 H code = 5802396979) LYMPH x10^3 (test code 1.06 10*3/uL 1.09-3.23 L = 731-0) MONO x10^3 (test code 0.89 10*3/uL 0.36-1.02 = 742-7) EOS x10^3 (test code = 0.25 10*3/uL 0.06-0.53 711-2) BASO x10^3 (test code 0.05 10*3/uL 0.01-0.09 = 704-7) Lab Interpretation Abnormal (test code = 23743-6) [facility]. METABOLIC PANEL ([id number])2020-06-12 23:03:00 Test Item Value Reference Range Interpretation Comments NA (test code = 138 mmol/L 135-145 8732508929) K (test code = 5.0 mmol/L 3.5-5 3960996674) CL (test code = 102 mmol/L 98-108 0215281145) CO2 TOTAL (test code = 29 mmol/L 23-31 7708189421) AGAP (test code = 2-16 0388812957) BUN (test code = 49 mg/dL 7-23 H 3051491827) GLUCOSE (test code = 87 mg/dL 70-110 3300131951) CREATININE (test code = 2.63 mg/dL 0.6-1.25 H 7283896297) TOTAL BILI (test code = 1.1 mg/dL 0.1-1.4 9195494099) CALCIUM (test code = 9.3 mg/dL 8.6-10.6 9234758230) T PROTEIN (test code = 6.7 g/dL 6.3-8.2 2471729380) ALBUMIN (test code = 4.0 g/dL 3.5-5 7206680037) ALK PHOS (test code = 146 U/L 34-122 H 9626949887) ALTv (test code = 35 U/L 5-50 1742-6) AST(SGOT) (test code = 31 U/L 13-40 7382603690) eGFR Calculation mL/min/1.73m2 (Non-) (test code = 8059017453) eGFR Calculation mL/min/1.73m2 () (test code = 1634653030) BINTA (test code = BINTA) Association of Glomerular Filtration Rate (GFR) and Staging of Kidney Disease* + --+ --+ ------+| GFR (mL/min/1.73 m2) ?| With Kidney Damage ?| ?Without Kidney Damage+ --------+ --------+ +| ?>90 ?| ?Stage one ?| ? Normal ?+ ---+ ---+ -------+| ?60-89 ?| ?Stage two ?| ? Decreased GFR ? + --+ --+ ------+| ?30-59 ?| ?Stage three ?| ? Stage three ? + --+ --+ ------+| ?15-29 ?| ?Stage four ? | ? Stage four ?+ ---+ ---+ -------+| ?<15 (or dialysis) ? ?| ?Stage five ? | ? Stage five ?+ ---+ ---+ -------+ *Each stage assumes the associated GFR level has been in effect for at least three months. ?Stages 1 to 5, with or without kidney disease, indicate chronic kidney disease. Notes: Determination of stages one and two (with eGFR >59mL/min/1.73 m2) requires estimation of kidney damage for at least three months as defined by structural or functional abnormalities of the kidney, manifested by either:Pathological abnormalities or Markers of kidney damage (including abnormalities in the composition of the blood or urine or abnormalities in imaging tests). Lab Interpretation Abnormal (test code = 42871-5) [facility]03:00 Test Item Value Reference Range Interpretation Comments IRON (test code = 7332957588) 31 ug/dL 50-160 L Lab Interpretation (test code = Abnormal 11053-6) [facility] METABOLIC PANEL ([id number])2020-06-12 23:03:00 Test Item Value Reference Range Interpretation Comments NA (test code = 138 mmol/L 135-145 5350792135) K (test code = 5.0 mmol/L 3.5-5 0536945797) CL (test code = 102 mmol/L 98-108 0566262149) CO2 TOTAL (test code = 29 mmol/L 23-31 2369168333) AGAP (test code = 2-16 6765935638) BUN (test code = 49 mg/dL 7-23 H 7382813247) GLUCOSE (test code = 87 mg/dL 70-110 9581785326) CREATININE (test code = 2.63 mg/dL 0.6-1.25 H 5372194040) TOTAL BILI (test code = 1.1 mg/dL 0.1-1.7 2777142990) CALCIUM (test code = 9.3 mg/dL 8.6-10.6 4484602350) T PROTEIN (test code = 6.7 g/dL 6.3-8.2 4336739106) ALBUMIN (test code = 4.0 g/dL 3.5-5 5838077503) ALK PHOS (test code = 146 U/L 34-122 H 1511517316) ALTv (test code = 35 U/L 5-50 1742-6) AST(SGOT) (test code = 31 U/L 13-40 6827746095) eGFR Calculation mL/min/1.73m2 (Non-) (test code = 8045472759) eGFR Calculation mL/min/1.73m2 () (test code = 1607819633) BINTA (test code = BINTA) Association of Glomerular Filtration Rate (GFR) and Staging of Kidney Disease* + --+ --+ ------+| GFR (mL/min/1.73 m2) ?| With Kidney Damage ?| ?Without Kidney Damage+ --------+ --------+ +| ?>90 ?| ?Stage one ?| ? Normal ?+ ---+ ---+ -------+| ?60-89 ?| ?Stage two ?| ? Decreased GFR ? + --+ --+ ------+| ?30-59 ?| ?Stage three ?| ? Stage three ? + --+ --+ ------+| ?15-29 ?| ?Stage four ? | ? Stage four ?+ ---+ ---+ -------+| ?<15 (or dialysis) ? ?| ?Stage five ? | ? Stage five ?+ ---+ ---+ -------+ *Each stage assumes the associated GFR level has been in effect for at least three months. ?Stages 1 to 5, with or without kidney disease, indicate chronic kidney disease. Notes: Determination of stages one and two (with eGFR >59mL/min/1.73 m2) requires estimation of kidney damage for at least three months as defined by structural or functional abnormalities of the kidney, manifested by either:Pathological abnormalities or Markers of kidney damage (including abnormalities in the composition of the blood or urine or abnormalities in imaging tests). Lab Interpretation Abnormal (test code = 74376-7) [facility] 23:03:00 Test Item Value Reference Range Interpretation Comments IRON (test code = 6607868961) 31 ug/dL 50-160 L Lab Interpretation (test code = Abnormal 12273-7) [facility] TylerGLYCOSYLATED HEMOGLOBIN (A1C)2020-06-12 22:58:00 Test Item Value Reference Range Interpretation Comments HGB A1C (test code = 4.9 % 4-6 4548-4) BINTA (test code = BINTA) %A1C (NGSP) Interpretation (ADA)4.8-5.6 ? ? Normal or (Non-Diabetic Range)5.7-6.4 ? ? Increased Risk (Pre-Diabetic)>6.5 ?Diabetes Indicated Lab Interpretation Normal (test code = 28822-7) [facility]2020-06-12 22:58:00 Test Item Value Reference Range Interpretation Comments HGB A1C (test code = 4.9 % 4-6 4548-4) BINTA (test code = BINTA) %A1C (NGSP) Interpretation (ADA)4.8-5.6 ? ? Normal or (Non-Diabetic Range)5.7-6.4 ? ? Increased Risk (Pre-Diabetic)>6.5 ?Diabetes Indicated Lab Interpretation Normal (test code = 92993-3) [facility] (NA, K, CL, CO2, GLUCOSE, BUN, CREATININE, CA)2020-01-19 17:27:00 Test Item Value Reference Range Interpretation Comments NA (test code = 139 mmol/L 135-145 8002340128) K (test code = 5.3 mmol/L 3.5-5 H 4215913898) CL (test code = 113 mmol/L 98-108 H 6566765723) CO2 TOTAL (test code = 19 mmol/L 23-31 L 7720371215) AGAP (test code = 2-16 1975990625) BUN (test code = 54 mg/dL 7-23 H 8788285318) GLUCOSE (test code = 102 mg/dL 70-110 2463108440) CREATININE (test code = 2.72 mg/dL 0.6-1.25 H 4982005549) CALCIUM (test code = 9.0 mg/dL 8.6-10.6 4488146662) eGFR Calculation mL/min/1.73m2 (Non-) (test code = 7948468660) eGFR Calculation mL/min/1.73m2 () (test code = 9117379632) BINTA (test code = BINTA) Association of Glomerular Filtration Rate (GFR) and Staging of Kidney Disease* + --+ --+ ------+| GFR (mL/min/1.73 m2) ?| With Kidney Damage ?| ?Without Kidney Damage+ --------+ --------+ +| ?>90 ?| ?Stage one ?| ? Normal ?+ ---+ ---+ -------+| ?60-89 ?| ?Stage two ?| ? Decreased GFR ? + --+ --+ ------+| ?30-59 ?| ?Stage three ?| ? Stage three ? + --+ --+ ------+| ?15-29 ?| ?Stage four ? | ? Stage four ?+ ---+ ---+ -------+| ?<15 (or dialysis) ? ?| ?Stage five ? | ? Stage five ?+ ---+ ---+ -------+ *Each stage assumes the associated GFR level has been in effect for at least three months. ?Stages 1 to 5, with or without kidney disease, indicate chronic kidney disease. Notes: Determination of stages one and two (with eGFR >59mL/min/1.73 m2) requires estimation of kidney damage for at least three months as defined by structural or functional abnormalities of the kidney, manifested by either:Pathological abnormalities or Markers of kidney damage (including abnormalities in the composition of the blood or urine or abnormalities in imaging tests). Lab Interpretation Abnormal (test code = 79025-9) [facility] (THIAMINE), WHOLE [id number] 14:47:00 Test Item Value Reference Range Interpretation Comments Vitamin B1, Whole 100 nmol/L 70-180 INTERPRETI VE INFORMATION: Blood (test code = Vitamin B 1, Whole Blood 47980-6) This assay kriss ures the concentration o f thiamine diphosphate (TD P), the primary active form of vitamin B1. Carole roximately 90 percent of v itamin B1 present in whol e blood is TDP. Thiamine a nd thiamine monoph osphate, which comprise the remaining 10 pe rcent, are not measured. T est developed and characteristics determined by [facility]. S ee Compliance Stat ement B: [employer]/CSP erformed By: RICHARD richards[address] [place] [address] [id number] aboratory Director: Cheo García MD, MS [facility] TylerVIT[facility] B6, [id number] 20:50:00 Test Item Value Reference Range Interpretation Comments VIT B6 (test code 40 nmol/L 20.0-125.0 INTERPRETI VE INFORMATION: = 91299-1) Vitamin B6 (Pyr idoxal 5-Phosphate) Py ridoxal 5'-phosphate me asured in a specimen collec adithya following an 8- hour or overnight fast accurately indicates vitam in B6 nutritional sta tus. Non-fasting spe cimen concentration r eflects recent vitamin intake. Test developed and characteristics determined by RICHARD [facility]. See Compliance Stat ement B: [email or web address] erformed By: RICHARD [address] [place], [place] [address]Hqbhxnw [facility] Director: Cheo García MD, MS [facility] B12, [id number] 04:07:00 Test Item Value Reference Range Interpretation Comments VIT B12 (test code = 594 pg/mL 240-930 6795931116) BINTA (test code = BINTA) Biotin has been reported to cause a positive bias, interpret results relative to patient's use of biotin. Lab Interpretation (test Normal code = 88064-7) [facility] (19004)2019-12-14 21:58:00 Test Item Value Reference Range Interpretation Comments NA (test code = 139 mmol/L 135-145 4643505350) K (test code = 5.7 mmol/L 3.5-5 H 9246452438) CL (test code = 112 mmol/L 98-108 H 3671584521) CO2 TOTAL (test code = 20 mmol/L 23-31 L 4390875830) AGAP (test code = 2-16 7882549802) BUN (test code = 54 mg/dL 7-23 H 3677229620) GLUCOSE (test code = 89 mg/dL 70-110 2658891262) CREATININE (test code = 2.53 mg/dL 0.6-1.25 H 4399408642) TOTAL BILI (test code = 0.6 mg/dL 0.1-1.4 1316780118) CALCIUM (test code = 9.1 mg/dL 8.6-10.6 7956868755) T PROTEIN (test code = 6.3 g/dL 6.3-8.2 1590275437) ALBUMIN (test code = 3.6 g/dL 3.5-5 4677629876) ALK PHOS (test code = 116 U/L 34-122 9404189507) ALTv (test code = 60 U/L 5-50 H 1742-6) AST(SGOT) (test code = 45 U/L 13-40 H 3405610045) eGFR Calculation mL/min/1.73m2 (Non-) (test code = 0279713844) eGFR Calculation mL/min/1.73m2 () (test code = 9500550177) BINTA (test code = BINTA) Association of Glomerular Filtration Rate (GFR) and Staging of Kidney Disease* + --+ --+ ------+| GFR (mL/min/1.73 m2) ?| With Kidney Damage ?| ?Without Kidney Damage+ --------+ --------+ +| ?>90 ?| ?Stage one ?| ? Normal ?+ ---+ ---+ -------+| ?60-89 ?| ?Stage two ?| ? Decreased GFR ? + --+ --+ ------+| ?30-59 ?| ?Stage three ?| ? Stage three ? + --+ --+ ------+| ?15-29 ?| ?Stage four ? | ? Stage four ?+ ---+ ---+ -------+| ?<15 (or dialysis) ? ?| ?Stage five ? | ? Stage five ?+ ---+ ---+ -------+ *Each stage assumes the associated GFR level has been in effect for at least three months. ?Stages 1 to 5, with or without kidney disease, indicate chronic kidney disease. Notes: Determination of stages one and two (with eGFR >59mL/min/1.73 m2) requires estimation of kidney damage for at least three months as defined by structural or functional abnormalities of the kidney, manifested by either:Pathological abnormalities or Markers of kidney damage (including abnormalities in the composition of the blood or urine or abnormalities in imaging tests). Lab Interpretation Abnormal (test code = 70841-3) [facility] WITH [id number] 21:58:00 Test Item Value Reference Range Interpretation Comments WBC (test code = See_Comment [Automated 2857-2) message] The sy stem which generated this result transmitted reference range : 4.20 - 10.70 10*3/?L. The reference range was not used to interpret this result as normal/abnormal . RBC (test code = See_Comment L [Automated 119-8) message] The sy stem which generated this result transmitted reference range : 4.26 - 5.52 10*6/?L. The reference range was not used to interpret this result as normal/abnormal . HGB (test code = 10.6 g/dL 12.2-16.4 L 718-7) HCT (test code = 33.2 % 38.4-49.3 L 4544-3) MCV (test code = 104.4 fL 81.7-95.6 H 787-2) MCH (test code = 33.3 pg 26.1-32.7 H 785-6) MCHC (test code = 31.9 g/dL 31.2-35 786-4) RDW-SD (test code = 55.8 fL 38.5-51.6 H 42942-7) RDW-CV (test code = 14.6 % 12.1-15.4 788-0) PLT (test code = See_Comment [Automated 777-3) message] The sy stem which generated this result transmitted reference range : 150 - 328 10*3/ ?L. The reference r kay was not used to interpret this result as normal/abnormal . MPV (test code = 11.3 fL 9.8-13 81639-8) NRBC/100 WBC (test See_Comment [Automat ed code = 0601733247) message] The system which generated this result transmitted reference range : 0.0 - 10.0 /100 WBCs. The refer ence range was not u sed to interpret th is result as normal/abnormal . NRBC x10^3 (test code <0.01 See_Comment [Auto mated = 7230776690) message] The s ystem which generated this result transmitted reference range : 10*3/?L. The reference range was not used to interpret this result as normal/abnormal . GRAN MAT (NEUT) % 67.3 % (test code = 770-8) IMM GRAN % (test code 0.70 % = 7911308219) LYMPH % (test code = 16.9 % 736-9) MONO % (test code = 10.6 % 5905-5) EOS % (test code = 3.6 % 713-8) BASO % (test code = 0.9 % 706-2) GRAN MAT x10^3(ANC) 4.48 10*3/uL 1.99-6.95 (test code = 2678000999) IMM GRAN x10^3 (test 0.05 10*3/uL 0-0.06 code = 0725923412) LYMPH x10^3 (test code 1.13 10*3/uL 1.09-3.23 = 731-0) MONO x10^3 (test code 0.71 10*3/uL 0.36-1.02 = 742-7) EOS x10^3 (test code = 0.24 10*3/uL 0.06-0.53 711-2) BASO x10^3 (test code 0.06 10*3/uL 0.01-0.09 = 704-7) Lab Interpretation Abnormal (test code = 98105-4) [facility]"
[2022-02-18 01:27] LABS: Absolute Lymphocytes (CBC) 0.6 K/uL (0.7-4.9); Hematocrit 25.4 % (39.6-49.0); Lymphocytes % 10.4 % (15.3-44.8); MPV 9.7 fL (7.6-11.3); RBC Red Blood Cell Count 2.57 M/uL (4.33-5.43)
[2022-02-18 02:10] LABS: Potassium 5.7 mmol/L (3.5-5.1)
[2022-02-18 02:19] LABS: Blood Morphology Comment NOT SEEN (NOT SEEN); Platelet Estimate ADEQ
--- NOTE | 2022-02-18 02:41 | EDPHYS ---
Physician Documentation [facility] Name: Adolph Linton Age: 86 yrs Sex: Male : 1935 Arrival Date: 02/18/2022 Time: 00:00 Bed 13 Private MD: ED Physician Og Pérez HPI: 02/18 15:04 This 86 yrs old Male presents to ER via EMS with complaints of Fall Injury. kb 15:04 Details of fall: The patient fell from an upright position, while walking. Onset: The kb symptoms/episode began/occurred today. Associated injuries: The patient sustained injury to the head, hematoma, left knee, ecchymosis, painful injury, swelling, posterior aspect of left shoulder and left elbow, skin tears. Severity of symptoms: At their worst the symptoms were moderate, in the emergency department the symptoms are unchanged. The patient has experienced similar episodes in the past. The patient has not recently seen a physician. EMS reports pt was found on the ground in the driveway by candy packer. Climate Change Analyst told them she went into the house to make coffee and wasn't gone very long, but EMS reports it appeared that pt had been on the ground for some time. Pt has dementia and is at baseline. Pt c/o pain to left knee, has skin tear to left shoulder and left elbow, hematoma to left eyebrow.. Historical: - Allergies: 00:18 No Known Allergies; vc1 - Home Meds: 00:18 Eliquis 2.5 mg oral tab [Active]; memantine oral [Active]; galantamine oral [Active]; vc1 atorvastatin oral [Active]; B Complex Plus Vitamin C oral [Active]; aspirin 81 mg Oral cap 1 cap once daily [Active]; Iron CR Oral [Active]; losartan-hydrochlorothiazide 50-12.5 mg oral tab 0.5 tabs once daily [Active]; - PMHx: 00:21 Alzheimer's disease; Dementia; Hypercholesterolemia; Hypertensive disorder; vc1 - Immunization history:: Adult Immunizations up to date, Client reports having NOT received the Covid vaccine. - Social history:: Smoking status: Patient denies any tobacco usage or history of. ROS: 15:09 Constitutional: Negative for fever, chills, and weight loss. kb 15:09 MS/extremity: Positive for injury or acute deformity, ecchymosis, pain, swelling, tenderness, of the left knee. 15:09 Skin: Positive for of the left elbow and posterior aspect of left shoulder, skin tear. 15:09 All other systems are negative. Exam: 15:09 Constitutional: This is a well developed, well nourished patient who is awake, alert, kb and in no acute distress. ENT: Moist Mucous membranes Cardiovascular: Regular rate and rhythm with a normal S1 and S2. No gallops, murmurs, or rubs. No pulse deficits. Respiratory: Respirations even and unlabored. No increased work of breathing. Talking in full sentences Abdomen/GI: Soft, non-tender. No distention 15:09 Musculoskeletal/extremity: Extremities: grossly normal except: noted in the left knee: contusion, ecchymosis, pain, swelling, tenderness, ROM: limited passive range of motion due to pain, in the left knee, Circulation is intact in all extremities. Sensation intact. 15:09 Skin: injury, contusion(s), that are superficial, of the left knee, hematoma to left eyebrow, skin tear to left shoulder and left elbow; old bruising to left side of face. Vital Signs: 00:09 BP 124 / 57; Pulse 66; Resp 17; Temp 98.4(O); Pulse Ox 100% on R/A; vc1 02:30 BP 139 / 62; Pulse 52; Resp 15; Pulse Ox 100% ; vc1 03:00 BP 142 / 62; Pulse 56; Resp 17; Pulse Ox 100% on R/A; vc1 05:00 BP 126 / 71; Pulse 56; Resp 17; Pulse Ox 100% ; vc1 06:00 BP 124 / 67; Pulse 58; Resp 16; Pulse Ox 98% ; vc1 MDM: 00:00 Patient medically screened. kb 15:07 Data reviewed: vital signs, nurses notes. Data interpreted: Pulse oximetry: on room air kb is 98 %. Interpretation: normal. Counseling: I had a detailed discussion with the patient and/or guardian regarding: the historical points, exam findings, and any diagnostic results supporting the discharge/admit diagnosis, lab results, radiology results, the need for further work-up and treatment in the hospital. ED course: Son states west lives at home with 24 hour caregivers. States he has dementia and his day/night cycle is mixed up so he likes to sit outside on the porch at night. States he was sitting in the garage tonight when the caregiver went inside, he got up and walked down the driveway and fell. States pt has had a fall last week as well causing the bruising to left side of face. States he does not want pt placed in a senior care because he promised him he would not do that. Labs from [facility] reviewed, creatinine 2.6 when those were done. . 02/18 00:06 Order name: CBC with Diff; Complete Time: 02:20 kb 02/18 00:06 Order name: Basic Metabolic Panel; Complete Time: 02:11 kb 02/18 00:06 Order name: CPK; Complete Time: 02:11 kb 02/18 01:36 Order name: Manual Differential; Complete Time: 02:20 EDMS 02/18 02:11 Order name: Potassium; Complete Time: 05:07 ms3 02/18 06:29 Order name: SARS RAPID wm 02/18 00:05 Order name: CT Traumagram (Head C Spine CAP wo con); Complete Time: 15:16 kb 02/18 01:07 Order name: Knee Left 3 View XRAY; Complete Time: 15:16 kb 02/18 07:14 Order name: SARS-COV-2 Antigen Rapid; Complete Time: 15:16 EDMS 02/18 12:34 Order name: Basic Metabolic Panel; Complete Time: 15:16 EDMS 02/18 00:06 Order name: IV Start; Complete Time: 01:06 kb 02/18 00:47 Order name: Wound Care; Complete Time: 01:26 kb 02/18 02:36 Order name: EKG; Complete Time: 02:37 bb 02/18 02:36 Order name: EKG - Nurse/Tech; Complete Time: 03:39 bb Administered Medications: 05:10 Drug: D50W 50 ml Route: IVP; Site: right wrist; vc1 05:11 Drug: Insulin Regular Human 10 units {Co-Signature: ja4 (Abdiaziz Osborne RN).} Route: IVP; vc1 Site: right wrist; 05:11 Drug: Calcium Gluconate 1 grams Route: IVPB; Infused Over: 60 mins; Site: right wrist; vc1 06:32 Not Given (Patient Refused): Tylenol 1000 mg PO once vc1 Disposition: 02/19 08:31 Co-signature as Attending Physician, Og Pérez DO I was immediately available on-site ms3 in the Emergency Department for consultation in the care of the patient.. Disposition Summary: 02/18/22 02:41 Hospitalization Ordered Hospitalization Status: Observation kb Provider: Enrique Goncalves Condition: Stable kb Problem: new kb Symptoms: are unchanged kb Bed/Room Type: Standard kb Location: Telemetry/MedSurg (Inpatient)(02/18/22 18:41) Room Assignment: [facility](02/18/22 18:41) Diagnosis - Fall on same level from slipping, tripping and stumbling without subsequent kb striking against object - Skin tear left shoulder kb - Skin tear left elbow kb - Contusion of left knee kb - Hyperkalemia kb Forms: - Medication Reconciliation Form kb - SBAR form kb Signatures: Dispatcher [employer] EDMS Ashley Simmons, JIMENA-C DRYWALLER-Jesus Alberto Desir PA PA jmm Ballard, Brenda, RN RN Kamille Mendez RN RN Thi Mccoy, RN RN Og Arenas DO DO ms3 Gris Alfred RN RN vc1 Katie Fay PA-C PA-C sb4 Abdiaziz Osborne RN ja4 Corrections: (The following items were deleted from the chart) 02/18 04:04 02:41 Telemetry/MedSurg (observation) kb cg 04:04 02:41 kb cg 18:41 04:04 [facility] ER HOLD cg ss 18:41 04:04 ERHOLD- cg ss
--- NOTE | 2022-02-18 02:41 | ER ---
Nurse's Notes [facility] Name: Adolph Linton Age: 86 yrs Sex: Male : 1935 Arrival Date: 02/18/2022 Time: 00:00 Bed 13 Private MD: Diagnosis: Fall on same level from slipping, tripping and stumbling without subsequent striking against object;Skin tear left shoulder;Skin tear left elbow;Contusion of left knee;Hyperkalemia Presentation: 02/18 00:09 Chief complaint: EMS states: "Pt was found outside in his driveway, board certified behavioral analyst states vc1 she was making coffee and wasn't gone very long.". Ebola Screen: No symptoms or risks identified at this time. Initial Sepsis Screen: Does the patient meet any 2 criteria? No. Patient's initial sepsis screen is negative. Does the patient have a suspected source of infection? No. Patient's initial sepsis screen is negative. Risk Assessment: Do you want to hurt yourself or someone else? Patient reports no desire to harm self or others. Onset of symptoms is unknown. 00:09 Method Of Arrival: EMS: [facility] vc1 00:09 Acuity: DARSHAN 2 vc1 00:18 Coronavirus screen: Vaccine status: Patient reports being unvaccinated. At this time, vc1 the client does not indicate any symptoms associated with coronavirus-19. Triage Assessment: 00:12 General: Appears in no apparent distress. comfortable, Behavior is calm, quiet. Pain: vc1 Denies pain. EENT: No deficits noted. Neuro: Level of Consciousness is awake, History of Dementia/Alzheimers. Oriented to person. Cardiovascular: No deficits noted. Respiratory: Airway is patent Respiratory effort is even, unlabored, Respiratory pattern is regular, symmetrical. GI: No deficits noted. No signs and/or symptoms were reported involving the gastrointestinal system. : No deficits noted. No signs and/or symptoms were reported regarding the genitourinary system. Derm: Bruising that is dark purple, on nose, left eye, dorsal aspect of left forearm and left knee Skin tear to left upper arm and left elbow. Historical: - Allergies: 00:18 No Known Allergies; vc1 - Home Meds: 00:18 Eliquis 2.5 mg oral tab [Active]; memantine oral [Active]; galantamine oral [Active]; vc1 atorvastatin oral [Active]; B Complex Plus Vitamin C oral [Active]; aspirin 81 mg Oral cap 1 cap once daily [Active]; Iron CR Oral [Active]; losartan-hydrochlorothiazide 50-12.5 mg oral tab 0.5 tabs once daily [Active]; - PMHx: 00:21 Alzheimer's disease; Dementia; Hypercholesterolemia; Hypertensive disorder; vc1 - Immunization history:: Adult Immunizations up to date, Client reports having NOT received the Covid vaccine. - Social history:: Smoking status: Patient denies any tobacco usage or history of. Screenin:11 Abuse screen: Denies threats or abuse. Nutritional screening: No deficits noted. vc1 Tuberculosis screening: No symptoms or risk factors identified. Fall Risk None identified. Assessment: 00:30 Reassessment: See triage assessment. jb4 01:00 Reassessment: No changes from previously documented assessment. Patient and/or family jb4 updated on plan of care and expected duration. Pain level reassessed. 02:00 Reassessment: No changes from previously documented assessment. Patient and/or family jb4 updated on plan of care and expected duration. Pain level reassessed. 03:00 Reassessment: No changes from previously documented assessment. Patient and/or family vc1 updated on plan of care and expected duration. Pain level reassessed. 04:00 Reassessment: No changes from previously documented assessment. Patient and/or family vc1 updated on plan of care and expected duration. Pain level reassessed. 05:00 Reassessment: No changes from previously documented assessment. Patient and/or family vc1 updated on plan of care and expected duration. Pain level reassessed. 06:00 Reassessment: No changes from previously documented assessment. Patient and/or family vc1 updated on plan of care and expected duration. Pain level reassessed. 07:05 Reassessment: Patient appears in no apparent distress at this time. Patient and/or tw2 family updated on plan of care and expected duration. Pain level reassessed. Patient is alert, oriented x 3, equal unlabored respirations, skin warm/dry/pink. sitter at bedside and will remain at bedside throughout shift. 09:05 Reassessment: Patient appears in no apparent distress at this time. Patient and/or tw2 family updated on plan of care and expected duration. Pain level reassessed. Patient is alert, oriented x 3, equal unlabored respirations, skin warm/dry/pink. 10:47 Reassessment: SON Chelle Farfan JR ph#[phone]. pts daughter in law Radha luna2 ph#[phone] per social service Sruthi. Per Sruthi pts family trying to get placement for pt. also family reports he does not like to be told what to do and wears pull up style briefs, also pt is disoriented if woken up unexpectedly. Vital Signs: 00:09 BP 124 / 57; Pulse 66; Resp 17; Temp 98.4(O); Pulse Ox 100% on R/A; vc1 02:30 BP 139 / 62; Pulse 52; Resp 15; Pulse Ox 100% ; vc1 03:00 BP 142 / 62; Pulse 56; Resp 17; Pulse Ox 100% on R/A; vc1 05:00 BP 126 / 71; Pulse 56; Resp 17; Pulse Ox 100% ; vc1 06:00 BP 124 / 67; Pulse 58; Resp 16; Pulse Ox 98% ; vc1 ED Course: 00:00 Patient arrived in ED. as6 00:00 Og Pérez DO is Attending Physician. ms3 00:00 Ashley Simmons FNP-C is PHCP. kb 00:08 Gris Alfred RN is Primary Nurse. vc1 00:11 Triage completed. vc1 00:18 Arm band placed on right wrist. vc1 00:22 Patient has correct armband on for positive identification. Bed in low position. Call vc1 light in reach. Side rails up X2. Adult w/ patient. Client placed on continuous cardiac and pulse oximetry monitoring. NIBP monitoring applied. 00:41 CT Traumagram (Head C Spine CAP wo con) In Process Unspecified. EDMS 01:31 Knee Left 3 View XRAY In Process Unspecified. EDMS 02:02 Irrigation of skin tear on Left shoulder, Left posterior elbow irrigated with normal jb4 saline Hibiclens solution. 02:41 Enrique Goncalves MD is Hospitalizing Provider. kb 06:15 No provider procedures requiring assistance completed. Patient admitted, IV remains in vc1 place. 07:09 Primary Nurse role handed off by Gris AlfredCARLEY tw2 07:09 Rita Prasad, RN is Primary Nurse. tw2 Administered Medications: 05:10 Drug: D50W 50 ml Route: IVP; Site: right wrist; vc1 05:11 Drug: Insulin Regular Human 10 units {Co-Signature: papi (Abdiaziz Osborne RN).} Route: IVP; vc1 Site: right wrist; 05:11 Drug: Calcium Gluconate 1 grams Route: IVPB; Infused Over: 60 mins; Site: right wrist; vc1 06:32 Not Given (Patient Refused): Tylenol 1000 mg PO once vc1 Medication: 00:22 VIS not applicable for this client. vc1 Outcome: 02:41 Decision to Hospitalize by Provider. kb 06:15 Admitted to ER Hold. Please see [facility] for further documentation. vc1 06:15 Condition: good 06:15 Instructed on the need for admit. vc1 20:12 Patient left the ED. jb4 Signatures: Dispatcher [employer] EDMS Ashley Simmons, JIMENA-C CURATOR [employer]-CkRita Angel RN RN tw2 Roberto Moralez RN RN jb4 Og Pérez DO DO ms3 Justin Casillas RN RN as6 Gris Alfred RN RN vc1 Abdiaziz pierce4 Corrections: (The following items were deleted from the chart) 10:56 10:47 Reassessment: KOURTNEY Farfan JR #[phone]. pts daughter in law 2 #[phone] per social service 2 10:57 10:47 Reassessment: KOURTNEY Farfan JR #[phone]. pts daughter in law 2 #[phone] per social service Sruthi. Per Sruthi pts family trying to get placement for pt. also family reports he does not like to be told what to do and wears pull up style briefs. tw2 17:43 10:47 Reassessment: KOURTNEY Farfan JR #[phone]. pts daughter in law 2 #[phone] per social service Sruthi. Per Sruthi pts family trying to get placement for pt. also family reports he does not like to be told what to do and wears pull up style briefs, also pt is disoriented if woken up unexpectedly tw2
[2022-02-18] MEDS ORDERED: INSULIN -REGULAR HUMAN 50 UNIT/0.5 ML ML ONE (04:12)
[2022-02-18] MEDS ORDERED: CALCIUM GLUCONATE 1 GM IVPB 1 GM/50 ML BAG IV ONE (04:14)
[2022-02-18] MEDS ORDERED: ACETAMINOPHEN 500 MG TAB ONE (04:14)
[2022-02-18] MEDS ORDERED: DEXTROSE 10%-WATER 500 ML IV ONE (04:14)
--- NOTE | 2022-02-18 05:18 | P.HP ---
Certification for Inpatient Patient admitted to: Inpatient With expected LOS: <2 Midnights Patient will require the following post-hospital care: Detention Practitioner: I am a practitioner with admitting privileges, knowledge of patient current condition, hospital course, and medical plan of care. Services: Services provided to patient in accordance with Admission requirements found in Title 42 Section 412.3 of the Code of Federal Regulations Patient History Date of Service: 02/18/22 Reason for admission: Recurrent Falls, SISSY, Hyperkalemia History of Present Illness: Patient is an 86-year-old male with history of atrial flutter on Eliquis, hypertension, CAD s/p pacemaker, and Alzheimer's dementia who presents to the ED after fall. Patient's family reports that he lives at home alone and has 24- hour monitoring from [facility]. They state that he went outside when they were not watching and fell. He falls very frequently according to family and has a significant amount of bruising to his left face that they say he sustained last week. Today his imaging show 2 left-sided rib fractures but no acute head injury. Left knee is significantly visibly swollen but imaging is negative for fractures. His potassium was noted to be 5.7 and repeat confirmed. He was given insulin, D50, and calcium gluconate in ED. Creatinine also noted to be elevated and hemoglobin low at 8.6. Patient's [id number] expresses wish for placement as patient's Alzheimer's is advancing and he keeps falling. Patient also has a tendency to become combative when confused. he is admitted for further management. - Past Medical/Surgical History Diabetic: No -: Afib/flutter -: CAD -: Dementia -: Hypertension -: Chronic kidney disease -: Pacemaker -: Nephrectomy Psychosocial/ Personal History: Patient is . He lives at home alone with 24 hour [facility] care. - Family History Family History: Reviewed- Non-Contributory - Social History Smoking Status: Unknown if ever smoked Alcohol use: No CD- Drugs: No Caffeine use: Yes Place of Residence: Home Review of Systems Musculoskeletal: Leg Pain Integumentary: Bruising Physical Examination - Physical Exam General: Alert, In no apparent distress, Confused HEENT: PERRLA, Other (bruising and hematoma noted to left face), EOMI Neck: Supple, No LAD Respiratory: Clear to auscultation bilaterally, Normal air movement Cardiovascular: Regular rate/rhythm, Normal S1 S2 Gastrointestinal: Normal bowel sounds, No tenderness Musculoskeletal: Other (right knee edematous) Neurological: Normal tone, Sensation intact - Studies Laboratory Data (last 24 hrs) 02/18/22 03:47: Potassium 5.7 H* 02/18/22 01:05: Sodium 139, Potassium 5.7 H*, BUN 71 H, Creatinine 2.91 H, Glucose 102 02/18/22 01:05: WBC 6.10, Hgb 8.6 L, Hct 25.4 L, Plt Count 129 L Assessment and Plan - Problems (Diagnosis) (1) Recurrent falls Current Visit: Yes Status: Acute (2) Anemia Current Visit: Yes Status: Chronic Qualifiers: Anemia type: unspecified type Qualified Code(s): D64.9 - Anemia, unspecified (3) Atrial flutter Current Visit: Yes Status: Chronic Qualifiers: Atrial flutter type: unspecified Qualified Code(s): I48.92 - Unspecified atrial flutter (4) Hyperkalemia Current Visit: Yes Status: Acute (5) Acute kidney injury superimposed on CKD Current Visit: Yes Status: Acute (6) Hypertension Current Visit: Yes Status: Chronic Qualifiers: Hypertension type: primary hypertension Qualified Code(s): I10 - Essential (primary) hypertension (7) Dementia Current Visit: Yes Status: Chronic Qualifiers: Dementia type: Alzheimer's Alzheimer's disease onset: unspecified onset Dementia behavioral disturbance: without behavioral disturbance Qualified Code(s): G30.9 - Alzheimer's disease, unspecified; F02.80 - Dementia in other diseases classified elsewhere without behavioral disturbance - Plan -BMP every 6 hours to assure potassium downtrending. Received calcium gluconate and insulin in the ED -accounting advisory services manager consult. Patient's son has been hesitant to put patient into senior care but [id number] is requesting psychosocial rehabilitation counselor consult -General surgery consult as trauma alert was initially called -Physical therapy consult -Pain control -Monitor CBC as hemoglobin is low at 8.6 -Consider nephrology consult -Monitor and replete electrolytes per protocol -Reconcile and continue home medications -Eliquis for VTE ppx -Full code Discharge Plan: Jail Plan to discharge in: 48 Hours - Advance Directives Does patient have a Living Will: No Does patient have a Durable POA for Healthcare: No - Code Status/Comfort Care Code Status Assessed: Yes (Full) Critical Care: No Time Spent Managing Pts Care (In Minutes): 50
[2022-02-18] MEDS ORDERED: ACETAMINOPHEN 500 MG TAB PO PRN (06:17)
[2022-02-18] MEDS ORDERED: ONDANSETRON 4 MG/2 ML VIAL IV PRN (06:17)
[2022-02-18 06:24] VITALS: BMI 26.7
[2022-02-18 07:14] LABS: SARS-CoV-2 Antigen Rapid Res Negative (Negative)
--- NOTE | 2022-02-18 12:13 | RAD REPORT ---
EXAM DESCRIPTION: RAD - Knee Left 3 View - 02/18/2022 1:28 am CLINICAL HISTORY: The patient is 86 years old and is Male; PAIN TECHNIQUE: Three views of the left knee. COMPARISON: No relevant prior studies available. FINDINGS: BONES/JOINTS: Severe tricompartmental degenerative changes of the left knee are noted, g reatest in the medial compartment. No fracture, subluxation, dislocation, or joint effusion are identified. SOFT TISSUES: Unremarkable. VASCULATURE: Dense vascular calcifications are demonstrated. IMPRESSION: Marked degenerative changes of the left knee with no acute osseous abnormality. Electronically signed by: Navi Berg MD 02/18/2022 2:22 AM CDT Due to temporary technical issues with the PACS/Fluency reporting system, reports are being signed by the in house radiologists without review as a courtesy to insure prompt reporting. The interpreting radiologist is fully responsible for the content of the report.
--- NOTE | 2022-02-18 12:17 | RAD REPORT ---
EXAM DESCRIPTION: CT - Head C Spine Cap Wo Con - 02/18/2022 12:40 am CLINICAL HISTORY: The patient is 86 years old and is Male; fall TECHNIQUE: Axial computed tomography images of the chest, abdomen and pelvis without intravenous con trast. Sagittal and coronal reformatted images were created and reviewed. This CT exam was perfor med using one or more of the following dose reduction techniques: automated exposure control, adjus tment of the mA and/or kV according to patient size, and/or use of iterative reconstruction technique . COMPARISON: No relevant prior studies available. FINDINGS: HEAD: INTRACRANIAL: No acute intracranial abnormality. No hemorrhage, midline shift, transtentorial herniat ion. No focal ahmadi-white matter differentiation loss. Global cerebral atrophy, not unexpected for pat ient age. Mild periventricular white matter disease. BONES: No fracture of the calvarium or visualized facial bones. Small subcutaneous hyperdense focus n oted overlying the left of midline forehead, presumably reflecting a scalp hematoma. C-SPINE: Multilevel degenerative changes of cervical spine with no prevertebral fracture, subluxation, or disl ocation. No significant bony spinal canal stenosis. CHEST: LUNGS: See below. PLEURAL SPACE: Right apical scarring. Trace bilateral pleural effusions. Patchy central predominant groundglass opacities are noted scattered throughout the bilateral lungs, suggestive of mild pulmona ry edema. No pneumothorax. HEART: Cardiomegaly. ABDOMEN: LIVER: Unremarkable. GALLBLADDER AND BILE DUCTS: Unremarkable. No calcified stones. No ductal dilation. PANCREAS: Unremarkable. No ductal dilation. SPLEEN: Unremarkable. No splenomegaly. ADRENALS: Diffuse thickening of the bilateral adrenal glands with no focal adrenal mass. KIDNEYS AND URETERS: Left nephrectomy changes. Hyperdense cyst demonstrated in the superior pole of the right kidney. Suspected simple renal cyst demonstrated in the superior pole of the right kidney, though poorly evaluated due to lack of contrast and patient motion. STOMACH AND BOWEL: Unremarkable. No obstruction. No mucosal thickening. PELVIS: APPENDIX: No findings to suggest acute appendicitis. BLADDER: Unremarkable. No stones. REPRODUCTIVE: Moderate prostamegaly. CHEST, ABDOMEN and PELVIS: INTRAPERITONEAL SPACE: Unremarkable. No significant fluid collection. No free air. BONES/JOINTS: Extensive multilevel degenerative changes of the cervical, thoracic, lumbar, and sacral spine without fracture or significant subluxation. Prominent Schmorl's node demonstrated in the superior endplate of the T12 vertebra. Degenerative disc changes demonstrated at the L5-S1 lev el. Nondisplaced fracture of the posterior lateral left 11th rib (series CT #601, axial image 66/ 145). No additional acute fractures are identified. A healing fracture of the anterior lateral left s eventh rib is noted. SOFT TISSUES: Mild diffuse anasarca. VASCULATURE: Dense calcified atherosclerosis of the aortic arch, bilateral carotid vessels, descending thoracic and abdominal aorta. Dense multivessel coronary artery calcifications and calcification of the aortic valve. Moder ate mitral annular calcification. No aortic aneurysm. LYMPH NODES: Unremarkable. No enlarged lymph nodes. TUBES, LINES AND DEVICES: Multilead cardiac device demonstrated of the left chest with leads termin ating in the right atria and right ventricle. IMPRESSION (CT head, C-spine, chest, abdomen, and pelvis): 1. Suspected acute, nondisplaced fracture of the posterior lateral left 11th rib. Suspected healing f racture of the anterior lateral left seventh rib. 2. Cardiomegaly with mild pulmonary edema, anasarca, and trace bilateral pleural effusions. 3. No additional acute osseous abnormalities. No acute intracranial abnormalities, acute abnormalitie s of the cervical spine, or other acute abnormalities of the chest, abdomen, or pelvis. 4. Left nephrectomy changes. Hyperdense cyst demonstrated in the superior pole of the right kidney. S uspected simple renal cyst demonstrated in the superior pole of the right kidney, though incompletely evaluated. Follow-up evaluation by nonemergent renal ultrasound recommended. Electronically signed by: Navi Berg MD 02/18/2022 1:25 AM CDT Due to temporary technical issues with the PACS/Fluency reporting system, reports are being signed by the in house radiologists without review as a courtesy to insure prompt reporting. The interpreting radiologist is fully responsible for the content of the report.
[2022-02-18 12:34] LABS: Potassium 5.4 mmol/L (3.5-5.1)
--- NOTE | 2022-02-18 19:36 | CON ---
Date of Consultation: 02/18/2022 Brief History Of Present Illness: The patient is an 86-year-old male with a history of atr ial flutter, on Eliquis, hypertension, coronary artery disease, status post pacemaker placement, Alzh eimer dementia, presents to the ER after a fall from standing. His family reports that he lives at [facility] alone, has a monitoring service. He went outside where they could not observe and he apparently fell. He apparently has a history of frequent falling with multiple bruises sustained from the previ ous week and he fell once again. He is complaining only of some tenderness to his facial area, predo minantly on the left face and some chest wall tenderness as well. He has no other complaints at this time; however, he does have dementia and he is fairly combative during our conversation. He does an swer questions, but once again quite confused at times with significant combative behavior. Past Medical History: Significant for atrial fib, atrial flutter, coronary artery disease, dementia, hypertension, and CKD. Past Surgical History: Includes a pacemaker, nephrectomy, hemodialysis catheter access placement. Information obtained primarily from the chart. The patient is and lives at home with a 24-ho observational service. Social History: He denies smoking, alcohol, or recreational drug use. The reliability of exam is a question. Review of Systems: Ten-point review of systems other than HPI, he complains of knee pain as well on the right knee. Oth erwise, no other complaints other than chest pain and mild facial pain at times. Physical Examination: General: At the time of my examination; he is awake and alert, but he is confused as described. HEENT: He has facial bruising on the left face and he has some bruising on the right face as well. Minimal tenderness to facial exam. There was no obvious facial fractures on palpation. No cranial t rauma or obvious injury noted as well. Neck: Supple without JVD. Chest: Expansion and excursion. Cardiovascular: Regular rate and rhythm. Pulmonary: Clear to auscultation bilaterally. Chest Wall: He has left-sided chest wall tenderness, particularly on the lateral and posterior aspec t. Abdomen: Soft, nontender, nondistended. No rebound. No guarding. No focal peritonitis. Pelvis is stable. No blood at meatus. Extremities: He has swelling to the right knee. Bilateral lower extremities have small bruising in various stages of development. Laboratory Data: He had a laboratory exam, which revealed a white blood cell count of 6.1, hemoglobi n is 8.6, hematocrit 25.4, platelet count was 129, neutrophils 70%. His sodium was 139, potassium wa s 5.7, chloride 111, carbon dioxide 21, BUN 71, creatinine 2.91. SARS-CoV negative. He had a trauma CT, which was officially read as suspected acute nondisplaced fracture of the posterior lateral left 11th rib, suspected healing fracture of the anterior lateral 7th rib on the left, cardiomegaly with mild pulmonary edema, anasarca, and trace bilateral effusions. No additional osseous abnormalities. No acute intracranial abnormalities. No acute abnormalities of cervical spine or other abnormality to the chest, abdomen or pelvis. Left nephrectomy changes, hyperdense cyst demonstrates suspected si mple renal cyst demonstrated in the superior pole of the right kidney, though incompletely evaluated. Assessment And Plan: The patient is an 86-year-old male, who comes in with left rib fractures and fa cial bruising after a fall. 1.IV fluid hydration. 2.Medical management. 3.Wound care to his facial wounds with Xeroform gauze to be placed on these areas away from his eyes . 4.Pulmonary toilet, respiratory treatments, incentive spirometry, daily chest x-rays for pulmonary c are. Going forward, I explained the risks, benefits, and alternatives of the above stated plan. The patient agrees to proceed as ind icated. NAVEEN/MEGHNA Voice ID: [id number] Report ID: [id number]
[2022-02-18 20:26] LABS: Potassium 5.6 mmol/L (3.5-5.1)
[2022-02-18] MEDS ORDERED: SOD POLYSTYREN SUL 15 GM/60 ML UCUP PO ONE (20:36)
[2022-02-19 00:34] LABS: Potassium 5.2 mmol/L (3.5-5.1)
[2022-02-19 04:15] LABS: Absolute Lymphocytes (CBC) 0.6 K/uL (0.7-4.9); Hematocrit 24.9 % (39.6-49.0); Lymphocytes % 9.1 % (15.3-44.8); MCV 101.8 fL (80-100); MPV 9.4 fL (7.6-11.3); RBC Red Blood Cell Count 2.45 M/uL (4.33-5.43)
[2022-02-19 04:38] LABS: Magnesium 1.9 mg/dL (1.8-2.4); Potassium 5.5 mmol/L (3.5-5.1); Thyroid Stimulating Hormone 1.68 uIU/mL (0.360-3.740)
--- NOTE | 2022-02-19 06:34 | EKG ---
Test Date: 2022-02-18 Test Time: 03:30:54 Assembly Riveter: ISH MEASUREMENT RESULTS: Intervals: Rate: 50 [place]: QRSD: 142 QT: 504 QTc: 459 [place]: P: 100 OH: QRS: -52 T: 16 INTERPRETIVE STATEMENTS: Demand pacemaker, interpretation is based on intrinsic rhythm Atrial flutter with variable AV block with premature ventricular or aberrantly conducted complexes Right bundle branch block Left anterior fascicular block Bifascicular block Abnormal ECG No previous ECG available for comparison Electronically Signed On 02-19-22 06:31:26 CDT by Chuck Lundy
--- NOTE | 2022-02-19 08:33 | RAD REPORT ---
EXAM DESCRIPTION: Patrick Single View02/19/2022 8:13 am CLINICAL HISTORY: Chest pain COMPARISON: February 18, 2022 FINDINGS: The lungs appear clear of acute infiltrate. The heart is mildly enlarged. Pacemaker leads in place. Small pleural effusions. The patient's known left rib fracture not clearly visualized on this exam. No pneumothorax seen
[2022-02-19] MEDS ORDERED: NA CHLORIDE 0.9% 500 ML IV ONE (11:20)
[2022-02-19] MEDS: D5W 1,000 ML IV SCH ×2 (12:00→22:00)
[2022-02-19] MEDS ORDERED: NA CHLORIDE 0.9% 1,000 ML IV SCH (12:00)
[2022-02-19] MEDS: DIVALPROEX SODIUM 125 MG PO SCH ×2 (12:45→19:40)
[2022-02-19] MEDS ORDERED: FUROSEMIDE 20 MG/ 2ML VIAL IV ONE (13:00)
[2022-02-19 14:50] LABS: Specific Gravity 1.013 (1.005-1.030); Urine Bilirubin NEGATIVE (Negative); Urine Blood Negative (Negative); Urine Clarity Clear (Clear); Urine Color Light-Yellow (Yellow); Urine Glucose NEGATIVE (Negative); Urine Protein NEGATIVE (Negative); Urine Urobilinogen Normal (Normal)
[2022-02-19] MEDS ORDERED: WATER FOR INJ,STERILE 10 ML IM PRN (16:38)
[2022-02-19] MEDS: ZIPRASIDONE MESYLA 20 MG/VIAL IM ONE ×2 (16:48→16:50)
[2022-02-19] MEDS ORDERED: ZIPRASIDONE MESYLA 20 MG/VIAL IM ONE ×2 (16:53→22:22)
--- NOTE | 2022-02-19 18:59 | P.PN ---
Subjective Date of Service: 02/19/22 Chief Complaint: Recurrent Falls, SISSY, Hyperkalemia Subjective: Improving (Patient has no new complaints, continues to be conversive but combative) Physical Examination - Vital Signs Temperature: 98.2 F Blood Pressure: 157/73 Pulse: 61 Respirations: 16 Pulse Ox (%): 100 - Physical Exam General: Alert, In no apparent distress, Cooperative HEENT: Other (facial bruising stable) Neck: Without JVD or thyroid abnormality Respiratory: Normal air movement, Other (chest wall tenderness to LEFT side is stable) Gastrointestinal: Soft and benign Neurological: Normal speech, Dementia Assessment And Plan - Current Problems (Diagnosis) (1) Ribs, multiple fractures Current Visit: Yes Status: Acute Plan: - continue medical management - xeroform to facial abrasions - pulmonary therapy with incentive spirometry
[2022-02-19] MEDS: MEMANTINE HCL 10 MG TABLET PO SCH (19:40)
[2022-02-19] MEDS: GALANTAMINE 4 MG TAB PO SCH (19:40)
[2022-02-19] MEDS: ATORVASTATIN 20 MG TAB PO SCH (19:40)
--- NOTE | 2022-02-19 21:25 | CON ---
Reason For Consultation: Consultation called because of multiple falls. History Of Present Illness: Mr. Linton is an 86-year-old patient with multiple medical problems inclu ding Alzheimer disease, atrial fibrillation and flutter, coronary artery disease, hypertension, and c hronic kidney disease who comes to [facility] after another fall where he fractured ribs and hit his left face. Apparently, the patient lives alone and there is a [id number]-pi-rmx who checks in on him. He was found to have the fall with pain in the left side and identified to have multiple ri b fractures. At [facility] his trauma series which included his head CT scan showed no acut e ischemic or hemorrhagic changes there; however, the study was remarkable for moderate global cerebr al atrophy. His laboratory studies suggested no infection, but he was mildly anemic with hemoglobin of 8.2. His electrolytes were consistent with significant dehydration. Creatinine is 2.67, potassiu m elevated to 5.7, BUN elevated to 73, chloride elevated to 113. Urinalysis showed 500 leukocyte est erases. COVID-19 testing was negative. His chest x-ray showed the rib fractures, but lungs were gorge ar and heart mildly enlarged. Since hospitalization, the patient has been at times belligerent, not following instructions, attempting to get out of bed and was actually able to ambulate to the bathroo m as observed by the nursing staff. At that point, he did not fall as he ambulated to the bathroom. Past Medical History: As noted above. Past Surgical History: Pacemaker placement and nephrectomy. Social History: He lives alone with 24 hour [facility] available. He has a vypxcwwf-uv-bpx who chec ks in on him, but wanted to be placed due to his poor safety awareness and poor judgment with multipl e falls and high fall risk. Social History: No alcohol, tobacco, or IV drug use. Review of Systems: The patient does not give a reliable review of systems. Current Medications: Norvasc 10 mg daily, aspirin 81 mg daily, Lipitor 20 mg at bedtime, galantamine 8 mg twice daily, and Namenda 10 mg twice daily. Physical Examination: Vital Signs: Blood pressure 157/73, pulse 61, respiratory rate 16, temperature 98.2, oxygen saturati on 100% on room air. Weight 171 pounds, height 5 feet 7 inches, BMI 26.8. General: Mr. Linton is resting in his hospital bed. He does know the city, the year, but not the exa ct date. He did follow commands to move his arms and they were moving equally well. He did not foll ow commands to move his legs, but again he was observed to be ambulating to the bathroom by nursing s fco. He was refusing to follow commands and at times said he wanted to leave and go home. He does have bruising over the left face and the arms, likely from multiple falls. Neurologic: In terms of cranial nerve examination, he has no focal deficits on 2 through 12. His mo tor examination: Again, the upper extremities he moves equally well. Unable to fully assess strengt h as the patient is not cooperative to do a strength exam. His legs did not move involuntarily, but that they were able to keep him upright and he did not fall when he ambulated to the restroom. Coord ination appears intact to the upper extremities. Reflexes are brisk in the upper and lower extremiti es. Assessment: Mr. Linton is an 86-year-old patient likely with dementia, possibly vascular dementia in addition to the Alzheimer disease who comes in with multiple falls and fractures and likely will requ zoey placement due to his poor decision making and high risk of falling with his lack of safety awaren ess. Plan: Continue with medications as indicated for his dementia, which includes galantamine and Namend a. Also continued all the medications as needed including hydration to help kidney function. He may be discharged, but to a facility with a memory care unit, which would be best for him. He may follow up in Dr. Paige's clinic in a month. MELANIE/MEGHNA Voice ID: [id number] Report ID: [id number]
[2022-02-19] MEDS ORDERED: HALOPERIDOL LACT 5 MG/ML INJ IV PRN (22:17)
[2022-02-20] MEDS ORDERED: LORazepam 2 MG/ML VIAL IM ONE ×2 (02:11→18:00)
[2022-02-20 05:37] LABS: Absolute Lymphocytes (CBC) 0.4 K/uL (0.7-4.9); Lymphocytes % 6.6 % (15.3-44.8); MCV 99.8 fL (80-100); MPV 8.7 fL (7.6-11.3)
[2022-02-20 06:15] LABS: Albumin 2.6 g/dL (3.4-5.0); Bilirubin Total 0.5 mg/dL (0.2-1.0); Folic Acid, (Folate) 17.1 ng/mL (3.1-17.5); Magnesium 1.8 mg/dL (1.8-2.4); Potassium 4.8 mmol/L (3.5-5.1); Protein, Total 5.4 g/dL (6.4-8.2)
[2022-02-20] MEDS: D5W 1,000 ML IV SCH ×2 (08:00→18:00)
--- NOTE | 2022-02-20 08:26 | RAD REPORT ---
EXAM DESCRIPTION: RAD - Chest Single View - 02/20/2022 5:37 am CLINICAL HISTORY: rib fractures Chest pain. COMPARISON: Chest Single View dated 02/19/2022; Head C Spine Cap Wo Con dated 02/18/2022 FINDINGS: Portable technique limits examination quality. The lungs are emphysematous with improvement in lung aeration since prior study. The heart is mildly enlarged in size with a dual lead pacer device present. No visible rib fracture by plain radiograph. IMPRESSION: Mild improvement in lung aeration is seen since yesterday's study.
[2022-02-20] MEDS ORDERED: LOSARTAN/HCTZ 50-12.5 PO SCH (09:00)
[2022-02-20] MEDS: ASPIRIN 81 MG CHEWABLE TABLET PO SCH (09:22)
[2022-02-20] MEDS: AMLODIPINE 10 MG TAB PO SCH (09:22)
[2022-02-20] MEDS: GALANTAMINE 4 MG TAB PO SCH ×2 (09:22→21:34)
[2022-02-20] MEDS: LACTOBACILLUS/ACIDOPHILUS TAB PO SCH (09:23)
[2022-02-20] MEDS: MEMANTINE HCL 10 MG TABLET PO SCH ×2 (09:23→21:34)
[2022-02-20] MEDS: DIVALPROEX SODIUM 125 MG PO SCH ×2 (09:23→21:00)
[2022-02-20] MEDS ORDERED: QUETIAPINE 25 MG TAB PO SCH (21:00)
[2022-02-20] MEDS: DIVALPROEX DR 250 MG TAB PO SCH (21:34)
[2022-02-20] MEDS: ATORVASTATIN 20 MG TAB PO SCH (21:34)
[2022-02-21] MEDS ORDERED: LORazepam 2 MG/ML VIAL IM ONE (01:30)
[2022-02-21] MEDS: D5W 1,000 ML IV SCH (02:42)
--- NOTE | 2022-02-21 02:43 | P.PN ---
Date of Service: 02/19/22 Subjective patient is clinically doing well. Patient had some agitation is some confusion. Code ahmadi called. Given Geodon. Physical Examination - Physical Exam General: Alert, In no apparent distress, Confused HEENT: PERRLA, Other (bruising and hematoma noted to left face), EOMI Neck: Supple, No LAD Respiratory: Clear to auscultation bilaterally, Normal air movement Cardiovascular: Regular rate/rhythm, Normal S1 S2 Gastrointestinal: Normal bowel sounds, No tenderness Musculoskeletal: Other (right knee edematous) Neurological: Normal tone, Sensation intact Assessment and Plan - Problems (Diagnosis) (1) Recurrent falls Current Visit: Yes Status: Acute (2) Anemia Current Visit: Yes Status: Chronic Qualifiers: Anemia type: unspecified type Qualified Code(s): D64.9 - Anemia, unspecified (3) Atrial flutter Current Visit: Yes Status: Chronic Qualifiers: Atrial flutter type: unspecified Qualified Code(s): I48.92 - Unspecified atrial flutter (4) Hyperkalemia Current Visit: Yes Status: Acute (5) Acute kidney injury superimposed on CKD Current Visit: Yes Status: Acute (6) Hypertension Current Visit: Yes Status: Chronic Qualifiers: Hypertension type: primary hypertension Qualified Code(s): I10 - Essential (primary) hypertension (7) Dementia Current Visit: Yes Status: Chronic Qualifiers: Dementia type: Alzheimer's Alzheimer's disease onset: unspecified onset Dementia behavioral disturbance: without behavioral disturbance Qualified Code(s): G30.9 - Alzheimer's disease, unspecified; F02.80 - Dementia in other diseases classified elsewhere without behavioral disturbance - Plan -Continue with gentle hydration; labs are improved -procurement services manager consult. Patient's son has been hesitant to put patient into alf but [id number]-lm-yvu is requesting delinquency prevention social worker consult -Appreciate General surgery consult -continue with physical therapy -Pain control -Monitor CBC -Eliquis for VTE ppx -Full code
--- NOTE | 2022-02-21 02:45 | P.PN ---
Date of Service: 02/20/22 Subjective Patient still with some confusion. Continue with Carin and [place]. Physical Examination - Physical Exam General: Alert, In no apparent distress, Confused HEENT: PERRLA, Other (bruising and hematoma noted to left face), EOMI Respiratory: Clear to auscultation bilaterally, Normal air movement Cardiovascular: Regular rate/rhythm, Normal S1 S2 Gastrointestinal: Normal bowel sounds, No tenderness Musculoskeletal: Other (right knee edematous) Neurological: Normal tone, Sensation intact Assessment and Plan - Problems (Diagnosis) (1) Recurrent falls Current Visit: Yes Status: Acute (2) Anemia Current Visit: Yes Status: Chronic Qualifiers: Anemia type: unspecified type Qualified Code(s): D64.9 - Anemia, unspecified (3) Atrial flutter Current Visit: Yes Status: Chronic Qualifiers: Atrial flutter type: unspecified Qualified Code(s): I48.92 - Unspecified atrial flutter (4) Hyperkalemia Current Visit: Yes Status: Acute (5) Acute kidney injury superimposed on CKD Current Visit: Yes Status: Acute (6) Hypertension Current Visit: Yes Status: Chronic Qualifiers: Hypertension type: primary hypertension Qualified Code(s): I10 - Essential (primary) hypertension (7) Dementia Current Visit: Yes Status: Chronic Qualifiers: Dementia type: Alzheimer's Alzheimer's disease onset: unspecified onset Dementia behavioral disturbance: without behavioral disturbance Qualified Code(s): G30.9 - Alzheimer's disease, unspecified; F02.80 - Dementia in other diseases classified elsewhere without behavioral disturbance - Plan Continue with plan of care as mentioned below: -Continue with Carin and [place]. Anticipate discharge in the next 24 hours -technical services assistant consult. Patient's son has been hesitant to put patient into senior living but qvsgwzhf-gh-vic is requesting licensed clinical social worker consult -Appreciate General surgery consult -continue with physical therapy -Pain control -Monitor CBC -Eliquis for VTE ppx -Full code
--- NOTE | 2022-02-21 03:04 | CON ---
Date of Consultation: 02/20/2022 Reason For Consultation: Left knee swelling. History Of Present Illness: Adolph is an 86-year-old male with history of atrial flutter, hypertens ion, coronary artery disease, as well as dementia who presented to the ER after a fall. The patient was found to have swelling and ecchymosis of his left knee. At that time, he had x-rays of the left knee, which were negative for any fracture or dislocation. X-rays did demonstrate some tricompartmen darron osteoarthritis. The patient did have some confusion during today's exam and history was obtained from the son. The son states that he does have intermittent pain and swelling of his left knee with some osteoarthritis. He has had corticosteroid injections in the past with minimal improvement in h is symptoms. Review of Systems: As above, otherwise negative. Past Medical History: AFib, coronary artery disease, dementia, hypertension, chronic kidney disease, and pacemaker placement. Past Surgical History: Pacemaker placement and nephrectomy. Social History: The patient lives at home. Denies tobacco or drug use or alcohol use. Family History: Reviewed, noncontributory. Physical Examination: General: No apparent distress. HEENT: Normocephalic, atraumatic. Neck: Supple. Cardiovascular: Brisk cap refill to all digits. Chest: Nonlabored breathing. Abdomen: Nondistended. Psychiatric: Responsive to exam. Musculoskeletal: Bilateral upper extremities: Functional range of motion without pain. No gross de formities. No obvious dislocations. Right lower extremity: Functional range of motion without pain . No gross deformities. No obvious dislocations. Left lower extremity: Ecchymosis over the medial knee with mild swelling. Stable to varus and valgus stresses. Neurovascular intact distally. Assessment And Plan: Adolph is an 86-year-old male with a left knee contusion with underlying osteo arthritis. No surgical intervention is indicated at this time. The patient may mobilize with physic al therapy and be weightbearing as tolerated and may ice the knee to aid with swelling at this time. He does have some chronic difficulty with swelling and may use a brace as needed; however, his son r eports some increased swelling with the use of a brace. He may follow up in clinic as needed. CV/MODL Voice ID: [id number] Report ID: [id number]
[2022-02-21 04:58] VITALS: O2SAT 96
--- NOTE | 2022-02-21 06:22 | RAD REPORT ---
EXAM DESCRIPTION: RAD - Chest Single View - 02/21/2022 5:23 am CLINICAL HISTORY: rib fractureschest pain COMPARISON: CT trauma study 02/18/2022, portable chest 02/20/2022 TECHNIQUE: AP portable chest image was obtained 02/21/2022 5:23 am . FINDINGS: No new mass or infiltrate. Lung parenchymal pattern is similar to comparison. Underlying i nterstitial edema or infiltrate cannot be excluded. Heart size is upper normal, stable with mild vascular engorgement. Two lead left subclavian pacemaker in place. Scarring changes are present. No pneumothorax or enlarging pleural effusion. The known open abnormality seen. The left eleventh rib fracture detailed on prior imaging is not wel l visualized on portable exam. No acute aortic findings suspected. IMPRESSION: Stable chest examination. Prominent interstitial pattern could mask underlying edema or infiltrate.
[2022-02-21] MEDS: DIVALPROEX SODIUM 125 MG PO SCH (09:00)
[2022-02-21] MEDS: LACTOBACILLUS/ACIDOPHILUS TAB PO SCH (09:23)
[2022-02-21] MEDS: MEMANTINE HCL 10 MG TABLET PO SCH (09:23)
[2022-02-21] MEDS: AMLODIPINE 10 MG TAB PO SCH (09:23)
[2022-02-21] MEDS: DIVALPROEX DR 250 MG TAB PO SCH (09:24)
[2022-02-21] MEDS: GALANTAMINE 4 MG TAB PO SCH (09:24)
[2022-02-21] MEDS: ASPIRIN 81 MG CHEWABLE TABLET PO SCH (09:24)
[2022-02-21 10:18] VITALS: TEMP 97.7
[2022-02-21 13:44] VITALS: BP 161/81
== END 2022-02-21 17:55 | disposition home or self-care (01) | DRG 184 ==
LOC: ER 23:52 → ERHOLD 02-18 05:09 → 4TH 02-18 19:43
PROVIDERS: ADMIT Hospitalist; ATTEND Hospitalist
DX: S22.42XA Multiple fractures of ribs, left side, initial encounter for closed fracture (principal); I48.92 Unspecified atrial flutter; N17.9 Acute kidney failure, unspecified; E87.5 Hyperkalemia; I48.91 Unspecified atrial fibrillation; I25.10 Atherosclerotic heart disease of native coronary artery without angina pectoris; G30.9 Alzheimer's disease, unspecified; F02.80 Dementia in other diseases classified elsewhere, unspecified severity, without behavioral disturbance, psychotic disturbance, mood disturbance, and anxiety; I12.9 Hypertensive chronic kidney disease with stage 1 through stage 4 chronic kidney disease, or unspecified chronic kidney disease; N18.9 Chronic kidney disease, unspecified; D63.1 Anemia in chronic kidney disease; G31.9 Degenerative disease of nervous system, unspecified; M17.12 Unilateral primary osteoarthritis, left knee; E86.0 Dehydration; S09.90XA Unspecified injury of head, initial encounter; S41.012A Laceration without foreign body of left shoulder, initial encounter; S51.012A Laceration without foreign body of left elbow, initial encounter; Z79.01 Long term (current) use of anticoagulants; Z60.2 Problems related to living alone; Z95.0 Presence of cardiac pacemaker; Z79.82 Long term (current) use of aspirin; Z91.81 History of falling; Z28.310 Unvaccinated for COVID-19; Z79.899 Other long term (current) drug therapy; Z20.822 Contact with and (suspected) exposure to COVID-19; W01.0XXA Fall on same level from slipping, tripping and stumbling without subsequent striking against object, initial encounter; Y92.093 Driveway of other non-institutional residence as the place of occurrence of the external cause; Y93.9 Activity, unspecified
CPT/HCPCS: 36415; 70450; 71045; 71250; 72125; 80048; 80053; 80061; 81001; 82088; 82550; 82607; 82746; 82947; 83540; 83735; 83880; 84100; 84132; 84244; 84443; 85025; 85044; 86850; 86900; 86901; 87086; 87088; 87811; 93005; 96374; 96375; 97116; 97161; 97530; 99285; J0610; J1815; J3486